=== PATIENT | female | born 1985 | race Caucasian/White ===

== ENCOUNTER 2023-11-07 11:01 | Observation (INO) | payer MEDICARE, MEDICAID, SELFPAY ==
[2023-11-07] VITALS (10 sets, daily range): BP systolic 132–172; BP diastolic 88–98; PULSE 77–115; RESP 16–20; TEMP 36.3–36.9; O2SAT 98–99; BMI 25.4; BMI 21.8
[2023-11-07] MEDS: 0.9 % SODIUM CHLORIDE 1,000 ML 999 ML IV (11:35)
[2023-11-07] MEDS: ONDANSETRON PF 4 MG/2 ML VIAL IV ×3 (11:35→18:44)
[2023-11-07] MEDS: PROMETHAZINE HCL 25 MG in 0.9 % SODIUM CHLORIDE 50 ML 204 MG IV (11:35)
[2023-11-07 11:39] LABS: Hematocrit 39.4 % (36.0-48.0); Hemoglobin 13.5 g/dL (12.0-16.0); Mean Corpuscular HGB Conc 34.3 g/dL (29.9-35.2); Mean Corpuscular Hemoglobin 31.3 pg (26.7-34.0); Mean Corpuscular Volume 91.4 fL (81.0-99.0); Mean Platelet Volume 9.2 fL (9.5-13.5); Platelet Count 466 10^3/uL (150-450); Red Blood Count 4.31 10^6/uL (4.20-5.40); Red Cell Distribution Width 12.2 % (11.0-15.0); White Blood Count 23.3 10^3/uL (4.0-11.0)
--- NOTE | 2023-11-07 11:46 | ED_ITS ---
HPI - General Adult General Chief complaint: Abdominal Pain Stated complaint: NAUSEA AND VOMITING Time Seen by Provider: 11/07/23 11:06 Source: patient Mode of arrival: walk-in Limitations: no limitations History of Present Illness HPI narrative: Nausea, vomiting and mid abdominal pain started yesterday. No relief taking reglan and phenergan at home - not sure who prescribed both of these for her, would not recommend taking both together. She told me that she was leaving town to go on vacation and we had to turn around and come back because of the vomiting and the pain. No urinary symptoms. No diarrhea. She told me that she saw blood in her emesis earlier but when she vomited shortly after arrival it was just gastric juices that came up in the basin - no blood. Related Data Home Medications ?Medication ?Instructions ?Recorded ?Confirmed clonidine HCl 0.1 mg tablet 0.1 mg PO BID 11/07/23 11/07/23 cyanocobalamin (vitamin B-12) 1,000 mcg PO DAILY 11/07/23 11/07/23 1,000 mcg tablet ergocalciferol (vitamin D2) 1,250 1,250 mcg PO .weekly 11/07/23 11/07/23 mcg (50,000 unit) capsule lisdexamfetamine 10 mg capsule 10 mg PO DAILY 11/07/23 11/07/23 promethazine 25 mg tablet 25 mg PO Q6H PRN vomiting 11/07/23 11/07/23 propranolol 40 mg tablet 40 mg PO Q12H 11/07/23 11/07/23 quetiapine 50 mg tablet 150 mg PO DAILY 11/07/23 11/07/23 tizanidine 6 mg capsule 6 mg PO Q12H PRN muscle spasticity 11/07/23 11/07/23 Allergies Allergy/AdvReac Type Severity Reaction Status Date / Time No Known Drug Allergies Allergy Verified 11/07/23 11:05 Exam Narrative Exam Narrative: Nurses notes and vital signs reviewed and patient is not hypoxic. afebrile General: Well-appearing and in no apparent distress. Skin: Warm, dry, no pallor noted. No rash. Head: Normocephalic, atraumatic. Neck: Supple, non-tender. Eye: Pupils are equal, round and EOMI. No scleral icterus. Ears, Nose, Mouth, and Throat: Oral mucosa is moist Cardiovascular: tachycardia. Respiratory: No accessory muscle use or respiratory distress. Lungs are clear to auscultation, no wheezing, rales or rhonchi Chest Wall: no tenderness Back: No CVA tenderness Musculoskeletal: normal ROM, no calf or popliteal tenderness, no lower extremity edema/swelling GI: Abdomen is soft, non-distended. Normal bowel sounds. No masses appreciated. midline tenderness to palpation. No rebound, guarding, or rigidity noted. Neurological: A&O x4. No cranial nerve dysfunction observed. No truncal ataxia. Moves all extremities. Sensation intact. Psychiatric: Cooperative and interactive. Normal mood and affect. Constitutional Vital Signs, click to edit/add: Last Vital Signs Temp 97.4 F L 11/07/23 11:09 Pulse 115 H 11/07/23 11:09 Resp 20 11/07/23 11:09 BP 158/98 H 11/07/23 11:09 Pulse Ox 98 11/07/23 11:09 O2 Del Method Room Air 11/07/23 11:09 Course Vital Signs Vital signs: Vital Signs Temperature 97.4 F L 11/07/23 11:09 Pulse Rate 115 H 11/07/23 11:09 Respiratory Rate 20 11/07/23 11:09 Blood Pressure 158/98 H 11/07/23 11:09 Pulse Oximetry 98 11/07/23 11:09 Oxygen Delivery Method Room Air 11/07/23 11:09 Temperature 97.4 F L 11/07/23 11:09 Pulse Rate 115 H 11/07/23 11:09 Respiratory Rate 20 11/07/23 11:09 Blood Pressure 158/98 H 11/07/23 11:09 Pulse Oximetry 98 11/07/23 11:09 Oxygen Delivery Method Room Air 11/07/23 11:09 Medical Decision Making MDM Narrative Medical decision making narrative: Peripheral IV established and blood drawn and sent for testing. The patient was ordered to receive normal saline IV fluid bolus, IV Zofran and IV Phenergan. Abdominal x-rays also ordered to be obtained. WBC 23k. CMP notable for decreased CO2 at 19, slightly elevated Cr 1.3, normal LFTs, total bilirubin and lipase. Procalcitonin negative but Lactate elevated at 4. Abd xrays normal - no ileus or obstruction Patient sent for CT scan abd and pelvis with IVC. She was given IV Cipro for sepsis coverage. Blood cultures pending and she could not give us a urine sample. CT = no acute abdominal or pelvic process, nothing to account for the patient's symptoms. Patient was still unable to give us a urine sample at the conclusion of the patient's workup. Despite getting multiple doses of anti-emetics and pain meds, she felt no better. She was agreeable to admission. Discussed admission and call placed to the sonography technician hospitalist. Dr Metcalf and I discussed the patient's case and she agreed to admit the patient for continued treatment - OVF, antiemetics, trending lactate, check urine once patient gives a sample. I do not have a source of the sepsis at this point - may be reactive from dehydration secondary to vomiting. Lab Data Lab results reviewed: Yes I reviewed the patient's lab results Labs: Lab Results 11/07/23 11/07/23 Range/Units 11:27 13:53 WBC 23.3 H (4.0-11.0) 10^3/uL RBC 4.31 (4.20-5.40) 10^6/uL Hgb 13.5 (12.0-16.0) g/dL Hct 39.4 (36.0-48.0) % MCV 91.4 (81.0-99.0) fL MCH 31.3 (26.7-34.0) pg MCHC 34.3 (29.9-35.2) g/dL RDW 12.2 (11.0-15.0) % Plt Count 466 H (150-450) 10^3/uL MPV 9.2 L (9.5-13.5) fL Seg Neuts % (Manual) 92.0 Lymphocytes % (Manual) 5.0 L (20.5-60.0) % Monocytes % (Manual) 3.0 (1.7-12.0) % Eosinophils % (Manual) 0.0 L (0.9-7.0) % Basophils % (Manual) 0.0 L (0.2-2.0) % Neutrophils # (Manual) 21.43 H (1.4-6.5) 10^3/uL Lymphocytes # (Manual) 1.16 L (1.20-3.80) 10^3/uL Monocytes # (Manual) 0.69 (0.30-0.80) 10^3/uL Eosinophils # (Manual) 0.00 (0.00-0.70) 10^3/uL Basophils # (Manual) 0.00 (0.00-0.10) 10^3/uL Sodium 138 (136-145) mmol/L Potassium 3.6 (3.5-5.1) mmol/L Chloride 99 (98-107) mmol/L Carbon Dioxide 19.1 L (21.0-32.0) mmol/L Anion Gap 23.5 BUN 16.0 (7.0-18.0) mg/dL Creatinine 1.31 H (0.55-1.02) mg/dL Est GFR ( Amer) 54 L (>=60) Est GFR (Non-Af Amer) 45 L (>=60) BUN/Creatinine Ratio 12.2 Glucose 112 H (74-106) mg/dL Lactate 4.0 H* (0.4-2.0) mmol/L Calcium 9.8 (8.5-10.1) mg/dL Total Bilirubin 0.9 (0.2-1.0) mg/dL AST 23 (15-37) U/L ALT 18 (14-59) U/L Alkaline Phosphatase 101 (46-116) U/L Total Protein 8.6 H (6.4-8.2) g/dL Albumin 4.8 (3.4-5.0) g/dL Globulin 3.8 g/dL Albumin/Globulin Ratio 1.3 Lipase 18.0 (16.0-77.0) U/L Procalcitonin <0.05 (0.00-0.50) ng/mL Urine Color Lt. yellow (YELLOW) Urine Clarity Clear (CLEAR) Urine pH 6.0 (5.0-9.0) Ur Specific [place] 1.010 (1.005-1.025) Urine Protein Negative (NEG/TRACE) mg/dL Urine Glucose (UA) Negative (NEGATIVE) mg/dL Urine Ketones 15 A (NEGATIVE) mg/dL Urine Occult Blood Trace-i (NEGATIVE) Urine Nitrite Negative (NEGATIVE) Urine Bilirubin Negative (NEGATIVE) Urine Urobilinogen 0.2 (0.2-1.0) EU/dL Ur Leukocyte Esterase Negative (NEGATIVE) Imaging Data CT scan - abdomen: Radiologist's impression: ITS Impressions Abdomen X-Ray 11/07/23 11:49 IMPRESSION: Negative gas pattern without evidence of ileus or obstruction. No free air. Electronically authenticated by: DELMY HERRERA Date: 11/07/2023 12:42 Abdomen/Pelvis CT 11/07/23 12:41 Impression: 1. No evidence of acute abdominal or pelvic process. 2. Mild diffuse fatty infiltration of the liver. Small hiatus hernia. Electronically authenticated by: NAYELI ISAAC Date: 11/07/2023 13:57 Discharge Plan Discharge Stand Alone Forms: Portal Instructions Chief Complaint: Abdominal Pain Clinical Impression: Intractable abdominal pain, Severe sepsis, Intractable nausea and vomiting Patient Disposition: Admitted as Observation Time of Disposition Decision: 14:24 Prescriptions / Home Meds: No Action clonidine HCl 0.1 mg tablet 0.1 mg PO BID cyanocobalamin (vitamin B-12) 1,000 mcg tablet 1,000 mcg PO DAILY ergocalciferol (vitamin D2) 1,250 mcg (50,000 unit) capsule 1,250 mcg PO .weekly lisdexamfetamine 10 mg capsule 10 mg PO DAILY promethazine 25 mg tablet 25 mg PO Q6H PRN (Reason: vomiting) propranolol 40 mg tablet 40 mg PO Q12H quetiapine 50 mg tablet 150 mg PO DAILY tizanidine 6 mg capsule 6 mg PO Q12H PRN (Reason: muscle spasticity) Print Language: Hungarian Referrals: Beck Christina MD [Primary Care Provider] - 1 week
--- NOTE | 2023-11-07 11:49 | XR_ITS ---
The [address] [address] Patient Name: MARCELINO XAVIER MRN: [id number] date: 1985 Sex: F Assigned Patient Location: ER Current Patient Location: ER Accession/Order Number: [id number] Exam Date: 11/07/2023 12:05 Report Date: 11/07/2023 12:42 At the request of: KENNETH DURAN Procedure: XR abdomen min 2V EXAM: XR abdomen min 2V HISTORY: abd pain, vomiting COMPARISON: None. TECHNIQUE: Supine and upright abdominal x-ray. FINDINGS: No bowel distention or free air seen. Small amounts of bowel gas centrally and in the pelvis. Soft tissues unremarkable except for vascular clips right upper quadrant and a few vascular calcifications. Lung bases clear. Mild scoliosis may be positional. No focal bone lesion or bony abnormality. XR/XR abdomen min 2V IMPRESSION: Negative gas pattern without evidence of ileus or obstruction. No free air. Electronically authenticated by: DELMY HERRERA Date: 11/07/2023 12:42
[2023-11-07] MEDS: KETOROLAC TROMETHAMINE 30 MG/ML VIAL IVP ×2 (11:54→18:44)
[2023-11-07 12:06] LABS: Lymphocytes Absolute Manual 1.16 10^3/uL (1.20-3.80); Monocytes Absolute Manual 0.69 10^3/uL (0.30-0.80); Segmented Neut Absolute Manual 21.43 10^3/uL (1.4-6.5)
[2023-11-07 12:13] LABS: Alanine Aminotransferase 18 U/L (14-59); Albumin Globulin Ratio 1.3; Albumin Level 4.8 g/dL (3.4-5.0); Anion Gap 23.5; Aspartate Amino Transferase 23 U/L (15-37); BUN Creatinine Ratio 12.2; Bilirubin Total 0.9 mg/dL (0.2-1.0); Calcium 9.8 mg/dL (8.5-10.1); Carbon Dioxide 19.1 mmol/L (21.0-32.0); Chloride 99 mmol/L (98-107); Estimated GFR (African America 54 (>=60); Estimated GFR (Non-African Ame 45 (>=60); Globulin 3.8 g/dL; Glucose 112 mg/dL (74-106); PROCALCITONIN <0.05 ng/mL (0.00-0.50); Potassium 3.6 mmol/L (3.5-5.1); Sodium 138 mmol/L (136-145); Total Protein 8.6 g/dL (6.4-8.2)
[2023-11-07 12:26] LABS: Alkaline Phosphatase 101 U/L (46-116)
[2023-11-07] MEDS: 0.9 % SODIUM CHLORIDE 1,000 ML 1000 ML IV (12:31)
--- NOTE | 2023-11-07 12:41 | CT_ITS ---
[address] [address] Patient Name: MARCELINO XAVIER MRN: [id number] date: 1985 Sex: F Assigned Patient Location: ER Current Patient Location: Accession/Order Number: [id number] Exam Date: 11/07/2023 13:15 Report Date: 11/07/2023 13:57 At the request of: KENNETH DURAN Procedure: CT abdomen pelvis w con Indication: Abdominal pain. Vomiting. Comparison: 12/08/2021 exam Procedure: Axial images were made from the diaphragms through the symphysis pubis. No oral contrast was given prior to scanning. 100 mL Omnipaque 300 Intravenous contrast was given. Dose reduction techniques were achieved by using automated exposure control and/or adjustment of mA and/or kV according to patient size and/or use of iterative reconstruction technique. Findings: Liver/Biliary System: No liver masses are seen. Mild diffuse fatty infiltration of the liver. No intra or extrahepatic biliary dilatation. Status postcholecystectomy. Pancreas/Spleen: No evidence of acute pancreatitis. Pancreatic duct is not dilated. No pancreatic lesions are seen. No splenomegaly or splenic lesions. Kidneys/Adrenals: Normal symmetrical nephrograms. No renal masses. No renal or ureteral stones are seen. No hydronephrosis or hydroureter bilaterally. No adrenal nodules. Aorta/Vessels: No evidence of aortic aneurysm. Patent IVC, renal veins, hepatic veins and portal venous system. Bowel/Fluid/Nodes: No bowel dilatation or bowel wall thickening. No evidence of bowel obstruction. Normal appendix. Small hiatus hernia. No ascites or fluid collections. No adenopathy. Lung bases: Clear. Other findings: No aggressive osseous lesions are seen. Pelvis: No pelvic masses or adenopathy. No free fluid seen in the pelvis. Bladder and adnexa are unremarkable. Status post hysterectomy. Other Findings: No aggressive osseous lesions are seen. CT/CT abdomen pelvis w con Impression: 1. No evidence of acute abdominal or pelvic process. 2. Mild diffuse fatty infiltration of the liver. Small hiatus hernia. Electronically authenticated by: NAYELI ISAAC Date: 11/07/2023 13:57
[2023-11-07] MEDS: HYDROMORPHONE HCL 1 MG/ML CARTRIDGE IVP ×2 (12:53→14:27)
[2023-11-07] MEDS: CIPROFLOXACIN IN 5 % DEXTROSE 400 MG/200 ML PIGGYBACK 200 MG IV (12:54)
[2023-11-07 14:18] LABS: Bilirubin Urine NEGATIVE (NEGATIVE); Blood Urine TRACE-I (NEGATIVE); Clarity Urine CLEAR (CLEAR); Color Urine LT. YELLOW (YELLOW); Glucose Urine UA NEGATIVE (NEGATIVE); Ketones Urine 15 mg/dL (NEGATIVE); Leukocyte Esterase Urine NEGATIVE (NEGATIVE); Nitrite Urine NEGATIVE (NEGATIVE); Protein Urine NEGATIVE (NEG/TRACE); Urobilinogen Urine 0.2 EU/dL (0.2-1.0)
[2023-11-07 14:19] LABS: Urine Microscopic Indicated YES
[2023-11-07 14:32] LABS: Bacteria Urine TRACE #/HPF (NONE SEEN); Cast Seen? NONE SEEN #/LPF (NONE SEEN); Crystals Seen? None Seen #/HPF (None Seen); Mucus Urine TRACE (NONE SEEN); RBC Urine 0-2 #/HPF (0-2); Squamous Epithelial Cell Urine MANY #/LPF (NONE/RARE); Urine Culture Indicated NO; WBC Urine NONE SEEN #/HPF (NONE SEEN)
[2023-11-07 15:20] LABS: Lactate/Lactic Acid 1.8 mmol/L (0.4-2.0)
[2023-11-07 15:44] LABS: Amphetamine Screen Urine NEGATIVE (NEGATIVE); Cannabinoid Screen Urine POSITIVE (NEGATIVE); Cocaine Screen Urine NEGATIVE (NEGATIVE); Methamphetamines Screen Urine NEGATIVE (NEGATIVE); Opiate Screen Urine POSITIVE (NEGATIVE); Phencyclidine Screen Urine NEGATIVE (NEGATIVE)
[2023-11-07 15:46] LABS: Barbiturates Screen Urine NEGATIVE (NEGATIVE); Benzodiazepines Screen Urine NEGATIVE (NEGATIVE); Buprenorphine Screen Urine NEGATIVE (NEGATIVE); Methadone Screen Urine NEGATIVE (NEGATIVE); Oxycodone Screen Urine NEGATIVE (NEGATIVE); Tricyclic Antidepressant Urine NEGATIVE (NEGATIVE)
[2023-11-07 16:02] LABS: Hemoglobin 11.8 g/dL (12.0-16.0); Mean Corpuscular HGB Conc 33.7 g/dL (29.9-35.2); Mean Corpuscular Hemoglobin 31.6 pg (26.7-34.0); Mean Corpuscular Volume 93.6 fL (81.0-99.0); Mean Platelet Volume 9.2 fL (9.5-13.5); Platelet Count 325 10^3/uL (150-450); Red Blood Count 3.74 10^6/uL (4.20-5.40); Red Cell Distribution Width 12.4 % (11.0-15.0); White Blood Count 18.4 10^3/uL (4.0-11.0)
[2023-11-07 16:27] LABS: Segmented Neut Absolute Manual 15.64 10^3/uL (1.4-6.5)
[2023-11-07 16:28] LABS: Band Neutrophils Absolute 0.4 10^3/uL (0.0-0.3); Lymphocytes Absolute Manual 0.73 10^3/uL (1.20-3.80); Monocytes Absolute Manual 1.65 10^3/uL (0.30-0.80)
--- NOTE | 2023-11-07 16:39 | P.HP_ITS ---
HPI H&P: HPI History of Present Illness Chief complaint: NAUSEA AND VOMITING severe sepsis intractable abdo Narrative: patient is a 38-year-old female with past medical history of POTS, depression, and anxiety who presents to the hospital today with a sore throat and some nausea and vomiting. She notes that she was group home to [place] and had to turn around because of car trouble but then developed some nausea and vomiting of which she could not stop. She has a history of cyclic vomiting but has been many months since hospitalization for this. Her urine drug screen was positive for THC. She has been taking amoxicillin for some presumed strep throat, but nothing that was ever cultured or diagnosed. 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 In the emergency department she was found to have a leukocytosis, tachycardia, elevated lactate and met sepsis criteria so was given IV fluid bolus/hydration. At the time of admission exam she states that her nausea and vomiting have improved, but still just feels achy, and still reports a sore throat. She has had a few bouts of diarrhea, but no fevers reported. She was admitted to the hospitalist service for further treatment. Opioid HPI Opioid Management Most Recent Opioid Data: Last Pain Assessment 11/07/23 17:03 Last MAR Pain Assessment 11/07/23 17:01 Last ORT Total Score 1 11/07/23 16:18 Last ORT Risk Category Low Risk 11/07/23 16:18 Ur Phencyclidine Scrn Negative (NEGATIVE) 11/07/23 13:53 Review of Systems ROS Narrative ROS: a complete review of systems were reviewed with patient and are positive as below or listed in History of Chief Complaint. General: no fever, chills, night sweats Head: no headache, trauma, visual changes Skin: no reported rashes, itching or sores Eyes: no blurriness of vision Ears: no reported hearing loss, vertigo, earache, or tinnitus Throat: sore throat, no hoarseness, swelling of neck, or tongue pain Heart: no chest pain Lungs: no shortness of breath or cough GI: diarrhea and vomiting/nausea Urinary: no urinary urgency, frequency or pain Neuro: no numbness or tingling HEM: no bleeding issues or bruising ENDO: no thyroid problems Psych: anxiety and depression [facility] Medical History (Updated 11/07/23 @ 17:39 by Aga Metcalf DO) 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, unspecified (ICD-10) Hypertension ?I10 - Essential (primary) hypertension (ICD-10) Cyclical vomiting ?R11.15 - Cyclical vomiting syndrome unrelated to migraine (ICD-10) POTS (postural orthostatic tachycardia syndrome) ?G90.A - Postural orthostatic tachycardia syndrome [POTS] (ICD-10) Surgical History History of removal of Port-a-Cath ?Z98.890 - Other specified postprocedural states (ICD-10) H/O LEEP ?Z98.890 - Other specified postprocedural states (ICD-10) H/O: hysterectomy ?Z90.710 - Acquired absence of both cervix and uterus (ICD-10) History of cholecystectomy ?Z90.49 - Acquired absence of other specified parts of digestive tract (ICD- 10) Family History Father Family history of diabetes mellitus Mother Family history of hypertension Family history of myocardial infarction Social History Within the past year, how often did you have a drink containing alcohol: never Within the past year, how many standard drinks containing alcohol did you have on a typical day: 1 or 2 Within the past year, how often did you have six or more drinks on one occasion: never Total score: 0 Score interpretation: A score less than 3 is consistent with normal alcohol consumption. Smoking status: Never smoker Second hand tobacco smoke exposure: No Non-prescribed substance use: denies use Known occupational exposures/hazards: No Highest level of school completed/degree received: some college, no degree Are you now , , , , never or living with a partner: In a typical week, how many times do you talk on the telephone with family, friends, or neighbors: 3 or more times per week How often do you get together with friends or relatives: 3 or more times per week How often do you attend pentecostal or alevism services: never Do you belong to any clubs or organizations such as pentecostal groups unions, fraternal or athletic groups, or school groups: no Total score: 2 Score interpretation: A score of greater than or equal to [address] [facility] [address] level of social isolation. Little interest or pleasure in doing things: not at all Feeling down, depressed, or hopeless: not at all Feel stressed/tense/nervous/anxious/difficulty sleeping: not at all Due to disability, difficulty making decisions: No Do you think of yourself as: straight/heterosexual Gender Identity: female Meds Home Medications and Allergies Home Medications ?Medication ?Instructions ?Recorded ?Confirmed ?Type amoxicillin 500 mg capsule 500 mg PO Q8H 11/07/23 11/07/23 History atomoxetine 80 mg capsule 80 mg PO .QD 11/07/23 11/07/23 History clonidine HCl 0.1 mg tablet 0.1 mg PO BID 11/07/23 11/07/23 History cyanocobalamin (vitamin B-12) 1,000 mcg PO DAILY 11/07/23 11/07/23 History 1,000 mcg tablet ergocalciferol (vitamin D2) 1,250 1,250 mcg PO .weekly 11/07/23 11/07/23 History mcg (50,000 unit) capsule lisdexamfetamine 10 mg capsule 10 mg PO DAILY 11/07/23 11/07/23 History propranolol 20 mg tablet 20 mg PO Q12H 11/07/23 11/07/23 History propranolol 40 mg tablet 40 mg PO Q12H 11/07/23 11/07/23 History quetiapine 50 mg tablet 150 mg PO DAILY 11/07/23 11/07/23 History tizanidine 6 mg capsule 6 mg PO Q12H PRN muscle spasticity 11/07/23 11/07/23 History Allergies Allergy/AdvReac Type Severity Reaction Status Date / Time No Known Drug Allergies Allergy Verified 11/07/23 11:05 Exam Narrative Exam Narrative: General: Patient is alert, and oriented to person, place and time with normal affect, proper hygiene Skin: no visible rashes, or ulcers Head: atraumatic, acephalic Eyes: PERRLA, no nystagmus present, conjunctiva clear, no scleral icterus Ears: normal gross auditory acuity Nose: symmetric, no discharge, no maxillary or frontal sinus tenderness Mouth/Throat: no erythema, exudate, or tonsillar enlargement, normal dentition Neck: no masses palpated, normal thyroid, no JVD or audible carotid bruits Heart: Normal rate and rhythm, no murmurs/rubs/gallops Lungs: no audible wheezes, crackles and normal breath sounds all lung [place] Abdomen: Normal audible bowel sounds, no distension, No palpable masses, no organomegaly, no rebound/guarding/ or rigidity Musculoskeletal: no swelling bilateral lower extremities Neuro: CN II-X grossly intact Constitutional Vital Signs, click to edit/add: Last Vital Signs Temp 98.2 F 11/07/23 16:23 Pulse 102 H 11/07/23 16:23 Resp 16 11/07/23 16:23 BP 132/88 11/07/23 16:23 Pulse Ox 98 11/07/23 16:23 O2 Del Method Room Air 11/07/23 16:23 Results Labs Labs: Short CBC 11/07/23 11/07/23 Range/Units 11:27 15:53 WBC 23.3 H 18.4 H (4.0-11.0) 10^3/uL Hgb 13.5 11.8 L (12.0-16.0) g/dL Hct 39.4 35.0 L (36.0-48.0) % Plt Count 466 H 325 (150-450) 10^3/uL BMP 11/07/23 11:27 Sodium 138 Potassium 3.6 Chloride 99 Carbon Dioxide 19.1 L BUN 16.0 Creatinine 1.31 H Glucose 112 H Calcium 9.8 Liver Function 11/07/23 Range/Units 11:27 Total Bilirubin 0.9 (0.2-1.0) mg/dL AST 23 (15-37) U/L ALT 18 (14-59) U/L Alkaline Phosphatase 101 (46-116) U/L Albumin 4.8 (3.4-5.0) g/dL Urine 11/07/23 Range/Units 13:53 Urine Color Lt. yellow (YELLOW) Urine Clarity Clear (CLEAR) Urine pH 6.0 (5.0-9.0) Ur Specific [place] 1.010 (1.005-1.025) Urine Protein Negative (NEG/TRACE) mg/dL Urine Glucose (UA) Negative (NEGATIVE) mg/dL Assessment and Plan Assessment and Plan (1) Sepsis: Assessment and Plan: daugherty cultures obtained, patient was given Cipro in the emergency department, IV fluid boluses were also initiated. I started lactated Ringer's at one 25 mL/h. Lactate was originally elevated and then came down to normal on recheck at 1.8. Patient also had leukocytosis of twenty-three which came down to eighteen with some IV fluids. Urinalysis was negative, blood cultures, respiratory panel and strep screen are all pending. I have not initiated any further antibiotics until results come back. Qualifiers: Sepsis type: sepsis due to unspecified organism Sepsis acute organ dysfunction status: without acute organ dysfunction Qualified Code(s): A41.9 - Sepsis, unspecified organism (2) Nausea and vomiting: Assessment and Plan: continue Zofran IV as needed, may also be due to THC use Qualifiers: Vomiting type: unspecified Qualified Code(s): R11.2 - Nausea with vomiting, unspecified (3) Hypertension: Assessment and Plan: continue home medications Qualifiers: Hypertension type: primary hypertension Qualified Code(s): I10 - Essential (primary) hypertension (4) POTS (postural orthostatic tachycardia syndrome): Assessment and Plan: monitor closely fluid hydration status, continue propranolol Plan patient is a full code Patient as an observation status and is expected to not cross two midnights Patient will be placed on Lovenox for deep vein thrombosis prophylaxis, advance diet to clear liquids
[2023-11-07] MEDS: ACETAMINOPHEN 325 MG TABLET 650 MG PO (17:01)
[2023-11-07] MEDS: LACTATED RINGER'S SOLUTION 1,000 ML 125 ML IV (17:16)
[2023-11-07] MEDS: PANTOPRAZOLE SODIUM 40 MG VIAL IV (17:16)
[2023-11-07 17:38] LABS: Adenovirus NOT DETECTED (NOT DETECTE); Bordetella parapertussis NOT DETECTED (NOT DETECTE); Coronavirus 229E NOT DETECTED (NOT DETECTE); Coronavirus HKU1 NOT DETECTED (NOT DETECTE); Coronavirus OC43 NOT DETECTED (NOT DETECTE); Human Metapneumovirus NOT DETECTED (NOT DETECTE); Human Rhinovirus/Enterovirus NOT DETECTED (NOT DETECTE); Influenza A NOT DETECTED (NOT DETECTE); Influenza B NOT DETECTED (NOT DETECTE); Mycoplasma pneumoniae NOT DETECTED (NOT DETECTE); Parainfluenza Virus 1 NOT DETECTED (NOT DETECTE); Parainfluenza Virus 2 NOT DETECTED (NOT DETECTE); Parainfluenza Virus 3 NOT DETECTED (NOT DETECTE); Parainfluenza Virus 4 NOT DETECTED (NOT DETECTE); Respiratory Syncytial Virus NOT DETECTED (NOT DETECTE); SARS-CoV-2 NOT DETECTED (NOT DETECTE)
[2023-11-07 17:50] LABS: Internal Control Within Normal Limits; Strep A Antigen Screen Negative
[2023-11-07 18:50] LABS: Coronavirus NL63 DETECTED (NOT DETECTE)
[2023-11-07] MEDS: CLONIDINE HCL 0.1 MG TABLET 0.100000000000000006 MG PO (20:22)
[2023-11-07] MEDS: PROPRANOLOL HCL 20 MG TABLET 40 MG PO (20:23)
[2023-11-07] MEDS: PROCHLORPERAZINE 10 MG/2 ML VIAL IV (22:00)
[2023-11-08] VITALS (12 sets, daily range): BP systolic 123–154; BP diastolic 76–105; PULSE 79–105; RESP 16–18; TEMP 36.7–36.9; O2SAT 95–97
[2023-11-08] MEDS: LACTATED RINGER'S SOLUTION 1,000 ML 125 ML IV ×2 (00:14→08:09)
[2023-11-08] MEDS: ONDANSETRON PF 4 MG/2 ML VIAL IV (01:14)
[2023-11-08] MEDS: KETOROLAC TROMETHAMINE 30 MG/ML VIAL IVP ×2 (01:14→09:24)
[2023-11-08 05:36] LABS: Alanine Aminotransferase 13 U/L (14-59); Albumin Globulin Ratio 1.1; Albumin Level 3.6 g/dL (3.4-5.0); Alkaline Phosphatase 76 U/L (46-116); Anion Gap 15.5; Aspartate Amino Transferase 24 U/L (15-37); BUN Creatinine Ratio 13.5; Carbon Dioxide 23.9 mmol/L (21.0-32.0); Chloride 102 mmol/L (98-107); Estimated GFR (African America >60 (>=60); Estimated GFR (Non-African Ame >60 (>=60); Globulin 3.2 g/dL; Glucose 96 mg/dL (74-106); Potassium 3.4 mmol/L (3.5-5.1); Sodium 138 mmol/L (136-145); Total Protein 6.8 g/dL (6.4-8.2)
[2023-11-08 05:54] LABS: Hematocrit 32.2 % (36.0-48.0); Hemoglobin 11.3 g/dL (12.0-16.0); Mean Corpuscular HGB Conc 35.1 g/dL (29.9-35.2); Mean Corpuscular Volume 91.2 fL (81.0-99.0); Mean Platelet Volume 9.8 fL (9.5-13.5); Platelet Count 322 10^3/uL (150-450); Red Blood Count 3.53 10^6/uL (4.20-5.40); Red Cell Distribution Width 12.6 % (11.0-15.0)
[2023-11-08 06:39] LABS: Atypical Lymphocytes Abs Man 0.45; Band Neutrophils Absolute 0.2 10^3/uL (0.0-0.3); Monocytes Absolute Manual 1.95 10^3/uL (0.30-0.80); Segmented Neut Absolute Manual 11.25 10^3/uL (1.4-6.5)
[2023-11-08] MEDS: CLONIDINE HCL 0.1 MG TABLET 0.100000000000000006 MG PO (08:09)
[2023-11-08] MEDS: PROPRANOLOL HCL 20 MG TABLET 40 MG PO (08:09)
--- NOTE | 2023-11-08 08:41 | PM.DS1 ---
DS: Providers Provider Date of admission: 11/07/23 14:41 Primary care physician: Beck Christina MD Admitting clinician: Aga Metcalf Attending physician on discharge: Aga Metcalf DS: Diagnosis Discharge Diagnosis (1) Sepsis: Qualifiers: Sepsis acute organ dysfunction status: without acute organ dysfunction Sepsis type: sepsis due to unspecified organism Qualified Code(s): A41.9 - Sepsis, unspecified organism (2) Nausea and vomiting: Qualifiers: Vomiting type: unspecified Qualified Code(s): R11.2 - Nausea with vomiting, unspecified (3) Hypertension: Qualifiers: Hypertension type: primary hypertension Qualified Code(s): I10 - Essential (primary) hypertension (4) POTS (postural orthostatic tachycardia syndrome): (5) Coronavirus infection: DS: Summary Hospital Course Hospital Course: patient is a 38-year-old female with past medical history of POTS, depression, and anxiety who presents to the hospital today with a sore throat and some nausea and vomiting. Admitted on 11/07/23 for viral URI, sepsis. Strep tests negative, UA negative, WBC's improving today. Symptoms of n/v/d have resolved. Patient has remained afebrile. She received IVF and antiemetics. Viral cultures positive for a coronvirus. Symptomatic treatment only. Not requiring oxygen. At the time of discharge she is almost feeling back to baseline. She wants to go home. She is to follow bland diet for a few days and advance as tolerated. She has Reglan and Phenergan at home if she needs. I placed her on Tessalon perles for cough. She is to return to ED with any worsening signs or symptoms. Follow up with pcp 5-[address] of Abd/pelvis showed no acute findings. Normal exam at the time of discharge. Status at Discharge Functional status at discharge: independent ambulation Overall status at discharge: patient is progressing back to baseline Time Spent with Patient Time attestation: Total time spent providing and/or coordinating discharge services: Time spent: less than 30 minutes Exam Narrative Exam Narrative: General: Patient is alert, and oriented to person, place and time with normal affect, proper hygiene Skin: no visible rashes, or ulcers Head: atraumatic, acephalic Neck: no masses palpated, normal thyroid, no JVD or audible carotid bruits Heart: Normal rate and rhythm, no murmurs/rubs/gallops Lungs: no audible wheezes, crackles and normal breath sounds all lung [place] Abdomen: Normal audible bowel sounds, no distension, No palpable masses, no organomegaly, no rebound/guarding/ or rigidity Musculoskeletal: no swelling bilateral lower extremities Neuro: CN II-X grossly intact Constitutional Vital Signs, click to edit/add: Last Vital Signs Temp 98.3 F 11/08/23 07:58 Pulse 105 H 11/08/23 08:00 Resp 16 11/08/23 07:58 BP 133/83 11/08/23 07:58 Pulse Ox 95 11/08/23 07:58 O2 Del Method Room Air 11/08/23 07:58 DS: Data Data Completed and Pending Labs on day of discharge: Labs from last 24 hours 11/08/23 11/07/23 11/07/23 05:06 17:32 17:31 WBC 15.0 H RBC 3.53 L Hgb 11.3 L Hct 32.2 L MCV 91.2 MCH 32.0 MCHC 35.1 RDW 12.6 Plt Count 322 MPV 9.8 Seg Neuts % (Manual) 75.0 Band Neutrophils % 1.0 Lymphocytes % (Manual) 8.0 L Atypical Lymphs % (Man) 3.0 Monocytes % (Manual) 13.0 H Eosinophils % (Manual) 0.0 L Basophils % (Manual) 0.0 L Neutrophils # (Manual) 11.25 H Band Neutrophils # 0.2 Lymphocytes # (Manual) 1.20 Abs Atypical Lymphs Man 0.45 Monocytes # (Manual) 1.95 H Eosinophils # (Manual) 0.00 Basophils # (Manual) 0.00 Sodium 138 Potassium 3.4 L Chloride 102 Carbon Dioxide 23.9 Anion Gap 15.5 BUN 10.0 Creatinine 0.74 Est GFR ( Amer) >60 Est GFR (Non-Af Amer) >60 BUN/Creatinine Ratio 13.5 Glucose 96 Lactate Calcium 8.0 L Total Bilirubin 1.0 AST 24 ALT 13 L Alkaline Phosphatase 76 Total Protein 6.8 Albumin 3.6 Globulin 3.2 Albumin/Globulin Ratio 1.1 Lipase Procalcitonin Urine Color Urine Clarity Urine pH Ur Specific [place] Urine Protein Urine Glucose (UA) Urine Ketones Urine Occult Blood Urine Nitrite Urine Bilirubin Urine Urobilinogen Ur Leukocyte Esterase Urine RBC Urine WBC Ur Squamous Epith Cells Urine Crystals Urine Bacteria Urine Casts Urine Mucus Ur Culture Indicated? Urine Opiates Screen Ur Buprenorphine Scrn Ur Oxycodone Screen Urine Methadone Screen Ur Barbiturates Screen U Tricyclic Antidepress Ur Phencyclidine Scrn Ur Amphetamines Screen U Methamphetamines Scrn U Benzodiazepines Scrn Urine Cocaine Screen U Cannabinoids Screen Adenovirus (PCR) Not detected C. pneumoniae DNA (PCR) Not detected Coronavirus Type OC43 Not detected Coronavirus Type HKU1 Not detected Coronavirus Type 229E Not detected Coronavirus Type NL63 Detected A Human Metapneumovir PCR Not detected M. pneumoniae (PCR) Not detected Parainfluenza PCR Not detected Parainfluenza 2 (PCR) Not detected Parainfluenza 3 (PCR) Not detected Parainfluenza 4 (PCR) Not detected RSV (RT-PCR) Not detected Entero/Rhino (PCR) Not detected SARS-CoV-2 (PCR) Not detected Streptococcus Screen Negative Bordetella pertussis (PCR) Not detected B parapertussis DNA PCR Not detected Influenza Type A (PCR) Not detected Influenza Type B (PCR) Not detected 11/07/23 11/07/23 11/07/23 15:53 14:58 13:53 WBC 18.4 H RBC 3.74 L Hgb 11.8 L Hct 35.0 L MCV 93.6 MCH 31.6 MCHC 33.7 RDW 12.4 Plt Count 325 MPV 9.2 L Seg Neuts % (Manual) 85.0 Band Neutrophils % 2.0 Lymphocytes % (Manual) 4.0 L Atypical Lymphs % (Man) Monocytes % (Manual) 9.0 Eosinophils % (Manual) 0.0 L Basophils % (Manual) 0.0 L Neutrophils # (Manual) 15.64 H Band Neutrophils # 0.4 H Lymphocytes # (Manual) 0.73 L Abs Atypical Lymphs Man Monocytes # (Manual) 1.65 H Eosinophils # (Manual) 0.00 Basophils # (Manual) 0.00 Sodium Potassium Chloride Carbon Dioxide Anion Gap BUN Creatinine Est GFR ( Amer) Est GFR (Non-Af Amer) BUN/Creatinine Ratio Glucose Lactate 1.8 Calcium Total Bilirubin AST ALT Alkaline Phosphatase Total Protein Albumin Globulin Albumin/Globulin Ratio Lipase Procalcitonin Urine Color Lt. yellow Urine Clarity Clear Urine pH 6.0 Ur Specific [place] 1.010 Urine Protein Negative Urine Glucose (UA) Negative Urine Ketones 15 A Urine Occult Blood Trace-i Urine Nitrite Negative Urine Bilirubin Negative Urine Urobilinogen 0.2 Ur Leukocyte Esterase Negative Urine RBC 0-2 Urine WBC None seen Ur Squamous Epith Cells Many A Urine Crystals None seen Urine Bacteria Trace A Urine Casts None seen Urine Mucus Trace A Ur Culture Indicated? No Urine Opiates Screen Positive A Ur Buprenorphine Scrn Negative Ur Oxycodone Screen Negative Urine Methadone Screen Negative Ur Barbiturates Screen Negative U Tricyclic Antidepress Negative Ur Phencyclidine Scrn Negative Ur Amphetamines Screen Negative U Methamphetamines Scrn Negative U Benzodiazepines Scrn Negative Urine Cocaine Screen Negative U Cannabinoids Screen Positive A Adenovirus (PCR) C. pneumoniae DNA (PCR) Coronavirus Type OC43 Coronavirus Type HKU1 Coronavirus Type 229E Coronavirus Type NL63 Human Metapneumovir PCR M. pneumoniae (PCR) Parainfluenza PCR Parainfluenza 2 (PCR) Parainfluenza 3 (PCR) Parainfluenza 4 (PCR) RSV (RT-PCR) Entero/Rhino (PCR) SARS-CoV-2 (PCR) Streptococcus Screen Bordetella pertussis (PCR) B parapertussis DNA PCR Influenza Type A (PCR) Influenza Type B (PCR) 11/07/23 11:27 WBC 23.3 H RBC 4.31 Hgb 13.5 Hct 39.4 MCV 91.4 MCH 31.3 MCHC 34.3 RDW 12.2 Plt Count 466 H MPV 9.2 L Seg Neuts % (Manual) 92.0 Band Neutrophils % Lymphocytes % (Manual) 5.0 L Atypical Lymphs % (Man) Monocytes % (Manual) 3.0 Eosinophils % (Manual) 0.0 L Basophils % (Manual) 0.0 L Neutrophils # (Manual) 21.43 H Band Neutrophils # Lymphocytes # (Manual) 1.16 L Abs Atypical Lymphs Man Monocytes # (Manual) 0.69 Eosinophils # (Manual) 0.00 Basophils # (Manual) 0.00 Sodium 138 Potassium 3.6 Chloride 99 Carbon Dioxide 19.1 L Anion Gap 23.5 BUN 16.0 Creatinine 1.31 H Est GFR ( Amer) 54 L Est GFR (Non-Af Amer) 45 L BUN/Creatinine Ratio 12.2 Glucose 112 H Lactate 4.0 H* Calcium 9.8 Total Bilirubin 0.9 AST 23 ALT 18 Alkaline Phosphatase 101 Total Protein 8.6 H Albumin 4.8 Globulin 3.8 Albumin/Globulin Ratio 1.3 Lipase 18.0 Procalcitonin <0.05 Urine Color Urine Clarity Urine pH Ur Specific [place] Urine Protein Urine Glucose (UA) Urine Ketones Urine Occult Blood Urine Nitrite Urine Bilirubin Urine Urobilinogen Ur Leukocyte Esterase Urine RBC Urine WBC Ur Squamous Epith Cells Urine Crystals Urine Bacteria Urine Casts Urine Mucus Ur Culture Indicated? Urine Opiates Screen Ur Buprenorphine Scrn Ur Oxycodone Screen Urine Methadone Screen Ur Barbiturates Screen U Tricyclic Antidepress Ur Phencyclidine Scrn Ur Amphetamines Screen U Methamphetamines Scrn U Benzodiazepines Scrn Urine Cocaine Screen U Cannabinoids Screen Adenovirus (PCR) C. pneumoniae DNA (PCR) Coronavirus Type OC43 Coronavirus Type HKU1 Coronavirus Type 229E Coronavirus Type NL63 Human Metapneumovir PCR M. pneumoniae (PCR) Parainfluenza PCR Parainfluenza 2 (PCR) Parainfluenza 3 (PCR) Parainfluenza 4 (PCR) RSV (RT-PCR) Entero/Rhino (PCR) SARS-CoV-2 (PCR) Streptococcus Screen Bordetella pertussis (PCR) B parapertussis DNA PCR Influenza Type A (PCR) Influenza Type B (PCR) Discharge Plan Discharge Disposition: Home, Self-Care Discharge Medications: New benzonatate 100 mg Capsule 200 mg PO Q8H 3 Days Qty: 18 0RF Continued clonidine HCl 0.1 mg tablet 0.1 mg PO BID cyanocobalamin (vitamin B-12) 1,000 mcg tablet 1,000 mcg PO DAILY ergocalciferol (vitamin D2) 1,250 mcg (50,000 unit) capsule 1,250 mcg PO .weekly lisdexamfetamine 10 mg capsule 10 mg PO DAILY propranolol 40 mg tablet 40 mg PO Q12H quetiapine 50 mg tablet 150 mg PO DAILY tizanidine 6 mg capsule 6 mg PO Q12H PRN (Reason: muscle spasticity) atomoxetine 80 mg capsule 80 mg PO .QD metoclopramide HCl 10 mg tablet 20 mg PO .amhs promethazine 25 mg tablet 25 mg PO Q6H PRN (Reason: nausea and vomiting) Discontinued amoxicillin 500 mg capsule 500 mg PO Q8H Rx Instructions: ORDERED FOR 10 DAYS - END DATE 11-11-23 propranolol 20 mg tablet 20 mg PO Q12H Activity: increase activity as tolerated Diet: advance to your usual diet Print Language: Filipino Patient Instructions: Acute Nausea and Vomiting (DC), Acute Abdominal Pain (DC) Forms: Portal Instructions Follow Up Appointments: please call on thursday and schedule a follow up appt with dr garcia for within 5-7 days [phone]
[2023-11-08] MEDS: BENZONATATE 100 MG CAPSULE 200 MG PO (09:21)
[2023-11-08] MEDS: METOCLOPRAMIDE HCL 10 MG TABLET 20 MG PO (09:21)
--- NOTE | 2023-11-12 16:19 | CM.DCFOLLOWU ---
1st attempt discharge follow up call made on 11/12/23, message said it is not a working number. Tried again and received same message No more attempts were made.
== END 2023-11-08 13:28 | disposition home or self-care (01) ==
LOC: ER 14:24 → MS 11-08 12:39
PROVIDERS: Admitting Provider Family Medicine; Emergency Provider Emergency Medicine; PCP Family Medicine; Visit Provider Family Medicine
DX: A41.9 Sepsis, unspecified organism (principal); R11.2 Nausea with vomiting, unspecified; I10 Essential (primary) hypertension; G90.A Postural orthostatic tachycardia syndrome [POTS]; B34.2 Coronavirus infection, unspecified; J06.9 Acute upper respiratory infection, unspecified; F12.90 Cannabis use, unspecified, uncomplicated; F32.A Depression, unspecified; F41.9 Anxiety disorder, unspecified; Z90.710 Acquired absence of both cervix and uterus; Z90.49 Acquired absence of other specified parts of digestive tract; Z98.890 Other specified postprocedural states; Z79.899 Other long term (current) drug therapy; Z20.822 Contact with and (suspected) exposure to COVID-19
CPT/HCPCS: 0202U; 36415; 74019; 74177; 80053; 80307; 81001; 83605; 83690; 84145; 85007; 85027; 87040; 87070; 87880; 94761; 96361; 96365; 96367; 96375; 96376; 99285; G0378; J1170; Q9967

== ENCOUNTER 2024-03-22 12:07 | Emergency (ER) | payer MEDICARE, SELFPAY ==
[2024-03-22 12:18] VITALS: BP 155/109; PULSE 97; TEMP 36.8; O2SAT 97; BMI 24.9
--- NOTE | 2024-03-22 13:26 | ED.GENADUL1 ---
HPI HPI - General Adult General Chief complaint: Extremity Problem, Nontraumatic Stated complaint: NECK PAIN Time Seen by Provider: 03/22/24 12:53 Mode of arrival: walk-in History of Present Illness HPI narrative: Patient presented emergency department for evaluation of left-sided neck pain. Patient states she woke a couple days ago, noted that she was having left-sided neck pain. States that the left-sided neck, radiates into the left shoulder, tenderness behind the left leg, down from the shoulder into the left elbow, down behind the arm. Patient states she is not having numbness, tingling, weakness. No difficulty using the arm. Has not dropped anything, has had no numbness, tingling, weakness anywhere. No other complaints at this time Related Data Home Medications ?Medication ?Instructions ?Recorded ?Confirmed atomoxetine 80 mg capsule 80 mg PO .QD 11/07/23 11/07/23 clonidine HCl 0.1 mg tablet 0.1 mg PO BID 11/07/23 11/07/23 cyanocobalamin (vitamin B-12) 1,000 mcg PO DAILY 11/07/23 11/07/23 1,000 mcg tablet ergocalciferol (vitamin D2) 1,250 1,250 mcg PO .weekly 11/07/23 11/07/23 mcg (50,000 unit) capsule lisdexamfetamine 10 mg capsule 10 mg PO DAILY 11/07/23 11/07/23 propranolol 40 mg tablet 40 mg PO Q12H 11/07/23 11/07/23 quetiapine 50 mg tablet 150 mg PO DAILY 11/07/23 11/07/23 tizanidine 6 mg capsule 6 mg PO Q12H PRN muscle spasticity 11/07/23 11/07/23 metoclopramide HCl 10 mg tablet 20 mg PO .amhs 11/08/23 11/08/23 promethazine 25 mg tablet 25 mg PO Q6H PRN nausea and 11/08/23 11/08/23 vomiting Previous Rx's ?Medication ?Instructions ?Recorded benzonatate 100 mg capsule 200 mg (2 x 100 mg) PO Q8H 3 days 11/08/23 #18 caps diazepam 2 mg tablet (Valium) 2 mg PO TID PRN muscle spasm #14 03/22/24 tabs naproxen 500 mg tablet 500 mg PO Q12H PRN pain #20 tabs 03/22/24 Allergies Allergy/AdvReac Type Severity Reaction Status Date / Time No Known Drug Allergies Allergy Verified 11/07/23 11:05 Opioid HPI Opioid Management Most Recent Opioid Data: Last Pain Scale 4 11/08/23 11:42 Last ORT Total Score 1 11/07/23 16:18 Last ORT Risk Category Low Risk 11/07/23 16:18 Ur Phencyclidine Scrn Negative (NEGATIVE) 11/07/23 13:53 Review of Systems ROS Narrative Negative unless otherwise stated in HPI PFSH PFSH Medical History (Updated 03/22/24 @ 13:49 by Umer Villalba MD) 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, unspecified (ICD-10) Hypertension ?I10 - Essential (primary) hypertension (ICD-10) Cyclical vomiting ?R11.15 - Cyclical vomiting syndrome unrelated to migraine (ICD-10) POTS (postural orthostatic tachycardia syndrome) ?G90.A - Postural orthostatic tachycardia syndrome [POTS] (ICD-10) Surgical History History of removal of Port-a-Cath ?Z98.890 - Other specified postprocedural states (ICD-10) H/O LEEP ?Z98.890 - Other specified postprocedural states (ICD-10) H/O: hysterectomy ?Z90.710 - Acquired absence of both cervix and uterus (ICD-10) History of cholecystectomy ?Z90.49 - Acquired absence of other specified parts of digestive tract (ICD-10) Family History Father Family history of diabetes mellitus Mother Family history of hypertension Family history of myocardial infarction Social History Within the past year, how often did you have a drink containing alcohol: never Within the past year, how many standard drinks containing alcohol did you have on a typical day: 1 or 2 Within the past year, how often did you have six or more drinks on one occasion: never Total score: 0 Score interpretation: A score less than 3 is consistent with normal alcohol consumption. Smoking status: Never smoker Second hand tobacco smoke exposure: No Non-prescribed substance use: denies use Known occupational exposures/hazards: No Highest level of school completed/degree received: some college, no degree Are you now , , , , never or living with a partner: In a typical week, how many times do you talk on the telephone with family, friends, or neighbors: 3 or more times per week How often do you get together with friends or relatives: 3 or more times per week How often do you attend hinduism or bahai services: never Do you belong to any clubs or organizations such as hinduism groups unions, [employer] or athletic groups, or school groups: no Total score: 2 Score interpretation: A score of greater than or equal to 2 indicates the lowest level of social isolation. Little interest or pleasure in doing things: not at all Feeling down, depressed, or hopeless: not at all Feel stressed/tense/nervous/anxious/difficulty sleeping: not at all Due to disability, difficulty making decisions: No Do you think of yourself as: straight/heterosexual Gender Identity: female Exam Narrative Exam Narrative: General: NAD, AAOx3, no distress HEENT: NCAT, hypertonicity and tissue texture abnormality to the left trapezius, no midline pain or tenderness, left-sided cervical radiculopathy noted Neck: Supple, no LAD, negative Kernig/Brudzinski, non meningeal, no bruit Neuro: Speech is clear and appropriate. Normal level of consciousness. Gait and coordination are normal. 5/5 strength in all extremities. Normal reflexes Constitutional Vital Signs, click to edit/add: Last Vital Signs Temp 98.2 F 03/22/24 12:18 Pulse 97 H 03/22/24 12:18 Resp 18 03/22/24 12:18 BP 155/109 H 03/22/24 12:18 Pulse Ox 97 03/22/24 12:18 O2 Del Method Room Air 03/22/24 12:18 Course Vital Signs Vital signs: Vital Signs Temperature 98.2 F 03/22/24 12:18 Pulse Rate 97 H 03/22/24 12:18 Respiratory Rate 18 03/22/24 12:18 Blood Pressure 155/109 H 03/22/24 12:18 Pulse Oximetry 97 03/22/24 12:18 Oxygen Delivery Method Room Air 03/22/24 12:18 Temperature 98.2 F 03/22/24 12:18 Pulse Rate 97 H 03/22/24 12:18 Respiratory Rate 18 03/22/24 12:18 Blood Pressure 155/109 H 03/22/24 12:18 Pulse Oximetry 97 03/22/24 12:18 Oxygen Delivery Method Room Air 03/22/24 12:18 Medical Decision Making [facility] Narrative Medical decision making narrative: [facility] Patient with history as above presented with Left-sided paraspinal neck pain, history obtained from patient Patient was nontoxic, stable. Ambulatory. Exam as above. Reviewed external records. Differential diagnosis considered. Overall presentation is consistent with cervical radiculopathy 1350 patient was reevaluated, states all symptoms have almost fully resolved, feels better, has increased mobility in neck, spasm has improved. Advanced guidance has been given. Vss, pex is benign at this time. Pt to fu with pcp 1-2 days for reeval, rter should sx worsen, persist or become worrysome in any way. All incidental laboratory studies, EKG, radiologic findings have been noted and discussed with patient. Patient was reevaluated with a benign exam at this time. Pt expressed understanding and agreement with plan of care at this time. Will fu as planned. Pt stable for discharge. Medical Records Medical records reviewed: Yes I reviewed the patient's medical records Discharge Plan Discharge Stand Alone Forms: Portal Instructions Chief Complaint: Extremity Problem, Nontraumatic Clinical Impression: Cervical radiculopathy Patient Disposition: Home, Self-Care Time of Disposition Decision: 13:49 Condition: Good Prescriptions / Home Meds: New naproxen 500 mg tablet 500 mg PO Q12H PRN (Reason: pain) Qty: 20 0RF diazepam [Valium] 2 mg tablet 2 mg PO TID PRN (Reason: muscle spasm) Qty: 14 0RF No Action clonidine HCl 0.1 mg tablet 0.1 mg PO BID cyanocobalamin (vitamin B-12) 1,000 mcg tablet 1,000 mcg PO DAILY ergocalciferol (vitamin D2) 1,250 mcg (50,000 unit) capsule 1,250 mcg PO .weekly lisdexamfetamine 10 mg capsule 10 mg PO DAILY propranolol 40 mg tablet 40 mg PO Q12H quetiapine 50 mg tablet 150 mg PO DAILY tizanidine 6 mg capsule 6 mg PO Q12H PRN (Reason: muscle spasticity) atomoxetine 80 mg capsule 80 mg PO .QD metoclopramide HCl 10 mg tablet 20 mg PO .amhs promethazine 25 mg tablet 25 mg PO Q6H PRN (Reason: nausea and vomiting) benzonatate 100 mg Capsule 200 mg PO Q8H 3 Days Qty: 18 0RF Print Language: Sierra Leonean Referrals: Beck Christina MD [Primary Care Provider] - 1 week
[2024-03-22] MEDS: KETOROLAC TROMETHAMINE 30 MG/ML VIAL 15 MG IM (13:27)
[2024-03-22] MEDS: DIAZEPAM 5 MG TABLET PO (13:27)
== END 2024-03-22 14:08 | disposition home or self-care (01) ==
PROVIDERS: Emergency Provider Emergency Medicine; PCP Family Medicine
DX: M54.12 Radiculopathy, cervical region (principal)
CPT/HCPCS: 96372; 99284; J1885

== ENCOUNTER 2024-03-23 16:39 | Emergency (ER) | payer MEDICARE, SELFPAY ==
[2024-03-23 16:43] VITALS: BP 160/107; PULSE 96; TEMP 36.9; O2SAT 98; BMI 25.4
--- OUTSIDE RECORDS SUMMARY | 2024-03-23 16:48 | XMS_ITS | CCD ---
Author Organization [facility] Care Team Providers Care Scraper Hand Name Role Phone DORITA ., DR HENDRIX Primary Care Unavailable HOY ., DR HENDRIX Attending Unavailable HOY ., DR HENDRIX Admitting Unavailable HOY ., DR HENDRIX Consulting Unavailable HOY ., DR HENDRIX Attending Unavailable HOY ., DR HENDRIX Admitting Unavailable HOY ., DR HENDRIX Primary Care Unavailable DEB ., DR LYLE Sosa Consulting Unavailable JULISSA, DR MONROE Palma Consulting Unavailable RENEE ., DR COOPER Consulting Unavailable SHAIKH Jennifer PHAM Consulting Unavailable MONROE MCKEON Consulting Unavailable HOY ., DR HENDRIX Primary Care Unavailable HOY ., DR HENDRIX Admitting Unavailable HOY ., DR HENDRIX Attending Unavailable HOY ., DR HENDRIX Consulting Unavailable ISIS, DR RACHEL Christianson Consulting Unavailable ALISSON THACKER Consulting Unavailable ARSALAN ., DINA Consulting Unavailable HOY ., DR HENDRIX Primary Care Unavailable HOY ., DR HENDRIX Admitting Unavailable HOY ., DR HENDRIX Attending Unavailable RASHAAD, DR BROOKLYNN Jernigan Consulting Unavailable HOY ., DR HENDRIX Consulting Unavailable BOYD ., DR LYLE Sosa Consulting Unavailable ARSALAN ., DINA Consulting Unavailable YASSINE FITZGERALD Consulting Unavailable HOY ., DR HENDRIX Primary Care Unavailable HOY ., DR HENDRIX Admitting Unavailable HOY ., DR HENDRIX Attending Unavailable HOY ., DR HENDRIX Consulting Unavailable RENEE ., DR COOPRE Consulting Unavailable DR BROOKLYNN NEIL Consulting Unavailable HOY ., DR HENDRIX Attending Unavailable HOY ., DR HENDRIX Admitting Unavailable HOY ., DR HENDRIX Primary Care Unavailable HOY ., DR HENDRIX Consulting Unavailable DEB ., DR LYLE Sosa Consulting Unavailable JOSE, DR DARREL Jernigan Consulting Unavailable MASSIEL HERNANDEZ Consulting Unavailable SISTER, CRISPIN Consulting Unavailable HOY ., DR HENDRIX Consulting Unavailable HOY ., DR HENDRIX Attending Unavailable HOY ., DR HENDRIX Admitting Unavailable HOY ., DR HENDRIX Primary Care Unavailable ZIEBER, DR DARREL Jernigan Consulting Unavailable PAY ., DR KENNEDY Consulting Unavailable VERO, SHAIKH Jennifer Consulting Unavailable RASHAAD, DR BROOKLYNN Jernigan Consulting Unavailable HOY ., DR HENDRIX Attending Unavailable HOY ., DR HENDRIX Admitting Unavailable HOY ., DR HENDRIX Primary Care Unavailable HOY ., DR HENDRIX Consulting Unavailable ZIEBER, DR DARREL Jernigan Consulting Unavailable KATKOÁLVAROADALBERTO Ester Attending Unavailable KATKO, ADALBERTO D Admitting Unavailable HOY ., DR HENDRIX Primary Care Unavailable ADALBERTO GARCIA Consulting Unavailable HOY ., DR HENDRIX Admitting Unavailable HOY ., DR HENDRIX Attending Unavailable HOY ., DR HENDRIX Primary Care Unavailable HOY ., DR HENDRIX Consulting Unavailable KARASIK ., DR DIAZ Attending Unavailabl e KARASIK ., DR DIAZ Admitting Unavailabl e HOY ., DR HENDRIX Primary Care Unavailable KARASIK ., DR DIAZ Consulting Unavailabl e HOY ., DR HENDRIX Consulting Unavailable HOY ., DR HENDRIX Attending Unavailable HOY ., DR HENDRIX Admdaisy Unavailable HOY ., DR HENDRIX Primary Care Unavailable ZIEBER, DR DARREL Jernigan Consulting Unavailable KEENAN ., MR CLAIRE Consulting Unavailable KEVIN MILNER Consulting Unavailable ARSALNA ., DINA Consulting Unavailable HOY ., DR HENDRIX Consulting Unavailable HOY ., DR HENDRIX Attending Unavailable HOY ., DR HENDRIX Admitting Unavailable HOY ., DR HENDRIX Primary Care Unavailable KALEE VELAZQUEZ Consulting Unavailable MONROE MCKEON Consulting Unavailable MD Simeon Kevin Primary Care Provider [phone] MD Robby Jackson Attending Provider MD Robby Jackson Attending Provider [phone] MARYBETH Hopkins Emergency Provider NARCISA Espionsa Primary Care Provider [phone] MARYBETH Hopkins Emergency Provider NARCISA Espinosa Primary Care Provider Warchol, CHARACTER ACTRESS-C Hui Attending Provider [phone] Luke Alvarez MD Primary Care Provider [phone] Warchol CHARACTER ACTRESS, Hui Unavailable Lori CHARACTER ACTRESS, Aga R Unavailable Warchol, CHARACTER ACTRESS-C Hui Primary Care Provider [phone] DO Massiel Peters Emergency Provider MD Huseyin Gill Admit Provider [phone] MD Huseyin Gill Attending Provider WARCHOL, HUI Attending Unavailable WARCHOL, HUI Attending Unavailable WARCHOL, HUI Attending Unavailable WARCHOL, HUI Attending Unavailable WARCHOL, HUI Attending Unavailable KellieMARYBETH edwardsothy Emergency Provider Warchol, CHARACTER ACTRESS-C Hui Attending Provider [phone] Warchol, CHARACTER ACTRESS-C Hui Referring Provider [phone] Kale Hopkins Attending Unavailable Warchol, Hui Primary Care Unavailable Kellie, Kale Admitting Unavailable Warchol, Hui Attending Unavailable Warchol, Hui Admitting Unavailable Warchol, Hui Primary Care Unavailable Warchol, Hui Primary Care Unavailable Warchol, Hui Attending Unavailable Warchol, Hui Admitting Unavailable ChristinaehrerÁlvaroRobby Admitting Unavailable Robby Jackson Attending Unavailable Simeon Kevin Primary Care Unavailable Warchol, Hui Attending Unavailable Warchol, Hui Referring Unavailable Warchol, Hui Admitting Unavailable Warchol, Hui Primary Care Unavailable Warchol, Hui Primary Care Unavailable Huseyin Gill Admitting Unavailable Huseyin Gill Attending Unavailable Warchol, Hui Attending Unavailable Warchol, Hui Referring Unavailable Warchol, Hui Admitting Unavailable Warchol, Hui Primary Care Unavailable Kellie, Kale Attending Unavailable Warchol, Hui Primary Care Unavailable Kellie, Kale Admitting Unavailable Allergies Allergy Classification Reported Allergen(s) Allergy Type Date of Onset Reaction(s) Facility Acetaminophen (1 source) Acetaminophen Drug Allergy 4 Unknown Reaction [facility] Opioid Agonists (2 sources) HYDROcodone Drug Allergy 4 Unknown Reaction [facility] (1 source) Acetaminophen / HYDROcodone Drug Allergy [facility] Repository (5 sources) Acetaminophen; Translations: [acetaminophen] Drug Allergy 4 Unknown Reaction [facility] (5 sources) HYDROcodone; Translations: [hydrocodone] Drug Allergy 4 Unknown Reaction [facility] (5 sources) Propoxyphene; Translations: [propoxyphene] Drug Allergy 4 Unknown Reaction [facility] Medications Current Medications Medication Drug Class(es) Dates Sig (Normalized) Sig (Original) atomoxetine 80 mg oral capsule (1 source) Norepinephrine Reuptake Inhibitor Start: 09-10-2023 End: 12-09-2023 take 1 capsule by mouth in the morning atomoxetine (Strattera) 80 MG capsule Indications: Attention deficit disorder (ADD) without hyperactivity Take 1 capsule (80 mg) by mouth in the morning. Swallow capsule whole; do not open. If opened accidentally, do not touch eyes; wash hands immediately (product is an eye irritant).. 90 capsule 0 09/10/2023 12/09/2023 Active cloNIDine hydrochloride 0.1 mg oral tablet (17 sources) Central alpha-2 Adrenergic Agonist Start: 01-28-2021 End: 12-27-2023 take 0.1 mg by mouth twice daily Clonidine Hcl Active 0.1 MG PO Twice daily January 28, 2021 12:00am Start: 06-05-2018 End: 12-04-2018 Clonidine Hcl Discontinued T ABLET June 05, 2018 12:00am December 04, 2018 6:09pm ergocalciferol 1.25 mg oral capsule (7 sources) Provitamin D2 Compound Start: 12-03-2023 take 1250 ug by mouth every week Ergocalciferol (Vitamin D2) Active 1250 MCG PO .weekly December 03, 2023 12:00am Start: 06-30-2023 End: 03-23-2024 take 1 capsule by mouth every week ergocalciferol (Vitamin D2) 1.25 MG (90834 UT) capsule Indications: Hypovitaminosis D Take 1 capsule (1.25 mg) by mouth 1 (one) time per week 12 capsule 1 09/25/2023 03/23/2024 Active hydrOXYzine pamoate 50 mg oral capsule (1 source) Antihistamine Start: 08-07-2023 hydrOXYzine pamoate (Vistaril) 50 MG capsule Indications: JIM (generalized anxiety disorder) (CMS/FORMERLY [facility]) May take 1-2 capsules as needed for anxiety. 30 capsule 0 08/07/2023 Active metoclopramide 10 mg oral tablet (20 sources) Dopamine-2 Receptor Antagonist Start: 08-07-2023 take 2 tablets by mouth in the morning metoclopramide (Reglan) 10 MG tablet Indications: Cyclic vomiting syndrome Take 2 tablets (20 mg) by mouth in the morning and 2 tablets (20 mg) before bedtime. 120 tablet 0 08/07/2023 Active Start: 04-01-2023 take 10 mg by mouth twice celia y Metoclopramide Hcl Active 10 MG PO Twice daily April 01, 2023 12:57pm Start: 05-23-2019 End: 04-01-2023 take 10 mg by mouth once before mealtime Metoclopramide Hcl Discontinued 10 MG PO 3x/Day before meals & bedtime 120 30 May 26, 2019 3:10pm April 01, 2023 12:57pm Start: 02-06-2019 End: 05-14-2019 take 1 tablet by mouth every six hours Metoclopramide Hcl (Reglan) 10 mg tablet Discontinued 10 MG PO Q6H February 06, 2019 12:00am May 14, 2019 10:25am pantoprazole 40 mg delayed release oral tablet (4 sources) Proton Pump Inhibitor Start: 12-22-2023 take 1 tablet by mouth once daily Pantoprazole (Protonix) 40 mg tablet,delayed release (DR/EC) Active 40 MG PO Daily December 22, 2023 12:00am Start: 04-24-2023 End: 10-21-2023 take 1 tablet by mouth before mealtime pantoprazole (ProtoNix) 40 MG EC tablet Indications: Cyclic vomiting syndrome Take 1 tablet (40 mg) by mouth in the morning. Take before meals. 90 tablet 1 04/24/2023 10/21/2023 Active prochlorperazine 10 mg oral tablet (3 sources) Phenothiazine Start: 12-22-2023 take 1 tablet by mouth every eight hours Prochlorperazine Maleate (Compazine) 10 mg tablet Active 10 MG PO Every 8 hours December 22, 2023 12:00am promethazine hydrochloride 25 mg oral tablet (20 sources) Phenothiazine Start: 12-22-2023 take 25 mg by mouth three times daily Promethazine Active 25 MG PO Three times daily December 22, 2023 12:00am Start: 10-19-2019 End: 04-01-2023 Promethazine Discontinued 25 MG TN Q6H October 19, 2019 1:00am April 01, 2023 12:55pm Start: 09-27-2019 End: 10-10-2023 take 25 mg by mouth every six hours Promethazine Active 25 MG PO Q6H October 22, 2019 1:00am Start: 05-14-2019 End: 05-23-2019 take 25 mg by mouth every six hours Promethazine Discontinued 25 MG PO Q6H May 14, 2019 12:00am May 23, 2019 3:40pm Start: 06-05-2018 End: 12-04-2018 take 25 mg by mouth every six hours Promethazine Discontinued 25 MG PO Q6H June 05, 2018 12:00am December 04, 2018 6:09pm propranolol hydrochloride 20 mg oral tablet (20 sources) beta-Adrenergic Tamera Start: 12-03-2023 take 40 mg by mouth twice daily Propranolol Active 40 MG PO Twice daily December 03, 2023 12:00am Start: 09-10-2023 End: 12-09-2023 take 1 tablet by mouth in the morning propranolol (Inderal) 20 MG tablet Indications: Tachycardia , POTS (postural orthostatic tachycardia syndrome) , Essential hypertension (CMS/HCC) Take 1 tablet (20 mg) by mouth in the morning and 1 tablet (20 mg) before bedtime. 180 tablet 0 09/10/2023 12/09/2023 Active Start: 01-25-2019 End: 01-28-2021 take 20 mg by mouth three times daily Propranolol Discontinued 20 MG PO Three times daily January 25, 2019 12:00am January 28, 2021 9:54pm Start: 06-05-2018 End: 12-05-2018 take 60 mg by mouth once daily Propranolol Discontinue d 60 MG PO Daily June 05, 2018 12:00am December 05, 2018 8:56am QUEtiapine 50 mg oral tablet (14 sources) Atypical Antipsychotic Start: 12-03-2023 take 150 mg by mouth at bedtime Quetiapine Active 150 MG PO .bedtime December 03, 2023 12:00am Start: 07-25-2023 End: 10-23-2023 take 1 tablet by mouth at bedtime QUEtiapine (SEROquel) 50 MG tablet Indications: Psychophysiological insomnia Take 1 tablet (50 mg) by mouth at bedtime 90 tablet 0 07/25/2023 10/23/2023 Active Start: 05-14-2019 End: 01-28-2021 take 1 tablet by mouth once daily at bedtime Quetiapine (Seroquel) 25 mg tablet Discontinued 1 TAB PO Daily at bedtime May 14, 2019 12:00am January 28, 2021 9:54pm tiZANidine 6 mg oral capsule (14 sources) Central alpha-2 Adrenergic Agonist Start: 12-03-2023 Tizanidine Active 6 MG PO .prn December 03, 2023 12:00am Start: 08-11-2023 End: 11-09-2023 take 1 capsule by mouth once daily as needed for muscle spasms tiZANidine (Zanaflex) 6 MG capsule Indications: Abdominal cramping Take 1 capsule (6 mg) by mouth Daily as needed for muscle spasms 90 capsule 0 08/11/2023 11/09/2023 Active Start: 01-28-2021 End: 04-01-2023 take 6 mg by mouth twice daily Tizanidine Discontinued 6 MG PO Twice daily January 28, 2021 12:00am April 01, 2023 12:55pm vitamin b12 1 mg oral tablet (6 sources) Vitamin B12 Start: 06-30-2023 End: 12-27-2023 take 1000 ug by mouth once daily Cyanocobalamin (Vitamin B-12) Active 1000 MCG PO Daily December 03, 2023 12:00am Completed/Discontinued Medications Medication Drug Class(es) Dates Sig (Normalized) Sig (Original) acetaminophen 300 mg / HYDROcodone bitartrate 5 mg oral tablet (16 sources) Opioid Agonist Start: 02-01-2021 End: 06-14-2021 take 1 tablet by mouth every six hours Hydrocodone-Acetami nophen Discontinued 1 TAB PO Q6H 12 3 February 01, 2021 June 14, 2021 11:35am Start: 02-01-2019 End: 05-14-2019 take 1 tablet by mouth every four to six hours Hydrocodone-Acetaminophen Discontinued 1 TAB PO EVERY 4-6 HOURS 20 4 February 01, 2019 May 14, 2019 10:25am ALPRAZolam 1 mg oral tablet (20 sources) Benzodiazepine Start: 06-05-2018 End: 04-01-2023 take 1 tablet by mouth four times daily Alprazolam (Xanax) 1 mg tablet Discontinued 1 MG PO Four times daily January 28, 2021 9:53pm April 01, 2023 12:55pm amitriptyline hydrochloride 25 mg oral tablet (16 sources) Tricyclic Antidepressant Start: 04-01-2023 End: 12-03-2023 take 25 mg by mouth once daily at bedtime Amitriptyline Discontinued 25 MG PO Daily at bedtime April 01, 2023 12:00am December 03, 2023 8:31am Start: 05-26-2019 End: 01-28-2021 take 100 mg by mouth once daily at bedtime Amitriptyline Discontinued 100 MG PO Daily at bedtime May 26, 2019 12:00am January 28, 2021 9:53pm brexpiprazole 0.5 mg oral tablet (8 sources) Atypical Antipsychotic Start: 06-05-2018 End: 12-04-2018 Brexpiprazole (Rexulti) 0.5 mg tablet Discontinued TABLET June 05, 2018 12:00am December 04, 2018 6:09pm cephalexin 500 mg oral capsule (12 sources) Cephalosporin Antibacterial Start: 12-05-2023 End: 12-22-2023 take 500 mg by mouth twice daily Cephalexin Discontinued 500 MG PO Twice daily 05 21December 05, 2023 12:00am December 22, 2023 10:03am Start: 05-01-2019 End: 05-19-2019 take 1 capsule by mouth three times daily Cephalexin (Keflex) 500 mg capsule Discontinued 500 MG PO Three times daily 15 06May 01, 2019 12:00am May 19, 2019 5:31pm dexamethasone 1 mg/ml / tobramycin 3 mg/ml ophthalmic suspension (8 sources) Aminoglycoside Antibacterial, Corticosteroid Start: 06-05-2018 End: 12-04-2018 Tobramycin-Dexamethasone Discontinued June 05, 2018 12:00am December 04, 2018 6:09pm diazePAM 2 mg oral tablet (16 sources) Benzodiazepine Start: 06-05-2018 End: 05-14-2019 take 2 mg by mouth once daily Diazepam Discontinued 2 MG PO Daily December 08, 2018 5:15pm May 14, 2019 10:25am dicyclomine hydrochloride 20 mg oral tablet (8 sources) Anticholinergic Start: 05-14-2019 End: 05-23-2019 take 20 mg by mouth twice daily Dicyclomine Discontinued 20 MG PO Twice daily May 14, 2019 3:07pm May 23, 2019 3:40pm doxepin hydrochloride 25 mg oral capsule (8 sources) Tricyclic Antidepressant Start: 04-01-2023 End: 12-03-2023 take 25 mg by mouth once daily at bedtime Doxepin Discontinued 25 MG PO Daily at bedtime April 01, 2023 12:00am December 03, 2023 8:31am 24 hr fluvoxaMINE maleate 150 mg extended release oral capsule (8 sources) Serotonin Reuptake Inhibitor Start: 06-05-2018 End: 04-01-2023 take 100 mg by mouth at bedtime Fluvoxamine Discontinued 100 MG PO Bedtime June 05, 2018 12:00am April 01, 2023 12:57pm hyoscyamine sulfate 0.125 mg oral tablet (8 sources) Start: 09-27-2019 End: 01-28-2021 take 1 tablet by mouth every six hours Hyoscyamine Sulfate Discontinued 1 TAB PO Q6H September 27, 2019 1:00am January 28, 2021 9:53pm lansoprazole 30 mg delayed release oral capsule (8 sources) Proton Pump Inhibitor Start: 01-25-2019 End: 05-14-2019 take 30 mg by mouth once daily in the morning Lansoprazole Discontinued 30 MG PO Every morning January 25, 2019 12:00am May 14, 2019 10:25am midodrine hydrochloride 5 mg oral tablet (16 sources) alpha-Adrenergic Agonist Start: 02-08-2021 End: 02-11-2021 take 5 mg by mouth three times daily Midodrine Discontinued 5 MG PO Three times daily February 08, 2021 12:00am February 11, 2021 1:44pm Start: 05-14-2019 End: 01-28-2021 take 1 tablet by mouth three times daily Midodrine Discontinued 1 TAB PO Three times daily May 14, 2019 12:00am January 28, 2021 9:53pm nitrofurantoin, macrocrystals 25 mg / nitrofurantoin, monohydrate 75 mg oral capsule (8 sources) Nitrofuran Antibacterial Start: 05-19-2019 End: 05-19-2019 take 1 capsule by mouth twice daily at mealtime Nitrofurantoin Monohyd/M-Cryst (Macrobid) 100 mg capsule Discontinued 100 MG PO Twice daily 10 May 19, 2019 12:00am May 19, 2019 5:32pm must administer with a meal/food omeprazole 20 mg delayed release oral capsule (16 sources) Proton Pump Inhibitor Start: 09-27-2019 End: 04-01-2023 take 40 mg by mouth once daily Omeprazole Discontinued 40 MG PO Daily September 27, 2019 8:39pm April 01, 2023 12:56pm Start: 05-23-2019 End: 09-27-2019 take 20 mg by mouth once daily Omeprazole Discontinued 20 MG PO Daily May 23, 2019 12:00am September 27, 2019 8:39pm ondansetron 8 mg disintegrating oral tablet (8 sources) Serotonin-3 Receptor Antagonist Start: 02-06-2019 End: 05-14-2019 take 8 mg by mouth every eight hours Ondansetron Discontinued 8 MG PO Q8H 10 February 06, 2019 12:00am May 14, 2019 10:25am 24 hr oxybutynin chloride 10 mg extended release oral tablet (8 sources) Cholinergic Muscarinic Antagonist Start: 05-24-2019 End: 01-28-2021 take 1 tablet by mouth at bedtime Oxybutynin Chloride Discontinued 1 TAB PO Bedtime May 24, 2019 12:00am January 28, 2021 9:54pm PARoxetine hydrochloride 20 mg oral tablet (16 sources) Serotonin Reuptake Inhibitor Start: 05-14-2019 End: 05-26-2019 take 1 tablet by mouth once daily at bedtime Paroxetine Hcl Discontinued 1 TAB PO Daily at bedtime May 14, 2019 12:00am May 26, 2019 3:11pm Start: 01-25-2019 End: 02-01-2019 take 10 mg by mouth once daily at bedtime Paroxetine Hcl Discontinued 10 MG PO Daily at bedtime January 25, 2019 12:00am February 01, 2019 1:16pm potassium chloride 20 meq extended release oral tablet (8 sources) Start: 05-19-2019 End: 05-19-2019 take 20 mEq by mouth once daily Potassium Chloride Discontinued 20 MEQ PO Daily May 19, 2019 12:00am May 19, 2019 5:32pm pyridostigmine bromide 60 mg oral tablet (8 sources) Start: 05-23-2019 End: 05-26-2019 take 30 mg by mouth twice daily Pyridostigmine [address] Discontinued 30 MG PO Twice daily May 23, 2019 12:00am May 26, 2019 3:11pm Sucralfate (8 sources) Aluminum Complex Start: 05-26-2019 End: 01-28-2021 take 1 g by mouth once before mealtime Sucralfate Discontinued 1 GM PO 3x/Day before meals & bedtime 1259May 25, 2019 11:00pm January 28, 2021 8:54pm Start: 05-26-2019 End: 01-28-2021 take 1 g by mouth once before mealtime Sucralfate Discontinued 1 GM PO 3x/Day before meals & bedtime 1259May 26, 2019 12:00am January 28, 2021 9:54pm SUMAtriptan 20 mg/actuat nasal spray (8 sources) Serotonin-1b and Serotonin-1d Receptor Agonist Start: 04-01-2023 End: 12-03-2023 Sumatriptan Discontinued 20 MG INTRANASAL As Directed April 01, 2023 12:00am December 03, 2023 8:31am trimethobenzamide hydrochloride 300 mg oral capsule (8 sources) Antiemetic Start: 02-01-2021 End: 07-30-2021 take 300 mg by mouth three times daily Trimethobenzamide Discontinued 300 MG PO Three times daily February 01, 2021 12:00am July 30, 2021 8:56am Problems Active Problems Problem Classification Problem Date Documented Da te Episodic/Chronic Abdominal pain (20 sources) Unspecified abdominal pain; Translations: [Lower abdominal pain, unspecified] Onset: 02-07-2022 Episodic Acquired foot deformities (1 source) Acquired left hallux valgus; Translations: [Hallux valgus (acquired), left foot] Onset: 02-27-2023 02-27-2023 Chronic Acute and unspecified renal failure (9 sources) Acute kidney failure, unspecified; Translations: [Injury of kidney] Onset: 05-12-2022 01-28-2021 Episodic Anxiety disorders (9 sources) Anxiety disorder, unspecified; Translations: [Anxiety] Onset: 04-25-2022 1 Chronic Biliary tract disease (8 sources) Biliary dyskinesia; Translations: [Other specified diseases of gallbladder] 01-29-2019 Episodic Cardiac dysrhythmias (20 sources) Other specified cardiac arrhythmias; Translations: [Supraventricular tachycardia] Onset: 11-25-2021 02-01-2021 Chronic Chronic obstructive pulmonary disease and bronchiectasis (7 sources) Bronchitis; Translations: [Bronchitis, not specified as acute or chronic] 05-15-2023 Episodic Diseases of white blood cells (9 sources) Elevated white blood cell count, unspecified; Translations: [Leukocytosis] Onset: 05-22-2022 01-28-2021 Chronic Esophageal disorders (1 source) Gastro-esophageal reflux disease without esophagitis; Translations: [GERD WITHOUT ESOPHAGITIS] Onset: 05-12-2022 Chronic Essential hypertension (1 source) Essential (primary) hypertension; Translations: [ESSENTIAL PRIMARY HYPERTENSION] Onset: 05-22-2022 Chronic Fluid and electrolyte disorders (20 sources) Dehydration; Translations: [Hypokalemia] Onset: 12-12-2021 01-28-2021 Episodic Headache; including migraine (1 source) Cyclical vomiting, in migraine, not intractable; Translations: [Cyclical vomiting, in migraine, not intractable] Onset: 03-04-2024 Chronic Headache; including migraine (1 source) Headache; including migraine; Translations: [HEADACHE UNSPECIFIED] Onset: 03-19-2022 Miscellaneous mental health disorders (1 source) Sleep disorder not due to a substance or known physiological condition, unspecified; Translations: [SLEEP D/O NOT SUBSTNC/PHYSIOLOG UNS] Onset: 03-18-2022 Chronic Mood disorders (1 source) Major depressive disorder, single episode, unspecified; Translations: [MUKESH DEPRESS D/O SINGLE EPIS UNS] Onset: 04-25-2022 Chronic Nutritional deficiencies (1 source) Vitamin D deficiency; Translations: [Vitamin D deficiency, unspecified] 09-25-2023 Chronic Other disorders of stomach and duodenum (8 sources) Gastroparesis syndrome; Translations: [Gastroparesis] 05-24-2019 Episodic Other disorders of stomach and duodenum (9 sources) Cyclical vomiting syndrome; Translations: [Cyclical vomiting syndrome unrelated to migraine] Onset: 02-27-2023 09-27-2021 Episodic Other disorders of stomach and duodenum (2 sources) Cyclical vomiting syndrome unrelated to migraine; Translations: [Persistent vomiting] 04-01-2023 Episodic Other ear and sense organ disorders (1 source) Otitis externa of right ear; Translations: [Unspecified otitis externa, right ear] Onset: 02-27-2023 02-27-2023 Chronic Other gastrointestinal disorders (1 source) Celiac disease; Translations: [CELIAC DISEASE] Onset: 04-25-2022 Chronic Other gastrointestinal disorders (8 sources) Diarrhea; Translations: [Diarrhea, unspecified] 05-14-2019 Episodic Other hereditary and degenerative nervous system conditions (1 source) Restless legs syndrome; Translations: [RESTLESS LEGS SYNDROME] Onset: 05-22-2022 Chronic Other nervous system disorders (1 source) Difficulty walking; Translations: [Difficulty in walking, not elsewhere classified] Onset: 02-27-2023 02-27-2023 Chronic Other upper respiratory infections (1 source) Acute upper respiratory infection, unspecified; Translations: [Acute upper respiratory infection, unspecified] Onset: 01-28-2024 Episodic Septicemia (except in labor) (8 sources) Sepsis; Translations: [Sepsis, unspecified organism] 12-03-2023 Episodic Substance-related disorders (9 sources) Cannabis abuse, uncomplicated; Translations: [Cannabis abuse] Onset: 05-22-2022 01-29-2019 Chronic Unclassified (1 source) CONTACT W/AND (SUSP) EXPOS COVID-19; Translations: [CONTACT W/AND (SUSP) EXPOS COVID-19] Onset: 05-22-2022 Unclassified (4 sources) Cyclical vomiting syndrome unrelated to migraine; Translations: [CYCLICL VOMTNG SYN UNRELTD MIGRAINE] Onset: 11-19-2021 Unclassified (1 source) PERSONAL HISTORY OF COVID-19; Translations: [PERSONAL HISTORY OF COVID-19] Onset: 03-19-2022 Unclassified (1 source) Encounter for adjustment and management of vascular access device; Translations: [Encounter for adjustment and management of vascular access device] Onset: 04-01-2023 Viral infection (1 source) COVID-19; Translations: [COVID-19] Onset: 03-18-2022 Past or Other Problems Problem Classification Problem Date Documented Da te Episodic/Chronic Abdominal hernia (1 source) Diaphragmatic hernia without obstruction or gangrene; Translations: [DIAPH HERNIA W/O OBST/GANGRENE] Onset: 05-12-2022 Episodic Acute bronchitis (4 sources) Acute bronchitis, unspecified; Translations: [ACUTE BRONCHITIS UNSPECIFIED] Onset: 04-28-2022 Episodic Cardiac dysrhythmias (1 source) Tachycardia, unspecified; Translations: [TACHYCARDIA UNSPECIFIED] Onset: 05-22-2022 Episodic Fever of unknown origin (2 sources) Fever, unspecified; Translations: [FEVER UNSPECIFIED] Onset: 03-19-2022 Episodic Immunizations and screening for infectious disease (1 source) Encounter for screening for human papillomavirus (HPV); Translations: [ENC SCREENING HUMAN PAPILLOMAVIRUS] Onset: 03-26-2022 Episodic Mood disorders (1 source) Mood disorders Onset: 05-28-2023 05-28-2023 Nausea and vomiting (20 sources) Nausea with vomiting, unspecified; Translations: [Vomiting, unspecified] Onset: 03-12-2022 Episodic Other aftercare (1 source) Other rn long term care (current) drug therapy; Translations: [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] Onset: 05-22-2022 Episodic Other disorders of stomach and duodenum (1 source) Gastroparesis; Translations: [GASTROPARESIS] Onset: 03-18-2022 Episodic Other ear and sense organ disorders (1 source) Otalgia, left ear; Translations: [Otalgia, unspecified] Onset: 02-27-2023 02-27-2023 Episodic Other gastrointestinal disorders (1 source) Diarrhea, unspecified; Translations: [DIARRHEA UNSPECIFIED] Onset: 03-18-2022 Episodic Other screening for suspected conditions (not mental disorders or infectious disease) (5 sources) Other specified abnormal findings of blood chemistry; Translations: [Encounter for screening for malignant neoplasm of cervix] Onset: 03-25-2022 Episodic Ovarian cyst (1 source) Unspecified ovarian cyst, left side; Translations: [UNSPECIFIED OVARIAN CYST LEFT SIDE] Onset: 02-11-2022 Episodic Phlebitis; thrombophlebitis and thromboembolism (1 source) Personal history of other venous thrombosis and embolism; Translations: [PERS HX OTH VENOUS THROMBOSIS AND EMBO] Onset: 05-22-2022 Episodic Residual codes; unclassified (1 source) Acquired absence of other specified parts of digestive tract; Translations: [ACQ ABSENCE OTH PART DIGESTV TRACT] Onset: 05-22-2022 Episodic Residual codes; unclassified (1 source) Acquired absence of both cervix and uterus; Translations: [ACQUIRED ABSENCE BOTH CERVIX AND UTERUS] Onset: 05-22-2022 Episodic Residual codes; unclassified (1 source) Acquired absence of other genital organ(s); Translations: [ACQUIRED ABSENCE OTH GENITAL ORGANS] Onset: 04-25-2022 Episodic Residual codes; unclassified (1 source) Acquired absence of ovaries, unilateral; Translations: [ACQUIRED ABSENCE OVARIES UNILATERAL] Onset: 04-25-2022 Episodic Spondylosis; intervertebral disc disorders; other back problems (1 source) Cervical radiculopathy; Translations: [Radiculopathy, cervical region] Onset: 02-27-2023 02-27-2023 Episodic Substance-related disorders (2 sources) Cannabis use, unspecified, uncomplicated; Translations: [CANNABIS USE UNS UNCOMPLICATED] Onset: 03-18-2022 Episodic Urinary tract infections (20 sources) Urinary tract infectious disease; Translations: [Urinary tract infection, site not specified] Onset: 12-03-2023 05-19-2019 Episodic Results Test Name Value Interpretation Reference Range Facility BioFire Not Detectedon 01-27 BioFire Not Detected Not detected Normal Not Detecte [facility] Comment on above: Result Comment: This is a duplicate RP2.1 COVID (PCR) result to be used for statistical tracking purpose only. PERFORMED BY: [place] [address] PATHOLOGIST HEARING HEALTH TECHNICIAN JUNI TSAI M.D. Performed By: #### C UBLD, LACTIC #### [address] COVID-19 Detected/Not Detect edOrdered By: Hui Espinosa on 01-28-2024 SARS-CoV-2 (COVID-19) RNA YULIANA+non-probe Ql (Nph) Not detected Not Detecte [facility] Comment on above: This is a duplicate RP2.1 COVID (PCR) result to be used for statistical tracking purpose only. Respiratory (Upper) Panel, P CRon 01-28-2024 Respiratory (Upper) Panel, PCR Adenovirus Not detected Bordetella parapertussis Not detected Chlamydia pneumoniae Not detected Coronavirus 229E Not detected Coronavirus HKU1 Not detected Coronavirus NL63 Not detected Coronavirus OC43 Not detected Influenza A Not detected Influenza B Not detected Human Metapneumovirus Not detected Mycoplasma pneumoniae Not detected Parainfluenza Virus 1 Not detected Parainfluenza Virus 2 Not detected Parainfluenza Virus 3 Not detected Parainfluenza Virus 4 Not detected Bordetella pertussis-ptxP Not detected Human Rhino/Enterovirus Not detected Resp. Syncytial Virus Not detected COVID-19 Detected/Not Detected Not detected Blank Space -- FLUA TEST INCLUDES Influenza A tests for the following clinically FLUA TEST INCLUDES significant subtypes: FLUA TEST INCLUDES - Influenza A FLUA TEST INCLUDES - Influenza A H1 FLUA TEST INCLUDES - Influenza A H1 2009 FLUA TEST INCLUDES - Influenza A H3 Blank Space -- PERFORMED BY: [place] [address] PATHOLOGIST HEARING HEALTH TECHNICIAN JUNI TSAI M.D. Normal [facility] Comment on above: Performed By: #### C UBLD, LACTIC #### [facility] [address] Respiratory pathogens DNA an d RNA panel - Nasopharynx by YULIANA with non-probe detectionOrdered By: Hui Espinosa on 01-28-2024 Respiratory pathogens DNA and RNA panel YULIANA+non-probe (Nph) [facility] Activated partial thrombopla stin time (aPTT) in platelet poor plasma by coagulation aOrdered By: Kale Hopkins on 12-22-2023 aPTT Coag (PPP) [Time] 31.4 s 25.1-36.5 [facility] Comment on above: A hematocrit value g reater than 55% may lead to inaccurate results in coagulation testing. Patients having hematocrit values >55% require a special collection tube for coagulation studies. Please contact the laboratory at [phone] for redraw instructions. Alanine aminotransferase [En zymatic activity/volume] in Serum or PlasmaOrdered By: Kale Hopkins on 12-22-2023 ALT [Catalytic activity/Vol] 11 U/L Normal 7-52 [facility] Comment on above: Performed By: #### C UBLD, LACTIC #### [facility] [address] [place] [address] [place] Albumin [Mass/volume] in Ser um or Plasma by Bromocresol green (BCG) dye binding methoOrdered By: Kale Hopkins on 12-22-2023 Albumin BCG dye [Mass/Vol] 4.5 g/dL 3.5-5.7 [facility] Alkaline phosphatase [Enzyma tic activity/volume] in Serum or PlasmaOrdered By: Kale Hopkins on 12-22-2023 ALP [Catalytic activity/Vol] 71 U/L Normal 34-104 [facility] Comment on above: Performed By: #### C UBLD, LACTIC #### [facility] [address] [place] [address] Aspartate aminotransferase [ Enzymatic activity/volume] in Serum or PlasmaOrdered By: Kale Hpokins on 12-22-2023 AST [Catalytic activity/Vol] 15 U/L Normal 13-39 [facility] Comment on above: Performed By: #### C UBLD, LACTIC #### [place] [address] [place] Automated basophil %Ordered By: Kale Hopkins on 12-22-2023 Basophils/100 WBC (Bld) 0.5 % Normal . [facility] Comment on above: Performed By: #### C UBLD, LACTIC #### [place] [address] [place] Automated basophil countOrde red By: Kale Hopkins on 12-22-2023 Basophils (Bld) [#/Vol] 0.0 10*3/uL Normal 0.0-0.2 [facility] Comment on above: Result Comment: PERF ORMED BY: [place] [address] PATHOLOGIST HEARING HEALTH TECHNICIAN JUNI TSAI M.D. Performed By: #### C UBLD, LACTIC #### [address] Automated blood monocyte cou ntOrdered By: Kale Hopkins on 12-22-2023 Monocytes (Bld) [#/Vol] 0.5 10*3/uL Normal 0.0-0.8 [facility] Comment on above: Performed By: #### C UBLD, LACTIC #### [address] Automated eosinophil %Ordere d By: Kale Hopkins on 12-22-2023 Eosinophils/100 WBC (Bld) 0.1 % Normal . [facility] Comment on above: Performed By: #### C UBLD, LACTIC #### [address] Automated eosinophil countOr dered By: Kale Hopkins on 12-22-2023 Eosinophils (Bld) [#/Vol] 0.0 10*3/uL Normal 0.0-0.45 [facility] Comment on above: Performed By: #### C UBLD, LACTIC #### [address] Automated erythrocytes count in urine sediment (number/area)Ordered By: Kale Hopkins on 12-22-2023 RBC Auto (Urine sed) [#/Area] 0-1 [HPF] 0-4 [facility] Automated leukocytes count i n urine sediment (number/area)Ordered By: Kale Hopkins on 12-22-2023 WBC Auto (Urine sed) [#/Area] 5-9 [HPF] High 0-4 [facility] Automated monocyte %Ordered By: Kale Hopkins on 12-22-2023 Monocytes/100 WBC (Bld) 6.9 % Normal . [facility] Comment on above: Performed By: #### C UBLD, LACTIC #### [address] Automated neutrophil %Ordere d By: Kale Hopkins on 12-22-2023 Neutrophils/100 WBC (Bld) 75.3 % Normal . [facility] Comment on above: Performed By: #### C UBLD, LACTIC #### [address] Automated urine color determ inationOrdered By: Kale Hopkins on 12-22-2023 Color (U) Yellow Normal Yellow [facility] Comment on above: Order Comment: Name Collection Type:: Clean-Voided Midstream Performed By: #### P T, LIPASE, CMP, CBC #### [facility] [address] [place] [address] Bilirubin Test strip Ql (U)O rdered By: Kale Hopkins on 12-22-2023 Bilirubin Ql (U) Negative Negative [facility] Bilirubin.direct [Mass/volum e] in Serum or PlasmaOrdered By: Kale Hopkins on 12-22-2023 Bilirubin.direct [Mass/Vol] 0.10 mg/dL 0.03-0.18 [facility] Bilirubin.total [Mass/volume ] in Serum or PlasmaOrdered By: Kale Hopkins on 12-22-2023 Bilirubin [Mass/Vol] 1.0 mg/dL Normal 0.3-1.0 [facility] Comment on above: Performed By: #### C UBLD, LACTIC #### [address] abdomen pelvis w conon CT abdomen pelvis w con [facility] [place] [address] CT Scan Report Signed Patient: Awilda Merritt MR#: [id number] 4 : 1985 Acct:[id number] Age/Sex: 38 / F ADM Date: 12/22/23 Loc: ER Room: Type: [facility] ER Attending Dr: Copies to: Kale Hopkins APRN Ordering Provider: Kale Hopkins APRN Date of Service: 12/22/23 CT/CT abdomen pelvis w con: GI bleed CT ABDOMEN AND PELVIS WITH CONTRAST COMPARISON: 12/03/2023 CLINICAL DATA: Nausea, vomiting, fever and bloody stool. Spiral images were obtained through the abdomen and pelvis following 90 mL Isovue-300. This CT exam was performed using one or more following dose reduction techniques: Automated exposure control, adjustment of the mA and/or kV according to patient size, or use of iterative reconstruction technique. Limited cuts through the lung bases show no contributory findings. There is suspected fatty infiltration of the liver. No intrahepatic masses are identified. The gallbladder is surgically absent. No common duct stones or biliary dilatation are noted. The spleen, pancreas and adrenal glands show no acute findings. There are symmetric renal nephrograms, without hydronephrosis. The abdominal aorta is normal caliber. There are small retroperitoneal lymph nodes. There is a tiny umbilical hernia containing fat. No ascites is seen. There is no dilated small bowel. There is air and stool at the ascending and transverse colon. The descending colon is poorly distended. Slight levoscoliotic curvature is present at the spine. Images through the pelvis show no appendiceal inflammation. There are normal caliber small bowel loops. The distal colon is decompressed. This limits evaluation. No diverticular disease is seen. The uterus is surgically absent. There is a collapsed urinary bladder with apparent wall thickening. There is no ascites. CT/CT abdomen pelvis w con IMPRESSION: FATTY LIVER. NO BOWEL OR URINARY TRACT OBSTRUCTION. POORLY DISTENDED LEFT COLON, LIMITING EVALUATION. NO ACUTE FINDINGS. Impression dictated by: Amber Vazquez M.D.12/22/2023 11:24 AM Dictation Location: [place] [address] Transcribed By: SUKHDEV 12/22/23 1124 Dictated By: Amber Vazquez MD 12/22/23 1119 Signed By: 12/22/23 1124 Normal [facility] Calcium [Mass/volume] in Ser um or PlasmaOrdered By: Kale Hopkins on 12-22-2023 Calcium [Mass/Vol] 9.3 mg/dL Normal 8.6-10.[address] [facility] Comment on above: Performed By: #### C UBLD, LACTIC #### [address] Carbon dioxide, total [Moles /volume] in Serum or PlasmaOrdered By: Kale Hopkins on 12-22-2023 CO2 [Moles/Vol] 26.4 mmol/L Normal 21.0-31.0 [facility] Comment on above: Performed By: #### C UBLD, LACTIC #### [address] Chloride [Moles/volume] in S yan or PlasmaOrdered By: Kale Hopkins on 12-22-2023 Chloride [Moles/Vol] 104 mmol/L Normal 98-107 [facility] Comment on above: Performed By: #### C UBLD, LACTIC #### [address] Complete Blood Count Auto Di ffon 12-22-2023 Mean Corpuscular HGB Conc 33.7 g/dL Normal 32.0-35.0 [facility] Comment on above: Performed By: #### C UBLD, LACTIC #### [address] Monocytes/100 WBC (Bld) 16.02 % Normal 0.00-20.00 [facility] Comment on above: Performed By: #### C UBLD, LACTIC #### [address] NRBC% 0.1 /100{WBC} Normal 0-0.5 [facility] Comment on above: Performed By: #### C UBLD, LACTIC #### [address] Comprehensive Metabolic Pane alvin 12-22-2023 Albumin [Mass/Vol] 4.5 g/dL Normal 3.5-5.7 [facility] Comment on above: Performed By: #### C UBLD, LACTIC #### [place] [address] [place] Creatinine Clr Calc Pharmacy 108.55 Normal [facility] Comment on above: Performed By: #### C UBLD, LACTIC #### [address] GFR/1.73 sq M.predicted MDRD (S/P/Bld) [Vol rate/Area] mL/min/{1.73_m2} Normal [facility] Comment on above: Performed By: #### C UBLD, LACTIC #### [address] Creatinine [Mass/volume] in Serum or PlasmaOrdered By: Kale Hopkins on 12-22-2023 Creatinine [Mass/Vol] 0.77 mg/dL Normal 0.60-1.20 [facility] Comment on above: Performed By: #### C UBLD, LACTIC #### [address] Dipstick and Microscopicon 0 12-22-2023 Appearance (U) Cloudy Critically abnormal Clear [facility] Comment on above: Order Comment: Name Collection Type:: Clean-Voided Midstream Performed By: #### P T, LIPASE, CMP, CBC #### [address] Bacteria,Urine None Seen Normal None Seen [facility] Comment on above: Order Comment: Name Collection Type:: Clean-Voided Midstream Performed By: #### P T, LIPASE, CMP, CBC #### [address] Bilirubin,Urine Negative Normal Negative [facility] Comment on above: Order Comment: Name Collection Type:: Clean-Voided Midstream Performed By: #### P T, LIPASE, CMP, CBC #### [address] Glucose Ql (U) Normal Normal Normal [facility] Comment on above: Order Comment: Name Collection Type:: Clean-Voided Midstream Performed By: #### P T, LIPASE, CMP, CBC #### [place] [address] [place] Hyaline Casts,Urine 9-19 High 0-8 [facility] Comment on above: Order Comment: Name Collection Type:: Clean-Voided Midstream Result Comment: PERF ORMED BY: [place] [address] PATHOLOGIST HEARING HEALTH TECHNICIAN JUNI TSAI M.D. Performed By: #### P T, LIPASE, CMP, CBC #### [address] Ketones Ql (U) Trace High Negative [facility] Comment on above: Order Comment: Name Collection Type:: Clean-Voided Midstream Performed By: #### P T, LIPASE, CMP, CBC #### [address] Leukocyte esterase Test strip Ql (U) 1+ High Negative [facility] Comment on above: Order Comment: Name Collection Type:: Clean-Voided Midstream Performed By: #### P T, LIPASE, CMP, CBC #### [place] [address] [place] Nitrite,Urine Negative Normal Negative [facility] Comment on above: Order Comment: Name Collection Type:: Clean-Voided Midstream Performed By: #### P T, LIPASE, CMP, CBC #### [address] Occult Blood,Urine Negative Normal Negative [facility] Comment on above: Order Comment: Name Collection Type:: Clean-Voided Midstream Result Comment: PERF ORMED BY: [place] [address] PATHOLOGIST HEARING HEALTH TECHNICIAN JUNI TSAI M.D. Performed By: #### P T, LIPASE, CMP, CBC #### [address] Protein,Urine Trace High Negative [facility] Comment on above: Order Comment: Name Collection Type:: Clean-Voided Midstream Performed By: #### P T, LIPASE, CMP, CBC #### [place] [address] [place] RBC LM.HPF (Urine sed) [#/Area] 0 /[HPF] Normal 0-4 [facility] Comment on above: Order Comment: Name Collection Type:: Clean-Voided Midstream Performed By: #### P T, LIPASE, CMP, CBC #### [address] Specificy [place],Urine 1.022 Normal 1.001-1.030 [facility] Comment on above: Order Comment: Name Collection Type:: Clean-Voided Midstream Performed By: #### P T, LIPASE, CMP, CBC #### [address] Squamous Epithelial Cell,Urine 3-4 High 0-2 [facility] Comment on above: Order Comment: Name Collection Type:: Clean-Voided Midstream Performed By: #### P T, LIPASE, CMP, CBC #### [address] Urobilinogen,Urine Normal Normal Normal [facility] Comment on above: Order Comment: Name Collection Type:: Clean-Voided Midstream Performed By: #### P T, LIPASE, CMP, CBC #### [address] WBC,Urine 5-9 High 0-4 [facility] Comment on above: Order Comment: Name Collection Type:: Clean-Voided Midstream Performed By: #### P T, LIPASE, CMP, CBC #### [address] Erythrocyte distribution wid th [Ratio] by Automated countOrdered By: Kale Hopkins on 12-22-2023 Erythrocyte distribution width (RBC) [Ratio] 13.9 % Normal 11.9-15.3 [facility] Comment on above: Performed By: #### C UBLD, LACTIC #### [address] Erythrocytes [#/volume] in B lood by Automated countOrdered By: Kale Hopkins on 12-22-2023 RBC (Bld) [#/Vol] 3.77 10*6/uL Normal 3.60-5.00 [facility] Comment on above: Performed By: #### C UBLD, LACTIC #### [address] Glucose [Mass/volume] in Ser um or PlasmaOrdered By: Kale Hopkins on 12-22-2023 Glucose [Mass/Vol] 97 mg/dL Normal 70-[address] [facility] Comment on above: ADA recommended refe rence rangeRandom Glucose Reference Range is dependent on time and content of last meal. Glucose of more than 200 mg/dL in a nonstressed, ambulatory subject supports the diagnosis of Diabetes Mellitus. Result Comment: [place] om Glucose Reference Range is dependent on time and content of last meal. Glucose of more than 200 mg/dL in a nonstressed, ambulatory subject supports the diagnosis of Diabetes Mellitus. ADA recommended reference range Performed By: #### C UBLD, LACTIC #### [address] Hematocrit [Volume Fraction] of Blood by Automated countOrdered By: Kale Hopkins on 12-22-2023 Hematocrit (Bld) [Volume fraction] 36.0 % Normal 34.0-46.4 [facility] Comment on above: Performed By: #### C UBLD, LACTIC #### [address] Hemoglobin [Mass/volume] in BloodOrdered By: Kale Hopkins on 12-22-2023 Hemoglobin (Bld) [Mass/Vol] 12.1 g/dL Normal 11.8-15.4 [facility] Comment on above: Performed By: #### C UBLD, LACTIC #### [address] Hepatic Panelon 12-22-2023 Bilirubin,Indirect 0.9 mg/dL Normal [facility] Comment on above: Performed By: #### C UBLD, LACTIC #### [address] Bilirubin.indirect [Mass/Vol] 0.10 mg/dL Normal 0.03-0.18 [facility] Comment on above: Performed By: #### C UBLD, LACTIC #### [address] INR in Platelet poor plasma by Coagulation assayOrdered By: Kale Hopkins on 12-22-2023 INR Coag (PPP) [Relative time] 1.0 {INR} Normal [facility] Comment on above: INR Therapeutic Rang e A) Pre- and Peroperative OAT started two weeks before surgery. NOT HIP SURGERY: 1.5 - 2.5 HIP SURGERY: 2 - 3B) Primary and secondary prevention of venous THROMBOSIS: 2 - 3C) Active venous thrombosis, pulmonary embolismand prevention of recurrent venous thrombosis: 2 - 3D) Prevention of arterial thromboembolismincluding patients with mechanical heart valves: 3 - 4.5 Result Comment: INR Therapeutic Range A) Pre- and Peroperative OAT started two weeks before surgery. NOT HIP SURGERY: 1.5 - 2.5 HIP SURGERY: 2 - 3 B) Primary and secondary prevention of venous THROMBOSIS: 2 - 3 C) Active venous thrombosis, pulmonary embolism and prevention of recurrent venous thrombosis: 2 - 3 D) Prevention of arterial thromboembolism including patients with mechanical heart valves: 3 - 4.5 Performed By: #### C UBLD, LACTIC #### [facility] [address] [place] [address] Ketones Auto test strip (U) [Mass/Vol]Ordered By: Kale Hopkins on 12-22-2023 Ketones (U) [Mass/Vol] Trace High Negative [facility] - UrinalysisOrder ed By: Kale Hopkins on 12-22-2023 Hyaline casts LM Ql (Urine sed) 9-19 [LPF] High 0-8 [facility] Leukocytes [#/volume] correc kenneth for nucleated erythrocytes in Blood by Automated counOrdered By: Kale Hopkins on 12-22-2023 WBC corrected for nucl RBC Auto (Bld) [#/Vol] 7.6 10*3/uL 3.8-11.6 [facility] Leukocytes [#/volume] in Blo od by Automated countOrdered By: Kale Hopkins on 12-22-2023 WBC (Bld) [#/Vol] 7.6 10*3/uL Normal 3.8-11.[address] [facility] Comment on above: Performed By: #### C UBLD, LACTIC #### [facility] [address] [place] [address] [place] Lipase [Enzymatic activity/v olume] in Serum or PlasmaOrdered By: Kale Hopkins on 12-22-2023 Lipase [Catalytic activity/Vol] 12.0 U/L Normal 11.0-82.0 [facility] Comment on above: Result Comment: PERF ORMED BY: [place] [address] PATHOLOGIST HEARING HEALTH TECHNICIAN JUNI TSAI M.D. Performed By: #### C UBLD, LACTIC #### [address] Lymphocytes [#/volume] in Bl ood by Automated countOrdered By: Kale Hopkins on 12-22-2023 Lymphocytes (Bld) [#/Vol] 1.3 10*3/uL Normal 1.00-4.8 [facility] Comment on above: Performed By: #### C UBLD, LACTIC #### [place] [address] [place] Lymphocytes/100 leukocytes i n Blood by Automated countOrdered By: Kale Hopkins on 12-22-2023 Lymphocytes/100 WBC (Bld) 17.2 % Normal . [facility] Comment on above: Performed By: #### C UBLD, LACTIC #### [address] MCH [Entitic mass] by Automa kenneth countOrdered By: Kale Hopkins on 12-22-2023 MCH (RBC) [Entitic mass] 32.2 pg Normal 24.7-34.3 [facility] Comment on above: Performed By: #### C UBLD, LACTIC #### [address] MCHC Auto (RBC) [Mass/Vol]Or dered By: Kale Hopkins on 12-22-2023 MCHC (RBC) [Mass/Vol] 33.7 g/dL 32.0-35.0 [facility] MCV [Entitic volume] by Auto mated countOrdered By: Kale Hopkins on 12-22-2023 MCV (RBC) [Entitic vol] 95.6 fL Normal 80-100 [facility] Comment on above: Performed By: #### C UBLD, LACTIC #### [place] [address] [place] Monocyte distribution width [Entitic volume] in Blood by AutomatedOrdered By: Kale Hopkins on 12-22-2023 Monocyte distribution width Auto (Bld) [Entitic vol] 16.02 % 0.00-20.00 [facility] Neutrophils [#/volume] in Bl ood by Automated countOrdered By: Kale Hopkins on 12-22-2023 Neutrophils (Bld) [#/Vol] 5.7 10*3/uL Normal 1.8-7.7 [facility] Comment on above: Performed By: #### C UBLD, LACTIC #### [facility] [address] [place] [address] Nitrite Test strip Ql (U)Ord ered By: Kale Hopkins on 12-22-2023 Nitrite Ql (U) Negative Negative [facility] No Panel InformationOrdered By: Kale Hopkins on 12-22-2023 Estimated GFR (CKD-EPI) > 60.0 mL/Min [facility] Creatinine Clearance (Chem 108.55 [facility] Nucleated erythrocytes [Pres ence] in Blood by Automated countOrdered By: Kale Hopkins on 12-22-2023 Nucleated RBC Auto Ql (Bld) 0.1 /100{WBC} 0-0.5 [facility] Partial Thromboplastin Timeo n 12-22-2023 aPTT Coag (Bld) [Time] 31.4 s Normal 25.1-36.5 [facility] Comment on above: Result Comment: A he matocrit value greater than 55% may lead to inaccurate results in coagulation testing. Patients having hematocrit values >55% require a special collection tube for coagulation studies. Please contact the laboratory at [phone] for redraw instructions. PERFORMED BY: [place] [address] PATHOLOGIST HEARING HEALTH TECHNICIAN JUNI TSAI M.D. Performed By: #### C UBLD, LACTIC #### [facility] [address] [place], [place] [id number] [facility] Platelet mean volume [Entiti c volume] in Blood by Automated countOrdered By: Kale Hopkins on 12-22-2023 Platelet mean volume (Bld) [Entitic vol] 7.5 fL Normal 6.3-10.7 [facility] Comment on above: Performed By: #### C UBLD, LACTIC #### [facility] [address] Platelets [#/volume] in Bloo d by Automated countOrdered By: Kale Hopkins on 12-22-2023 Platelets (Bld) [#/Vol] 382 10*3/uL Normal 150-450 [facility] Comment on above: Performed By: #### C UBLD, LACTIC #### [address] Potassium [Moles/volume] in Serum or PlasmaOrdered By: Kale Hopkins on 12-22-2023 Potassium [Moles/Vol] 3.8 mmol/L Normal 3.5-5.1 [facility] Comment on above: Performed By: #### C UBLD, LACTIC #### [address] Protein Auto test strip (U) [Mass/Vol]Ordered By: Kale Hopkins on 12-22-2023 Protein (U) [Mass/Vol] Trace mg/dL High Negative [facility] Protein [Mass/volume] in Ser um or PlasmaOrdered By: Kale Hopkins on 12-22-2023 Protein [Mass/Vol] 6.8 g/dL Normal 6.4-8.[address] [facility] Comment on above: Performed By: #### C UBLD, LACTIC #### [address] Prothrombin time (PT)Ordered By: Kale Hopkins on 12-22-2023 PT Coag (PPP) [Time] 11.2 s Normal 9.0-12.9 [facility] Comment on above: A hematocrit value g reater than 55% may lead to inaccurate results in coagulation testing. Patients having hematocrit values >55% require a special collection tube for coagulation studies. Please contact the laboratory at [phone] for redraw instructions. Result Comment: A he matocrit value greater than 55% may lead to inaccurate results in coagulation testing. Patients having hematocrit values >55% require a special collection tube for coagulation studies. Please contact the laboratory at [phone] for redraw instructions. Performed By: #### C UBLD, LACTIC #### [address] Serum globulin measurement b y calculation (mass/volume)Ordered By: Kale Hopkins on 12-22-2023 Globulin (S) [Mass/Vol] 2.3 g/dL [facility] Comment on above: Performed By: #### C UBLD, LACTIC #### [address] Serum or plasma albumin/glob ulin mass ratioOrdered By: Kale Hopkins on 12-22-2023 Albumin/Globulin [Mass ratio] 2.0 {ratio} [facility] Comment on above: Performed By: #### C UBLD, LACTIC #### [address] Serum or plasma anion gap de terminationOrdered By: Kale Hopkins on 12-22-2023 Anion gap [Moles/Vol] 11.4 mmol/L Normal 6.0-15.0 [facility] Comment on above: Performed By: #### C UBLD, LACTIC #### [address] Serum or plasma non-glucuron idated bilirubin measurement (mass/volume)Ordered By: Kale Hopkins on 12-22-2023 Bilirubin.indirect [Mass/Vol] 0.9 mg/dL [facility] Sodium [Moles/volume] in Ser um or PlasmaOrdered By: Kale Hopkins on 12-22-2023 Sodium [Moles/Vol] 138 mmol/L Normal 136-[address] [facility] Comment on above: Performed By: #### C UBLD, LACTIC #### [address] Specific gravity Auto test s trip (U) [Rel density]Ordered By: Kale Hopkins on 12-22-2023 Specific gravity (U) [Rel density] 1.022 1.001-1.030 [facility] Squamous epithelial cells de tection in urine sediment by light microscopyOrdered By: Kale Hopkins on 12-22-2023 Epithelial cells.squamous LM Ql (Urine sed) 3-4 [HPF] High 0-2 [facility] Urea nitrogen [Mass/volume] in Serum or PlasmaOrdered By: Kale Hopkins on 12-22-2023 Urea nitrogen [Mass/Vol] 10 mg/dL Normal 7-25 [facility] Comment on above: Performed By: #### C UBLD, LACTIC #### [facility] [address] [place] [address] Urine Cultureon 12-22-2023 Bacteria identified Cx Nom (U) 20,000 colonies/ml mixed bacterial skin contaminants 2 Days PERFORMED BY: [place] [address] PATHOLOGIST HEARING HEALTH TECHNICIAN JUNI TSAI M.D. Normal [facility] Comment on above: Performed By: #### P T, LIPASE, CMP, CBC #### [facility] [address] [place] [address] Urine bacteria detection by automated methodOrdered By: Kale Hopkins on 12-22-2023 Bacteria Auto Ql (U) None seen [HPF] None Seen [facility] Urine clarity by refractomet ry automatedOrdered By: Kale Hopkins on 12-22-2023 Clarity Refractometry automated (U) Cloudy Abnormal Clear [facility] Urine culture routineOrdered By: Kale Hopkins on 12-22-2023 Bacteria identified Cx Nom (U) 2 Days [facility] Urine glucose measurement by automated test strip (mass/volume)Ordered By: Kale Hopkins on 12-22-2023 Glucose Auto test strip (U) [Mass/Vol] Normal mg/dL Normal [facility] Urine hemoglobin detection b y automated test stripOrdered By: Kale Hopkins on 12-22-2023 Hemoglobin Auto test strip Ql (U) Negative Negative [facility] Urine leukocyte esterase det ection by automated test stripOrdered By: Kale Hopkins on 12-22-2023 Leukocyte esterase Auto test strip Ql (U) 1+ High Negative [facility] Urine pH measurement by auto mated test stripOrdered By: Kale Hopkins on 12-22-2023 pH (U) 5.5 [pH] Normal 5.0-9.0 [facility] Comment on above: Order Comment: Name Collection Type:: Clean-Voided Midstream Performed By: #### P T, LIPASE, CMP, CBC #### [address] Urobilinogen Auto test strip (U) [Mass/Vol]Ordered By: Kale Hopkins on 12-22-2023 Urobilinogen (U) [Mass/Vol] Normal mg/dL Normal [facility] Basic Metabolic Panelon 11-16 Creatinine Clr Calc Pharmacy 118.22 Normal [facility] Comment on above: Result Comment: PERF ORMED BY: [place] [address] PATHOLOGIST HEARING HEALTH TECHNICIAN JUNI TSAI M.D. Performed By: #### P T, LIPASE, CMP, CBC #### [address] GFR/1.73 sq M.predicted MDRD (S/P/Bld) [Vol rate/Area] mL/min/{1.73_m2} Normal [facility] Comment on above: Performed By: #### P T, LIPASE, CMP, CBC #### [address] Calcium [Mass/volume] in Ser um or PlasmaOrdered By: Huseyin Gill on 12-05-2023 Calcium [Mass/Vol] 8.0 mg/dL Low 8.6-10.[address] [facility] Comment on above: Performed By: #### P T, LIPASE, CMP, CBC #### [address] Carbon dioxide, total [Moles /volume] in Serum or PlasmaOrdered By: Huseyin Gill on 12-05-2023 CO2 [Moles/Vol] 28.4 mmol/L Normal 21.0-31.0 [facility] Comment on above: Performed By: #### P T, LIPASE, CMP, CBC #### [address] [place] [address] [place] Chloride [Moles/volume] in S yan or PlasmaOrdered By: Huseyin Gill on 12-05-2023 Chloride [Moles/Vol] 104 mmol/L Normal 98-107 [facility] Comment on above: Performed By: #### P T, LIPASE, CMP, CBC #### [facility] [address] [place] [address] Creatinine [Mass/volume] in Serum or PlasmaOrdered By: Huseyin Gill on 12-05-2023 Creatinine [Mass/Vol] 0.73 mg/dL Normal 0.60-1.20 [facility] Comment on above: Performed By: #### P T, LIPASE, CMP, CBC #### [address] Erythrocyte distribution wid th [Ratio] by Automated countOrdered By: Huseyin Gill on 12-05-2023 Erythrocyte distribution width (RBC) [Ratio] 13.6 % Normal 11.9-15.3 [facility] Comment on above: Performed By: #### P T, LIPASE, CMP, CBC #### [address] Erythrocytes [#/volume] in B lood by Automated countOrdered By: Huseyin Gill on 12-05-2023 RBC (Bld) [#/Vol] 3.08 10*6/uL Low 3.60-5.00 [facility] Comment on above: Performed By: #### P T, LIPASE, CMP, CBC #### [address] Glucose [Mass/volume] in Ser um or PlasmaOrdered By: Huseyin Gill on 12-05-2023 Glucose [Mass/Vol] 90 mg/dL Normal 70-[address] [facility] Comment on above: ADA recommended refe rence rangeRandom Glucose Reference Range is dependent on time and content of last meal. Glucose of more than 200 mg/dL in a nonstressed, ambulatory subject supports the diagnosis of Diabetes Mellitus. Result Comment: [place] om Glucose Reference Range is dependent on time and content of last meal. Glucose of more than 200 mg/dL in a nonstressed, ambulatory subject supports the diagnosis of Diabetes Mellitus. ADA recommended reference range Performed By: #### P T, LIPASE, CMP, CBC #### [address] Hematocrit [Volume Fraction] of Blood by Automated countOrdered By: Huseyin Gill on 12-05-2023 Hematocrit (Bld) [Volume fraction] 29.2 % Low 34.0-46.4 [facility] Comment on above: Performed By: #### P T, LIPASE, CMP, CBC #### [address] Hemoglobin [Mass/volume] in BloodOrdered By: Huseyin Gill on 12-05-2023 Hemoglobin (Bld) [Mass/Vol] 9.8 g/dL Low 11.8-15.4 [facility] Comment on above: Performed By: #### P T, LIPASE, CMP, CBC #### [address] Hemogram CBC Without Diffon 12-05-2023 Mean Corpuscular HGB Conc 33.5 g/dL Normal 32.0-35.0 [facility] Comment on above: Performed By: #### P T, LIPASE, CMP, CBC #### [address] WBC (Bld) [#/Vol] 8.7 10*3/uL Normal 3.8-11.6 [facility] Comment on above: Performed By: #### P T, LIPASE, CMP, CBC #### [address] Leukocytes [#/volume] correc kenneth for nucleated erythrocytes in Blood by Automated counOrdered By: Huseyin Gill on 12-05-2023 WBC corrected for nucl RBC Auto (Bld) [#/Vol] 8.7 10*3/uL 3.8-11.6 [facility] MCH [Entitic mass] by Automa kenneth countOrdered By: Huseyin Gill on 12-05-2023 MCH (RBC) [Entitic mass] 31.8 pg Normal 24.7-34.3 [facility] Comment on above: Performed By: #### P T, LIPASE, CMP, CBC #### [facility] [address] [place] [address] MCHC Auto (RBC) [Mass/Vol]Or dered By: Huseyin Gill on 12-05-2023 MCHC (RBC) [Mass/Vol] 33.5 g/dL 32.0-35.0 [facility] MCV [Entitic volume] by Auto mated countOrdered By: Huseyin Gill on 12-05-2023 MCV (RBC) [Entitic vol] 94.9 fL Normal 80-100 [facility] Comment on above: Performed By: #### P T, LIPASE, CMP, CBC #### [address] No Panel InformationOrdered By: Zaripennie Onelcynthia on 12-05-2023 Estimated GFR (CKD-EPI) > 60.0 mL/Min [facility] Creatinine Clearance (Chem 118.22 [facility] Platelet mean volume [Entiti c volume] in Blood by Automated countOrdered By: Huseyin Sykescynthia on 12-05-2023 Platelet mean volume (Bld) [Entitic vol] 6.9 fL Normal 6.3-10.7 [facility] Comment on above: Result Comment: PERF ORMED BY: [place] [address] PATHOLOGIST HEARING HEALTH TECHNICIAN JUNI TSAI M.D. Performed By: #### P T, LIPASE, CMP, CBC #### [address] Platelets [#/volume] in Bloo d by Automated countOrdered By: Zaripennie Onelcynthia on 12-05-2023 Platelets (Bld) [#/Vol] 348 10*3/uL Normal 150-450 [facility] Comment on above: Performed By: #### P T, LIPASE, CMP, CBC #### [address] [place] [address] [place] Potassium [Moles/volume] in Serum or PlasmaOrdered By: Fauzialindy Farzanavibha on 12-05-2023 Potassium [Moles/Vol] 2.9 mmol/L Off scale low 3.5-5.1 [facility] Comment on above: Critical valueresult calledat 0710 on 12/05/23--- 12/05/23 0710 ---K previously reported as: 2.9 *L mmol/L Result Comment: Crit ical value result called at 0710 on 12/05/23 --- 12/05/23 0710 --- K previously reported as: 2.9 *L mmol/L Performed By: #### P T, LIPASE, CMP, CBC #### [address] Serum or plasma anion gap de terminationOrdered By: Fauzialindy Onelcynthia on 12-05-2023 Anion gap [Moles/Vol] 8.5 mmol/L Normal 6.0-15.0 [facility] Comment on above: Performed By: #### P T, LIPASE, CMP, CBC #### [address] Sodium [Moles/volume] in Ser um or PlasmaOrdered By: Fauzialindy Onelcynthia on 12-05-2023 Sodium [Moles/Vol] 138 mmol/L Normal 136-[address] [facility] Comment on above: Performed By: #### P T, LIPASE, CMP, CBC #### [facility] [address] [place] [address] Urea nitrogen [Mass/volume] in Serum or PlasmaOrdered By: Fauzialindy Onelcynthia on 12-05-2023 Urea nitrogen [Mass/Vol] 6 mg/dL Low 7-25 [facility] Comment on above: Performed By: #### P T, LIPASE, CMP, CBC #### [address] Basic Metabolic Panelon 11-15 Anion gap [Moles/Vol] Not performed Normal 6.0-15.0 [facility] Comment on above: Performed By: #### P T, LIPASE, CMP, CBC #### [facility] [address] [place] [address] [place] Calcium [Mass/Vol] 7.7 mg/dL Significant change down 8.6-10.3 [facility] Comment on above: Performed By: #### P T, LIPASE, CMP, CBC #### [facility] [address] [place] [address] [place] Chloride [Moles/Vol] 103 mmol/L Normal 98-107 [facility] Comment on above: Performed By: #### P T, LIPASE, CMP, CBC #### [facility] [address] [place] [address] [place] CO2 [Moles/Vol] 23.0 mmol/L Normal 21.0-31.0 [facility] Comment on above: Performed By: #### P T, LIPASE, CMP, CBC #### [place] [address] [place] Creatinine [Mass/Vol] 0.65 mg/dL Normal 0.60-1.20 [facility] Comment on above: Performed By: #### P T, LIPASE, CMP, CBC #### [place] [address] [place] Creatinine Clr Calc Pharmacy 153.65 Normal [facility] Comment on above: Result Comment: PERF ORMED BY: [place] [address] PATHOLOGIST HEARING HEALTH TECHNICIAN JUNI TSAI M.D. Performed By: #### P T, LIPASE, CMP, CBC #### [place] [address] [place] GFR/1.73 sq M.predicted MDRD (S/P/Bld) [Vol rate/Area] mL/min/{1.73_m2} Normal [facility] Comment on above: Performed By: #### P T, LIPASE, CMP, CBC #### [address] Glucose [Mass/Vol] 128 mg/dL High 70-100 [facility] Comment on above: Result Comment: [facility] Glucose Reference Range is dependent on time and content of last meal. Glucose of more than 200 mg/dL in a nonstressed, ambulatory subject supports the diagnosis of Diabetes Mellitus. ADA recommended reference range Performed By: #### P T, LIPASE, CMP, CBC #### [facility] [address] Potassium Normal 3.5-5.1 [facility] Comment on above: Result Comment: Spec imen hemolyzed, redraw requested Performed By: #### P T, LIPASE, CMP, CBC #### [facility] [address] Sodium [Moles/Vol] 137 mmol/L Significant change down 136-145 [facility] Comment on above: Performed By: #### P T, LIPASE, CMP, CBC #### [facility] [address] Urea nitrogen [Mass/Vol] 14 mg/dL Normal 7-25 [facility] Comment on above: Performed By: #### P T, LIPASE, CMP, CBC #### [address] abdomen pelvis w conon CT abdomen pelvis w con [facility] [place] [address] [place] [address] CT Scan Report Signed Patient: Awilda Merritt MR#: [id number] 4 : 1985 Acct:[id number] Age/Sex: 38 / F ADM Date: 12/03/23 Loc: Room: [address] [place] [address] Type: ADM IN Attending Dr: Huseyin Gill MD Copies to: Huseyin Gill MD Ordering Provider: Huseyin Gill MD Date of Service: 12/03/23 CT/CT abdomen pelvis w con: RLQ pain CT ABDOMEN AND PELVIS WITH CONTRAST COMPARISON: 01/28/2021 CLINICAL DATA: Nausea, vomiting with flulike symptoms. Recent urinary tract infection. Spiral images were obtained through the abdomen and pelvis following 90 mL of Isovue-300. This CT exam was performed using one or more following dose reduction techniques: Automated exposure control, adjustment of the mA and/or kV according to patient size, or use of iterative reconstruction technique. Limited cuts through the lung bases show no contributory pulmonary findings. There is a tiny hiatal hernia. There may be slight fatty infiltration of the liver. The gallbladder surgically absent. No common duct stones are noted. The spleen, pancreas and adrenal glands show no acute findings. The right renal nephrogram is patchy. This may be pyelonephritis. There are no renal stones or hydronephrosis. No ureteral dilatation or calculi are noted. The abdominal aorta is normal caliber. Small lymph nodes are visualized. No ascites is seen. There is a tiny umbilical hernia containing fat. The small bowel loops are normal caliber. There is stool at the ascending and transverse colon. The descending colon is decompressed and there is apparent wall thickening. There is subtle levoscoliotic curvature. Images through the pelvis show normal caliber small bowel loops. No appendiceal inflammation is present. There is mild distal colonic stool. No diverticular disease is seen. The uterus is surgically absent. The bladder is not well-distended however no obvious CT abnormalities are identified. There is no free fluid. CT/CT abdomen pelvis w con IMPRESSION: PATCHY RIGHT RENAL NEPHROGRAM SUSPICIOUS FOR PYELONEPHRITIS. THERE IS NO EVIDENCE OF PERINEPHRIC ABSCESS OR OBSTRUCTION. NO ADDITIONAL ACUTE FINDINGS. Impression dictated by: Amber Vazquez M.D.12/04/2023 7:58 AM Dictation Location: [place] [address] Transcribed By: [facility] 12/04/23 0758 Dictated By: Amber Vazquez MD 12/04/23 0751 Signed By: 12/04/23 0758 Normal [facility] Hemogram CBC Without Diffon 12-04-2023 Erythrocyte distribution width (RBC) [Ratio] 13.5 % Normal 11.9-15.3 [facility] Comment on above: Performed By: #### P T, LIPASE, CMP, CBC #### [facility] [address] [place] [address] [facility] Hematocrit (Bld) [Volume fraction] 30.2 % Low 34.0-46.4 [facility] Comment on above: Performed By: #### P T, LIPASE, CMP, CBC #### [place] [address] Hemoglobin (Bld) [Mass/Vol] 10.1 g/dL Low 11.8-15.4 [facility] Comment on above: Performed By: #### P T, LIPASE, CMP, CBC #### [address] MCH (RBC) [Entitic mass] 31.6 pg Normal 24.7-34.3 [facility] Comment on above: Performed By: #### P T, LIPASE, CMP, CBC #### [address] MCV (RBC) [Entitic vol] 94.2 fL Normal 80-100 [facility] Comment on above: Performed By: #### P T, LIPASE, CMP, CBC #### [address] Mean Corpuscular HGB Conc 33.5 g/dL Normal 32.0-35.0 [facility] Comment on above: Performed By: #### P T, LIPASE, CMP, CBC #### [address] Platelet mean volume (Bld) [Entitic vol] 7.0 fL Normal 6.3-10.7 [facility] Comment on above: Result Comment: PERF ORMED BY: [place] [address] PATHOLOGIST HEARING HEALTH TECHNICIAN JUNI TSAI M.D. Performed By: #### P T, LIPASE, CMP, CBC #### [address] Platelets (Bld) [#/Vol] 336 10*3/uL Normal 150-450 [facility] Comment on above: Performed By: #### P T, LIPASE, CMP, CBC #### [address] RBC (Bld) [#/Vol] 3.21 10*6/uL Low 3.60-5.00 [facility] Comment on above: Performed By: #### P T, LIPASE, CMP, CBC #### [facility] [address] [place] [address] WBC (Bld) [#/Vol] 12.8 10*3/uL High 3.8-11.6 [facility] Comment on above: Performed By: #### P T, LIPASE, CMP, CBC #### [address] Redraw Potassiumon Potassium [Moles/Vol] 3.8 mmol/L Normal 3.5-5.1 [facility] Comment on above: Result Comment: PERF ORMED BY: [place] [address] PATHOLOGIST HEARING HEALTH TECHNICIAN JUNI TSAI M.D. Performed By: #### C UBLD, LACTIC #### [address] Alanine aminotransferase [En zymatic activity/volume] in Serum or PlasmaOrdered By: Massiel Peters on 12-03-2023 ALT [Catalytic activity/Vol] 11 U/L Normal 7-52 [facility] Comment on above: Performed By: #### P T, LIPASE, CMP, CBC #### [address] Albumin [Mass/volume] in Ser um or Plasma by Bromocresol green (BCG) dye binding methoOrdered By: Massiel Peters on 12-03-2023 Albumin BCG dye [Mass/Vol] 4.3 g/dL 3.5-5.7 [facility] Alkaline phosphatase [Enzyma tic activity/volume] in Serum or PlasmaOrdered By: Massiel Peters on 12-03-2023 ALP [Catalytic activity/Vol] 96 U/L Normal 34-104 [facility] Comment on above: Performed By: #### P T, LIPASE, CMP, CBC #### [address] Aspartate aminotransferase [ Enzymatic activity/volume] in Serum or PlasmaOrdered By: Massiel Peters on 12-03-2023 AST [Catalytic activity/Vol] 14 U/L Normal 13-39 [facility] Comment on above: Performed By: #### P T, LIPASE, CMP, CBC #### [address] Automated basophil %Ordered By: Massiel Peters on 12-03-2023 Basophils/100 WBC (Bld) 0.4 % Normal . [facility] Comment on above: Performed By: #### P T, LIPASE, CMP, CBC #### [address] Automated basophil countOrde red By: Massiel Peters on 12-03-2023 Basophils (Bld) [#/Vol] 0.1 10*3/uL Normal 0.0-0.2 [facility] Comment on above: Result Comment: PERF ORMED BY: [place] [address] PATHOLOGIST HEARING HEALTH TECHNICIAN JUNI TSAI M.D. Performed By: #### P T, LIPASE, CMP, CBC #### [address] Automated blood monocyte cou ntOrdered By: Massiel Peters on 12-03-2023 Monocytes (Bld) [#/Vol] 1.6 10*3/uL High 0.0-0.8 [facility] Comment on above: Performed By: #### P T, LIPASE, CMP, CBC #### [address] Automated eosinophil %Ordere d By: Massiel Peters on 12-03-2023 Eosinophils/100 WBC (Bld) 0.1 % Normal . [facility] [facility] Comment on above: Performed By: #### P T, LIPASE, CMP, CBC #### [address] Automated eosinophil countOr dered By: Massiel Peters on 12-03-2023 Eosinophils (Bld) [#/Vol] 0.0 10*3/uL Normal 0.0-0.45 [facility] Comment on above: Performed By: #### P T, LIPASE, CMP, CBC #### [address] Automated erythrocytes count in urine sediment (number/area)Ordered By: Massiel Peters on 12-03-2023 RBC Auto (Urine sed) [#/Area] 5-9 [HPF] High 0-4 [facility] Automated leukocytes count i n urine sediment (number/area)Ordered By: Massiel Peters on 12-03-2023 WBC Auto (Urine sed) [#/Area] 50-100 [HPF] High 0-4 [facility] Automated monocyte %Ordered By: Massiel Peters on 12-03-2023 Monocytes/100 WBC (Bld) 10.1 % Normal . [facility] Comment on above: Performed By: #### P T, LIPASE, CMP, CBC #### [facility] [address] Automated neutrophil %Ordere d By: Massiel Peters on 12-03-2023 Neutrophils/100 WBC (Bld) 79.9 % Normal . [facility] Comment on above: Performed By: #### P T, LIPASE, CMP, CBC #### [facility] [address] [place] [address] Automated urine color determ inationOrdered By: Massiel Peters on 12-03-2023 Color (U) Yellow Normal Yellow [facility] Comment on above: Order Comment: Name Collection Type:: Clean-Voided Midstream Performed By: #### C UBLD, LACTIC #### [facility] [address] [place] [address] Bacterial blood cultureOrder ed By: Massiel Peters on 12-03-2023 Bacteria identified Cx Nom (Bld) NO GROWTH 5 DAYS [facility] Bilirubin Test strip Ql (U)O rdered By: Massiel Peters on 12-03-2023 Bilirubin Ql (U) Negative Negative [facility] Bilirubin.total [Mass/volume ] in Serum or PlasmaOrdered By: Massiel Peters on 12-03-2023 Bilirubin [Mass/Vol] 0.8 mg/dL Normal 0.3-1.0 [facility] Comment on above: Performed By: #### P T, LIPASE, CMP, CBC #### [facility] [address] Blood Cultureon 12-03-2023 Bacteria identified Cx Nom (Bld) NO GROWTH 5 DAYS PERFORMED BY: [facility] [address] [place] [address] PATHOLOGIST HEARING HEALTH TECHNICIAN JUNI TSAI M.D. Normal [facility] Comment on above: Performed By: #### C UBLD, LACTIC #### [facility] [address] [place] [id number] [facility] Bacteria identified Cx Nom (Bld) [employer] BCID Panel results called at 0940 on 12/05/23 Gram Stain Gram Positive Cocci in Clusters ORGANISM: Staphylococcus sp coag neg (O:STACN) Aerobic CARLOS Charge (PCMIC38) SUSCEPTIBILITY ORGANISM: O:STACN ANTIBIOTIC INTERPRETATION CARLOS Azithromycin R >4 Ciprofloxacin S <1 Daptomycin S <0.5 Levofloxacin S <1 Linezolid S <1 Oxacillin S <0.25 Penicillin EDWARDO >2 Tetracycline R >8 Trimethoprim/Sulfamethoxaz ole R >2 Vancomycin S 0.5 [employer] BCID Panel results called at 0940 on 12/05/23 Staphylococcus aureus DNA [Presence] by YULIANA with non-probe detection in Positive blood culture Not detected Bacteroides fragilis DNA [Presence] by YULIANA with non-probe detection in Positive blood culture Not detected Fariha auris DNA [Presence] by YULIANA with non-probe detection in Positive blood culture Not detected Fariha albicans DNA [Presence] by YULIANA with non-probe detection in Positive blood culture Not detected Acinetobacter calcoaceticus-baumannii complex DNA [Presence] by YULIANA with non-probe detection in Positive blood culture Not detected Cryptococcus neoformans or gattii 9002 Not detected Cephalosporin resistance blaCTX-M gene [Presence] by Molecular method Not Applicable Escherichia coli Not detected Enterobacterales DNA [Presence] by YULIANA with non-probe detection in Positive blood culture Not detected Enterobacter cloacae complex DNA [Presence] by YULIANA with non-probe detection in Positive blood culture Not detected Staphylococcus epidermidis DNA [Presence] by YULIANA with non-probe detection in Positive blood culture Not detected Enterococcus faecalis DNA [Presence] by YULIANA with non-probe detection in Positive blood culture Not detected Enterococcus faecium DNA [Presence] by YULIANA with non-probe detection in Positive blood culture Not detected Fariha glabrata DNA [Presence] by YULIANA with non-probe detection in Positive blood culture Not detected Haemophilus influenzae (reported as H flu) Not detected Carbapenem resistance blaIMP gene [Presence] by Molecular method Not Applicable Klebsiella aerogenes DNA [Presence] by YULIANA with non-probe detection in Positive blood culture Not detected Klebsiella pneumoniae+Klebsiella variicola+Klebsiella quasipneumoniae DNA [Presence] by YULIANA with non-probe detection in Positive blood culture Not detected Klebsiella oxytoca DNA [Presence] by YULIANA with non-probe detection in Positive blood culture Not detected Carbapenem resistance blaKPC gene [Presence] by Molecular method Not Applicable Fariha krusei DNA [Presence] by YULIANA with non-probe detection in Positive blood culture Not detected Listeria monocytogenes (reported as listeriosis) Not detected Staphylococcus lugdunensis DNA [Presence] by YULIANA with non-probe detection in Positive blood culture Not detected Methicillin resistance mecA+mecC genes+SCCmec+OrfX junction [Presence] by Molecular method Not Applicable Carbapenem resistance blaNDM gene [Presence] by Molecular method Not Applicable Neisseria meningitidis - reported as meningococcal disease Not detected Carbapenem resistance franky OXA-48-like gene [Presence] by Molecular method Not Applicable Fariha parapsilosis DNA [Presence] by YULIANA with non-probe detection in Positive blood culture Not detected Streptococcus pneumoniae - reported at [facility] Not detected Proteus sp DNA [Presence] by YULIANA with non-probe detection in Positive blood culture Not detected Pseudomonas aeruginosa DNA [Presence] by YULIANA with non-probe detection in Positive blood culture Not detected Salmonella sp DNA [Presence] by YULIANA with non-probe detection in Positive blood culture Not detected Serratia marcescens DNA [Presence] by YULIANA with non-probe detection in Positive blood culture Not detected Staphylococcus sp DNA [Presence] by YULIANA with non-probe detection in Positive blood culture Detected Stenotrophomonas maltophilia DNA [Presence] by YULIANA with non-probe detection in Positive blood culture Not detected Group A (Streptococcus pyogenes) [id number] Not detected Group B Strep (Streptococcus agalactiae) Not detected Streptococcus sp DNA [Presence] by YULIANA with non-probe detection in Positive blood culture Not detected Fariha tropicalis DNA [Presence] by YULIANA with non-probe detection in Positive blood culture Not detected Vancomycin resistance Rachel + vanB genes [Presence] by Molecular method Not Applicable Carbapenem resistance blaVIM gene [Presence] by Molecular method Not Applicable Colistin resistance mcr-1 gene [Presence] by Molecular method Not Applicable Methicillin resistance mecA+mecC genes [Presence] in Isolate or Specimen by Molecular genetics method Not Applicable RESIS. GENE COMMENT 1 Antimicrobial resistance can occur via multiple RESIS. GENE COMMENT 2 mechanisms. A Not Detected result for antimicrobial RESIS. GENE COMMENT 3 resistance gene(s) does not indicat (more content not included)... Normal [facility] Comment on above: Performed By: #### C UBLD, LACTIC #### [facility] [address] COVID CepheidOrdered By: Denise Peters on 12-03-2023 SARS-CoV-2 (COVID-19) Ab IA Ql Negative Negative [facility] Comment on above: This is a duplicate [employer] Xpert Xpress CoV-2/Flu/RSV Plus RNA by RT-PCR result to be used for statistical tracking purpose only. SARS-CoV-2 (COVID-19) RNA YULIANA+probe Ql (Unsp spec) [facility] COVID-19 / Flu A/B / RSV PCR on 12-03-2023 SARS-CoV-2 (COVID-19) RNA YULIANA+probe Ql (Unsp spec) COVID-19 Cepheid Result Negative for SARS-CoV-2 RNA by RT-PCR Flu A Cepheid Result Negative for Flu A RNA by RT-PCR Flu B Cepheid Result Negative for Flu B RNA by RT-PCR RSV Cepheid Result Negative for RSV RNA by RT-PCR COVID19 Blank Space -- Reference: Negative COVID19 Blank Space -- Cepheid Disclaimer The Cepheid Xpert Xpress CoV-2/Flu/RSV Plus has Cepheid Disclaimer not been FDA cleared or approved; this test has Cepheid Disclaimer been authorized by FDA under an EUA for use by Cepheid Disclaimer authorized laboratories; this test has been Cepheid Disclaimer authorized only for the simultaneous qualitative Cepheid Disclaimer detection and differentiation of nucleic acids from Cepheid Disclaimer SARS-CoV-2, influenza A, influenza B, and Cepheid Disclaimer respiratory syncytial virus (RSV), and not for any Cepheid Disclaimer other viruses or pathogens; and this test is only Cepheid Disclaimer authorized for the duration of the declaration that Cepheid Disclaimer circumstances exist justifying the authorization of Cepheid Disclaimer emergency use of in vitro diagnostic tests for Cepheid Disclaimer detection and/or diagnosis of COVID-19 under Cepheid Disclaimer Section 564(b)(1) of the Act, 21 U.S.C. 360bbb- Cepheid Disclaimer 3(b)(1), unless the authorization is terminated or Cepheid Disclaimer revoked sooner. PERFORMED BY: [place] [address] PATHOLOGIST HEARING HEALTH TECHNICIAN JUNI TSAI M.D. Normal [facility] Comment on above: Performed By: #### C OVID19 FLU RSV, CEPHEID NEG #### [address] Calcium [Mass/volume] in Ser um or PlasmaOrdered By: Massiel Peters on 12-03-2023 Calcium [Mass/Vol] 9.6 mg/dL Normal 8.6-10.[address] [facility] Comment on above: Performed By: #### P T, LIPASE, CMP, CBC #### [address] Carbon dioxide, total [Moles /volume] in Serum or PlasmaOrdered By: Massiel Peters on 12-03-2023 CO2 [Moles/Vol] 26.6 mmol/L Normal 21.0-31.0 [facility] Comment on above: Performed By: #### P T, LIPASE, CMP, CBC #### [address] Cepheid COVID PCR Negativeon 12-03-2023 SARS-CoV-2 (COVID-19) RNA YULIANA+probe Ql (Unsp spec) Negative Normal Negative [facility] Comment on above: Result Comment: This is a duplicate [employer] Xpert Xpress CoV-2/Flu/RSV Plus RNA by RT-PCR result to be used for statistical tracking purpose only. PERFORMED BY: [place] [address] PATHOLOGIST HEARING HEALTH TECHNICIAN JUNI TSAI M.D. Performed By: #### C OVID19 FLU RSV, CEPHEID NEG #### [address] Chloride [Moles/volume] in S yan or PlasmaOrdered By: Massiel Peters on 12-03-2023 Chloride [Moles/Vol] 99 mmol/L Normal 98-107 [facility] Comment on above: Performed By: #### P T, LIPASE, CMP, CBC #### [address] Complete Blood Count Auto Di ffon 12-03-2023 Mean Corpuscular HGB Conc 33.5 g/dL Normal 32.0-35.0 [facility] Comment on above: Performed By: #### P T, LIPASE, CMP, CBC #### [address] Monocytes/100 WBC (Bld) 22.37 % High 0.00-20.00 [facility] Comment on above: Result Comment: For adults in ED, MDW > 20.0 may be associated with a higher risk of sepsis during the first 12 hrs of hospital admission Performed By: #### P T, LIPASE, CMP, CBC #### [address] NRBC% 0.0 /100{WBC} Normal 0-0.5 [facility] Comment on above: Performed By: #### P T, LIPASE, CMP, CBC #### [address] Comprehensive Metabolic Pane alvin 12-03-2023 Albumin [Mass/Vol] 4.3 g/dL Normal 3.5-5.7 [facility] Comment on above: Performed By: #### P T, LIPASE, CMP, CBC #### [facility] [address] Creatinine Clr Calc Pharmacy 75.70 Normal [facility] Comment on above: Performed By: #### P T, LIPASE, CMP, CBC #### [facility] [address] GFR/1.73 sq M.predicted MDRD (S/P/Bld) [Vol rate/Area] mL/min/{1.73_m2} Normal [facility] Comment on above: Performed By: #### P T, LIPASE, CMP, CBC #### [address] Creatinine [Mass/volume] in Serum or PlasmaOrdered By: Massiel Peters on 12-03-2023 Creatinine [Mass/Vol] 1.14 mg/dL Normal 0.60-1.20 [facility] Comment on above: Performed By: #### P T, LIPASE, CMP, CBC #### [place] [address] [place] Dipstick and Microscopicon 0 12-03-2023 Appearance (U) Cloudy Critically abnormal Clear [facility] Comment on above: Order Comment: Name Collection Type:: Clean-Voided Midstream Performed By: #### C UBLD, LACTIC #### [place] [address] [place] Bacteria,Urine 4+ High None Seen [facility] Comment on above: Order Comment: Name Collection Type:: Clean-Voided Midstream Performed By: #### C UBLD, LACTIC #### [place] [address] [place] Bilirubin,Urine Negative Normal Negative [facility] Comment on above: Order Comment: Name Collection Type:: Clean-Voided Midstream Performed By: #### C UBLD, LACTIC #### [place] [address] [place] Glucose Ql (U) Normal Normal Normal [facility] Comment on above: Order Comment: Name Collection Type:: Clean-Voided Midstream Performed By: #### C UBLD, LACTIC #### [place] [address] [place] Hyaline Casts,Urine 0-8 Normal 0-8 [facility] Comment on above: Order Comment: Name Collection Type:: Clean-Voided Midstream Result Comment: PERF ORMED BY: [place] [address] PATHOLOGIST HEARING HEALTH TECHNICIAN JUNI TSAI M.D. Performed By: #### C UBLD, LACTIC #### [address] Ketones Ql (U) Negative Normal Negative [facility] Comment on above: Order Comment: Name Collection Type:: Clean-Voided Midstream Performed By: #### C UBLD, LACTIC #### [place] [address] [place] Leukocyte esterase Test strip Ql (U) 3+ High Negative [facility] Comment on above: Order Comment: Name Collection Type:: Clean-Voided Midstream Performed By: #### C UBLD, LACTIC #### [place] [address] [place] Nitrite,Urine Positive High Negative [facility] Comment on above: Order Comment: Name Collection Type:: Clean-Voided Midstream Performed By: #### C UBLD, LACTIC #### [place] [address] [place] Occult Blood,Urine Trace High Negative [facility] Comment on above: Order Comment: Name Collection Type:: Clean-Voided Midstream Result Comment: PERF ORMED BY: [place] [address] PATHOLOGIST HEARING HEALTH TECHNICIAN JUNI TSAI M.D. Performed By: #### C UBLD, LACTIC #### [place] [address] [place] RBC,Urine 5-9 High 0-4 [facility] Comment on above: Order Comment: Name Collection Type:: Clean-Voided Midstream Performed By: #### C UBLD, LACTIC #### [address] Specificy [place],Urine 1.017 Normal 1.001-1.030 [facility] Comment on above: Order Comment: Name Collection Type:: Clean-Voided Midstream Performed By: #### C UBLD, LACTIC #### [address] Squamous Epithelial Cell,Urine 5-9 High 0-2 [facility] Comment on above: Order Comment: Name Collection Type:: Clean-Voided Midstream Performed By: #### C UBLD, LACTIC #### [address] Urobilinogen,Urine Normal Normal Normal [facility] Comment on above: Order Comment: Name Collection Type:: Clean-Voided Midstream Performed By: #### C UBLD, LACTIC #### [address] WBC,Urine 50-100 High 0-4 [facility] Comment on above: Order Comment: Name Collection Type:: Clean-Voided Midstream Performed By: #### C UBLD, LACTIC #### [address] Erythrocyte distribution wid th [Ratio] by Automated countOrdered By: Massiel Peters on 12-03-2023 Erythrocyte distribution width (RBC) [Ratio] 13.2 % Normal 11.9-15.3 [facility] Comment on above: Performed By: #### P T, LIPASE, CMP, CBC #### [address] Erythrocytes [#/volume] in B lood by Automated countOrdered By: Massiel Peters on 12-03-2023 RBC (Bld) [#/Vol] 3.48 10*6/uL Low 3.60-5.00 [facility] Comment on above: Performed By: #### P T, LIPASE, CMP, CBC #### [address] Glucose [Mass/volume] in Ser um or PlasmaOrdered By: Massiel Peters on 12-03-2023 Glucose [Mass/Vol] 96 mg/dL Normal 70-[address] [facility] Comment on above: ADA recommended refe rence rangeRandom Glucose Reference Range is dependent on time and content of last meal. Glucose of more than 200 mg/dL in a nonstressed, ambulatory subject supports the diagnosis of Diabetes Mellitus. Result Comment: [place] om Glucose Reference Range is dependent on time and content of last meal. Glucose of more than 200 mg/dL in a nonstressed, ambulatory subject supports the diagnosis of Diabetes Mellitus. ADA recommended reference range Performed By: #### P T, LIPASE, CMP, CBC #### [facility] [address] HCG ( test) IA.rapi d Ql (U)Ordered By: Huseyin Gill on 12-03-2023 HCG ( test) Ql (U) Negative [facility] HCG,Urineon 12-03-2023 Beta HCG ( test) Ql (U) Negative Normal [facility] Comment on above: Order Comment: Comme nt add on Result Comment: PERF ORMED BY: [place] [address] PATHOLOGIST HEARING HEALTH TECHNICIAN JUNI TSAI M.D. Performed By: #### C UBLD, LACTIC #### [address] Hematocrit [Volume Fraction] of Blood by Automated countOrdered By: Massiel Peters on 12-03-2023 Hematocrit (Bld) [Volume fraction] 32.9 % Low 34.0-46.4 [facility] Comment on above: Performed By: #### P T, LIPASE, CMP, CBC #### [place] [address] [place] Hemoglobin [Mass/volume] in BloodOrdered By: Massiel Peters on 12-03-2023 Hemoglobin (Bld) [Mass/Vol] 11.0 g/dL Low 11.8-15.4 [facility] Comment on above: Performed By: #### P T, LIPASE, CMP, CBC #### [place] [address] [place] INR in Platelet poor plasma by Coagulation assayOrdered By: Massiel Peters on 12-03-2023 INR Coag (PPP) [Relative time] 1.1 {INR} Normal [facility] Comment on above: INR Therapeutic Rang e A) Pre- and Peroperative OAT started two weeks before surgery. NOT HIP SURGERY: 1.5 - 2.5 HIP SURGERY: 2 - 3B) Primary and secondary prevention of venous THROMBOSIS: 2 - 3C) Active venous thrombosis, pulmonary embolismand prevention of recurrent venous thrombosis: 2 - 3D) Prevention of arterial thromboembolismincluding patients with mechanical heart valves: 3 - 4.5 Result Comment: INR Therapeutic Range A) Pre- and Peroperative OAT started two weeks before surgery. NOT HIP SURGERY: 1.5 - 2.5 HIP SURGERY: 2 - 3 B) Primary and secondary prevention of venous THROMBOSIS: 2 - 3 C) Active venous thrombosis, pulmonary embolism and prevention of recurrent venous thrombosis: 2 - 3 D) Prevention of arterial thromboembolism including patients with mechanical heart valves: 3 - 4.5 PERFORMED BY: [place] [address] PATHOLOGIST HEARING HEALTH TECHNICIAN JUNI TSAI M.D. Performed By: #### P T, LIPASE, CMP, CBC #### [place] [id number] [facility] Ketones Auto test strip (U) [Mass/Vol]Ordered By: Massiel Peters on 12-03-2023 Ketones (U) [Mass/Vol] Negative Negative [facility] - UrinalysisOrder ed By: Massiel Peters on 12-03-2023 Hyaline casts LM Ql (Urine sed) 0-8 [LPF] 0-8 [facility] Lactate [Moles/volume] in Se rum or PlasmaOrdered By: Massiel Peters on 12-03-2023 Lactate [Moles/Vol] 0.9 mmol/L Normal 0.5-2.2 [facility] Comment on above: Result Comment: PERF ORMED BY: [facility] [address] [place] [address] PATHOLOGIST HEARING HEALTH TECHNICIAN JUNI TSAI M.D. Performed By: #### C UBLD, LACTIC #### [facility] [address] Leukocytes [#/volume] correc kenneth for nucleated erythrocytes in Blood by Automated counOrdered By: Massiel Peters on 12-03-2023 WBC corrected for nucl RBC Auto (Bld) [#/Vol] 15.3 10*3/uL 3.8-11.6 [facility] Leukocytes [#/volume] in Blo od by Automated countOrdered By: Massiel Peters on 12-03-2023 WBC (Bld) [#/Vol] 15.3 10*3/uL High 3.8-11.6 [facility] Comment on above: Performed By: #### P T, LIPASE, CMP, CBC #### [address] Lipase [Enzymatic activity/v olume] in Serum or PlasmaOrdered By: Massiel Peters on 12-03-2023 Lipase [Catalytic activity/Vol] 14.0 U/L Normal 11.0-82.0 [facility] Comment on above: Result Comment: PERF ORMED BY: [place] [address] PATHOLOGIST HEARING HEALTH TECHNICIAN JUNI TSAI M.D. Performed By: #### P T, LIPASE, CMP, CBC #### [address] Lymphocytes [#/volume] in Bl ood by Automated countOrdered By: Massiel Peters on 12-03-2023 Lymphocytes (Bld) [#/Vol] 1.5 10*3/uL Normal 1.00-4.8 [facility] Comment on above: Performed By: #### P T, LIPASE, CMP, CBC #### [facility] [address] [place] [address] [place] Lymphocytes/100 leukocytes i n Blood by Automated countOrdered By: Massiel Peters on 12-03-2023 Lymphocytes/100 WBC (Bld) 9.5 % Normal . [facility] Comment on above: Performed By: #### P T, LIPASE, CMP, CBC #### [address] MCH [Entitic mass] by Automa kenneth countOrdered By: Massiel Peters on 12-03-2023 MCH (RBC) [Entitic mass] 31.6 pg Normal 24.7-34.3 [facility] Comment on above: Performed By: #### P T, LIPASE, CMP, CBC #### [facility] [address] [place] [address] MCHC Auto (RBC) [Mass/Vol]Or dered By: Massiel Peters on 12-03-2023 MCHC (RBC) [Mass/Vol] 33.5 g/dL 32.0-35.0 [facility] MCV [Entitic volume] by Auto mated countOrdered By: Massiel Peters on 12-03-2023 MCV (RBC) [Entitic vol] 94.4 fL Normal 80-100 [facility] Comment on above: Performed By: #### P T, LIPASE, CMP, CBC #### [facility] [address] [place] [address] Monocyte distribution width [Entitic volume] in Blood by AutomatedOrdered By: Massiel Peters on 12-03-2023 Monocyte distribution width Auto (Bld) [Entitic vol] 22.37 % High 0.00-20.00 [facility] Comment on above: For adults in ED, MD W > 20.0 may be associated with a higher risk of sepsis during the first 12 hrs of hospital admission Neutrophils [#/volume] in Bl ood by Automated countOrdered By: Massiel Peters on 12-03-2023 Neutrophils (Bld) [#/Vol] 12.2 10*3/uL High 1.8-7.7 [facility] Comment on above: Performed By: #### P T, LIPASE, CMP, CBC #### [facility] [address] [place] [address] Nitrite Test strip Ql (U)Ord ered By: Massiel Peters on 12-03-2023 Nitrite Ql (U) Positive High Negative [facility] No Panel InformationOrdered By: Massiel Peters on 12-03-2023 Bacterial ID (NA Multiplex Assay) Presumptive Coag Neg. Staph [facility] Bacterial ID (NA Multiplex Assay) Staphylococcus sp coag neg Abnormal [facility] Estimated GFR (CKD-EPI) > 60.0 mL/Min [facility] Creatinine Clearance (Chem 75.70 [facility] Nucleated erythrocytes [Pres ence] in Blood by Automated countOrdered By: Massiel Peters on 12-03-2023 Nucleated RBC Auto Ql (Bld) 0.0 /100{WBC} 0-0.5 [facility] Platelet mean volume [Entiti c volume] in Blood by Automated countOrdered By: Massiel Peters on 12-03-2023 Platelet mean volume (Bld) [Entitic vol] 7.3 fL Normal 6.3-10.7 [facility] Comment on above: Performed By: #### P T, LIPASE, CMP, CBC #### [facility] [address] [place] [address] Platelets [#/volume] in Bloo d by Automated countOrdered By: Massiel Peters on 12-03-2023 Platelets (Bld) [#/Vol] 381 10*3/uL Normal 150-450 [facility] Comment on above: Performed By: #### P T, LIPASE, CMP, CBC #### [facility] [address] [place] [address] Potassium [Moles/volume] in Serum or PlasmaOrdered By: Massiel Peters on 12-03-2023 Potassium [Moles/Vol] 3.9 mmol/L Normal 3.5-5.1 [facility] Comment on above: Performed By: #### P T, LIPASE, CMP, CBC #### [facility] [address] [place] [address] Protein [Mass/volume] in Ser um or PlasmaOrdered By: Massiel Peters on 12-03-2023 Protein [Mass/Vol] 7.9 g/dL Normal 6.4-8.[address] [facility] Comment on above: Performed By: #### P T, LIPASE, CMP, CBC #### [facility] [address] [place] [address] Prothrombin time (PT)Ordered By: Massiel Peters on 12-03-2023 PT Coag (PPP) [Time] 12.4 s Normal 9.0-12.9 [facility] Comment on above: A hematocrit value g reater than 55% may lead to inaccurate results in coagulation testing. Patients having hematocrit values >55% require a special collection tube for coagulation studies. Please contact the laboratory at [phone] for redraw instructions. Result Comment: A he matocrit value greater than 55% may lead to inaccurate results in coagulation testing. Patients having hematocrit values >55% require a special collection tube for coagulation studies. Please contact the laboratory at [phone] for redraw instructions. Performed By: #### P T, LIPASE, CMP, CBC #### [facility] [address] [place] [address] Serum globulin measurement b y calculation (mass/volume)Ordered By: Massiel Peters on 12-03-2023 Globulin (S) [Mass/Vol] 3.6 g/dL [facility] Comment on above: Performed By: #### P T, LIPASE, CMP, CBC #### [facility] [address] [place] [address] Serum or plasma albumin/glob ulin mass ratioOrdered By: Massiel Peters on 12-03-2023 Albumin/Globulin [Mass ratio] 1.2 {ratio} [facility] Comment on above: Performed By: #### P T, LIPASE, CMP, CBC #### [facility] [address] [place] [address] Serum or plasma anion gap de terminationOrdered By: Massiel Peters on 12-03-2023 Anion gap [Moles/Vol] 8.3 mmol/L Normal 6.0-15.0 [facility] Comment on above: Performed By: #### P T, LIPASE, CMP, CBC #### [facility] [address] [place] [address] Sodium [Moles/volume] in Ser um or PlasmaOrdered By: Massiel Peters on 12-03-2023 Sodium [Moles/Vol] 130 mmol/L Low 136-[address] [facility] Comment on above: Performed By: #### P T, LIPASE, CMP, CBC #### [facility] [address] [place] [address] Specific gravity Auto test s trip (U) [Rel density]Ordered By: Massiel Peters on 12-03-2023 Specific gravity (U) [Rel density] 1.017 1.001-1.030 [facility] Squamous epithelial cells de tection in urine sediment by light microscopyOrdered By: Massiel Peters on 12-03-2023 Epithelial cells.squamous LM Ql (Urine sed) 5-9 [HPF] High 0-2 [facility] Urea nitrogen [Mass/volume] in Serum or PlasmaOrdered By: Massiel Peters on 12-03-2023 Urea nitrogen [Mass/Vol] 21 mg/dL Normal 7-25 [facility] Comment on above: Performed By: #### P T, LIPASE, CMP, CBC #### [facility] [address] Urine Cultureon 12-03-2023 Bacteria identified Cx Nom (U) ORGANISM: Escherichia coli (O:ESCCOL) Rupert Count >100,000 Aerobic CARLOS Charge ([id number]) SUSCEPTIBILITY ORGANISM: O:ESCCOL ANTIBIOTIC INTERPRETATION CARLOS Amikacin S <16 Amoxacillin/K Clavulanate S <8 Ampicillin R >16 Ampicillin/Sulbactam S 88/4 Aztreonam S <4 Cefazolin S <2 Cefepime S <2 Ceftazidime S <1 Ceftazidime/Avibactam S <4 Ceftolozane/Tazobactam S <2 Ceftriaxone S <1 Cefuroxime S 8 Ciprofloxacin I 0.5 Ertapenem S <0.5 Gentamicin I 8 Levofloxacin S <0.5 Meropenem S <1 Meropenem/Vaborbactam S <2 Nitrofurantoin I 64 Piperacillin/Tazobactam S <8 Tetracycline I 8 Tigecycline S <2 Tobramycin S <2 Trimethoprim/Sulfamethoxaz ole R >2 S = SUSCEPTIBLE I = INTERMEDIATE R = RESISTANT BLANK = DATA NOT AVAILABLE, OR DRUG NOT ADVISABLE OR TESTED R* = RESISTANCE DUE TO EXTENDED SPECTRUM BETA-LACTAMASES ESBL = EXTENDED SPECTRUM BETA-LACTAMASE TFG = THYMIDINE-DEPENDENT STRAIN EDWARDO = BETA-LACTAMASE POSITIVE IB = INDUCIBLE BETA-LACTAMASE. APPEARS IN PLACE OF 'S' WITH SPECIES KNOWN TO POSSESS INDUCIBLE BETA-LACTAMASES. POTENTIALLY THEY MAY BECOME RESISTANT TO ALL B-LACTAM DRUGS. PERFORMED BY: [place] [address] PATHOLOGIST HEARING HEALTH TECHNICIAN JUNI TSAI M.D. Normal [facility] Comment on above: Performed By: #### C UBLD, LACTIC #### [facility] [address] [place] [address] Urine bacteria detection by automated methodOrdered By: Massiel Petesr on 12-03-2023 Bacteria Auto Ql (U) 4+ High None Seen [facility] Urine clarity by refractomet ry automatedOrdered By: Massiel Peters on 12-03-2023 Clarity Refractometry automated (U) Cloudy Abnormal Clear [facility] Urine culture routineOrdered By: Massiel Peters on 12-03-2023 Bacteria identified Cx Nom (U) Escherichia coli Abnormal [facility] Urine glucose measurement by automated test strip (mass/volume)Ordered By: Massiel Peters on 12-03-2023 Glucose Auto test strip (U) [Mass/Vol] Normal mg/dL Normal [facility] Urine hemoglobin detection b y automated test stripOrdered By: Massiel Peters on 12-03-2023 Hemoglobin Auto test strip Ql (U) Trace High Negative [facility] Urine leukocyte esterase det ection by automated test stripOrdered By: Massiel Peters on 12-03-2023 Leukocyte esterase Auto test strip Ql (U) 3+ High Negative [facility] Urine pH measurement by auto mated test stripOrdered By: Massiel Peters on 12-03-2023 pH (U) 5.5 [pH] Normal 5.0-9.0 [facility] Comment on above: Order Comment: Name Collection Type:: Clean-Voided Midstream Performed By: #### C UBLD, LACTIC #### [address] Urine protein measurement by automated test strip (mass/volume)Ordered By: Massiel Peters on 12-03-2023 Protein (U) [Mass/Vol] 30 mg/dL High Negative Fi [facility] Comment on above: Order Comment: Name Collection Type:: Clean-Voided Midstream Performed By: #### C UBLD, LACTIC #### [facility] [address] Urobilinogen Auto test strip (U) [Mass/Vol]Ordered By: Massiel Peters on 12-03-2023 Urobilinogen (U) [Mass/Vol] Normal mg/dL Normal [facility] BioFire Detectedon 3 BioFire Detected Detected Critically abnormal Not Detecte [facility] Comment on above: Result Comment: This is a duplicate RP2.1 COVID (PCR) result to be used for statistical tracking purpose only. PERFORMED BY: [facility] [address] [place] [address] PATHOLOGIST HEARING HEALTH TECHNICIAN JUNI TSAI M.D. Performed By: #### C UBLD, LACTIC #### [facility] [address] COVID-19 Detected/Not Detect edOrdered By: Hui Espinosa on 07-28-2023 SARS-CoV-2 (COVID-19) RNA YULIANA+non-probe Ql (Nph) Detected Not Detecte [facility] Comment on above: This is a duplicate RP2.1 COVID (PCR) result to be used for statistical tracking purpose only. Respiratory (Upper) Panel, P CRon 07-28-2023 Respiratory (Upper) Panel, PCR Adenovirus Not detected Bordetella parapertussis Not detected Chlamydia pneumoniae Not detected Coronavirus 229E Not detected Coronavirus HKU1 Not detected Coronavirus NL63 Not detected Coronavirus OC43 Not detected Influenza A Not detected Influenza B Not detected Human Metapneumovirus Not detected Mycoplasma pneumoniae Not detected Parainfluenza Virus 1 Not detected Parainfluenza Virus 2 Not detected Parainfluenza Virus 3 Not detected Parainfluenza Virus 4 Not detected Bordetella pertussis-ptxP Not detected Human Rhino/Enterovirus Not detected Resp. Syncytial Virus Not detected COVID19 Blank Space -- COVID19 Det Results Detected results will only be called to COVID19 Det Results Providers for the following groups of patients: COVID19 Det Results Pre-Surgical Testing, Emergency Room, and Inpatients. COVID19 Blank Space -- COVID-19 Detected/Not Detected Detected Blank Space -- FLUA TEST INCLUDES Influenza A tests for the following clinically FLUA TEST INCLUDES significant subtypes: FLUA TEST INCLUDES - Influenza A FLUA TEST INCLUDES - Influenza A H1 FLUA TEST INCLUDES - Influenza A H1 2009 FLUA TEST INCLUDES - Influenza A H3 Blank Space -- PERFORMED BY: [place] [address] PATHOLOGIST HEARING HEALTH TECHNICIAN JUNI TSAI M.D. Normal [facility] Comment on above: Performed By: #### C UBLD, LACTIC #### [facility] [address] Respiratory pathogens DNA an d RNA panel - Nasopharynx by YULIANA with non-probe detectionOrdered By: Hui Espinosa on 07-28-2023 Respiratory pathogens DNA and RNA panel YULIANA+non-probe (Nph) [facility] COVID CepheidOrdered By: Margarito Hopkins on 05-15-2023 SARS-CoV-2 (COVID-19) RNA YULIANA+probe Ql (Unsp spec) [facility] SARS-CoV-2 (COVID-19) Ab IA Ql Negative Negative [facility] Comment on above: This is a duplicate Cepheid Xpert Xpress CoV-2/Flu/RSV Plus RNA by RT-PCR result to be used for statistical tracking purpose only. SARS-CoV-2 (COVID-19) RNA YULIANA+probe Ql (Unsp spec) [facility] COVID-19 / Flu A/B / RSV PCR on 05-15-2023 SARS-CoV-2 (COVID-19) RNA YULIANA+probe Ql (Unsp spec) COVID-19 Cepheid Result Negative for SARS-CoV-2 RNA by RT-PCR Flu A Cepheid Result Negative for Flu A RNA by RT-PCR Flu B Cepheid Result Negative for Flu B RNA by RT-PCR RSV Cepheid Result Negative for RSV RNA by RT-PCR COVID19 Blank Space -- Reference: Negative COVID19 Blank Space -- Cepheid Disclaimer The Cepheid Xpert Xpress CoV-2/Flu/RSV Plus has Cepheid Disclaimer not been FDA cleared or approved; this test has Cepheid Disclaimer been authorized by FDA under an EUA for use by Cepheid Disclaimer authorized laboratories; this test has been Cepheid Disclaimer authorized only for the simultaneous qualitative Cepheid Disclaimer detection and differentiation of nucleic acids from Cepheid Disclaimer SARS-CoV-2, influenza A, influenza B, and Cepheid Disclaimer respiratory syncytial virus (RSV), and not for any Cepheid Disclaimer other viruses or pathogens; and this test is only Cepheid Disclaimer authorized for the duration of the declaration that Cepheid Disclaimer circumstances exist justifying the authorization of Cepheid Disclaimer emergency use of in vitro diagnostic tests for Cepheid Disclaimer detection and/or diagnosis of COVID-19 under Cepheid Disclaimer Section 564(b)(1) of the Act, 21 U.S.C. 360bbb- Cepheid Disclaimer 3(b)(1), unless the authorization is terminated or Cepheid Disclaimer revoked sooner. PERFORMED BY: [place] [address] PATHOLOGIST HEARING HEALTH TECHNICIAN JUNI TSAI M.D. Normal [facility] Comment on above: Performed By: #### C EPHEID NEG, COVID19 FLU RSV #### [address] Cepheid COVID PCR Negativeon 05-15-2023 SARS-CoV-2 (COVID-19) RNA YULIANA+probe Ql (Unsp spec) Negative Normal Negative [facility] Comment on above: Result Comment: This is a duplicate Cepheid Xpert Xpress CoV-2/Flu/RSV Plus RNA by RT-PCR result to be used for statistical tracking purpose only. PERFORMED BY: [place] [address] PATHOLOGIST HEARING HEALTH TECHNICIAN JUNI TSAI M.D. Performed By: #### C UBLD, LACTIC #### [address] ECG 12 lead ECGon 05-15-2023 ECG 12 lead ECG [facility] [place] [address] [place] [address] Electrocardiograph Report Signed Patient: Awilda Merritt MR#: [id number] 4 : 1985 Acct:[id number] Age/Sex: 37 / F ADM Date: 05/15/23 Loc: ER Room: Type: [facility] ER Attending Dr: Ordering Provider: Kale Hopkins APRN Date of Service: 05/15/23 ECG/ECG 12 lead ECG: Upper Respiratory Infection Copies to: Test Reason : Blood Pressure : 141/090 mmHG Vent. Rate : 098 BPM Atrial Rate : 098 BPM P-R Int : 140 ms QRS Dur : 080 ms QT Int : 350 ms P-R-T Axes : 076 090 074 degrees QTc Int : 446 ms Normal sinus rhythm Rightward axis Confirmed by Daren HERNANDEZ DO ([id number]) on 05/15/2023 2:58:54 PM Referred By: Electronically Signed By:Daren HERNANDEZ DO Transcribed By: MUS Signed By Daren Hernandez DO 0 05/15/23 1458 Normal [facility] XR chest 2V*on 05-15-2023 XR chest 2V* [facility] [place] [address] [place] [address] XRay Report Signed Patient: Awilda Merritt MR#: [id number] 4 : 1985 Acct:[id number] Age/Sex: 37 / F ADM Date: 05/15/23 Loc: ER Room: Type: [facility] ER Attending Dr: Copies to: Kale Hopkins APRN Ordering Provider: Kale Hopkins APRN Date of Service: 05/15/23 XR/XR chest 2V*: Upper Respiratory Infection XR chest 2V* 05/15/2023 8:58 AM SIGNS AND SYMPTOMS: Productive cough, shortness breath, fever PROTOCOL: Frontal and lateral radiograph of the chest COMPARISON: 02/07/2021 FINDINGS: The trachea is midline. The heart and mediastinal structures are within normal limits. The lung parenchyma is clear. The bony thorax is intact. XR/XR chest 2V* IMPRESSION: No acute cardiopulmonary pathology. Impression dictated by: Brooklynn Moore M.D.05/15/2023 9:08 AM Dictation Location: [place] [address] Transcribed By: [facility] 05/15/23 09 Dictated By: Brooklynn Moore II, MD 05/15/23 09 Signed By: 05/15/23 09 Normal [facility] Alanine aminotransferase [En zymatic activity/volume] in Serum or PlasmaOrdered By: Hui Espinosa on 04-01-2023 ALT [Catalytic activity/Vol] 11 U/L Normal 7 [facility] Comment on above: Performed By: #### C UBLD, LACTIC #### [place] [id number] [facility] Albumin [Mass/volume] in Ser um or Plasma by Bromocresol green (BCG) dye binding methoOrdered By: Hui Espinosa on 04-01-2023 Albumin BCG dye [Mass/Vol] 4.5 g/dL 3.5-5.7 [facility] Alkaline phosphatase [Enzyma tic activity/volume] in Serum or PlasmaOrdered By: Hui Espinosa on 04-01-2023 ALP [Catalytic activity/Vol] 81 U/L Normal 34-104 [facility] Comment on above: Performed By: #### C UBLD, LACTIC #### [address] Amphetamine Screen Ql (U)Ord ered By: Kevin Lewis on 04-01-2023 Amphetamines Ql (U) Negative Negative [facility] Aspartate aminotransferase [ Enzymatic activity/volume] in Serum or PlasmaOrdered By: Hui Jonessandhya on 04-01-2023 AST [Catalytic activity/Vol] 17 U/L Normal 13-39 [facility] Comment on above: Performed By: #### C UBLD, LACTIC #### [address] Automated basophil %Ordered By: Hui Espinosa on 04-01-2023 Basophils/100 WBC (Bld) 0.4 % Normal . [facility] Comment on above: Performed By: #### C UBLD, LACTIC #### [address] Automated basophil countOrde red By: Hui Francisca on 04-01-2023 Basophils (Bld) [#/Vol] 0.0 10*3/uL Normal 0.0-0.2 [facility] Comment on above: Result Comment: PERF ORMED BY: [place] [address] PATHOLOGIST HEARING HEALTH TECHNICIAN JUNI TSAI M.D. Performed By: #### C UBLD, LACTIC #### [address] Automated blood monocyte cou ntOrdered By: Hui Francisca on 04-01-2023 Monocytes (Bld) [#/Vol] 0.6 10*3/uL Normal 0.0-0.8 [facility] Comment on above: Performed By: #### C UBLD, LACTIC #### [facility] [address] Automated eosinophil %Ordere d By: Hui Jonessandhya on 04-01-2023 Eosinophils/100 WBC (Bld) 1.7 % Normal . [facility] Comment on above: Performed By: #### C UBLD, LACTIC #### [facility] [address] Automated eosinophil countOr dered By: Hui Francisca on 04-01-2023 Eosinophils (Bld) [#/Vol] 0.1 10*3/uL Normal 0.0-0.45 [facility] Comment on above: Performed By: #### C UBLD, LACTIC #### [address] Automated monocyte %Ordered By: Hui Francisca on 04-01-2023 Monocytes/100 WBC (Bld) 7.1 % Normal . [facility] Comment on above: Performed By: #### C UBLD, LACTIC #### [address] Automated neutrophil %Ordere d By: Hui Espinosa on 04-01-2023 Neutrophils/100 WBC (Bld) 71.3 % Normal . [facility] Comment on above: Performed By: #### C UBLD, LACTIC #### [address] Barbiturates [Presence] in U rine by Screen methodOrdered By: Kevin Lewis on 04-01-2023 Barbiturates Screen Ql (U) Negative Negative [facility] Benzodiazepines Screen Ql (U )Ordered By: Kevin Lewis on 04-01-2023 Benzodiazepines Ql (U) Negative Negative [facility] Benzoylecgonine [Presence] i n Urine by Screen methodOrdered By: Kevin Lewis on 04-01-2023 Benzoylecgonine Screen Ql (U) Negative Negative [facility] Bilirubin.total [Mass/volume ] in Serum or PlasmaOrdered By: Hui Espinosa on 04-01-2023 Bilirubin [Mass/Vol] 1.2 mg/dL High 0.3-1.0 [facility] Comment on above: Performed By: #### C UBLD, LACTIC #### [facility] [address] [place] [address] [place] Calcium [Mass/volume] in Ser um or PlasmaOrdered By: Hui Espinosa on 04-01-2023 Calcium [Mass/Vol] 9.0 mg/dL Normal 8.6-10.[address] [facility] Comment on above: Performed By: #### C UBLD, LACTIC #### [facility] [address] [place] [id number] [place] Cannabinoids [Presence] in U rine by Screen methodOrdered By: Kevin Lewis on 04-01-2023 Cannabinoids Screen Ql (U) Positive Negative [facility] Comment on above: These are unconfirme d results and should not be used for legal purposes. Drug Cut-Off Concentration: AMPH 1000 ng/mL ALESSANDRA 200 ng/mL DIAZ 200 ng/mL COCM 300 ng/mL OP 300 ng/mL PCP 25 ng/mL THC 20 ng/mL Carbon dioxide, total [Moles /volume] in Serum or PlasmaOrdered By: Hiu Joneschol on 04-01-2023 CO2 [Moles/Vol] 25.3 mmol/L Normal 21.0-31.0 [facility] Comment on above: Performed By: #### C UBLD, LACTIC #### [facility] [address] [place] [id number] [place] Chloride [Moles/volume] in S yan or PlasmaOrdered By: Hui Joneschol on 04-01-2023 Chloride [Moles/Vol] 104 mmol/L Normal 98-107 [facility] Comment on above: Performed By: #### C UBLD, LACTIC #### [facility] [address] [place] [id number] [place] Cholesterol [Mass/volume] in Serum or PlasmaOrdered By: Hui Warchol on 04-01-2023 Cholesterol [Mass/Vol] 253 mg/dL High 140-200 [facility] Comment on above: Chol less than 200 m g/dl low riskChol 201-239 mg/dl borderline riskChol 240 mg/dl and greater high risk Result Comment: Chol less than 200 mg/dl low risk Chol 201-239 mg/dl borderline risk Chol 240 mg/dl and greater high risk Performed By: #### C UBLD, LACTIC #### [address] Cholesterol in LDL Calc [Mas s/Vol]Ordered By: Hui Espinosa on 04-01-2023 Cholesterol in LDL [Mass/Vol] 177 mg/dL 0-100 [facility] Comment on above: LDL ATP III CLASSIFI CATIONLDL less than 100 mg/dL OptimalLDL 100-129 mg/dL Near or above optimalLDL 130-159 mg/dL Borderline highLDL 160-189 mg/dL HighLDL greater than 189 mg/dL Very high Cholesterol in VLDL Calc [Ma ss/Vol]Ordered By: Hui Espinosa on 04-01-2023 Cholesterol in VLDL [Mass/Vol] 35 mg/dL [facility] Complete Blood Count Auto Di ffon 04-01-2023 Mean Corpuscular HGB Conc 33.6 g/dL Normal 32.0-35.0 [facility] Comment on above: Performed By: #### C UBLD, LACTIC #### [address] NRBC% 0.0 /100{WBC} Normal 0-0.5 [facility] Comment on above: Performed By: #### C UBLD, LACTIC #### [address] Comprehensive Metabolic Pane alvin 04-01-2023 Albumin [Mass/Vol] 4.5 g/dL Normal 3.5-5.7 [facility] Comment on above: Performed By: #### C UBLD, LACTIC #### [place] [address] [place] Creatinine Clr Calc Pharmacy 125.46 Normal [facility] Comment on above: Performed By: #### C UBLD, LACTIC #### [place] [address] [place] GFR/1.73 sq M.predicted MDRD (S/P/Bld) [Vol rate/Area] mL/min/{1.73_m2} Normal [facility] Comment on above: Performed By: #### C UBLD, LACTIC #### [address] Creatinine [Mass/volume] in Serum or PlasmaOrdered By: Hui Robertsandhya on 04-01-2023 Creatinine [Mass/Vol] 0.76 mg/dL Normal 0.60-1.20 [facility] Comment on above: Performed By: #### C UBLD, LACTIC #### [address] Drug Screen,Urineon 04-01-20 23 Amphetamine Screen,Urine Negative Normal Negative [facility] Comment on above: Performed By: #### P T, LIPASE, CMP, CBC #### [address] Barbiturate Screen,Urine Negative Normal Negative [facility] Comment on above: Performed By: #### P T, LIPASE, CMP, CBC #### [address] Benzodiazepines Screen,Urine Negative Normal Negative [facility] Comment on above: Performed By: #### P T, LIPASE, CMP, CBC #### [address] Cannabinoid Screen,Urine Positive High Negative [facility] Comment on above: Result Comment: Thes e are unconfirmed results and should not be used for legal purposes. Drug Cut-Off Concentration: AMPH 1000 ng/mL ALESSANDRA 200 ng/mL DIAZ 200 ng/mL COCM 300 ng/mL OP 300 ng/mL PCP 25 ng/mL THC 20 ng/mL PERFORMED BY: [place] [address] PATHOLOGIST HEARING HEALTH TECHNICIAN JUNI TSAI M.D. Performed By: #### P T, LIPASE, CMP, CBC #### [address] Cocaine Screen,Urine Negative Normal Negative [facility] Comment on above: Performed By: #### P T, LIPASE, CMP, CBC #### [address] Opiate Screen,Urine Negative Normal Negative [facility] Comment on above: Performed By: #### P T, LIPASE, CMP, CBC #### [address] Phencyclidine Screen,Urine Negative Normal Negative [facility] Comment on above: Performed By: #### P T, LIPASE, CMP, CBC #### [address] Erythrocyte distribution wid th [Ratio] by Automated countOrdered By: Hui Espinosa on 04-01-2023 Erythrocyte distribution width (RBC) [Ratio] 14.1 % Normal 11.9-15.3 [facility] Comment on above: Performed By: #### C UBLD, LACTIC #### [address] Erythrocytes [#/volume] in B lood by Automated countOrdered By: Hui Espinosa on 04-01-2023 RBC (Bld) [#/Vol] 4.02 10*6/uL Normal 3.60-5.00 [facility] Comment on above: Performed By: #### C UBLD, LACTIC #### [address] Folateon 04-01-2023 Folate 16.7 ng/mL Normal >5.9 [facility] Comment on above: Result Comment: Giana te reference range: >5.9 ng/ml The WHO technical consultation on folate and vitamin b12 deficiencies has determined that folate concentrations less than 4 ng/ml are considered deficient. Performed By: #### P T, LIPASE, CMP, CBC #### [address] Folate [Mass/volume] in Seru m or PlasmaOrdered By: Hui Espinosa on 04-01-2023 Folate [Mass/Vol] 16.7 ng/mL >5.9 [facility] Comment on above: Folate reference ran ge: >5.9 ng/mlThe WHO technical consultation on folate and vitamin [id number] has determined that folate concentrations lessthan 4 ng/ml are considered deficient. Glucose [Mass/volume] in Ser um or PlasmaOrdered By: Hui Espinosa on 04-01-2023 Glucose [Mass/Vol] 85 mg/dL Normal 70-[address] [facility] Comment on above: ADA recommended refe rence rangeRandom Glucose Reference Range is dependent on time and content of last meal. Glucose of more than 200 mg/dL in a nonstressed, ambulatory subject supports the diagnosis of Diabetes Mellitus. Result Comment: [place] om Glucose Reference Range is dependent on time and content of last meal. Glucose of more than 200 mg/dL in a nonstressed, ambulatory subject supports the diagnosis of Diabetes Mellitus. ADA recommended reference range Performed By: #### C UBLD, LACTIC #### [address] Hematocrit [Volume Fraction] of Blood by Automated countOrdered By: Hui Espinosa on 04-01-2023 Hematocrit (Bld) [Volume fraction] 36.6 % Normal 34.0-46.4 [facility] Comment on above: Performed By: #### C UBLD, LACTIC #### [address] Hemoglobin [Mass/volume] in BloodOrdered By: Hui Espinosa on 04-01-2023 Hemoglobin (Bld) [Mass/Vol] 12.3 g/dL Normal 11.8-15.4 [facility] Comment on above: Performed By: #### C UBLD, LACTIC #### [address] Leukocytes [#/volume] correc kenneth for nucleated erythrocytes in Blood by Automated counOrdered By: Hui Espinosa on 04-01-2023 WBC corrected for nucl RBC Auto (Bld) [#/Vol] 8.2 10*3/uL 3.8-11.6 [facility] Leukocytes [#/volume] in Blo od by Automated countOrdered By: Hui Espinosa on 04-01-2023 WBC (Bld) [#/Vol] 8.2 10*3/uL Normal 3.8-11.[address] [facility] Comment on above: Performed By: #### C UBLD, LACTIC #### [address] Lipid Panelon 04-01-2023 LDL Cholesterol,Calculated 177 mg/dL High 0-100 [facility] Comment on above: Result Comment: LDL ATP III CLASSIFICATION LDL less than 100 mg/dL Optimal LDL 100-129 mg/dL Near or above optimal LDL 130-159 mg/dL Borderline high LDL 160-189 mg/dL High LDL greater than 189 mg/dL Very high Performed By: #### C UBLD, LACTIC #### [address] Triglyceride w/Reflex 175 mg/dL High 0-149 [facility] Comment on above: Result Comment: TRIG ATP III CLASSIFICATION TRIG less than 150 mg/dL Normal TRIG 150-199 mg/dL Borderline high TRIG 200-500 mg/dL High TRIG greater than 500 mg/dL Very high Standard traceable to the Center for Disease Conrtrol and Prevention (CDC) test method. Performed By: #### C UBLD, LACTIC #### [address] VLDL CHOLESTEROL 35 mg/dL Normal [facility] Comment on above: Performed By: #### C UBLD, LACTIC #### [place] [address] [place] Lymphocytes [#/volume] in Bl ood by Automated countOrdered By: Hui Espinosa on 04-01-2023 Lymphocytes (Bld) [#/Vol] 1.6 10*3/uL Normal 1.00-4.8 [facility] Comment on above: Performed By: #### C UBLD, LACTIC #### [place] [address] [place] Lymphocytes/100 leukocytes i n Blood by Automated countOrdered By: Hui Espinosa on 04-01-2023 Lymphocytes/100 WBC (Bld) 19.5 % Normal . [facility] Comment on above: Performed By: #### C UBLD, LACTIC #### [place] [address] [place] MCH [Entitic mass] by Automa kenneth countOrdered By: Hui Espinosa on 04-01-2023 MCH (RBC) [Entitic mass] 30.6 pg Normal 24.7-34.3 [facility] Comment on above: Performed By: #### C UBLD, LACTIC #### [facility] [address] [place] [address] MCHC Auto (RBC) [Mass/Vol]Or dered By: Hui Espinosa on 04-01-2023 MCHC (RBC) [Mass/Vol] 33.6 g/dL 32.0-35.0 [facility] MCV [Entitic volume] by Auto mated countOrdered By: Hui Espinosa on 04-01-2023 MCV (RBC) [Entitic vol] 91.1 fL Normal 80-100 [facility] Comment on above: Performed By: #### C UBLD, LACTIC #### [facility] [address] [place] [address] Neutrophils [#/volume] in Bl ood by Automated countOrdered By: Hui Espinosa on 04-01-2023 Neutrophils (Bld) [#/Vol] 5.9 10*3/uL Normal 1.8-7.7 [facility] Comment on above: Performed By: #### C UBLD, LACTIC #### [facility] [address] [place] [address] No Panel InformationOrdered By: Hui Espinosa on 04-01-2023 Estimated GFR (CKD-EPI) > 60.0 mL/Min [facility] Creatinine Clearance (Chem 125.46 [facility] Nucleated erythrocytes [Pres ence] in Blood by Automated countOrdered By: Hui Espinosa on 04-01-2023 Nucleated RBC Auto Ql (Bld) 0.0 /100{WBC} 0-0.5 [facility] Opiates [Presence] in Urine by Screen methodOrdered By: Kevin Lewis on 04-01-2023 Opiates Screen Ql (U) Negative Negative [facility] Phencyclidine Screen Ql (U)O rdered By: Kevin Lewis on 04-01-2023 Phencyclidine Ql (U) Negative Negative [facility] Platelet mean volume [Entiti c volume] in Blood by Automated countOrdered By: Hui Espinosa on 04-01-2023 Platelet mean volume (Bld) [Entitic vol] 7.4 fL Normal 6.3-10.7 [facility] Comment on above: Performed By: #### C UBLD, LACTIC #### [place] [address] [place] Platelets [#/volume] in Bloo d by Automated countOrdered By: Hui Espinosa on 04-01-2023 Platelets (Bld) [#/Vol] 318 10*3/uL Normal 150-450 [facility] Comment on above: Performed By: #### C UBLD, LACTIC #### [address] Potassium [Moles/volume] in Serum or PlasmaOrdered By: Hui Espinosa on 04-01-2023 Potassium [Moles/Vol] 3.7 mmol/L Normal 3.5-5.1 [facility] Comment on above: Performed By: #### C UBLD, LACTIC #### [address] Protein [Mass/volume] in Ser um or PlasmaOrdered By: Hui Espinosa on 04-01-2023 Protein [Mass/Vol] 7.4 g/dL Normal 6.4-8.[address] [facility] Comment on above: Performed By: #### C UBLD, LACTIC #### [address] Serum globulin measurement b y calculation (mass/volume)Ordered By: Hui Espinosa on 04-01-2023 Globulin (S) [Mass/Vol] 2.9 g/dL [facility] Comment on above: Performed By: #### C UBLD, LACTIC #### [address] Serum or plasma albumin/glob ulin mass ratioOrdered By: Hui Espinosa on 04-01-2023 Albumin/Globulin [Mass ratio] 1.6 {ratio} [facility] Comment on above: Performed By: #### C UBLD, LACTIC #### [address] Serum or plasma anion gap de terminationOrdered By: Hui Espinosa on 04-01-2023 Anion gap [Moles/Vol] 11.4 mmol/L Normal 6.0-15.0 [facility] Comment on above: Performed By: #### C UBLD, LACTIC #### [address] Serum or plasma high density lipoprotein (HDL) cholesterol measurementOrdered By: Hui Espinosa on 04-01-2023 Cholesterol in HDL [Mass/Vol] 41 mg/dL Normal 23-92 [facility] Comment on above: HDL CHOL ATP-III CLA SSIFICATION Cardiovascular RiskHDL > or equal to 60 mg/dL LOWHDL < 40 mg/dL HIGH Result Comment: HDL CHOL ATP-III CLASSIFICATION Cardiovascular Risk HDL > or equal to 60 mg/dL LOW HDL < 40 mg/dL HIGH Performed By: #### C UBLD, LACTIC #### [address] Serum or plasma total choles terol/high density lipoprotein (HDL) cholesterol mass ratOrdered By: Hui Espinosa on 04-01-2023 Cholesterol.total/Chol esterol in HDL [Mass ratio] 6.2 {ratio} Normal <5.0 [facility] Comment on above: Performed By: #### C UBLD, LACTIC #### [address] Sodium [Moles/volume] in Ser um or PlasmaOrdered By: Hui Espinosa on 04-01-2023 Sodium [Moles/Vol] 137 mmol/L Normal 136-[address] [facility] Comment on above: Performed By: #### C UBLD, LACTIC #### [address] Thyroid Stim Hormone w/Rflxo n 04-01-2023 Thyroid Stim Hormone w/Rflx 1.22 u[iU]/mL Normal 0.45-5.33 [facility] Comment on above: Performed By: #### P T, LIPASE, CMP, CBC #### [address] Thyrotropin [Units/volume] i n Serum or PlasmaOrdered By: Hui Espinosa on 04-01-2023 TSH Qn 1.22 m[IU]/L 0.45-5.33 [facility] Triglyceride [Mass/volume] i n Serum or PlasmaOrdered By: Hui Espinosa on 04-01-2023 Triglyceride [Mass/Vol] 175 mg/dL 0-149 [facility] Comment on above: TRIG ATP III CLASSIF ICATIONTRIG less than 150 mg/dL NormalTRIG 150-199 mg/dL Borderline highTRIG 200-500 mg/dL High TRIG greater than 500 mg/dL Very highStandard traceable to the Center for Disease Conrtrol and Prevention (CDC) test method. Urea nitrogen [Mass/volume] in Serum or PlasmaOrdered By: Hui Espinosa on 04-01-2023 Urea nitrogen [Mass/Vol] 12 mg/dL Normal 7-25 [facility] Comment on above: Performed By: #### C UBLD, LACTIC #### [facility] [address] Vitamin B12 ser/plasOrdered By: Hui Espinosa on 04-01-2023 Cobalamin (Vitamin B12) [Mass/Vol] 134 pg/mL Low 180-914 [facility] Comment on above: Performed By: #### C UBLD, LACTIC #### [facility] [address] [place] [id number] [facility] Vitamin D 25 Hydroxy Totalon 04-01-2023 Vitamin D 25 Hydroxy Total 18.2 ng/mL Low 30-100 [facility] Comment on above: Result Comment: CARLYLE MIN D STATUS 25(OH)VITAMIN D RANGE (ng/mL) Deficient <20 Insufficient 20 to <30 Sufficient 30 to 100 Reference: Sachin MF,Sriram NC, Angelo HOOPER, et al. Evaluation,treatment, and prevention of vitamin D deficiency; an Endocrine Society clinical practice guideline. JCEM. 2010; 96(7):1911-30. PERFORMED BY: [place] [address] PATHOLOGIST [employer] TECHNICIAN JUNI TSAI M.D. Performed By: #### P T, LIPASE, CMP, CBC #### [facility] [address] Vitamin D+Metabolites [Mass/ volume] in Serum or PlasmaOrdered By: Hui Espinosa on 04-01-2023 Vitamin D+Metabolites [Mass/Vol] 18.2 ng/mL 30-100 [facility] Comment on above: VITAMIN D STATUS 25( [place])VITAMIN D RANGE (ng/mL) Deficient <20 Insufficient 20 to <30Sufficient 30 to 100Reference: Sachin MF,Sriram DAMIAN, Angelo HOOPER, et al. Evaluation,treatment, and prevention of vitamin D deficiency; an Endocrine Society clinical practice guideline. JCEM. 2010; 96(7):1911-30. CBC AUTO DIFFon 05-20-2022 BASO # 0.0 103/ul Normal 0.0-0.1 [facility] Comment on above: Performed By: #### C BC ####[facility] [address] [place] [address]Dr. Sasha Montero Basophils/100 WBC (Bld) 0.2 % Normal 0.2-2.0 [facility] Comment on above: Performed By: #### C BC ####[facility] E[address]ps[address] [place], [place] [address]Dr. Sasha Montero EO # 0.0 103/ul Normal 0.0-0.[address] [facility] Comment on above: Performed By: #### C BC ####[facility] [address] [place], [place] [address]Dr. Sasha Montero Eosinophils/100 WBC (Bld) 0.2 % Critically low 0.9-7.[address] [facility] Comment on above: Performed By: #### C BC ####[facility] [address] [place] [address]Dr. Sasha Montero Erythrocyte distribution width (RBC) [Ratio] 13.8 % Normal 11.0-15.[address] [facility] Comment on above: Performed By: #### C BC ####[facility] [address] [place], [place] [address]Dr. Sasha Montero Hematocrit (Bld) [Volume fraction] 32.1 % Critically low 36.0-48.0 [facility] Comment on above: Performed By: #### C BC ####[facility] [address] [place] [address]Dr. Sasha Montero Hemoglobin (Bld) [Mass/Vol] 10.6 g/dL Critically low 12.0-16.[address] [facility] Comment on above: Performed By: #### C BC ####[facility] [address] [place] [address]Dr. Sasha Montero IG # 0.02 10e3/ul Normal 0.00-0.[address] [facility] Comment on above: Performed By: #### C BC ####[facility] [address] [place] [address]Dr. Sasha Winston IG % 0.2 % Normal 0.0-0.[address] [facility] Comment on above: Performed By: #### C BC ####[facility] [address] [place], [place] [address]Dr. Sasha Winston LYMPH # 2.7 103/ul Normal 1.2-3.[address] [facility] Comment on above: Performed By: #### C BC ####[facility] C[address] [place], [place] [address]Dr. Sasha Winston Lymphocytes/100 WBC (Bld) 29.3 % Normal 20.5-60.[address] [facility] Comment on above: Performed By: #### C BC ####[facility] [address] [place], [place] [address]Dr. Sasha Winston MANUAL DIFF REQ NO Normal [facility] Comment on above: Performed By: #### C BC ####[facility] [address] [place], [place] [address]Dr. Sasha Winston MCH (RBC) [Entitic mass] 29.7 pg Normal 26.7-34.[address] [facility] Comment on above: Performed By: #### C BC ####[facility] Av[address]isorn[address] [place], [place] [address]DrSvetlana Sasha Winston MCHC (RBC) [Mass/Vol] 33.0 g/dL Normal 29.9-35.[address] [facility] Comment on above: Performed By: #### C BC ####[facility] [address]sp[address] [place], [place] [address]Dr. Sasha Montero MCV (RBC) [Entitic vol] 89.9 fL Normal 81.0-99.[address] [facility] Comment on above: Performed By: #### C BC ####[facility] [address] [place] [address]Dr. Sasha Montero MONO # 0.8 103/ul Normal 0.3-0.[address] [facility] Comment on above: Performed By: #### C BC ####[facility] F[address] [place], [place] [address]Dr. Sasha Winston Monocytes/100 WBC (Bld) 8.9 % Normal 1.7-12.[address] [facility] Comment on above: Performed By: #### C BC ####[facility] U[address]nquew[address] [place], [place] [address]Dr. Sasha Montero NEUT # 5.7 103/ul Normal 1.4-6.[address] [facility] Comment on above: Performed By: #### C BC ####[facility] Fsciltbtwk[address] [place], [place] [address]Dr. Sasha Winston Neutrophils/100 WBC (Bld) 61.2 % Normal 43.0-75.[address] [facility] Comment on above: Performed By: #### C BC ####[facility] [address]jcdckmn[address] [place], [place] [address]Dr. Sasha Winston Platelet mean volume (Bld) [Entitic vol] 8.9 fL Critically low 9.5-13.[address] [facility] Comment on above: Performed By: #### C BC ####[facility] [address] [place], [place] [address]Dr. Sasha Winston PLT 323 103/ul Normal 150-[address] [facility] Comment on above: Performed By: #### C BC ####[facility] W[address]xtxbfmhs[address] [place], [place] [address]Dr. Albinalaura Winston RBC 3.57 106/ul Critically low 4.20-5.[address] [facility] Comment on above: Performed By: #### C BC ####[facility] [address]fcdye[address] [place], [place] [address]DrSvetlana Montero WBC 9.3 103/ul Normal 4.0-11.[address] [facility] Comment on above: Performed By: #### C BC ####[facility] M[address]ugqiezd[address] [place], [place] [address]Dr. Sasha Montero PROF 14(COMP METB)on 022 Albumin [Mass/Vol] 3.6 g/dL Normal 3.4-5.[address] [facility] Comment on above: Performed By: #### C MP ####[facility] Y[address]felvhi[address] [place], [place] [address]Dr. Sasha Montero Albumin/Globulin [Mass ratio] 1.2 {ratio} Normal [facility] Comment on above: Performed By: #### C MP ####[facility] [address]uf[address]wtr[address] [place], [place] [address]Dr. Sasha Montero ALP [Catalytic activity/Vol] 70 U/L Normal 46-[address] [facility] Comment on above: Performed By: #### C MP ####[facility] Pewvlomzid[address] [place], [place] [address]Dr. Sasha Montero ALT [Catalytic activity/Vol] 21 U/L Normal 14-[address] [facility] Comment on above: Performed By: #### C MP ####[facility] [address]ymzhzj[address] [place], [place] [address]Dr. Ssaha Montero Anion gap [Moles/Vol] 12.9 mmol/L Normal [facility] Comment on above: Performed By: #### C MP ####[facility] S[address]dvigke[address] [place], [place] [address]Dr. Sasha Montero AST [Catalytic activity/Vol] 24 U/L Normal 15-[address] [facility] Comment on above: Performed By: #### C MP ####[facility] [address]ojpzw[address] [place], [place] [address]Dr. Sasha Montero Bilirubin [Mass/Vol] 0.7 mg/dL Normal 0.2-1.[address] [facility] Comment on above: Performed By: #### C MP ####[facility] Inqpg[address]oxeg[address] [place], [place] [address]Dr. Sasha Montero Calcium [Mass/Vol] 8.5 mg/dL Normal 8.5-10.[address] [facility] Comment on above: Performed By: #### C MP ####[facility] [address] [place] [address]Dr. Sasha Montero Chloride [Moles/Vol] 101 mmol/L Normal 98-[address] [facility] Comment on above: Performed By: #### C MP ####[facility] [address] [place] [address]Dr. Sasha Montero CO2 [Moles/Vol] 29.6 mmol/L Normal 21.0-32.[address] [facility] Comment on above: Performed By: #### C MP ####[facility] C[address]vfayyzv[address] [place], [place] [address]Dr. Sasha Montero Creatinine [Mass/Vol] 0.62 mg/dL Normal 0.55-1.[address] [facility] Comment on above: Performed By: #### C MP ####[facility] V[address]uxgsvhs[address] [place], [place] [address]Dr. Sasha Montero EGFR-AF BRUNEIAN >60 Normal >=[address] [facility] Comment on above: Performed By: #### C MP ####[facility] [address]qorbfy[address] [place], [place] [address]Dr. Sasha Montero EGFR-NON AF BRUNEIAN >60 Normal >=[address] [facility] Comment on above: Performed By: #### C MP ####[facility] Odzlzauvcg[address] [place], [place] [address]Dr. Sasha Montero Globulin (S) [Mass/Vol] 3.0 g/dL Normal [facility] Comment on above: Performed By: #### C MP ####[facility] [address] [place] [address]Dr. Sasha Montero Glucose [Mass/Vol] 98 mg/dL Normal 74-[address] [facility] Comment on above: Performed By: #### C MP ####[facility] Chlhmopxtp[address] [place], [place] [address]Dr. Sasha Montero Potassium [Moles/Vol] 3.5 mmol/L Normal 3.5-5.[address] [facility] Comment on above: Performed By: #### C MP ####[facility] [address] [place] [address]Dr. Sasha Montero Protein [Mass/Vol] 6.6 g/dL Normal 6.4-8.[address] [facility] Comment on above: Performed By: #### C MP ####[facility] [address] [place] [address]Dr. Sasha Winston Sodium [Moles/Vol] 140 mmol/L Normal 136-[address] [facility] Comment on above: Performed By: #### C MP ####[facility] Mqwgfbtvtd[address] [place], [place] [address]Dr. Sasha Winston Urea nitrogen [Mass/Vol] 6.0 mg/dL Critically low 7.0-18.[address] [facility] Comment on above: Performed By: #### C MP ####[facility] [address]xjcezo[address] [place], [place] [address]Dr. Albinalaura Montero Urea nitrogen/Creatinine [Mass ratio] 9.7 mg/mg Normal [facility] Comment on above: Performed By: #### C MP ####[facility] Orepjvsnrw[address] [place], [place] [address]Dr. Sasha Winston AMYLASEon 05-19-2022 Amylase [Catalytic activity/Vol] 51 U/L Normal 25-[address] [facility] Comment on above: Performed By: #### C MP, LIPA, HUI ####[facility] [address]mtebroj[address] [place], [place] [address]Dr. Sasha Winston CBC AUTO DIFFon 05-19-2022 BASO # 0.0 103/ul Normal 0.0-0.[address] [facility] Comment on above: Performed By: #### C BC ####[facility] R[address]fxewgjo[address] [place], [place] [address]Dr. Sasha Winston Basophils/100 WBC (Bld) 0.3 % Normal 0.2-2.[address] [facility] Comment on above: Performed By: #### C BC ####[facility] Hmsqocxiga[address] [place], [place] [address]Dr. Sasha Montero EO # 0.0 103/ul Normal 0.0-0.[address] [facility] Comment on above: Performed By: #### C BC ####[facility] [address]jlvsjpv[address] [place], [place] [address]Dr. Sasha Winston Eosinophils/100 WBC (Bld) 0.0 % Critically low 0.9-7.[address] [facility] Comment on above: Performed By: #### C BC ####[facility] Ohthylemby[address] [place], [place] [address]Dr. Sasha Winston Erythrocyte distribution width (RBC) [Ratio] 14.4 % Normal 11.0-15.[address] [facility] Comment on above: Performed By: #### C BC ####[facility] B[address]hdvhan[address] [place], [place] [address]Dr. Sasha Montero Hematocrit (Bld) [Volume fraction] 36.1 % Normal 36.0-48.[address] [facility] Comment on above: Performed By: #### C BC ####[facility] Ksy[address]uezfu[address] [place], [place] [address]Dr. Sasha Winston Hemoglobin (Bld) [Mass/Vol] 11.9 g/dL Critically low 12.0-16.[address] [facility] Comment on above: Performed By: #### C BC ####[facility] U[address]ujrwa[address] [place], [place] [address]Dr. Albinalaura Winston IG # 0.06 10e3/ul Critically high 0.00-0.[address] [facility] Comment on above: Performed By: #### C BC ####[facility] L[address]qiordlg[address] [place], [place] [address]Dr. Sasha Montero IG % 0.4 % Normal 0.0-0.[address] [facility] Comment on above: Performed By: #### C BC ####[facility] Bnfawrvggn[address] [place], [place] [address]Dr. Sasha Montero LYMPH # 3.8 103/ul Normal 1.2-3.[address] [facility] Comment on above: Performed By: #### C BC ####[facility] F[address]hnxwzpd[address] [place], [place] [address]Dr. Sasha Montero Lymphocytes/100 WBC (Bld) 24.0 % Normal 20.5-60.[address] [facility] Comment on above: Performed By: #### C BC ####[facility] [address] [place] [address]DrSvetlana Montero MANUAL DIFF REQ NO Normal [facility] Comment on above: Performed By: #### C BC ####[facility] [address] [place] [address]DrSvetlana Montero MCH (RBC) [Entitic mass] 29.3 pg Normal 26.7-34.[address] [facility] Comment on above: Performed By: #### C BC ####[facility] [address]ub[address] [place], [place] [address]DrSvetlana Montero MCHC (RBC) [Mass/Vol] 33.0 g/dL Normal 29.9-35.[address] [facility] Comment on above: Performed By: #### C BC ####[facility] [address]cp[address] [place], [place] [address]DrSvetlana Montero MCV (RBC) [Entitic vol] 88.9 fL Normal 81.0-99.[address] [facility] Comment on above: Performed By: #### C BC ####[facility] [address] [place], [place] [address]DrSvetlana Montero MONO # 1.4 103/ul Critically high 0.3-0.[address] [facility] Comment on above: Performed By: #### C BC ####[facility] [address]qcs[address] [place], [place] [address]DrSvetlana Montero Monocytes/100 WBC (Bld) 8.8 % Normal 1.7-12.[address] [facility] Comment on above: Performed By: #### C BC ####[facility] [address] [place], [place] [address]DrSvetlana Montero NEUT # 10.6 103/ul Critically high 1.4-6.[address] [facility] Comment on above: Performed By: #### C BC ####[facility] [address]ix[address] [place], [place] [address]DrSvetlana Montero Neutrophils/100 WBC (Bld) 66.5 % Normal 43.0-75.[address] [facility] Comment on above: Performed By: #### C BC ####[facility] [address] [place] [address]Dr. Sasha Montero Platelet mean volume (Bld) [Entitic vol] 9.1 fL Critically low 9.5-13.[address] [facility] Comment on above: Performed By: #### C BC ####[facility] [address] [place] [address]Dr. Sasha Montero PLT 439 103/ul Normal 150-[address] [facility] Comment on above: Performed By: #### C BC ####[facility] Sysrsckisi[address] [place], [place] [address]Dr. Sasha Montero RBC 4.06 106/ul Critically low 4.20-5.[address] [facility] Comment on above: Performed By: #### C BC ####[facility] Dzptofsgll[address] [place], [place] [address]Dr. Sasha Montero WBC 15.9 103/ul Critically high 4.0-11.[address] [facility] Comment on above: Performed By: #### C BC ####[facility] Gxvkuteusu342[address] [place], [place] [address]Dr. Sasha Montero LIPASEon 05-19-2022 Lipase [Catalytic activity/Vol] 70.0 U/L Critically low 73.0-393.[address] [facility] Comment on above: Performed By: #### C [place] AMY ####[facility] Nkeqaybmed340[address] [place], [place] [address]Dr. Albinalaura Montero PROF 14(COMP METB)on 022 Albumin [Mass/Vol] 4.2 g/dL Normal 3.4-5.[address] [facility] Comment on above: Performed By: #### C [place] AMY ####[facility] Rryjmvqbmu[address] [place] [address]Dr. Sasha Winston Albumin/Globulin [Mass ratio] 1.3 {ratio} Normal [facility] Comment on above: Performed By: #### C [place] AMY ####[facility] Slltajadfu[address] [place] [address]Dr. Sasha Montero ALP [Catalytic activity/Vol] 87 U/L Normal 46-116 [facility] Comment on above: Performed By: #### C MP, LIPA, HUI ####[facility] Eksyvlkbrv99[address] [place] [address]Dr. Sasha Montero ALT [Catalytic activity/Vol] 21 U/L Normal 14-59 [facility] Comment on above: Performed By: #### C MP, LIPA, HUI ####[facility] Krcnqvicdk7[address] [place] [address]Dr. Sasha Montero Anion gap [Moles/Vol] 13.4 mmol/L Normal Th e [facility] Comment on above: Performed By: #### C MP, LIPA, HUI ####[facility] Zhkimghbup196[address] [place], [place] [address]Dr. Sasha Montero AST [Catalytic activity/Vol] 23 U/L Normal 15-37 [facility] Comment on above: Performed By: #### C MP, LIPA, HUI ####[facility] Zmsklxblav7340[address] [place], [place] [address]Dr. Sasha Montero Bilirubin [Mass/Vol] 0.8 mg/dL Normal 0.2-1.0 [facility] Comment on above: Performed By: #### C MP, LIPA, HUI ####[facility] Invnjldhbw12[address] [place], [place] [address]Dr. Sasha Montero Calcium [Mass/Vol] 8.8 mg/dL Normal 8.5-10.1 [facility] Comment on above: Performed By: #### C MP, LIPA, HUI ####[facility] Gxzalgogxr812[address] [place], [place] [address]Dr. Sasha Montero Chloride [Moles/Vol] 103 mmol/L Normal 98-[address] [facility] Comment on above: Performed By: #### C MP, LIPA, HUI ####[facility] Ipvmddnmmr9925 [place] [address]Dr. Sasha Montero CO2 [Moles/Vol] 28.0 mmol/L Normal 21.0-32.0 [facility] Comment on above: Performed By: #### C [place], HUI ####[facility] Qeurludmnl7833 [place] [address]Dr. Sasha Montero Creatinine [Mass/Vol] 0.74 mg/dL Normal 0.55-1.02 [facility] Comment on above: Performed By: #### C [place], HUI ####[facility] Jbldqhyuaz6[address] [place] [address]Dr. Sasha Montero EGFR-AF BRUNEIAN >60 Normal >=60 [facility] Comment on above: Performed By: #### C [place], HUI ####[facility] Xhoiqasxly19[address] [place], [place] [address]Dr. Sasha Montero EGFR-NON AF BRUNEIAN >60 Normal >=60 [facility] Comment on above: Performed By: #### C [place], HUI ####[facility] Ilkicwlzmy669182 [address] [place], [place] [address]Dr. Sasha Montero Globulin (S) [Mass/Vol] 3.3 g/dL Normal [facility] Comment on above: Performed By: #### C [place] UHI ####[facility] Cdvjkjjoyc4518[address] [place], [place] [address]Dr. Sasha Montero Glucose [Mass/Vol] 122 mg/dL Critically high 74-106 [facility] Comment on above: Performed By: #### C [place], HUI ####[facility] Ypbjvveimk6446 [place] [address]Dr. Sasha Montero Potassium [Moles/Vol] 3.4 mmol/L Critically low 3.5-5.1 [facility] Comment on above: Performed By: #### C [place], HUI ####[facility] Otfevmfqoj762882 [address] [place], [place] [address]Dr. Sasha Montero Protein [Mass/Vol] 7.5 g/dL Normal 6.4-8.2 [facility] Comment on above: Performed By: #### C ANNABELLA LIPA, HUI ####[facility] Vvsbipjmqu1935 [place] [address]Dr. Sasha Montero Sodium [Moles/Vol] 141 mmol/L Normal 136-[address] [facility] Comment on above: Performed By: #### C [place] AMY ####[facility] Lszelybxtp4047 [place] [address]Dr. Sasha Montero Urea nitrogen [Mass/Vol] 4.0 mg/dL Critically low 7.0-18.[address] [facility] Comment on above: Performed By: #### C [place] AMY ####[facility] Zsawsxxwlk2875[address] [place], [place] [address]Dr. Albinalaura Montero Urea nitrogen/Creatinine [Mass ratio] 5.4 mg/mg Normal [facility] Comment on above: Performed By: #### C [place] AMY ####[facility] Zhjjvwkemi6820[address] [place], [place] [address]Dr. Sasha Winston AMYLASEon 05-18-2022 Amylase [Catalytic activity/Vol] 113 U/L Normal 25-[address] [facility] Comment on above: Performed By: #### A MY ####[facility] Miwfqgeony628582 [address] [place], [place] [address]Dr. Sasha Winston CBC AUTO DIFFon 05-18-2022 BASO # 0.0 103/ul Normal 0.0-0.[address] [facility] Comment on above: Performed By: #### C BC ####[facility] Pqsoscvukh008[address] [place], [place] [address]Dr. Sasha Montero Basophils/100 WBC (Bld) 0.2 % Normal 0.2-2.[address] [facility] Comment on above: Performed By: #### C BC ####[facility] Jlexjphgak5032[address] [place], [place] [address]Dr. Sasha Montero EO # 0.0 103/ul Normal 0.0-0.[address] [facility] Comment on above: Performed By: #### C BC ####[facility] Dixtrdhwur777[address] [place], [place] [address]Dr. Sasha Montero Eosinophils/100 WBC (Bld) 0.0 % Critically low 0.9-7.[address] [facility] Comment on above: Performed By: #### C BC ####[facility] Jhzotrjvnr7399 [place] [address]Dr. Sasha Montero Erythrocyte distribution width (RBC) [Ratio] 13.8 % Normal 11.0-15.0 [facility] Comment on above: Performed By: #### C BC ####[facility] Eyrjllosmf6712[address] [place], [place] [address]DrSvetlana Sasha Montero Hematocrit (Bld) [Volume fraction] 34.1 % Critically low 36.0-48.0 [facility] Comment on above: Performed By: #### C BC ####[facility] Rofnlwsomh8533[address] [place], [place] [address]DrSvetlana Sasha Montero Hemoglobin (Bld) [Mass/Vol] 11.5 g/dL Critically low 12.0-16.0 [facility] Comment on above: Performed By: #### C BC ####[facility] Aywboyfpar764182 [address] [place], [place] [address]DrSvetlana Sasha Montero IG # 0.09 10e3/ul Critically high 0.00-0.03 [facility] Comment on above: Performed By: #### C BC ####[facility] Baeagfdqzb7332[address] [place], [place] [address]DrSvetlana Sasha Montero IG % 0.4 % Normal 0.0-0.5 [facility] Comment on above: Performed By: #### C BC ####[facility] Koccaythzv607[address] [place], [place] [address]DrSvetlana Sasha Winston LYMPH # 0.8 103/ul Critically low 1.2-3.[address] [facility] Comment on above: Performed By: #### C BC ####[facility] Foikbdvsvw342182 [address] [place], [place] [address]DrSvetlana Sasha Winston Lymphocytes/100 WBC (Bld) 3.6 % Critically low 20.5-60.0 [facility] Comment on above: Performed By: #### C BC ####[facility] Cxembredxr9410[address] [place], [place] [address]DrSvetlana Albinalaura Montero MANUAL DIFF REQ NO Normal [facility] Comment on above: Performed By: #### C BC ####[facility] Ajjjspeyqd69[address] [place] [id number]. Sasha Winston MCH (RBC) [Entitic mass] 29.7 pg Normal 26.7-34.0 [facility] Comment on above: Performed By: #### C BC ####[facility] Ysyxgrchdv3566 [place] [address]Dr. Sasha Winston MCHC (RBC) [Mass/Vol] 33.7 g/dL Normal 29.9-35.[address] [facility] Comment on above: Performed By: #### C BC ####[facility] Qlznwsugkh4475 [place] [address]Dr. Sasha Montero MCV (RBC) [Entitic vol] 88.1 fL Normal 81.0-99.0 [facility] Comment on above: Performed By: #### C BC ####[facility] Dulrxqczmx2828[address] [place], [place] [address]Dr. Sasha Montero MONO # 0.8 103/ul Normal 0.3-0.[address] [facility] Comment on above: Performed By: #### C BC ####[facility] Whaqnegcpn507782 [address] [place], [place] [address]Dr. Sasha Montero Monocytes/100 WBC (Bld) 3.6 % Normal 1.7-12.[address] [facility] Comment on above: Performed By: #### C BC ####[facility] Lsuycnvvfw04[address] [place], [place] [address]DrSvetlana Montero NEUT # 21.4 103/ul Critically high 1.4-6.[address] [facility] Comment on above: Performed By: #### C BC ####[facility] Nahyyywbnd4785[address] [place], [place] [address]DrSvetlana Montero Neutrophils/100 WBC (Bld) 92.2 % Critically high 43.0-75.[address] [facility] Comment on above: Performed By: #### C BC ####[facility] Saqoeqwkow[address] [place], [place] [address]DrSvetlana Montero Platelet mean volume (Bld) [Entitic vol] 9.1 fL Critically low 9.5-13.[address] [facility] Comment on above: Performed By: #### C BC ####[facility] Edtktljlbz5324 [place] [address]Dr. Albinalaura Winston PLT 365 103/ul Normal 150-[address] [facility] Comment on above: Performed By: #### C BC ####[facility] Inumhdaykh9841 [place] [address]Dr. Sasha Montero RBC 3.87 106/ul Critically low 4.20-5.[address] [facility] Comment on above: Performed By: #### C BC ####[facility] Ynmvajwzxa2994 [place] [address]Dr. Sasha Montero WBC 23.2 103/ul Critically high 4.0-11.[address] [facility] Comment on above: Performed By: #### C BC ####[facility] Rbsvooecpa0159[address] [place], [place] [address]DrSvetlana Montero LIPASEon 05-18-2022 Lipase [Catalytic activity/Vol] 53.0 U/L Critically low 73.0-393.0 [facility] Comment on above: Performed By: #### L IPA ####[facility] Erhtfihqip057[address] [place], [place] [address]DrSvetlana Montero PROF 14(COMP METB)on 022 Albumin [Mass/Vol] 4.4 g/dL Normal 3.4-5.[address] [facility] Comment on above: Performed By: #### C MP ####[facility] Astrgcekgi5036[address] [place], [place] [address]DrSvetlana Montero Albumin/Globulin [Mass ratio] 1.3 {ratio} Normal [facility] Comment on above: Performed By: #### C MP ####[facility] Mvhngqjoau216[address] [place], [place] [address]DrSvetlana Montero ALP [Catalytic activity/Vol] 85 U/L Normal 46-[address] [facility] Comment on above: Performed By: #### C MP ####[facility] Uvmwhwrpyo1716[address] [place], [place] [address]DrSvetlana Montero ALT [Catalytic activity/Vol] 22 U/L Normal 14-[address] [facility] Comment on above: Performed By: #### C MP ####[facility] Vepvnxynyk9617 [place] [address]Dr. Sasha Montero Anion gap [Moles/Vol] 13.6 mmol/L Normal Th [facility] Comment on above: Performed By: #### C MP ####[facility] Ervdpvdgoi738[address] [place], [place] [address]Dr. Sasha Montero AST [Catalytic activity/Vol] 22 U/L Normal 15-37 [facility] Comment on above: Performed By: #### C MP ####[facility] Sasorwnspf217[address] [place], [place] [address]Dr. Albinalaura Winston Bilirubin [Mass/Vol] 0.4 mg/dL Normal 0.2-1.[address] [facility] Comment on above: Performed By: #### C MP ####[facility] Pnlmlbrjwy150[address] [place], [place] [address]Dr. Sasha Winston Calcium [Mass/Vol] 8.7 mg/dL Normal 8.5-10.[address] [facility] Comment on above: Performed By: #### C MP ####[facility] Dkdobiiqiw810[address] [place], [place] [address]Dr. Sasha Winston Chloride [Moles/Vol] 100 mmol/L Normal 98-[address] [facility] Comment on above: Performed By: #### C MP ####[facility] Mcgzjmpcxs7413[address] [place], [place] [address]Dr. Sasha Winston CO2 [Moles/Vol] 26.1 mmol/L Normal 21.0-32.[address] [facility] Comment on above: Performed By: #### C MP ####[facility] Uyorgwzujd59[address] [place], [place] [address]Dr. Albinalaura Winston Creatinine [Mass/Vol] 0.92 mg/dL Normal 0.55-1.[address] [facility] Comment on above: Performed By: #### C MP ####[facility] Mujosjlmcp632[address] [place], [place] [address]Dr. Sasha Montero EGFR-AF BRUNEIAN >60 Normal >=60 [facility] Comment on above: Performed By: #### C MP ####[facility] Ikcolubxov13[address] [place] [id number]. Sasha Montero EGFR-NON AF BRUNEIAN >60 Normal >=60 [facility] Comment on above: Performed By: #### C MP ####[facility] Uvvybxyflj8686 [place] [phone]. Sasha Winston Globulin (S) [Mass/Vol] 3.4 g/dL Normal [facility] Comment on above: Performed By: #### C MP ####[facility] Btlkvbineg9841 [place] [phone]. Sasha Montero Glucose [Mass/Vol] 143 mg/dL Critically high 74-106 [facility] Comment on above: Performed By: #### C MP ####[facility] Pwuyhnzwer0025 [place] [address]Dr. Sasha Winston Potassium [Moles/Vol] 3.7 mmol/L Normal 3.5-5.1 [facility] Comment on above: Performed By: #### C MP ####[facility] Zemwvtgddf1624[address] [place], [place] [address]Dr. Sasha Winston Protein [Mass/Vol] 7.8 g/dL Normal 6.4-8.[address] [facility] Comment on above: Performed By: #### C MP ####[facility] Ehyrkieetx968782 [address] [place], [place] [address]Dr. Sasha Winston Sodium [Moles/Vol] 136 mmol/L Normal 136-[address] [facility] Comment on above: Performed By: #### C MP ####[facility] Ardujbesfb3342 [place] [address]Dr. Sasha Winston Urea nitrogen [Mass/Vol] 10.0 mg/dL Normal 7.0-18.0 [facility] Comment on above: Performed By: #### C MP ####[facility] Kucgxopqld0477 [place] [address]Dr. Sasha Montero Urea nitrogen/Creatinine [Mass ratio] 10.9 mg/mg Normal [facility] Comment on above: Performed By: #### C MP ####[facility] Vvxnvtjodl8431 [place] [address]Dr. Sasha Montero AMYLASEon 05-17-2022 Amylase [Catalytic activity/Vol] 196 U/L Critically high 25-[address] [facility] Comment on above: Performed By: #### C MP, HUI, LIPA ####[facility] Npljtjdlql825[address] [place], [place] [address]Dr. Sasha Montero CBC AUTO DIFFon 05-17-2022 BASO # 0.1 103/ul Normal 0.0-0.1 [facility] Comment on above: Performed By: #### C BC ####[facility] Tqlkmbwfsu0555[address] [place], [place] [address]Dr. Sasha Montero Basophils/100 WBC (Bld) 0.3 % Normal 0.2-2.0 [facility] Comment on above: Performed By: #### C BC ####[facility] Gqzytyrxvy4005[address] [place], [place] [address]Dr. Sasha Montero EO # 0.0 103/ul Normal 0.0-0.7 [facility] Comment on above: Performed By: #### C BC ####[facility] Brscqsxzfp427[address] [place], [place] [address]Dr. Sasha Montero Eosinophils/100 WBC (Bld) 0.3 % Critically low 0.9-7.0 [facility] Comment on above: Performed By: #### C BC ####[facility] Hvmxxyzvlv4445[address] [place], [place] [address]Dr. Sasha Montero Erythrocyte distribution width (RBC) [Ratio] 13.3 % Normal 11.0-15.[address] [facility] Comment on above: Performed By: #### C BC ####[facility] Ffctriltit448[address] [place], [place] [address]Dr. Sasha Montero Hematocrit (Bld) [Volume fraction] 35.9 % Critically low 36.0-48.[address] [facility] Comment on above: Performed By: #### C BC ####[facility] Wiqnzjwagy8514[address] [place], [place] [address]Dr. Sasha Montero Hemoglobin (Bld) [Mass/Vol] 11.9 g/dL Critically low 12.0-16.0 [facility] Comment on above: Performed By: #### C BC ####[facility] Fbsxheutam0988 [place] [address]Dr. Sasha Montero IG # 0.04 10e3/ul Critically high 0.00-0.03 [facility] Comment on above: Performed By: #### C BC ####[facility] Crqjzykjks8510 [place] [address]Dr. Sasha Montero IG % 0.3 % Normal 0.0-0.5 [facility] Comment on above: Performed By: #### C BC ####[facility] Fyllffrudf723[address] [place], [place] [address]DrSvetlana Montero LYMPH # 2.7 103/ul Normal 1.2-3.[address] [facility] Comment on above: Performed By: #### C BC ####[facility] Lkakjcmsta2295[address] [place], [place] [address]Dr. Sasha Montero Lymphocytes/100 WBC (Bld) 18.1 % Critically low 20.5-60.0 [facility] Comment on above: Performed By: #### C BC ####[facility] Jscinxybrk0028[address] [place], [place] [address]DrSvetlana Montero MANUAL DIFF REQ NO Normal [facility] Comment on above: Performed By: #### C BC ####[facility] Wzequspord9529[address] [place], [place] [address]Dr. Sasha Montero MCH (RBC) [Entitic mass] 29.5 pg Normal 26.7-34.[address] [facility] Comment on above: Performed By: #### C BC ####[facility] Cyzcxssurp260[address] [place], [place] [address]Dr. Sasha Montero MCHC (RBC) [Mass/Vol] 33.1 g/dL Normal 29.9-35.[address] [facility] Comment on above: Performed By: #### C BC ####[facility] Rwrjqvxrax2626[address] [place], [place] [address]Dr. Sasha Montero MCV (RBC) [Entitic vol] 88.9 fL Normal 81.0-99.[address] [facility] Comment on above: Performed By: #### C BC ####[facility] Qfxtuilkxt0631 [place] [address]DrSvetlana Sasha Montero MONO # 1.1 103/ul Critically high 0.3-0.8 [facility] Comment on above: Performed By: #### C BC ####[facility] Ethkpekqow4935 [place] [address]DrSvetlana Montero Monocytes/100 WBC (Bld) 7.7 % Normal 1.7-12.[address] [facility] Comment on above: Performed By: #### C BC ####[facility] Cvnfhixumg36[address] [place], [place] [address]Dr. Sasha Montero NEUT # 10.8 103/ul Critically high 1.4-6.[address] [facility] Comment on above: Performed By: #### C BC ####[facility] Zoleyumimo374[address] [place], [place] [address]Dr. Sasha Montero Neutrophils/100 WBC (Bld) 73.3 % Normal 43.0-75.[address] [facility] Comment on above: Performed By: #### C BC ####[facility] Lrfpqfdmqr32[address] [place], [place] [address]DrSvetlana Montero Platelet mean volume (Bld) [Entitic vol] 9.2 fL Critically low 9.5-13.[address] [facility] Comment on above: Performed By: #### C BC ####[facility] Ykylduvpkf708[address] [place], [place] [address]Dr. Sasha Montero PLT 396 103/ul Normal 150-[address] [facility] Comment on above: Performed By: #### C BC ####[facility] Plqzggwbiz465[address] [place], [place] [address]DrSvetlana Montero RBC 4.04 106/ul Critically low 4.20-5.[address] [facility] Comment on above: Performed By: #### C BC ####[facility] Ilurcyefse[address] [place], [place] [address]DrSvetlana Montero WBC 14.7 103/ul Critically high 4.0-11.[address] [facility] Comment on above: Performed By: #### C BC ####[facility] Zvfthsczsj9785 [place] [id number]. Sasha Montero Covid-19 PCR ([facility])on SARS-CoV-2 (COVID-19) RNA YULIANA+probe Ql (Unsp spec) Not detected Normal NOT DETECTED [facility] Comment on above: Result Comment: When diagnostic testing is negative, the possibility of a false negative should be considered inthe context of a patient's recent exposures and the presence of clinical signs and symptomsconsistent with SARS-CoV-2.This test is not yet approved or cleared by the [place] FDA. When there are no FDA-approved or cleared tests available, and other criteria are met, FDA can make tests available under an emergency access mechanism called an Emergency Use Authorization (EUA). The EUA for this test is supported by the [place] of Health and Human Service's declaration that circumstances exist to justify the emergency use of in vitro diagnostics for the detection and/or diagnosis of the virus that causes COVID-19. This EUA will remain in effect for the duration of the COVID-19 declaration justifying emergency of IVDs, unless it is terminated or revoked by the FDA (after which the test may no longer be used). Performed By: #### C VDTBH ####[facility] Ucmouhxsto4397 [place] [id number]. Sasha Montero DRUG SCREEN RAPID (URINE)on 05-17-2022 AMP Negative Normal NEGATIVE [facility] Comment on above: Performed By: #### D RUGRPD ####[facility] Hfhzkotaae5828 [place], [place] [address]Xw. Sasha Montero BAR Negative Normal NEGATIVE [facility] Comment on above: Performed By: #### D RUGRPD ####[facility] Oawavijwnp4148 [place] [phone]. Sasha Montero BUP Negative Normal NEGATIVE [facility] Comment on above: Performed By: #### D RUGRPD ####[facility] Mfldpqroqk6101 [place] [phone]. Sasha Montero BZO Positive Abnormal NEGATIVE [facility] Comment on above: Performed By: #### D RUGRPD ####[facility] Habuffqshy25[address] [place] [address]Dr. Sasha Montero JAMESON Negative Normal NEGATIVE [facility] Comment on above: Performed By: #### D RUGRPD ####[facility] Ryiilitgnz1393 [place] [phone]. Sasha Montero CUT-OFFS SEE BELOW Normal [facility] Comment on above: Result Comment: AMP (Amphetamine): 500ng/mL, BAR (Barbituates): 200 ng/mL, BZO (Benzodiazepines): 150 ng/mL, BUP (Buprenorphine): 10 ng/mL, JAMESON (Cocaine): 150 ng/mL, mAMP (Methamphetamine): 500 ng/mL, MTD (Methadone): 200 ng/mL, OPI (Opiates): 100 ng/mL, OXY (Oxycodone): 100 ng/mL, PCP (Phencyclidine): 25 ng/mL, PPX (Propoxyphene): 300 ng/mL, THC (Cannabinoids): 50 ng/mL, TCA (Trycyclic Antidepressants): 300 ng/mL Performed By: #### D RUGRPD ####[facility] Ffpbgsxegy[address] [place], [place] [address]Dr. Sasha Montero DRUG CUT HEADER DRUG CLASS TEST SYST EM CUT-OFF CONCENTRATIONS ARE FOLLOWS: Normal [facility] Comment on above: Performed By: #### D RUGRPD ####[facility] Djnzoipzgu[address] [place], [place] [address]Dr. Sasha Montero mAMP Negative Normal NEGATIVE [facility] Comment on above: Performed By: #### D RUGRPD ####[facility] Dvthoatrct7961 [place] [id number]. Sasha Montero MTD Negative Normal NEGATIVE [facility] Comment on above: Performed By: #### D RUGRPD ####[facility] Enxtufjwfd2434 [place] [id number]. Sasha Montero OPI Negative Normal NEGATIVE [facility] Comment on above: Performed By: #### D RUGRPD ####[facility] Yiwlsigrfs5451 [place] [address]Dr. Sasha Montero OXY Negative Normal NEGATIVE [facility] Comment on above: Performed By: #### D RUGRPD ####[facility] Eqdqudvevw5040 [place] [address]Dr. Sasha Montero PCP Negative Normal NEGATIVE [facility] Comment on above: Performed By: #### D RUGRPD ####[facility] Vrpijedthd406[address] [place], [place] [address]Dr. Sasha Montero PPX Positive Abnormal NEGATIVE [facility] Comment on above: Performed By: #### D RUGRPD ####[facility] Ypildandck[address] [place], [place] [address]Dr. Sasha Montero TCA Negative Normal NEGATIVE [facility] Comment on above: Performed By: #### D RUGRPD ####[facility] Hpnyqxtvdk925[address] [place], [place] [address]Dr. Sasha Montero THC Positive Abnormal NEGATIVE [facility] Comment on above: Performed By: #### D RUGRPD ####[facility] Nqdrhttogy0724[address] [place], [place] [address]Dr. Sasha Montero ER URINE PROFILEon 2 Bilirubin Ql (U) Negative Normal NEGATIVE [facility] Comment on above: Performed By: #### E RUR ####[facility] Fxluiubelx290[address] [place], [place] [address]Dr. Sasha Montero Clarity (U) SL CLOUDY Abnormal CLEAR [facility] Comment on above: Performed By: #### E RUR ####[facility] Otxiyozqnk819[address] [place], [place] [address]Dr. Sasha Montero Color (U) YELLOW Normal YELLOW [facility] Comment on above: Performed By: #### E RUR ####[facility] Vczjgbqwxw887[address] [place], [place] [address]Dr. Sasha Montero ERUAHD A micrscopic examina tion will be performed if indicated. Normal [facility] Comment on above: Performed By: #### E RUR ####[facility] Tzgixztvfa4947[address] [place], [place] [address]Dr. Sasha Montero Glucose Ql (U) Negative Normal NEGATIVE [facility] Comment on above: Performed By: #### E RUR ####[facility] Iejunjqagq7512[address] [place], [place] [address]Dr. Sasha Montero Hemoglobin Ql (U) Negative Normal NEGATIVE [facility] Comment on above: Performed By: #### E RUR ####[facility] Pprixwampk4847[address] [place], [place] [address]Dr. Sasha Montero Ketones Ql (U) Negative Normal NEGATIVE [facility] Comment on above: Performed By: #### E RUR ####[facility] Rybhskqedo2940[address] [place], [place] [address]Dr. Sasha Montero LEUKOCYTES Negative Normal NEGATIVE [facility] Comment on above: Performed By: #### E RUR ####[facility] Oraklrmehi6680[address] [place], [place] [address]Dr. Sasha Montero Nitrite Ql (U) Negative Normal NEGATIVE [facility] Comment on above: Performed By: #### E RUR ####[facility] Qheyjhkggp139082 [address] [place], [place] [address]Dr. Sasha Montero pH (U) 5.5 [pH] Normal 5-[address] [facility] Comment on above: Performed By: #### E RUR ####[facility] Kplimexehc5936[address] [place], [place] [address]Dr. Sasha Montero SPEC GRAVITY >=1.030 Abnormal 1.005-<=1.[address] [facility] Comment on above: Performed By: #### E RUR ####[facility] Gqqrfpcqcn4423[address] [place], [place] [address]Dr. Sasha Winston UA PROTEIN TRACE Normal NEGATIVE/ TRACE [facility] Comment on above: Performed By: #### E RUR ####[facility] Nooauciatm2534[address] [place], [place] [address]Dr. Sasha Montero UR MICRO IND NOT INDICATED Normal [facility] Comment on above: Performed By: #### E RUR ####[facility] Dnhdkvfiyx0049[address] [place], [place] [address]Dr. Sasha Montero Urobilinogen Qn (U) 0.2 {Josie'U}/dL Normal 0.2 - 1. [address] [facility] Comment on above: Performed By: #### E RUR ####[facility] [address]kswl[address] [place] [address]Dr. Sasha Montero LIPASEon 05-17-2022 Lipase [Catalytic activity/Vol] 87.0 U/L Normal 73.0-393.0 [facility] Comment on above: Performed By: #### C MP, HUI, LIPA ####[facility] Pyiwfkudkc[address] [place] [address]Dr. Sasha Montero PROF 14(COMP METB)on 022 Albumin [Mass/Vol] 4.6 g/dL Normal 3.4-5.0 [facility] Comment on above: Performed By: #### C MP, HUI, LIPA ####[facility] Vwufyimjvs5586 [place] [address]Dr. Sasha Montero Albumin/Globulin [Mass ratio] 1.4 {ratio} Normal [facility] Comment on above: Performed By: #### C MP, HUI, LIPA ####[facility] Txiimvxdml5254 [place] [address]Dr. Sasha Montero ALP [Catalytic activity/Vol] 92 U/L Normal 46-116 [facility] Comment on above: Performed By: #### C MP, HUI, LIPA ####[facility] Uapalcnuzf4453 [place] [address]Dr. Sasha Montero ALT [Catalytic activity/Vol] 21 U/L Normal 14-59 [facility] Comment on above: Performed By: #### C MP, HUI, LIPA ####[facility] Ftixeyukbj2994 [place] [address]Dr. Sasha Montero Anion gap [Moles/Vol] 17.3 mmol/L Normal [facility] Comment on above: Performed By: #### C MP, HUI, LIPA ####[facility] Vfzifthfmc6009 [place] [address]Dr. Sasha Montero AST [Catalytic activity/Vol] 15 U/L Normal 15-37 [facility] Comment on above: Performed By: #### C MP, HUI, LIPA ####[facility] Kegcjpegzg[address] [place] [address]Dr. Sasha Montero Bilirubin [Mass/Vol] 0.3 mg/dL Normal 0.2-1.[address] [facility] Comment on above: Performed By: #### C MP, HUI, LIPA ####[facility] Gkqutnrjdd7959 [place] [address]Dr. Sasha Montero Calcium [Mass/Vol] 9.1 mg/dL Normal 8.5-10.[address] [facility] Comment on above: Performed By: #### C MP, HUI, LIPA ####[facility] Ayscucyuxk415[address] [place], [place] [address]Dr. Sasha Montero Chloride [Moles/Vol] 100 mmol/L Normal 98-[address] [facility] Comment on above: Performed By: #### C MP, HUI, LIPA ####[facility] Wuxhqpwzfn716[address] [place], [place] [address]Dr. Sasha Montero CO2 [Moles/Vol] 25.0 mmol/L Normal 21.0-32.[address] [facility] Comment on above: Performed By: #### C MP, HUI, LIPA ####[facility] Kxcmtfgnam538[address] [place], [place] [address]Dr. Sasha Montero Creatinine [Mass/Vol] 1.04 mg/dL Critically high 0.55-1.[address] [facility] Comment on above: Performed By: #### C MP, HUI, LIPA ####[facility] Ctdxphzuba9[address] [place], [place] [address]Dr. Sasha Montero EGFR-AF BRUNEIAN >60 Normal >=[address] [facility] Comment on above: Performed By: #### C MP, HUI, LIPA ####[facility] Bxkapescrd986[address] [place], [place] [address]Dr. Sasha Montero EGFR-NON AF BRUNEIAN 59 mL/min/1.73m2 Critically low >=[address] [facility] Comment on above: Performed By: #### C MP, HUI, LIPA ####[facility] Zosnduvsja[address] [place], [place] [address]Dr. Sasha Montero Globulin (S) [Mass/Vol] 3.2 g/dL Normal [facility] Comment on above: Performed By: #### C HUI [place], LIPA ####[facility] Ntabbdkmil7336 [place] [address]Dr. Sasha Montero Glucose [Mass/Vol] 116 mg/dL Critically high 74-106 [facility] Comment on above: Performed By: #### C ANNABELLA HUI, LIPA ####[facility] Gyenqmpjwa7127 [place] [address]Dr. Sasha Montero Potassium [Moles/Vol] 3.3 mmol/L Critically low 3.5-5.1 [facility] Comment on above: Performed By: #### C ANNABELLA HUI, LIPA ####[facility] Cvesvpjoda6204 [place] [address]Dr. Sasha Montero Protein [Mass/Vol] 7.8 g/dL Normal 6.4-8.[address] [facility] Comment on above: Performed By: #### C ANNABELLA HUI, LIPA ####[facility] Onydnwhsfe7431 [place] [address]Dr. Sasha Montero Sodium [Moles/Vol] 139 mmol/L Normal 136-145 [facility] Comment on above: Performed By: #### C ANNABELLA, HUI, LIPA ####[facility] Uerdftmaej7941 [place] [address]Dr. Sasha Montero Urea nitrogen [Mass/Vol] 12.0 mg/dL Normal 7.0-18.[address] [facility] Comment on above: Performed By: #### C ANNABELLA HUI, LIPA ####[facility] Qqkanqlfjn0577 [place] [address]Dr. Sasha Montero Urea nitrogen/Creatinine [Mass ratio] 11.5 mg/mg Normal [facility] Comment on above: Performed By: #### C MP, HUI, LIPA ####[facility] Bqsxjxpkzk6622 [place] [address]Dr. Sasha Montero XR ABD FLAT UP_PA Anjel 05-17 XR ABD FLAT UP_PA CH Normal [facility] CBC AUTO DIFFon 05-07-2022 BASO # 0.0 103/ul Normal 0.0-0.[address] [facility] Comment on above: Performed By: #### C BC ####[facility] Xvltglzusq5952 [place] [address]Dr. Sasha Winston Basophils/100 WBC (Bld) 0.4 % Normal 0.2-2.[address] [facility] Comment on above: Performed By: #### C BC ####[facility] Nolpwrlttk3611 [place] [address]Dr. Sasha Winston EO # 0.1 103/ul Normal 0.0-0.[address] [facility] Comment on above: Performed By: #### C BC ####[facility] Jzcduedvwe42[address] [place], [place] [address]Dr. Albinalaura Montero Eosinophils/100 WBC (Bld) 1.0 % Normal 0.9-7.[address] [facility] Comment on above: Performed By: #### C BC ####[facility] Rdueolhpjc13[address] [place], [place] [address]Dr. Albinalaura Montero Erythrocyte distribution width (RBC) [Ratio] 14.0 % Normal 11.0-15.[address] [facility] Comment on above: Performed By: #### C BC ####[facility] Mikzxbznls7318 [place] [address]Dr. Sasha Montero Hematocrit (Bld) [Volume fraction] 32.3 % Critically low 36.0-48.[address] [facility] Comment on above: Performed By: #### C BC ####[facility] Dvicszvhvf688[address] [place], [place] [address]Dr. Sasha Montero Hemoglobin (Bld) [Mass/Vol] 10.5 g/dL Critically low 12.0-16.[address] [facility] Comment on above: Performed By: #### C BC ####[facility] Fkttiieaeu979[address] [place], [place] [address]Dr. Sasha Montero IG # 0.03 10e3/ul Normal 0.00-0.[address] [facility] Comment on above: Performed By: #### C BC ####[facility] Jumjrmpbvd8302 [place] [id number]. Sasha Montero IG % 0.4 % Normal 0.0-0.[address] [facility] Comment on above: Performed By: #### C BC ####[facility] Sshnpaeycc5043 [place] [phone]. Sasha Montero LYMPH # 2.4 103/ul Normal 1.2-3.[address] [facility] Comment on above: Performed By: #### C BC ####[facility] Hmkfpjogiw9104 [place] [id number]. Sasha Winston Lymphocytes/100 WBC (Bld) 35.1 % Normal 20.5-60.[address] [facility] Comment on above: Performed By: #### C BC ####[facility] Dqjlkhvkbm24[address] [place], [place] [address]Dr. Sasha Winston MANUAL DIFF REQ NO Normal [facility] Comment on above: Performed By: #### C BC ####[facility] Zxzmrdxdyx0123 [place] [address]Dr. Sasha Montero MCH (RBC) [Entitic mass] 29.1 pg Normal 26.7-34.[address] [facility] Comment on above: Performed By: #### C BC ####[facility] Lczaxtjcye6866 [place] [address]Dr. Sasha Montero MCHC (RBC) [Mass/Vol] 32.5 g/dL Normal 29.9-35.[address] [facility] Comment on above: Performed By: #### C BC ####[facility] Ptzlatwiit[address] [place], [place] [address]Dr. Sasha Montero MCV (RBC) [Entitic vol] 89.5 fL Normal 81.0-99.[address] [facility] Comment on above: Performed By: #### C BC ####[facility] Eaqywnxkrk318[address] [place], [place] [address]Dr. Sasha Winston MONO # 0.8 103/ul Normal 0.3-0.[address] [facility] Comment on above: Performed By: #### C BC ####[facility] Mhioerhajs8212 [place] [id number]. Sasha Montero Monocytes/100 WBC (Bld) 11.4 % Normal 1.7-12.[address] [facility] Comment on above: Performed By: #### C BC ####[facility] Pvtfvmqruu1215 [place] [phone]. Sasha Montero NEUT # 3.6 103/ul Normal 1.4-6.[address] [facility] Comment on above: Performed By: #### C BC ####[facility] Exxkprtbcq1003 [place] [address]Dr. Sasha Montero Neutrophils/100 WBC (Bld) 51.7 % Normal 43.0-75.[address] [facility] Comment on above: Performed By: #### C BC ####[facility] Fbsowcbrrw2543 [place] [address]Dr. Sasha Montero Platelet mean volume (Bld) [Entitic vol] 8.9 fL Critically low 9.5-13.[address] [facility] Comment on above: Performed By: #### C BC ####[facility] Gqkdbbfzqr0853 [place] [address]Dr. aSsha Montero PLT 366 103/ul Normal 150-[address] [facility] Comment on above: Performed By: #### C BC ####[facility] Wbovdfbesx4061 [place] [address]Dr. Sasha Montero RBC 3.61 106/ul Critically low 4.20-5.[address] [facility] Comment on above: Performed By: #### C BC ####[facility] Kcudgcnkgc3814 [place] [address]Dr. Sasha Montero WBC 6.9 103/ul Normal 4.0-11.[address] [facility] Comment on above: Performed By: #### C BC ####[facility] Fgzleckjba2794 [place] [address]Dr. Sasha Winston PROF 14(COMP METB)on 022 Albumin [Mass/Vol] 3.7 g/dL Normal 3.4-5.[address] [facility] Comment on above: Performed By: #### C MP ####[facility] Egolnvbvzp0467 [place] [address]Dr. Sasha Winston Albumin/Globulin [Mass ratio] 1.3 {ratio} Normal [facility] Comment on above: Performed By: #### C MP ####[facility] Wkepomhjjo9268 [place] [address]Dr. Sasha Winston ALP [Catalytic activity/Vol] 80 U/L Normal 46-[address] [facility] Comment on above: Performed By: #### C MP ####[facility] Jwefohwjpc15[address] [place], [place] [address]Dr. Sasha Winston ALT [Catalytic activity/Vol] 20 U/L Normal 14-59 [facility] Comment on above: Performed By: #### C MP ####[facility] Mttalxxazn834[address] [place], [place] [address]Dr. Sasha Montero Anion gap [Moles/Vol] 11.1 mmol/L Normal [facility] Comment on above: Performed By: #### C MP ####[facility] Bqkslxlzid2960[address] [place], [place] [address]Dr. Sasha Winston AST [Catalytic activity/Vol] 20 U/L Normal 15-37 [facility] Comment on above: Performed By: #### C MP ####[facility] Igxalsegzh513[address] [place], [place] [address]Dr. Sasha Montero Bilirubin [Mass/Vol] 0.4 mg/dL Normal 0.2-1.[address] [facility] Comment on above: Performed By: #### C MP ####[facility] Htbdxsoyqc798[address] [place], [place] [address]Dr. Sasha Montero Calcium [Mass/Vol] 8.8 mg/dL Normal 8.5-10.[address] [facility] Comment on above: Performed By: #### C MP ####[facility] Pojzuptqpw898[address] [place], [place] [address]Dr. Sasha Montero Chloride [Moles/Vol] 105 mmol/L Normal 98-[address] [facility] Comment on above: Performed By: #### C MP ####[facility] Czbcbksyfv929[address] [place], [place] [address]Dr. Sasha Montero CO2 [Moles/Vol] 28.0 mmol/L Normal 21.0-32.[address] [facility] Comment on above: Performed By: #### C MP ####[facility] Zjxavwkgqg6019 [place] [address]Dr. Sasha Winston Creatinine [Mass/Vol] 0.66 mg/dL Normal 0.55-1.[address] [facility] Comment on above: Performed By: #### C MP ####[facility] Btuojccvxn1363 [place] [address]Dr. Sasha Winston EGFR-AF BRUNEIAN >60 Normal >=[address] [facility] Comment on above: Performed By: #### C MP ####[facility] Vjiihzjwyo87[address] [place], [place] [address]Dr. Sasha Montero EGFR-NON AF BRUNEIAN >60 Normal >=[address] [facility] Comment on above: Performed By: #### C MP ####[facility] Dqjuovwgia415[address] [place], [place] [address]Dr. Albinalaura Montero Globulin (S) [Mass/Vol] 2.9 g/dL Normal [facility] Comment on above: Performed By: #### C MP ####[facility] Hfekkwdsxp926[address] [place], [place] [address]Dr. Sasha Montero Glucose [Mass/Vol] 100 mg/dL Normal 74-[address] [facility] Comment on above: Performed By: #### C MP ####[facility] Wntklsryaf026[address] [place], [place] [address]Dr. Sasha Montero Potassium [Moles/Vol] 3.1 mmol/L Critically low 3.5-5.[address] [facility] Comment on above: Performed By: #### C MP ####[facility] Rdvlglxxxc047[address] [place], [place] [address]Dr. Sasha Montero Protein [Mass/Vol] 6.6 g/dL Normal 6.4-8.[address] [facility] Comment on above: Performed By: #### C MP ####[facility] Dgtahjjlup274582 [address] [place], [place] [address]Dr. Sasha Montero Sodium [Moles/Vol] 141 mmol/L Normal 136-[address] [facility] Comment on above: Performed By: #### C MP ####[facility] Tilkhjrjiq9633[address] [place], [place] [address]Dr. Sasha Montero Urea nitrogen [Mass/Vol] 2.0 mg/dL Critically low 7.0-18.0 [facility] Comment on above: Performed By: #### C MP ####[facility] Ykkknpbbrf4064[address] [place], [place] [address]Dr. Sasha Montero Urea nitrogen/Creatinine [Mass ratio] 3.0 mg/mg Normal [facility] Comment on above: Performed By: #### C MP ####[facility] Ighhkfxlwt0685[address] [place], [place] [address]Dr. Sasha Monetro CBC AUTO DIFFon 05-06-2022 BASO # 0.0 103/ul Normal 0.0-0.1 [facility] Comment on above: Performed By: #### C BC ####[facility] Xvqdmwuono155[address] [place], [place] [address]Dr. Sasha Montero Basophils/100 WBC (Bld) 0.6 % Normal 0.2-2.[address] [facility] Comment on above: Performed By: #### C BC ####[facility] Fsasuyivaq21[address] [place], [place] [address]Dr. Sasha Montero EO # 0.0 103/ul Normal 0.0-0.7 [facility] Comment on above: Performed By: #### C BC ####[facility] Ryqihmsrdo6269[address] [place], [place] [address]Dr. Sasha Montero Eosinophils/100 WBC (Bld) 0.6 % Critically low 0.9-7.[address] [facility] Comment on above: Performed By: #### C BC ####[facility] Hwxoiagnfz8026[address] [place], [place] [address]Dr. Sasha Montero Erythrocyte distribution width (RBC) [Ratio] 14.3 % Normal 11.0-15.[address] [facility] Comment on above: Performed By: #### C BC ####[facility] Wplrrlnzhn630[address] [place], [place] [address]Dr. Sasha Montero Hematocrit (Bld) [Volume fraction] 31.4 % Critically low 36.0-48.0 [facility] Comment on above: Performed By: #### C BC ####[facility] Jwnkczpwsf4852 [place] [address]DrSvetlana Sasha Montero Hemoglobin (Bld) [Mass/Vol] 10.2 g/dL Critically low 12.0-16.0 [facility] Comment on above: Performed By: #### C BC ####[facility] Psguhniyci055[address] [place], [place] [address]DrSvetlana Montero IG # 0.03 10e3/ul Normal 0.00-0.03 [facility] Comment on above: Performed By: #### C BC ####[facility] Hqniuyjuap059[address] [place], [place] [address]DrSvetlana Montero IG % 0.4 % Normal 0.0-0.5 [facility] Comment on above: Performed By: #### C BC ####[facility] Xwcyvhxvxj154[address] [place], [place] [address]DrSvetlana Montero LYMPH # 2.8 103/ul Normal 1.2-3.8 [facility] Comment on above: Performed By: #### C BC ####[facility] Hwnmkmteei5409[address] [place], [place] [address]DrSvetlana Montero Lymphocytes/100 WBC (Bld) 39.5 % Normal 20.5-60.0 [facility] Comment on above: Performed By: #### C BC ####[facility] Awsmmeardo813[address] [place], [place] [address]DrSvetlana Montero MANUAL DIFF REQ NO Normal [facility] Comment on above: Performed By: #### C BC ####[facility] Odevcafjty1950[address] [place], [place] [address]DrSvetlana Montero MCH (RBC) [Entitic mass] 29.5 pg Normal 26.7-34.[address] [facility] Comment on above: Performed By: #### C BC ####[facility] Doehrlkejx2617[address] [place], [place] [address]DrSvetlana Montero MCHC (RBC) [Mass/Vol] 32.5 g/dL Normal 29.9-35.[address] [facility] Comment on above: Performed By: #### C BC ####[facility] Acfkjjkman2802 [place] [address]DrSvetlana Montero MCV (RBC) [Entitic vol] 90.8 fL Normal 81.0-99.[address] [facility] Comment on above: Performed By: #### C BC ####[facility] Nckvyyrlrd7470[address] [place], [place] [address]DrSvetlana Montero MONO # 0.7 103/ul Normal 0.3-0.[address] [facility] Comment on above: Performed By: #### C BC ####[facility] Qhoksqmprk9450[address] [place], [place] [address]DrSvetlana Montero Monocytes/100 WBC (Bld) 10.0 % Normal 1.7-12.[address] [facility] Comment on above: Performed By: #### C BC ####[facility] Kmtynawmdt279[address] [place], [place] [address]DrSvetlana Montero NEUT # 3.5 103/ul Normal 1.4-6.[address] [facility] Comment on above: Performed By: #### C BC ####[facility] Wvqadvvecm2818[address] [place], [place] [address]DrSvetlana Montero Neutrophils/100 WBC (Bld) 48.9 % Normal 43.0-75.[address] [facility] Comment on above: Performed By: #### C BC ####[facility] Vrvknqebyd0070[address] [place], [place] [address]DrSvetlana Montero Platelet mean volume (Bld) [Entitic vol] 9.0 fL Critically low 9.5-13.[address] [facility] Comment on above: Performed By: #### C BC ####[facility] Uihapivori745[address] [place], [place] [address]DrSvetlana Montero PLT 337 103/ul Normal 150-[address] [facility] Comment on above: Performed By: #### C BC ####[facility] Jwmmkbaass3814[address] [place], [place] [address]DrSvetlana Montero RBC 3.46 106/ul Critically low 4.20-5.40 [facility] Comment on above: Performed By: #### C BC ####[facility] Utbymlsajp596[address] [place], [place] [address]Dr. Sasha Montero WBC 7.1 103/ul Normal 4.0-11.0 [facility] Comment on above: Performed By: #### C BC ####[facility] Juxblgyyou1488[address] [place], [place] [address]DrSvetlana Montero PROF 14(COMP METB)on 022 Albumin [Mass/Vol] 3.3 g/dL Critically low 3.4-5.[address] [facility] Comment on above: Performed By: #### C MP ####[facility] Zycpmwgeju460[address] [place], [place] [address]Dr. Sasha Montero Albumin/Globulin [Mass ratio] 1.2 {ratio} Normal [facility] Comment on above: Performed By: #### C MP ####[facility] Bmxoxudmtn1205[address] [place], [place] [address]Dr. Sasha Montero ALP [Catalytic activity/Vol] 74 U/L Normal 46-[address] [facility] Comment on above: Performed By: #### C MP ####[facility] Qwqqkvbbde260[address] [place], [place] [address]Dr. Sasha Montero ALT [Catalytic activity/Vol] 17 U/L Normal 14-[address] [facility] Comment on above: Performed By: #### C MP ####[facility] Nnkxgfxhht838[address] [place], [place] [address]Dr. Sasha Montero Anion gap [Moles/Vol] 9.0 mmol/L Normal [facility] Comment on above: Performed By: #### C MP ####[facility] Oyanrvxuuy700[address] [place], [place] [address]Dr. Sasha Montero AST [Catalytic activity/Vol] 16 U/L Normal 15-[address] [facility] Comment on above: Performed By: #### C MP ####[facility] Tklqqktfkm37[address] [place], [place] [address]Dr. Sasha Montero Bilirubin [Mass/Vol] 0.4 mg/dL Normal 0.2-1.0 [facility] Comment on above: Performed By: #### C MP ####[facility] Gbtifvzhbr76[address] [place], [place] [address]Dr. Sasha Montero Calcium [Mass/Vol] 8.2 mg/dL Critically low 8.5-10.[address] [facility] Comment on above: Performed By: #### C MP ####[facility] Ldxomvcamw789[address] [place], [place] [address]Dr. Sasha Montero Chloride [Moles/Vol] 109 mmol/L Critically high 98-107 [facility] Comment on above: Performed By: #### C MP ####[facility] Wlyaocgjkd637[address] [place], [place] [address]Dr. Sasha Montero CO2 [Moles/Vol] 28.2 mmol/L Normal 21.0-32.0 [facility] Comment on above: Performed By: #### C MP ####[facility] Vemvclkvnv3034[address] [place], [place] [address]Dr. Sasha Montero Creatinine [Mass/Vol] 0.64 mg/dL Normal 0.55-1.02 [facility] Comment on above: Performed By: #### C MP ####[facility] Iycyadoiyn[address] [place], [place] [address]Dr. Sasha Montero EGFR-AF BRUNEIAN >60 Normal >=[address] [facility] Comment on above: Performed By: #### C MP ####[facility] Iewnsypvbv049[address] [place], [place] [address]Dr. Sasha Winston EGFR-NON AF BRUNEIAN >60 Normal >=[address] [facility] Comment on above: Performed By: #### C MP ####[facility] Qiqrohxhca76[address] [place], [place] [address]Dr. Sasha Winston Globulin (S) [Mass/Vol] 2.7 g/dL Normal [facility] Comment on above: Performed By: #### C MP ####[facility] Mhqqkfheon3[address] [place], [place] [address]Dr. Sasha Montero Glucose [Mass/Vol] 93 mg/dL Normal 74-[address] [facility] Comment on above: Performed By: #### C MP ####[facility] Tayvvqhxfl9[address] [place] [id number]. Sasha Winston Potassium [Moles/Vol] 3.2 mmol/L Critically low 3.5-5.1 [facility] Comment on above: Performed By: #### C MP ####[facility] Gvblqiakrf2672 [place] [id number]. Sasha Winston Protein [Mass/Vol] 6.0 g/dL Critically low 6.4-8.2 [facility] Comment on above: Performed By: #### C MP ####[facility] Pcoaxuglyo0984 [place] [id number]. Albinalaura Montero Sodium [Moles/Vol] 143 mmol/L Normal 136-145 [facility] Comment on above: Performed By: #### C MP ####[facility] Pvhflghjrv616[address] [place], [place] [address]Dr. Albinalaura Montero Urea nitrogen [Mass/Vol] 2.0 mg/dL Critically low 7.0-18.0 [facility] Comment on above: Performed By: #### C MP ####[facility] Whvooooxin1759[address] [place], [place] [address]Dr. Sasha Winston Urea nitrogen/Creatinine [Mass ratio] 3.1 mg/mg Normal [facility] Comment on above: Performed By: #### C MP ####[facility] Lwkievfrhc9506 [place] [id number]. Sasha Winston CBC AUTO DIFFon 05-05-2022 BASO # 0.0 103/ul Normal 0.0-0.1 [facility] Comment on above: Performed By: #### C BC ####[facility] Uaobegcdco8687 [place] [id number]. Sasha Montero Basophils/100 WBC (Bld) 0.1 % Critically low 0.2-2.0 [facility] Comment on above: Performed By: #### C BC ####[facility] Abhaiafpce5553 [place] [id number]. Sasha Montero EO # 0.0 103/ul Normal 0.0-0.[address] [facility] Comment on above: Performed By: #### C BC ####[facility] Eunfhjudin4259 [place] [address]Dr. Sasha Winston Eosinophils/100 WBC (Bld) 0.0 % Critically low 0.9-7.0 [facility] Comment on above: Performed By: #### C BC ####[facility] Txlfrkyael170[address] [place], [place] [address]Dr. Sasha Montero Erythrocyte distribution width (RBC) [Ratio] 13.8 % Normal 11.0-15.0 [facility] Comment on above: Performed By: #### C BC ####[facility] Jfwkewinzg071182 [address] [place], [place] [address]Dr. Sasha Montero Hematocrit (Bld) [Volume fraction] 35.6 % Critically low 36.0-48.0 [facility] Comment on above: Performed By: #### C BC ####[facility] Pdxbdnpomu744[address] [place], [place] [address]Dr. Sasha Montero Hemoglobin (Bld) [Mass/Vol] 11.8 g/dL Critically low 12.0-16.0 [facility] Comment on above: Performed By: #### C BC ####[facility] Vbeiswznem065[address] [place], [place] [address]DrSvetlana Montero IG # 0.06 10e3/ul Critically high 0.00-0.03 [facility] Comment on above: Performed By: #### C BC ####[facility] Dhjonrzrhr426082 [address] [place], [place] [address]Dr. Sasha Montero IG % 0.4 % Normal 0.0-0.[address] [facility] Comment on above: Performed By: #### C BC ####[facility] Sfunvghiev6688[address] [place], [place] [address]DrSvetlana Montero LYMPH # 1.1 103/ul Critically low 1.2-3.[address] [facility] Comment on above: Performed By: #### C BC ####[facility] Ibzionzied545[address] [place], [place] [address]Dr. Sasha Montero Lymphocytes/100 WBC (Bld) 8.1 % Critically low 20.5-60.0 [facility] Comment on above: Performed By: #### C BC ####[facility] Utiaitqkgr9623 [place] [address]DrSvetlana Montero MANUAL DIFF REQ NO Normal [facility] Comment on above: Performed By: #### C BC ####[facility] Xanwalqjvu0604 [place] [address]Dr. Sasha Montero MCH (RBC) [Entitic mass] 29.4 pg Normal 26.7-34.0 [facility] Comment on above: Performed By: #### C BC ####[facility] Xragmvhjnh5914[address] [place], [place] [address]DrSvetlana Montero MCHC (RBC) [Mass/Vol] 33.1 g/dL Normal 29.9-35.[address] [facility] Comment on above: Performed By: #### C BC ####[facility] Blzunvymin060[address] [place], [place] [address]DrSvetlana Montero MCV (RBC) [Entitic vol] 88.6 fL Normal 81.0-99.[address] [facility] Comment on above: Performed By: #### C BC ####[facility] Iyhafbdqmo6065[address] [place], [place] [address]DrSvetlana Montero MONO # 0.5 103/ul Normal 0.3-0.8 [facility] Comment on above: Performed By: #### C BC ####[facility] Bismzcccck0079[address] [place], [place] [address]DrSvetlana Montero Monocytes/100 WBC (Bld) 3.3 % Normal 1.7-12.[address] [facility] Comment on above: Performed By: #### C BC ####[facility] Kbjmmbcgvu3915[address] [place], [place] [address]DrSvetlana Montero NEUT # 12.4 103/ul Critically high 1.4-6.[address] [facility] Comment on above: Performed By: #### C BC ####[facility] Xqxbtqdwnk894382 [address] [place], [place] [address]DrSvetlana Montero Neutrophils/100 WBC (Bld) 88.1 % Critically high 43.0-75.[address] [facility] Comment on above: Performed By: #### C BC ####[facility] Gekdowaabh9150 [place] [address]DrSvetlana Montero Platelet mean volume (Bld) [Entitic vol] 9.1 fL Critically low 9.5-13.5 [facility] Comment on above: Performed By: #### C BC ####[facility] Nwhusjqroo004[address] [place], [place] [address]DrSvetlana Montero PLT 413 103/ul Normal 150-[address] [facility] Comment on above: Performed By: #### C BC ####[facility] Qvwcqynccg008582 [address] [place], [place] [address]DrSvetlana Montero RBC 4.02 106/ul Critically low 4.20-5.[address] [facility] Comment on above: Performed By: #### C BC ####[facility] Rhakfmdwxp027[address] [place], [place] [address]DrSvetlana Montero WBC 14.1 103/ul Critically high 4.0-11.[address] [facility] Comment on above: Performed By: #### C BC ####[facility] Hvtaowvxqi957682 [address] [place], [place] [address]Dr. Sasha Montero CULTURE URINEon 05-05-2022 CULTURE URINE Culture Observations : NO GROWTH. Normal [facility] Comment on above: Performed By: #### U RCX ####[facility] Agyzjjahcr797082 [address] [place], [place] [address]Dr. Sasha Montero PROF 14(COMP METB)on 022 Albumin [Mass/Vol] 4.3 g/dL Normal 3.4-5.[address] [facility] Comment on above: Performed By: #### C MP ####[facility] Gftncoyivs1687[address] [place], [place] [address]DrSvetlana Montero Albumin/Globulin [Mass ratio] 1.2 {ratio} Normal [facility] Comment on above: Performed By: #### C MP ####[facility] Kkglywkxmo732[address] [place], [place] [address]DrSvetlana Montero ALP [Catalytic activity/Vol] 94 U/L Normal 46-[address] [facility] Comment on above: Performed By: #### C MP ####[facility] Korqsaarag6635 [place] [address]Dr. Sasha Montero ALT [Catalytic activity/Vol] 17 U/L Normal 14-59 [facility] Comment on above: Performed By: #### C MP ####[facility] Jtmtyqllfc4024 [place] [address]Dr. Sasha Montero Anion gap [Moles/Vol] 13.9 mmol/L Normal Th e [facility] Comment on above: Performed By: #### C MP ####[facility] Xzvioitphv6834[address] [place], [place] [address]Dr. Sasha Montero AST [Catalytic activity/Vol] 18 U/L Normal 15-37 [facility] Comment on above: Performed By: #### C MP ####[facility] Ilnlwbycuh589[address] [place], [place] [address]Dr. Sasha Montero Bilirubin [Mass/Vol] 0.3 mg/dL Normal 0.2-1.0 [facility] Comment on above: Performed By: #### C MP ####[facility] Egvqcjkemh733[address] [place], [place] [address]Dr. Sasha Montero Calcium [Mass/Vol] 9.1 mg/dL Normal 8.5-10.1 [facility] Comment on above: Performed By: #### C MP ####[facility] Wnizqjlajz1149[address] [place], [place] [address]Dr. Sasha Montero Chloride [Moles/Vol] 100 mmol/L Normal 98-[address] [facility] Comment on above: Performed By: #### C MP ####[facility] Kietkntqdb0400[address] [place], [place] [address]Dr. Sasha Montero CO2 [Moles/Vol] 26.5 mmol/L Normal 21.0-32.[address] [facility] Comment on above: Performed By: #### C MP ####[facility] Gfkcxxonth872682 [address] [place], [place] [address]Dr. Sasha Winston Creatinine [Mass/Vol] 0.65 mg/dL Normal 0.55-1.02 [facility] Comment on above: Performed By: #### C MP ####[facility] Xeqyxhwpcc0368 [place] [address]Dr. Sasha Montero EGFR-AF BRUNEIAN >60 Normal >=60 [facility] Comment on above: Performed By: #### C MP ####[facility] Zzagehdkkt5101 [place] [id number]. Sasha Montero EGFR-NON AF BRUNEIAN >60 Normal >=60 [facility] Comment on above: Performed By: #### C MP ####[facility] Xssbifhdbv8332 [place] [address]Dr. Sasha Montero Globulin (S) [Mass/Vol] 3.6 g/dL Normal [facility] Comment on above: Performed By: #### C MP ####[facility] Bkmpzuirvl7035[address] [place], [place] [address]Dr. Sasha Montero Glucose [Mass/Vol] 138 mg/dL Critically high 74-106 [facility] Comment on above: Performed By: #### C MP ####[facility] Njymrcqnkb4344 [place] [address]Dr. Sasha Montero Potassium [Moles/Vol] 3.4 mmol/L Critically low 3.5-5.1 [facility] Comment on above: Performed By: #### C MP ####[facility] Olkkucnwag1794 [place] [address]Dr. Sasha Montero Protein [Mass/Vol] 7.9 g/dL Normal 6.4-8.[address] [facility] Comment on above: Performed By: #### C MP ####[facility] Thvluqjmmh1112 [place] [address]Dr. Sasha Montero Sodium [Moles/Vol] 137 mmol/L Normal 136-145 [facility] Comment on above: Performed By: #### C MP ####[facility] Seauqxzofs4980 [place] [address]Dr. Sasha Montero Urea nitrogen [Mass/Vol] 4.0 mg/dL Critically low 7.0-18.0 [facility] Comment on above: Performed By: #### C MP ####[facility] Uztqwrjatp669[address] [place], [place] [address]Dr. Sasha Montero Urea nitrogen/Creatinine [Mass ratio] 6.2 mg/mg Normal [facility] Comment on above: Performed By: #### C MP ####[facility] Jezizpdtxr727[address] [place], [place] [address]Dr. Sasha Montero UA (CLEAN/CATCH) STACK ATTENDANT/MICRO I F IND.on 05-05-2022 Bilirubin Ql (U) Negative Normal NEGATIVE [facility] Comment on above: Performed By: #### U ACSIND ####[facility] Tcxsbxacnf717[address] [place], [place] [address]Dr. Sasha Montero Clarity (U) CLEAR Normal CLEAR [facility] Comment on above: Performed By: #### U ACSIND ####[facility] Wymujrvxqv5775[address] [place], [place] [address]Dr. Sasha Montero Color (U) LT. YELLOW Normal YELLOW [facility] Comment on above: Performed By: #### U ACSIND ####[facility] Gpoohhpaxp3335[address] [place], [place] [address]Dr. Sasha Montero Glucose Ql (U) Negative Normal NEGATIVE [facility] Comment on above: Performed By: #### U ACSIND ####[facility] Zijibajizd701182 [address] [place], [place] [address]Dr. Sasha Montero Hemoglobin Ql (U) Negative Normal NEGATIVE [facility] Comment on above: Performed By: #### U ACSIND ####[facility] Xsapnqyafi137[address] [place], [place] [address]Dr. Sasha Montero Ketones Ql (U) Negative Normal NEGATIVE [facility] Comment on above: Performed By: #### U ACSIND ####[facility] Ibukjsveva300382 [address] [place], [place] [address]Dr. Sasha Montero LEUKOCYTES Negative Normal NEGATIVE [facility] Comment on above: Performed By: #### U ACSIND ####[facility] Sguftuyypz931582 [address] [place], [place] [address]Dr. Sasha Montero Nitrite Ql (U) Negative Normal NEGATIVE [facility] Comment on above: Performed By: #### U ACSIND ####[facility] Qkpfsghpno5261 [place] [address]Dr. Sasha Montero pH (U) 6.5 [pH] Normal 5-[address] [facility] Comment on above: Performed By: #### U ACSIND ####[facility] Sxonngkogk5215 [place] [address]Dr. Sasha Montero SPEC GRAVITY 1.005 Normal 1.005-<=1.0 25 [facility] Comment on above: Performed By: #### U ACSIND ####[facility] Gcmpqmcauk4511 [place] [address]Dr. Sasha Montero UA PROTEIN Negative Normal NEGATIVE/ TRACE [facility] Comment on above: Performed By: #### U ACSIND ####[facility] Gciwdrchen017[address] [place], [place] [address]Dr. Sasha Montero UR MICRO IND NOT INDICATED Normal [facility] Comment on above: Performed By: #### U ACSIND ####[facility] Ohanaktjyb7645[address] [place], [place] [address]Dr. Albinalaura Montero Urobilinogen Qn (U) 0.2 {Josie'U}/dL Normal 0.2 - 1. [address] [facility] Comment on above: Performed By: #### U ACSIND ####[facility] Spwajgmpxq712[address] [place], [place] [address]Dr. Sasha Winston CBC AUTO DIFFon 05-04-2022 BASO # 0.1 103/ul Normal 0.0-0.[address] [facility] Comment on above: Performed By: #### C BC ####[facility] Gvdzeshiea475[address] [place], [place] [address]Dr. Albinalaura Montero Basophils/100 WBC (Bld) 0.5 % Normal 0.2-2.[address] [facility] Comment on above: Performed By: #### C BC ####[facility] Whbhpkfnqn943482 [address] [place], [place] [address]Dr. Sasha Montero EO # 0.0 103/ul Normal 0.0-0.[address] [facility] Comment on above: Performed By: #### C BC ####[facility] Xhvzhmrorh6055 [place] [id number]. Sasha Montero Eosinophils/100 WBC (Bld) 0.2 % Critically low 0.9-7.[address] [facility] Comment on above: Performed By: #### C BC ####[facility] Qsddtzkmqx3845 [place] [address]Dr. Sasha Montero Erythrocyte distribution width (RBC) [Ratio] 13.8 % Normal 11.0-15.[address] [facility] Comment on above: Performed By: #### C BC ####[facility] Huonroevpj727[address] [place], [place] [address]Dr. Sasha Montero Hematocrit (Bld) [Volume fraction] 38.1 % Normal 36.0-48.[address] [facility] Comment on above: Performed By: #### C BC ####[facility] Vdxwxfmdom8301[address] [place], [place] [address]Dr. Sasha Montero Hemoglobin (Bld) [Mass/Vol] 12.6 g/dL Normal 12.0-16.[address] [facility] Comment on above: Performed By: #### C BC ####[facility] Npsqivxcje824[address] [place], [place] [address]Dr. Sasha Montero IG # 0.04 10e3/ul Critically high 0.00-0.03 [facility] Comment on above: Performed By: #### C BC ####[facility] Cwvcivubao8260[address] [place], [place] [address]Dr. Sasha Montero IG % 0.3 % Normal 0.0-0.[address] [facility] Comment on above: Performed By: #### C BC ####[facility] Tvwvfyejbr465[address] [place], [place] [address]Dr. Sasha Montero LYMPH # 3.3 103/ul Normal 1.2-3.[address] [facility] Comment on above: Performed By: #### C BC ####[facility] Rzgdgajhle4424[address] [place], [place] [address]Dr. Sasha Montero Lymphocytes/100 WBC (Bld) 25.4 % Normal 20.5-60.[address] [facility] Comment on above: Performed By: #### C BC ####[facility] Domgfahhxm9387 [place] [address]Dr. Sasha Montero MANUAL DIFF REQ NO Normal [facility] Comment on above: Performed By: #### C BC ####[facility] Dzbccaflks7503 [place] [address]Dr. Sasha Montero MCH (RBC) [Entitic mass] 29.4 pg Normal 26.7-34.[address] [facility] Comment on above: Performed By: #### C BC ####[facility] Flbbhvlekd099[address] [place], [place] [address]Dr. Sasha Montero MCHC (RBC) [Mass/Vol] 33.1 g/dL Normal 29.9-35.[address] [facility] Comment on above: Performed By: #### C BC ####[facility] Zzpvlaggio0964[address] [place], [place] [address]Dr. Sasha Montero MCV (RBC) [Entitic vol] 89.0 fL Normal 81.0-99.0 [facility] Comment on above: Performed By: #### C BC ####[facility] Whmftkitvr1090[address] [place], [place] [address]Dr. Sasha Montero MONO # 1.2 103/ul Critically high 0.3-0.8 [facility] Comment on above: Performed By: #### C BC ####[facility] Gbmrkodrki6970[address] [place], [place] [address]Dr. Sasha Winston Monocytes/100 WBC (Bld) 9.5 % Normal 1.7-12.[address] [facility] Comment on above: Performed By: #### C BC ####[facility] Hklanqyczp7364[address] [place], [place] [address]Dr. Sasha Montero NEUT # 8.3 103/ul Critically high 1.4-6.[address] [facility] Comment on above: Performed By: #### C BC ####[facility] Qswiiagayf0335[address] [place], [place] [address]Dr. Sasha Montero Neutrophils/100 WBC (Bld) 64.1 % Normal 43.0-75.[address] [facility] Comment on above: Performed By: #### C BC ####[facility] Jdjsjqrlsy6108 [place], [place] [address]Df. Sasha Montero Platelet mean volume (Bld) [Entitic vol] 8.8 fL Critically low 9.5-13.5 [facility] Comment on above: Performed By: #### C BC ####[facility] Fxjctbqwcg9172 [place], [place] [address]Jk. Sasha Montero PLT 502 103/ul Critically high 150-[address] [facility] Comment on above: Performed By: #### C BC ####[facility] Mqhwsnhtzz0013 [place], [place] [address]Vh. Sasha Montero RBC 4.28 106/ul Normal 4.20-5.[address] [facility] Comment on above: Performed By: #### C BC ####[facility] Krvifnhvno8022 [place], [place] [address]Tt. Sasha Montero WBC 12.9 103/ul Critically high 4.0-11.[address] [facility] Comment on above: Performed By: #### C BC ####[facility] Edgchhceob1972 [place], [place] [address]Yo. Sasha Montero Cov[facility]19 PCR ([facility]on 04-17 SARS-CoV-2 (COVID-19) RNA YULIANA+probe Ql (Unsp spec) Not detected Normal NOT DETECTED [facility] Comment on above: Result Comment: When diagnostic testing is negative, the possibility of a false negative should be considered inthe context of a patient's recent exposures and the presence of clinical signs and symptomsconsistent with SARS-CoV-2.This test is not yet approved or cleared by the [place] FDA. When there are no FDA-approved or cleared tests available, and other criteria are met, FDA can make tests available under an emergency access mechanism called an Emergency Use Authorization (EUA). The EUA for this test is supported by the [employer] of Health and Human Service's declaration that circumstances exist to justify the emergency use of in vitro diagnostics for the detection and/or diagnosis of the virus that causes COVID-19. This EUA will remain in effect for the duration of the COVID-19 declaration justifying emergency of IVDs, unless it is terminated or revoked by the FDA (after which the test may no longer be used). Performed By: #### [facility] ####[facility] Qjawbqcfuj2947 [place] [address]Dr. Sasha Montero PROF 14(COMP METB)on 022 Albumin [Mass/Vol] 4.5 g/dL Normal 3.4-5.0 [facility] Comment on above: Performed By: #### C MP ####[facility] Tkqlzatlne4[address] [place], [place] [address]Dr. Sasha Montero Albumin/Globulin [Mass ratio] 1.2 {ratio} Normal [facility] Comment on above: Performed By: #### C MP ####[facility] Fuagccbwsa974[address] [place], [place] [address]Dr. Sasha Montero ALP [Catalytic activity/Vol] 104 U/L Normal 46-[address] [facility] Comment on above: Performed By: #### C MP ####[facility] Eliprftmcu[address] [place], [place] [address]Dr. Sasha Montero ALT [Catalytic activity/Vol] 20 U/L Normal 14-[address] [facility] Comment on above: Performed By: #### C MP ####[facility] Burmlaiisj0325[address] [place], [place] [address]Dr. Sasha Montero Anion gap [Moles/Vol] 18.4 mmol/L Normal [facility] Comment on above: Performed By: #### C MP ####[facility] Pdiyrbjzic5329[address] [place], [place] [address]Dr. Sasha Montero AST [Catalytic activity/Vol] 19 U/L Normal 15-[address] [facility] Comment on above: Performed By: #### C MP ####[facility] Awbnmgucnm415582 [address] [place], [place] [address]Dr. Sasha Montero Bilirubin [Mass/Vol] 0.5 mg/dL Normal 0.2-1.[address] [facility] Comment on above: Performed By: #### C MP ####[facility] Aylwrxedkl2935[address] [place], [place] [address]Dr. Sasha Montero Calcium [Mass/Vol] 9.6 mg/dL Normal 8.5-10.1 [facility] Comment on above: Performed By: #### C MP ####[facility] Plzxydnsoh6409 [place] [address]Dr. Sasha Montero Chloride [Moles/Vol] 99 mmol/L Normal 98-107 [facility] Comment on above: Performed By: #### C MP ####[facility] Kulbningto4044 [place] [address]Dr. Sasha Montero CO2 [Moles/Vol] 23.6 mmol/L Normal 21.0-32.0 [facility] Comment on above: Performed By: #### C MP ####[facility] Rirpwenegv67[address] [place], [place] [address]Dr. Sasha Montero Creatinine [Mass/Vol] 1.41 mg/dL Critically high 0.55-1.02 [facility] Comment on above: Performed By: #### C MP ####[facility] Zttphjdibb159[address] [place], [place] [address]Dr. Sasha Montero EGFR-AF BRUNEIAN 51 mL/min/1.73m2 Critically low >=60 [facility] Comment on above: Performed By: #### C MP ####[facility] Mshvpbldrr2364[address] [place], [place] [address]Dr. Sasha Montero EGFR-NON AF BRUNEIAN 42 mL/min/1.73m2 Critically low >=60 [facility] Comment on above: Performed By: #### C MP ####[facility] Vjzcwzuckf144[address] [place], [place] [address]Dr. Sasha Montero Globulin (S) [Mass/Vol] 3.9 g/dL Normal [facility] Comment on above: Performed By: #### C MP ####[facility] Pvmxebqiqt1264[address] [place], [place] [address]Dr. Sasha Montero Glucose [Mass/Vol] 108 mg/dL Critically high 74-106 [facility] Comment on above: Performed By: #### C MP ####[facility] Vrlidrdnac8314[address] [place], [place] [address]Dr. Sasha Montero Potassium [Moles/Vol] 3.0 mmol/L Critically low 3.5-5.1 [facility] Comment on above: Performed By: #### C MP ####[facility] Uohdwziude8343 [place] [address]Dr. Sasha Montero Protein [Mass/Vol] 8.4 g/dL Critically high 6.4-8.2 [facility] Comment on above: Performed By: #### C MP ####[facility] Dmjfptsomj0399 [place] [address]Dr. Sasha Montero Sodium [Moles/Vol] 138 mmol/L Normal 136-145 [facility] Comment on above: Performed By: #### C MP ####[facility] Brcnicyvro99[address] [place] [address]Dr. Sasha Montero Urea nitrogen [Mass/Vol] 7.0 mg/dL Normal 7.0-18.0 [facility] Comment on above: Performed By: #### C MP ####[facility] Rfdqdffqrm7571 [place] [address]Dr. Sasha Montero Urea nitrogen/Creatinine [Mass ratio] 5.0 mg/mg Normal [facility] Comment on above: Performed By: #### C MP ####[facility] Txhgxdsuje[address] [place], [place] [address]Dr. Sasha Montero [facility]on 04-17 SARS-CoV-2 (COVID-19) RNA YULIANA+probe Ql (Unsp spec) Not detected Normal NOT DETECTED [facility] Comment on above: Result Comment: When diagnostic testing is negative, the possibility of a false negative should be considered inthe context of a patient's recent exposures and the presence of clinical signs and symptomsconsistent with SARS-CoV-2.This test is not yet approved or cleared by the [place] FDA. When there are no FDA-approved or cleared tests available, and other criteria are met, FDA can make tests available under an emergency access mechanism called an Emergency Use Authorization (EUA). The EUA for this test is supported by the [place] of Health and Human Service's declaration that circumstances exist to justify the emergency use of in vitro diagnostics for the detection and/or diagnosis of the virus that causes COVID-19. This EUA will remain in effect for the duration of the COVID-19 declaration justifying emergency of IVDs, unless it is terminated or revoked by the FDA (after which the test may no longer be used). Performed By: #### C VDTBH ####[facility] Ylfbrimchx3466 [place] [address]Dr. Albinalaura Montero AMYLASEon 04-19-2022 Amylase [Catalytic activity/Vol] 48 U/L Normal 25-[address] [facility] Comment on above: Performed By: #### C MP, HUI, LIPA ####[facility] Qoqzzhussj[address] [place], [place] [address]Dr. Sasha Montero CBC AUTO DIFFon 04-19-2022 BASO # 0.0 103/ul Normal 0.0-0.1 [facility] Comment on above: Performed By: #### C BC ####[facility] Peobvfmazr33[address] [place], [place] [address]Dr. Sasha Montero Basophils/100 WBC (Bld) 0.3 % Normal 0.2-2.0 [facility] Comment on above: Performed By: #### C BC ####[facility] Dahxmhlvmi088[address] [place], [place] [address]Dr. Sasha Montero EO # 0.1 103/ul Normal 0.0-0.7 [facility] Comment on above: Performed By: #### C BC ####[facility] Xithbennhv9475[address] [place], [place] [address]Dr. Sasha Montero Eosinophils/100 WBC (Bld) 1.1 % Normal 0.9-7.[address] [facility] Comment on above: Performed By: #### C BC ####[facility] Carqthdnyi11[address] [place], [place] [address]Dr. Sasha Montero Erythrocyte distribution width (RBC) [Ratio] 13.6 % Normal 11.0-15.0 [facility] Comment on above: Performed By: #### C BC ####[facility] Xsoficqxhw[address] [place], [place] [address]Dr. Sasha Montero Hematocrit (Bld) [Volume fraction] 30.3 % Critically low 36.0-48.0 [facility] Comment on above: Performed By: #### C BC ####[facility] Biwlgmivpp2642 [place] [address]Dr. Sasha Montero Hemoglobin (Bld) [Mass/Vol] 9.9 g/dL Critically low 12.0-16.0 [facility] Comment on above: Performed By: #### C BC ####[facility] Nyjbzbmhoz337[address] [place], [place] [address]Dr. Sasha Montero IG # 0.03 10e3/ul Normal 0.00-0.03 [facility] Comment on above: Performed By: #### C BC ####[facility] Uznfixcqbq0218[address] [place], [place] [address]Dr. Sasha Montero IG % 0.4 % Normal 0.0-0.5 [facility] Comment on above: Performed By: #### C BC ####[facility] Mbsrsdgtcl9418[address] [place], [place] [address]DrSvetlana Montero LYMPH # 2.2 103/ul Normal 1.2-3.8 [facility] Comment on above: Performed By: #### C BC ####[facility] Xoihykopry195[address] [place], [place] [address]DrSvetlana Montero Lymphocytes/100 WBC (Bld) 27.2 % Normal 20.5-60.0 [facility] Comment on above: Performed By: #### C BC ####[facility] Axvotexraj8844[address] [place], [place] [address]Dr. Sasha Montero MANUAL DIFF REQ NO Normal [facility] Comment on above: Performed By: #### C BC ####[facility] Mehgqluaqr2278 [place] [address]DrSvetlana Montero MCH (RBC) [Entitic mass] 29.6 pg Normal 26.7-34.[address] [facility] Comment on above: Performed By: #### C BC ####[facility] Lvzqakbixl89[address] [place], [place] [address]Dr. Sasha Montero MCHC (RBC) [Mass/Vol] 32.7 g/dL Normal 29.9-35.2 [facility] Comment on above: Performed By: #### C BC ####[facility] Nnnqhelrbw6816 [place] [id number]. Sasha Montero MCV (RBC) [Entitic vol] 90.4 fL Normal 81.0-99.[address] [facility] Comment on above: Performed By: #### C BC ####[facility] Fflawtmejr9341 [place] [id number]. Sasha Montero MONO # 0.8 103/ul Normal 0.3-0.8 [facility] Comment on above: Performed By: #### C BC ####[facility] Hbulzrmhst0794 [place] [address]Dr. Sasha Winston Monocytes/100 WBC (Bld) 9.5 % Normal 1.7-12.[address] [facility] Comment on above: Performed By: #### C BC ####[facility] Iffjtergpx9[address] [place], [place] [address]Dr. Sasha Montero NEUT # 4.9 103/ul Normal 1.4-6.[address] [facility] Comment on above: Performed By: #### C BC ####[facility] Jobabnzafa[address] [place], [place] [address]Dr. Sasha Winston Neutrophils/100 WBC (Bld) 61.5 % Normal 43.0-75.[address] [facility] Comment on above: Performed By: #### C BC ####[facility] Iaaqtgquxy645[address] [place], [place] [address]Dr. Sasha Wisnton Platelet mean volume (Bld) [Entitic vol] 9.2 fL Critically low 9.5-13.[address] [facility] Comment on above: Performed By: #### C BC ####[facility] Giwiodvoil[address] [place], [place] [address]Dr. Sasha Winston PLT 232 103/ul Normal 150-[address] [facility] Comment on above: Performed By: #### C BC ####[facility] Hblhhgfsya1335 [place] [phone]. Sasha Winston RBC 3.35 106/ul Critically low 4.20-5.[address] [facility] Comment on above: Performed By: #### C BC ####[facility] Qqsdmmpveh2335 [place] [address]Dr. Sasha Montero WBC 7.9 103/ul Normal 4.0-11.0 [facility] Comment on above: Performed By: #### C BC ####[facility] Jkaobwamqg6102 [place] [address]Dr. Sasha Montero LIPASEon 04-19-2022 Lipase [Catalytic activity/Vol] 85.0 U/L Normal 73.0-393.0 [facility] Comment on above: Performed By: #### C MP, HUI, LIPA ####[facility] Gccfmepqia2814 [place] [address]Dr. Sasha Montero PROF 14(COMP METB)on 022 Albumin [Mass/Vol] 3.3 g/dL Critically low 3.4-5.0 [facility] Comment on above: Performed By: #### C MP, HUI, LIPA ####[facility] Mymedfvlzm5980 [place] [address]Dr. Sasha Montero Albumin/Globulin [Mass ratio] 1.2 {ratio} Normal [facility] Comment on above: Performed By: #### C MP, HUI, LIPA ####[facility] Slpowyobog0142 [place] [address]Dr. Sasha Montero ALP [Catalytic activity/Vol] 69 U/L Normal 46-116 [facility] Comment on above: Performed By: #### C MP, HUI, LIPA ####[facility] Svofhicvou0323 [place] [address]Dr. Sasha Montero ALT [Catalytic activity/Vol] 20 U/L Normal 14-59 [facility] Comment on above: Performed By: #### C MP, HUI, LIPA ####[facility] Rwcpdcfwkm0448 [place] [address]Dr. Sasha Montero Anion gap [Moles/Vol] 11.2 mmol/L Normal [facility] Comment on above: Performed By: #### C MP, HUI, LIPA ####[facility] Bcdjfmuoml8441 [place] [address]Dr. Sasha Montero AST [Catalytic activity/Vol] 18 U/L Normal 15-[address] [facility] Comment on above: Performed By: #### C MP, HUI, LIPA ####[facility] Hgyeohadjk2281 [place] [address]Dr. Sasha Montero Bilirubin [Mass/Vol] 0.2 mg/dL Normal 0.2-1.[address] [facility] Comment on above: Performed By: #### C MP, HUI, LIPA ####[facility] Cyhqpztuwu6886 [place] [address]Dr. Sasha Montero Calcium [Mass/Vol] 8.5 mg/dL Normal 8.5-10.[address] [facility] Comment on above: Performed By: #### C MP, HUI, LIPA ####[facility] Qahjyyeodw3[address] [place], [place] [address]Dr. Sasha Montero Chloride [Moles/Vol] 105 mmol/L Normal 98-[address] [facility] Comment on above: Performed By: #### C MP, HUI, LIPA ####[facility] Cjnmvhlrcc5527 [place] [address]Dr. Sasha Montero CO2 [Moles/Vol] 29.9 mmol/L Normal 21.0-32.[address] [facility] Comment on above: Performed By: #### C MP, HUI, LIPA ####[facility] Fflvtgrawx3213 [place] [address]Dr. Sasha Montero Creatinine [Mass/Vol] 0.75 mg/dL Normal 0.55-1.[address] [facility] Comment on above: Performed By: #### C MP, HUI, LIPA ####[facility] Mtjxgufgni9793 [place] [address]Dr. Sasha Montero EGFR-AF BRUNEIAN >60 Normal >=[address] [facility] Comment on above: Performed By: #### C MP, HUI, LIPA ####[facility] Sruruirben0118 [place] [address]Dr. Sasha Montero EGFR-NON AF BRUNEIAN >60 Normal >=[address] [facility] Comment on above: Performed By: #### C MP, HUI, LIPA ####[facility] Apjlnekfov7090 [place] [address]Dr. Sasha Montero Globulin (S) [Mass/Vol] 2.7 g/dL Normal [facility] Comment on above: Performed By: #### C MP, HUI, LIPA ####[facility] Xeftbodmfk1346 [place] [address]Dr. Sasha Montero Glucose [Mass/Vol] 97 mg/dL Normal 74-106 [facility] Comment on above: Performed By: #### C MP, UHI, LIPA ####[facility] Svybxuieox3106 [place] [address]Dr. Sasha Montero Potassium [Moles/Vol] 4.1 mmol/L Normal 3.5-5.1 [facility] Comment on above: Performed By: #### C MP, HUI, LIPA ####[facility] Krtazvwshy525[address] [place], [place] [address]Dr. Albinalan Montero Protein [Mass/Vol] 6.0 g/dL Critically low 6.4-8.2 [facility] Comment on above: Performed By: #### C MP, HUI, LIPA ####[facility] Fstxpryfea17[address] [place], [place] [address]Dr. Sasha Montero Sodium [Moles/Vol] 142 mmol/L Normal 136-[address] [facility] Comment on above: Performed By: #### C MP, HUI, LIPA ####[facility] Wxwfryoflq1370 [place] [address]Dr. Albinalan Montero Urea nitrogen [Mass/Vol] 9.0 mg/dL Normal 7.0-18.[address] [facility] Comment on above: Performed By: #### C MP, HUI, LIPA ####[facility] Gkxkgadbtg4104 [place] [address]Dr. Sasha Montero Urea nitrogen/Creatinine [Mass ratio] 12.0 mg/mg Normal [facility] Comment on above: Performed By: #### C MP, HUI, LIPA ####[facility] Nqqslsqfqp70[address] [place], [place] [address]Dr. Sasha Montero AMYLASEon 04-18-2022 Amylase [Catalytic activity/Vol] 59 U/L Normal 25-[address] [facility] Comment on above: Performed By: #### L IPA, CMP, HUI ####[facility] Temmykenbn418[address] [place], [place] [address]Dr. Sasha Montero CBC AUTO DIFFon 04-18-2022 BASO # 0.0 103/ul Normal 0.0-0.[address] [facility] Comment on above: Performed By: #### C BC ####[facility] Hamfgrmuhd422[address] [place], [place] [address]Dr. Albinalaura Montero Basophils/100 WBC (Bld) 0.4 % Normal 0.2-2.[address] [facility] Comment on above: Performed By: #### C BC ####[facility] Czlthoyjkr14[address] [place], [place] [address]Dr. Sasha Montero EO # 0.0 103/ul Normal 0.0-0.[address] [facility] Comment on above: Performed By: #### C BC ####[facility] Iebxyfcwqe29[address] [place], [place] [address]Dr. Albinalaura Montero Eosinophils/100 WBC (Bld) 0.4 % Critically low 0.9-7.[address] [facility] Comment on above: Performed By: #### C BC ####[facility] Epaxtzzily214[address] [place], [place] [address]Dr. Sasha Montero Erythrocyte distribution width (RBC) [Ratio] 13.3 % Normal 11.0-15.[address] [facility] Comment on above: Performed By: #### C BC ####[facility] Fbwlonhdqc177[address] [place], [place] [address]Dr. Sasha Montero Hematocrit (Bld) [Volume fraction] 32.7 % Critically low 36.0-48.[address] [facility] Comment on above: Performed By: #### C BC ####[facility] Vvvymlxvfg154[address] [place], [place] [address]Dr. Sasha Montero Hemoglobin (Bld) [Mass/Vol] 10.6 g/dL Critically low 12.0-16.[address] [facility] Comment on above: Performed By: #### C BC ####[facility] Avykqmweit3627 [place] [address]Dr. Albinalaura Winston IG # 0.04 10e3/ul Critically high 0.00-0.03 [facility] Comment on above: Performed By: #### C BC ####[facility] Siqvrwrklp0170 [place] [address]Dr. Sasha Montero IG % 0.4 % Normal 0.0-0.5 [facility] Comment on above: Performed By: #### C BC ####[facility] Dpfrckryce8027 [place] [address]Dr. Sasha Montero LYMPH # 3.1 103/ul Normal 1.2-3.[address] [facility] Comment on above: Performed By: #### C BC ####[facility] Aaeyohgard4554 [place] [address]DrSvetlana Montero Lymphocytes/100 WBC (Bld) 28.3 % Normal 20.5-60.0 [facility] Comment on above: Performed By: #### C BC ####[facility] Sweaecnlyf7129 [place] [address]DrSvetlana Montero MANUAL DIFF REQ NO Normal [facility] Comment on above: Performed By: #### C BC ####[facility] Zevkkeplta2892 [place] [address]Dr. Sasha Montero MCH (RBC) [Entitic mass] 29.3 pg Normal 26.7-34.0 [facility] Comment on above: Performed By: #### C BC ####[facility] Ymgwidccai[address] [place], [place] [address]Dr. Albinalaura Montero MCHC (RBC) [Mass/Vol] 32.4 g/dL Normal 29.9-35.[address] [facility] Comment on above: Performed By: #### C BC ####[facility] Jwyujumjrx2208 [place] [address]Dr. Sasha Montero MCV (RBC) [Entitic vol] 90.3 fL Normal 81.0-99.0 [facility] Comment on above: Performed By: #### C BC ####[facility] Scetgihbhd8455 [place] [phone]. Sasha Montero MONO # 1.0 103/ul Critically high 0.3-0.[address] [facility] Comment on above: Performed By: #### C BC ####[facility] Atsnpwsqki9993 [place] [phone]. Sasha Montero Monocytes/100 WBC (Bld) 9.2 % Normal 1.7-12.[address] [facility] Comment on above: Performed By: #### C BC ####[facility] Cnamqvgnog6523 [place] [id number]. Sasha Montero NEUT # 6.6 103/ul Critically high 1.4-6.[address] [facility] Comment on above: Performed By: #### C BC ####[facility] Zsmulitvll3010 [place] [address]Dr. Sasha Montero Neutrophils/100 WBC (Bld) 61.3 % Normal 43.0-75.[address] [facility] Comment on above: Performed By: #### C BC ####[facility] Gzdkihjpfy6617 [place] [address]Dr. Sasha Montero Platelet mean volume (Bld) [Entitic vol] 9.4 fL Critically low 9.5-13.[address] [facility] Comment on above: Performed By: #### C BC ####[facility] Tespolshup0760 [place] [address]Dr. Sasha Montero PLT 289 103/ul Normal 150-[address] [facility] Comment on above: Performed By: #### C BC ####[facility] Boyjkrepbh[address] [place], [place] [address]Dr. Sasha Montero RBC 3.62 106/ul Critically low 4.20-5.[address] [facility] Comment on above: Performed By: #### C BC ####[facility] Xnbwrmliaw4929 [place] [phone]. Sasha Montero WBC 10.8 103/ul Normal 4.0-11.[address] [facility] Comment on above: Performed By: #### C BC ####[facility] Hmikebkjqj0730 [place] [address]Dr. Sasha Montero DRUG SCREEN RAPID (URINE)on 04-18-2022 AMP Negative Normal NEGATIVE [facility] Comment on above: Performed By: #### D SAMI, ERUR ####[facility] Dqlcqovpkt8852 [place] [address]Dr. Sasha Montero BAR Negative Normal NEGATIVE [facility] Comment on above: Performed By: #### D SAMI, ERUR ####[facility] Ctlvxkczle0603 [place] [address]Dr. Sasha Montero BUP Negative Normal NEGATIVE [facility] Comment on above: Performed By: #### D SAMI, ERUR ####[facility] Guiypbskyk8125 [place] [address]Dr. Sasha Montero BZO Positive Abnormal NEGATIVE [facility] Comment on above: Performed By: #### Ester GALLARDO, ERUR ####[facility] Xshxczvdtv1122 [place] [address]Dr. Sasha Montero JAMESON Negative Normal NEGATIVE [facility] Comment on above: Performed By: #### Ester GALLARDO, ERUR ####[facility] Rhqizyvako2807 [place] [address]Dr. Sasha Montero CUT-OFFS SEE BELOW Normal [facility] Comment on above: Result Comment: AMP (Amphetamine): 500ng/mL, BAR (Barbituates): 200 ng/mL, BZO (Benzodiazepines): 150 ng/mL, BUP (Buprenorphine): 10 ng/mL, JAMESON (Cocaine): 150 ng/mL, mAMP (Methamphetamine): 500 ng/mL, MTD (Methadone): 200 ng/mL, OPI (Opiates): 100 ng/mL, OXY (Oxycodone): 100 ng/mL, PCP (Phencyclidine): 25 ng/mL, PPX (Propoxyphene): 300 ng/mL, THC (Cannabinoids): 50 ng/mL, TCA (Trycyclic Antidepressants): 300 ng/mL Performed By: #### D SAMI, ERUR ####[facility] Vulvcsraqn9214 [place] [id number]. Sasha Montero DRUG CUT HEADER DRUG CLASS TEST SYST EM CUT-OFF CONCENTRATIONS ARE FOLLOWS: Normal [facility] Comment on above: Performed By: #### D SAMI, ERUR ####[facility] Gkqcbcwtzg3128 [place] [phone]. Sasha Montero mAMP Negative Normal NEGATIVE [facility] Comment on above: Performed By: #### D SAMI, ERUR ####[facility] Gyodxzzqkv2411 [place] [phone]. Sasha Mnotero MTD Negative Normal NEGATIVE [facility] Comment on above: Performed By: #### D SAMI, ERUR ####[facility] Trsjmijdrl9720 [place] [address]Dr. Sasha Montero OPI Negative Normal NEGATIVE [facility] Comment on above: Performed By: #### Ester GALLARDO, ERUR ####[facility] Tkztlmjxva2904 [place] [address]Dr. Sasha Montero OXY Negative Normal NEGATIVE [facility] Comment on above: Performed By: #### Ester GALLARDO, ERUR ####[facility] Univkxejqz7289 [place] [address]Dr. Sasha Montero PCP Negative Normal NEGATIVE [facility] Comment on above: Performed By: #### Ester GALLARDO, ERUR ####[facility] Rzocialrhn3001 [place] [phone]. Sasha Montero PPX Negative Normal NEGATIVE [facility] Comment on above: Performed By: #### Ester GALLARDO, ERUR ####[facility] Odsgaeyndk1845 [place] [phone]. Sasha Montero TCA Negative Normal NEGATIVE [facility] Comment on above: Performed By: #### Ester GALLARDO, ERUR ####[facility] Eirpmzgoww7624 [place] [address]Dr. Sasha Montero THC Positive Abnormal NEGATIVE [facility] Comment on above: Performed By: #### Ester GALLARDO, ERUR ####[facility] Ijshamcchd2469 [place] [address]Dr. Sasha Montero ER URINE PROFILEon 2 Bilirubin Ql (U) Negative Normal NEGATIVE [facility] Comment on above: Performed By: #### Ester GALLARDO, ERUR ####[facility] Upmqrvrsda49[address] [place], [place] [address]Dr. Sasha Montero Clarity (U) CLEAR Normal CLEAR [facility] Comment on above: Performed By: #### Ester GALLARDO, ERUR ####[facility] Slzfqodtaj950[address] [place], [place] [address]Dr. Sasha Montero Color (U) LT. YELLOW Normal YELLOW [facility] Comment on above: Performed By: #### Ester GALLARDO, ERUR ####[facility] Jvdyxlswdq578[address] [place], [place] [address]Dr. Sasha CRANED A micrscopic examina tion will be performed if indicated. Normal [facility] Comment on above: Performed By: #### Ester GALLARDO, ERUR ####[facility] Aedsvtihde7105[address] [place], [place] [address]Dr. Albinalaura Winston Glucose Ql (U) Negative Normal NEGATIVE [facility] Comment on above: Performed By: #### Ester GALLARDO, ERUR ####[facility] Lobzzcwqfk65[address] [place], [place] [address]Dr. Sasha Winston Hemoglobin Ql (U) Negative Normal NEGATIVE [facility] Comment on above: Performed By: #### Ester GALLARDO, ERUR ####[facility] Kmncpzwtdg0739[address] [place], [place] [address]Dr. Sasha Montero Ketones Ql (U) Negative Normal NEGATIVE [facility] Comment on above: Performed By: #### Ester GALLARDO, ERUR ####[facility] Lsgfybaibb529[address] [place], [place] [address]Dr. Sasha Montero LEUKOCYTES Negative Normal NEGATIVE [facility] Comment on above: Performed By: #### Ester GALLARDO, ERUR ####[facility] Eeucfvskyv949[address] [place], [place] [address]Dr. Sasha Montero Nitrite Ql (U) Negative Normal NEGATIVE [facility] Comment on above: Performed By: #### Ester GALLARDO, ERUR ####[facility] Vyggkpwkbn4915 [place] [address]Dr. Sasha Montero pH (U) 7.0 [pH] Normal 5-9 [facility] Comment on above: Performed By: #### D SAMI, ERUR ####[facility] Deyyjidkwl8750 [place] [address]Dr. Sasha Montero SPEC GRAVITY 1.010 Normal 1.005-<=1.0 25 [facility] Comment on above: Performed By: #### D SAMI, ERUR ####[facility] Uepjegakla8680 [place] [address]Dr. Sasha Montero UA PROTEIN Negative Normal NEGATIVE/ TRACE [facility] Comment on above: Performed By: #### D SAMI, ERUR ####[facility] Ckcwrterge6615 [place] [address]Dr. Sasha Montero UR MICRO IND NOT INDICATED Normal [facility] Comment on above: Performed By: #### D SAMI, ERUR ####[facility] Kxlzzczjmk6891 [place] [address]Dr. Sasha Montero Urobilinogen Qn (U) 0.2 {Josie'U}/dL Normal 0.2 - 1. 0 [facility] Comment on above: Performed By: #### D SAMI, ERUR ####[facility] Qyfiilkfnf9103 [place] [address]Dr. Sasha Montero H PYLORI ANTIBODY IGGon H. PYLORI IGG ABS 0.23 Index Value Normal 0.00-0.79 [facility] Comment on above: Result Comment: Nega tive <0.80 Equivocal 0.80 - 0.89 Positive >0.89 Performed By: #### H PYLLC ####[facility] Rloktyxwfw145[address] [place], [place] [address]Dr. Sasha Montero LIPASEon 04-18-2022 Lipase [Catalytic activity/Vol] 58.0 U/L Critically low 73.0-393.0 [facility] Comment on above: Performed By: #### L IPA, CMP, HUI ####[facility] Dttasqvonv6271 [place] [address]Dr. Sasha Montero PROF 14(COMP METB)on 022 Albumin [Mass/Vol] 3.6 g/dL Normal 3.4-5.0 [facility] Comment on above: Performed By: #### L IPA, CMP, HUI ####[facility] Rtkkmabvdn5066 [place] [address]Dr. Sasha Montero Albumin/Globulin [Mass ratio] 1.2 {ratio} Normal [facility] Comment on above: Performed By: #### L IPA, CMP, HUI ####[facility] Vyxsxitand6385 [place] [address]Dr. Sasha Montero ALP [Catalytic activity/Vol] 75 U/L Normal 46-116 [facility] Comment on above: Performed By: #### L IPA, CMP, HUI ####[facility] Evemjqyvnc6247 [place] [address]Dr. Sasha Montero ALT [Catalytic activity/Vol] 17 U/L Normal 14-59 [facility] Comment on above: Performed By: #### L IPA, CMP, HUI ####[facility] Uhiqcgrwsh640[address] [place], [place] [address]Dr. Sasha Montero Anion gap [Moles/Vol] 12.1 mmol/L Normal [facility] Comment on above: Performed By: #### L IPA, CMP, HUI ####[facility] Glspridjew0110 [place] [address]Dr. Sasha Montero AST [Catalytic activity/Vol] 20 U/L Normal 15-37 [facility] Comment on above: Performed By: #### L IPA, CMP, HUI ####[facility] Mkxwbphrwj[address] [place], [place] [address]Dr. Sasha Montero Bilirubin [Mass/Vol] 0.6 mg/dL Normal 0.2-1.0 [facility] Comment on above: Performed By: #### L IPA, CMP, HUI ####[facility] Prhzldlxvb[address] [place], [place] [address]Dr. Sasha Montero Calcium [Mass/Vol] 8.9 mg/dL Normal 8.5-10.[address] [facility] Comment on above: Performed By: #### L IPA CMP, HUI ####[facility] [address]sequqxdp[address] [place] [address]Dr. Sasha Montero Chloride [Moles/Vol] 104 mmol/L Normal 98-[address] [facility] Comment on above: Performed By: #### L IPA CMP, HUI ####[facility] Amfbmftgen677[address] [place], [place] [address]Dr. Sasha Montero CO2 [Moles/Vol] 29.3 mmol/L Normal 21.0-32.[address] [facility] Comment on above: Performed By: #### L IPA CMP, HUI ####[facility] Kiaydqvnqp3457[address] [place], [place] [address]Dr. Sasha Montero Creatinine [Mass/Vol] 0.83 mg/dL Normal 0.55-1.[address] [facility] Comment on above: Performed By: #### L IPA CMP, HUI ####[facility] Xabuqfcglk379[address] [place], [place] [address]Dr. Sasha Montero EGFR-AF BRUNEIAN >60 Normal >=[address] [facility] Comment on above: Performed By: #### L IPA CMP, HUI ####[facility] Hnelaxjpki979[address] [place], [place] [address]Dr. Sasha Montero EGFR-NON AF BRUNEIAN >60 Normal >=[address] [facility] Comment on above: Performed By: #### L IPA CMP, HUI ####[facility] Buvhzhaobg384[address] [place], [place] [address]Dr. Sasha Montero Globulin (S) [Mass/Vol] 3.0 g/dL Normal [facility] Comment on above: Performed By: #### L IPA CMP, HUI ####[facility] Arcizqkbqa800[address] [place], [place] [address]Dr. Sasha Montero Glucose [Mass/Vol] 96 mg/dL Normal 74-[address] [facility] Comment on above: Performed By: #### L IPA CMP, HUI ####[facility] Gjmhoyhexm89[address] [place], [place] [address]Dr. Sasha Montero Potassium [Moles/Vol] 3.4 mmol/L Critically low 3.5-5.[address] [facility] Comment on above: Performed By: #### L IPA CMP, HUI ####[facility] Facsijqmku7[address] [place] [address]Dr. Sasha Montero Protein [Mass/Vol] 6.6 g/dL Normal 6.4-8.[address] [facility] Comment on above: Performed By: #### L IPA CMP, HUI ####[facility] Inxnqtpkma8[address] [place], [place] [address]Dr. Sasha Montero Sodium [Moles/Vol] 142 mmol/L Normal 136-[address] [facility] Comment on above: Performed By: #### L IPA CMP, HUI ####[facility] Mwivwspoba009182 [address] [place], [place] [address]Dr. Albinalaura Winston Urea nitrogen [Mass/Vol] 10.0 mg/dL Normal 7.0-18.[address] [facility] Comment on above: Performed By: #### L IPA CMP, HUI ####[facility] Prizrfojle277[address] [place], [place] [address]Dr. Albinalaura Winston Urea nitrogen/Creatinine [Mass ratio] 12.0 mg/mg Normal [facility] Comment on above: Performed By: #### L IPA CMP, HUI ####[facility] Jogmwxxzky2575[address] [place], [place] [address]Dr. Sasha Winston AMYLASEon 04-17-2022 Amylase [Catalytic activity/Vol] 210 U/L Critically high 25-[address] [facility] Comment on above: Performed By: #### A MY, LIPA, CMP ####[facility] Qrfbwnaqtd1739[address] [place], [place] [address]Dr. Sasha Winston CBC AUTO DIFFon 04-17-2022 BASO # 0.0 103/ul Normal 0.0-0.[address] [facility] Comment on above: Performed By: #### C BC ####[facility] Hzbsmygusk735[address] [place], [place] [address]Dr. Albinalaura Montero Basophils/100 WBC (Bld) 0.2 % Normal 0.2-2.0 [facility] Comment on above: Performed By: #### C BC ####[facility] Jtpvgmuouo67[address] [place] [address]Dr. Sasha Montero EO # 0.0 103/ul Normal 0.0-0.[address] [facility] Comment on above: Performed By: #### C BC ####[facility] Bcgrztanws8034 [place] [address]Dr. Albinalaura Montero Eosinophils/100 WBC (Bld) 0.0 % Critically low 0.9-7.0 [facility] Comment on above: Performed By: #### C BC ####[facility] Epcazpejlr37[address] [place], [place] [address]Dr. Albinalaura Montero Erythrocyte distribution width (RBC) [Ratio] 13.2 % Normal 11.0-15.0 [facility] Comment on above: Performed By: #### C BC ####[facility] Yyifxossur5300[address] [place], [place] [address]DrSvetlana Albinalaura Montero Hematocrit (Bld) [Volume fraction] 36.8 % Normal 36.0-48.0 [facility] Comment on above: Performed By: #### C BC ####[facility] Rnatlmcfsk655[address] [place], [place] [address]Dr. Sasha Montero Hemoglobin (Bld) [Mass/Vol] 12.4 g/dL Normal 12.0-16.0 [facility] Comment on above: Performed By: #### C BC ####[facility] Embeeojqea780[address] [place], [place] [address]Dr. Albinalaura Montero IG # 0.14 10e3/ul Critically high 0.00-0.[address] [facility] Comment on above: Performed By: #### C BC ####[facility] Hwtxewwpef090[address] [place], [place] [address]DrSvetlana Montero IG % 0.6 % Critically high 0.0-0.[address] [facility] Comment on above: Performed By: #### C BC ####[facility] Hapbvgjezn117[address] [place], [place] [address]DrSvetlana Montero LYMPH # 1.0 103/ul Critically low 1.2-3.8 [facility] Comment on above: Performed By: #### C BC ####[facility] Sdgkofrzmh10[address] [place] [address]Dr. Sasha Montero Lymphocytes/100 WBC (Bld) 4.5 % Critically low 20.5-60.0 [facility] Comment on above: Performed By: #### C BC ####[facility] Nqsulcrxwp5871 [place] [address]DrSvetlana Montero MANUAL DIFF REQ NO Normal [facility] Comment on above: Performed By: #### C BC ####[facility] Czljjcwsdm4996 [place] [id number]. Sasha Montero MCH (RBC) [Entitic mass] 29.8 pg Normal 26.7-34.0 [facility] Comment on above: Performed By: #### C BC ####[facility] Brcvhpcrya564[address] [place], [place] [address]Dr. Sasha Montero MCHC (RBC) [Mass/Vol] 33.7 g/dL Normal 29.9-35.2 [facility] Comment on above: Performed By: #### C BC ####[facility] Gjaytyeylo[address] [place], [place] [address]DrSvetlana Montero MCV (RBC) [Entitic vol] 88.5 fL Normal 81.0-99.0 [facility] Comment on above: Performed By: #### C BC ####[facility] Psselyffvd[address] [place], [place] [address]Dr. Sasha Montero MONO # 1.1 103/ul Critically high 0.3-0.8 [facility] Comment on above: Performed By: #### C BC ####[facility] Cmdqzkidhj940[address] [place], [place] [address]DrSvetlana Montero Monocytes/100 WBC (Bld) 4.9 % Normal 1.7-12.0 [facility] Comment on above: Performed By: #### C BC ####[facility] Ncgmvajdiz172[address] [place], [place] [address]DrSvetlana Montero NEUT # 19.8 103/ul Critically high 1.4-6.5 [facility] Comment on above: Performed By: #### C BC ####[facility] K[address]qypaotx9[address] [place] [id number]. Sasha Montero Neutrophils/100 WBC (Bld) 89.8 % Critically high 43.0-75.0 [facility] Comment on above: Performed By: #### C BC ####[facility] Rpxotvbwvp7743 [place] [id number]. Sasha Montero Platelet mean volume (Bld) [Entitic vol] 9.0 fL Critically low 9.5-13.5 [facility] Comment on above: Performed By: #### C BC ####[facility] Aipjxhdkha[address] [place] [address]Dr. Sasha Montero PLT 331 103/ul Normal 150-[address] [facility] Comment on above: Performed By: #### C BC ####[facility] Aimqbrziic8904 [place] [id number]. Sasha Montero RBC 4.16 106/ul Critically low 4.20-5.40 [facility] Comment on above: Performed By: #### C BC ####[facility] Tdphbzcdey5122 [place] [phone]. Sasha Montero WBC 22.0 103/ul Critically high 4.0-11.0 [facility] Comment on above: Performed By: #### C BC ####[facility] Vlkxiimwvo2464 [place] [phone]. Sasha Montero [facility]on SARS-CoV-2 (COVID-19) RNA YULIANA+probe Ql (Unsp spec) Not detected Normal NOT DETECTED [facility] Comment on above: Result Comment: When diagnostic testing is negative, the possibility of a false negative should be considered inthe context of a patient's recent exposures and the presence of clinical signs and symptomsconsistent with SARS-CoV-2.This test is not yet approved or cleared by the [place] FDA. When there are no FDA-approved or cleared tests available, and other criteria are met, FDA can make tests available under an emergency access mechanism called an Emergency Use Authorization (EUA). The EUA for this test is supported by the [place] of Health and Human Service's declaration that circumstances exist to justify the emergency use of in vitro diagnostics for the detection and/or diagnosis of the virus that causes COVID-19. This EUA will remain in effect for the duration of the COVID-19 declaration justifying emergency of IVDs, unless it is terminated or revoked by the FDA (after which the test may no longer be used). Performed By: #### C VDTBH ####[facility] Hqwwiuzcud[address] [place], [place] [address]Dr. Sasha Montero LACTATE/LACTIC ACIDon 2021 Lactate [Moles/Vol] 3.2 mmol/L Critically high 0.4-1.9 [facility] Comment on above: Performed By: #### L ACT ####[facility] Lerwozxhek1114[address] [place], [place] [address]Dr. Sasha Montero LIPASEon 04-17-2022 Lipase [Catalytic activity/Vol] 40.0 U/L Critically low 73.0-393.[address] [facility] Comment on above: Performed By: #### A ANURAG LIPSammy, CMP ####[facility] Dgnouincxf547182 [address] [place], [place] [address]Dr. Sasha Montero PROF 14(COMP METB)on 022 Albumin [Mass/Vol] 4.6 g/dL Normal 3.4-5.0 [facility] Comment on above: Performed By: #### A ANURAG LIPA, CMP ####[facility] Vgxgyxhwch022[address] [place], [place] [address]Dr. Sasha Montero Albumin/Globulin [Mass ratio] 1.2 {ratio} Normal [facility] Comment on above: Performed By: #### A ANURAG LIPA, CMP ####[facility] Smfgvxuuzn6[address] [place], [place] [address]Dr. Sasha Montero ALP [Catalytic activity/Vol] 97 U/L Normal 46-[address] [facility] Comment on above: Performed By: #### A ANURAG LIPA, CMP ####[facility] Pmazbbqirr77[address] [place], [place] [address]Dr. Sasha Montero ALT [Catalytic activity/Vol] 18 U/L Normal 14-[address] [facility] Comment on above: Performed By: #### A LOU[place] OSBORN, CMP ####[facility] Ldyvyyhosk54[address] [place] [address]Dr. Sasha Montero Anion gap [Moles/Vol] 18.5 mmol/L Normal Th e [facility] Comment on above: Performed By: #### A ANURAG LIPA, CMP ####[facility] Vcuooudcdp6340 [place] [address]Dr. Sasha Montero AST [Catalytic activity/Vol] 18 U/L Normal 15-37 [facility] Comment on above: Performed By: #### A L[place] OSBORN, CMP ####[facility] Brxhshgvzq4923[address] [place], [place] [address]Dr. Sasha Montero Bilirubin [Mass/Vol] 0.3 mg/dL Normal 0.2-1.[address] [facility] Comment on above: Performed By: #### A ANURAG LIPA, CMP ####[facility] Zvjzlghljl36[address] [place], [place] [address]Dr. Sasha Montero Calcium [Mass/Vol] 9.4 mg/dL Normal 8.5-10.[address] [facility] Comment on above: Performed By: #### A [place] OS[place]ORN, CMP ####[facility] Sygmgozhay34[address] [place], [place] [address]Dr. Sasha Montero Chloride [Moles/Vol] 100 mmol/L Normal 98-[address] [facility] Comment on above: Performed By: #### A ANURAG LIPA, CMP ####[facility] Udzlrztpps706[address] [place], [place] [address]Dr. Sasha Montero CO2 [Moles/Vol] 25.0 mmol/L Normal 21.0-32.[address] [facility] Comment on above: Performed By: #### A ANURAG LIPA, CMP ####[facility] Erhcgubevh0155[address] [place], [place] [address]Dr. Sasha Montero Creatinine [Mass/Vol] 1.06 mg/dL Critically high 0.55-1.02 [facility] Comment on above: Performed By: #### A MY LIPA, CMP ####[facility] Pnblslripy[address] [place] [address]Dr. Sasha Winston EGFR-AF BRUNEIAN >60 Normal >=60 [facility] Comment on above: Performed By: #### A MY, LIPA, CMP ####[facility] Buotnsvtxh1536 [place] [address]Dr. Sasha Montero EGFR-NON AF BRUNEIAN 58 mL/min/1.73m2 Critically low >=60 [facility] Comment on above: Performed By: #### A MY LIPA, CMP ####[facility] Aebwcpnrnd[address] [place], [place] [address]Dr. Sasha Montero Globulin (S) [Mass/Vol] 3.7 g/dL Normal [facility] Comment on above: Performed By: #### A MY LIPA, CMP ####[facility] Zhxtrjpizg925[address] [place], [place] [address]Dr. Sasha Montero Glucose [Mass/Vol] 174 mg/dL Critically high 74-106 [facility] Comment on above: Performed By: #### A ANURAG LIPA, CMP ####[facility] Xqajefaigr[address] [place], [place] [address]Dr. Sasha Montero Potassium [Moles/Vol] 3.5 mmol/L Normal 3.5-5.1 [facility] Comment on above: Performed By: #### A MY LIPA, CMP ####[facility] Qirtbfvjai701[address] [place], [place] [address]Dr. Sasha Montero Protein [Mass/Vol] 8.3 g/dL Critically high 6.4-8.2 [facility] Comment on above: Performed By: #### A MY LIPA, CMP ####[facility] Keayphwdtn88[address] [place], [place] [address]Dr. Sasha Montero Sodium [Moles/Vol] 140 mmol/L Normal 136-145 [facility] Comment on above: Performed By: #### A MY, LIPA, CMP ####[facility] Vbzxhpakyj636[address] [place], [place] [address]Dr. Sasha Montero Urea nitrogen [Mass/Vol] 12.0 mg/dL Normal 7.0-18.0 [facility] Comment on above: Performed By: #### A L[place] OSBORN, CMP ####[facility] Nxqkfmvcgd[address] [place] [id number]. Sasha Montero Urea nitrogen/Creatinine [Mass ratio] 11.3 mg/mg Normal [facility] Comment on above: Performed By: #### A [place] OS[place]ORN, CMP ####[facility] Xssqguxvxv9706 [place] [address]Dr. Sasha Montero PAP ACOG PANEL 2: 30 to 65on 03-31-2022 HPV Aptima Negative Normal Negative [facility] Comment on above: Result Comment: This nucleic acid amplification test detects fourteen high-riskHPV types (16,18,31,33,35,39,45,51,52,56,58,59,66,68) withoutdifferentiation.Performed at: =G Performed By: #### 4 [id number] ####[facility] Ysioassycm47[address] [place], [place] [address]Dr. Sasha Montero Methodology: Comment Normal [facility] Comment on above: Result Comment: This liquid based ThinPrep(R) pap test was screened with theuse of an image guided system.Performed at: WB Performed By: #### 4 [id number] ####[facility] Uvvcuggymt663[address] [place], [place] [address]Dr. Sasha Montero Note: Comment Normal [facility] Comment on above: Result Comment: The Pap smear is a screening test designed to aid in the detection ofpremalignant and malignant conditions of the uterine cervix. It is not adiagnostic procedure and should not be used as the sole means of detectingcervical cancer. Both false-positive and false-negative reports do occur. .Performed at: WB Performed By: #### 4 [id number] ####[facility] Siwcpaqcwl4384 [place] [id number]. Sasha Montero . . Normal [facility] Comment on above: Result Comment: Perf ormed at: WB Performed By: #### 4 [id number] ####[facility] Cpsxeojbwl6862 [place] [address]DrSvetlana Sasha Winston Age Gdln ACOG Testing 30-65 Normal [facility] Comment on above: Performed By: #### 4 [id number] ####[facility] Dupsjaprah3200 [place] [address]DrSvetlana Montero DIAGNOSIS: Comment Normal [facility] Comment on above: Result Comment: NEGA TIVE FOR INTRAEPITHELIAL LESION OR MALIGNANCY.Performed at: WB Performed By: #### 4 [id number] ####[facility] Jodzpipmyp[address] [place], [place] [address]DrSvetlana Montero Performed by: Comment Normal [facility] Comment on above: Result Comment: Clementina Johnson, Driver/Guide (ASCP)Performed at: WB Performed By: #### 4 [id number] ####[facility] Xpnfpissiq3047[address] [place], [place] [address]DrSvetlana Montero Specimen adequacy: Comment Normal [facility] Comment on above: Result Comment: Sati sfactory for evaluation. No endocervical component is identified.Performed at: WB Performed By: #### 4 [id number] ####[facility] Akdyqaggsl186[address] [place], [place] [address]Dr. Sasha Montero BNPon 03-15-2022 Natriuretic peptide B (Bld) [Mass/Vol] 117.0 pg/mL Normal <=450.0 [facility] Comment on above: Performed By: #### H STROPN, BNP, CMP ####[facility] Xogbtooynx379[address] [place], [place] [address]DrSvetlana Montero CBC AUTO DIFFon 03-15-2022 BASO # 0.0 103/ul Normal 0.0-0.[address] [facility] Comment on above: Performed By: #### C BC ####[facility] Zuzdcgsynf33[address] [place], [place] [address]DrSvetlana Montero Basophils/100 WBC (Bld) 0.4 % Normal 0.2-2.0 [facility] Comment on above: Performed By: #### C BC ####[facility] Kqlyjjscdf065[address] [place], [place] [address]DrSvetlana Montero EO # 0.1 103/ul Normal 0.0-0.[address] [facility] Comment on above: Performed By: #### C BC ####[facility] Glgvvjnhfj1944 [place] [address]Dr. Sasha Montero Eosinophils/100 WBC (Bld) 1.7 % Normal 0.9-7.[address] [facility] Comment on above: Performed By: #### C BC ####[facility] Gysfyxoull4210[address] [place], [place] [address]Dr. Sasha Montero Erythrocyte distribution width (RBC) [Ratio] 13.2 % Normal 11.0-15.[address] [facility] Comment on above: Performed By: #### C BC ####[facility] Iqchnwoxdj2579[address] [place], [place] [address]Dr. Sasha Montero Hematocrit (Bld) [Volume fraction] 33.9 % Critically low 36.0-48.[address] [facility] Comment on above: Performed By: #### C BC ####[facility] Epiodibtyq738[address] [place], [place] [address]Dr. Sasha Montero Hemoglobin (Bld) [Mass/Vol] 11.1 g/dL Critically low 12.0-16.[address] [facility] Comment on above: Performed By: #### C BC ####[facility] Vjpdddcqww201[address] [place], [place] [address]Dr. Sasha Montero IG # 0.04 10e3/ul Critically high 0.00-0.[address] [facility] Comment on above: Performed By: #### C BC ####[facility] Dyhbmlahoi5[address] [place], [place] [address]Dr. Sasha Montero IG % 0.5 % Normal 0.0-0.[address] [facility] Comment on above: Performed By: #### C BC ####[facility] Tkvbhyloqf5020[address] [place], [place] [address]Dr. Sasha Montero LYMPH # 2.6 103/ul Normal 1.2-3.[address] [facility] Comment on above: Performed By: #### C BC ####[facility] Bkpksmlgyp5179[address] [place], [place] [address]Dr. Sasha Montero Lymphocytes/100 WBC (Bld) 31.6 % Normal 20.5-60.[address] [facility] Comment on above: Performed By: #### C BC ####[facility] Rnmbecdcbb0769 [place] [address]Dr. Sasha Montero MANUAL DIFF REQ NO Normal [facility] Comment on above: Performed By: #### C BC ####[facility] Qafjgmzpht6986 [place] [address]Dr. Sasha Montero MCH (RBC) [Entitic mass] 29.9 pg Normal 26.7-34.[address] [facility] Comment on above: Performed By: #### C BC ####[facility] Bahulrdjal290[address] [place], [place] [address]Dr. Sasha Montero MCHC (RBC) [Mass/Vol] 32.7 g/dL Normal 29.9-35.[address] [facility] Comment on above: Performed By: #### C BC ####[facility] Iaknswizac436[address] [place], [place] [address]Dr. Sasha Montero MCV (RBC) [Entitic vol] 91.4 fL Normal 81.0-99.[address] [facility] Comment on above: Performed By: #### C BC ####[facility] Frzupnyaqs750[address] [place], [place] [address]Dr. Sasha Montero MONO # 0.8 103/ul Normal 0.3-0.[address] [facility] Comment on above: Performed By: #### C BC ####[facility] Wrszafkzit3447[address] [place], [place] [address]Dr. Sasha Montero Monocytes/100 WBC (Bld) 9.3 % Normal 1.7-12.[address] [facility] Comment on above: Performed By: #### C BC ####[facility] Soczovtesx59468[address] [place], [place] [address]DrSvetlana Montero NEUT # 4.6 103/ul Normal 1.4-6.[address] [facility] Comment on above: Performed By: #### C BC ####[facility] Amqrqmmjki478[address] [place], [place] [address]Dr. Sasha Montero Neutrophils/100 WBC (Bld) 56.5 % Normal 43.0-75.[address] [facility] Comment on above: Performed By: #### C BC ####[facility] Fjdintfmvn4165 [place] [address]Dr. Albinalaura Winston Platelet mean volume (Bld) [Entitic vol] 8.7 fL Critically low 9.5-13.[address] [facility] Comment on above: Performed By: #### C BC ####[facility] Ccaxarbxsc5955 [place] [address]Dr. Sasha Montero PLT 297 103/ul Normal 150-[address] [facility] Comment on above: Performed By: #### C BC ####[facility] Ztjshosgtl1979[address] [place], [place] [address]Dr. Sasha Montero RBC 3.71 106/ul Critically low 4.20-5.[address] [facility] Comment on above: Performed By: #### C BC ####[facility] Nebxwwziof957[address] [place], [place] [address]Dr. Sasha Montero WBC 8.1 103/ul Normal 4.0-11.[address] [facility] Comment on above: Performed By: #### C BC ####[facility] Paodmuihxj833[address] [place], [place] [address]DrSvetlana Montero PROF 14(COMP METB)on 022 Albumin [Mass/Vol] 4.0 g/dL Normal 3.4-5.[address] [facility] Comment on above: Performed By: #### H STROPN, BNP, CMP ####[facility] Gpxiwmmlpm0147 [place] [address]Dr. Sasha Montero Albumin/Globulin [Mass ratio] 1.3 {ratio} Normal [facility] Comment on above: Performed By: #### H STROPN, BNP, CMP ####[facility] Kkkdsydrhp8391 [place] [address]Dr. Sasha Montero ALP [Catalytic activity/Vol] 65 U/L Normal 46-[address] [facility] Comment on above: Performed By: #### H STROPN, BNP, CMP ####[facility] Xcirlqtdtr3562 [place] [address]Dr. Sasha Montero ALT [Catalytic activity/Vol] 18 U/L Normal 14-[address] [facility] Comment on above: Performed By: #### H STROPN, BNP, CMP ####[facility] Ulwudfgpuh11[address] [place] [address]Dr. Sasha Montero Anion gap [Moles/Vol] 13.2 mmol/L Normal Th e [facility] Comment on above: Performed By: #### H STROPN, BNP, CMP ####[facility] Ofnrfpltml4448 [place] [address]Dr. Sasha Montero AST [Catalytic activity/Vol] 16 U/L Normal 15-37 [facility] Comment on above: Performed By: #### H STROPN, BNP, CMP ####[facility] Otsvcndbvw6465 [place] [address]Dr. Sasha Montero Bilirubin [Mass/Vol] 0.4 mg/dL Normal 0.2-1.[address] [facility] Comment on above: Performed By: #### H STROPN, BNP, CMP ####[facility] Yxkpdcxxsc4824 [place] [address]Dr. Sasha Montero Calcium [Mass/Vol] 8.9 mg/dL Normal 8.5-10.1 [facility] Comment on above: Performed By: #### H STROPN, BNP, CMP ####[facility] Itpnpmvcmj75[address] [place] [address]Dr. Sasha Montero Chloride [Moles/Vol] 107 mmol/L Normal 98-[address] [facility] Comment on above: Performed By: #### H STROPN, BNP, CMP ####[facility] [address] [place] [address]Dr. Sasha Montero CO2 [Moles/Vol] 25.5 mmol/L Normal 21.0-32.[address] [facility] Comment on above: Performed By: #### H STROPN, BNP, CMP ####[facility] Olxvkqfdmn[address] [place] [address]Dr. Sasha Montero Creatinine [Mass/Vol] 0.72 mg/dL Normal 0.55-1.02 [facility] Comment on above: Performed By: #### H STROPN, BNP, CMP ####[facility] Gofwedwqig[address] [place] [address]Dr. Sasha Montero EGFR-AF BRUNEIAN >60 Normal >=[address] [facility] Comment on above: Performed By: #### H STROPN, BNP, CMP ####[facility] Vphrcfpxuc[address] [place] [address]Dr. Sasha Montero EGFR-NON AF BRUNEIAN >60 Normal >=[address] [facility] Comment on above: Performed By: #### H STROPN, BNP, CMP ####[facility] Jehxmsuewy[address] [place] [address]Dr. Albinalaura Montero Globulin (S) [Mass/Vol] 3.0 g/dL Normal [facility] Comment on above: Performed By: #### H STROPN, BNP, CMP ####[facility] Digoailddd[address] [place], [place] [address]Dr. Sasha Montero Glucose [Mass/Vol] 103 mg/dL Normal 74-[address] [facility] Comment on above: Performed By: #### H STROPN, BNP, CMP ####[facility] Vanefnfcyo[address] [place], [place] [address]Dr. Sasha Montero Potassium [Moles/Vol] 3.7 mmol/L Normal 3.5-5.[address] [facility] Comment on above: Performed By: #### H STROPN, BNP, CMP ####[facility] Hrmpenmesq[address] [place], [place] [address]Dr. Sasha Montero Protein [Mass/Vol] 7.0 g/dL Normal 6.4-8.[address] [facility] Comment on above: Performed By: #### H STROPN, BNP, CMP ####[facility] Iwqbbtwcaz[address] [place], [place] [address]Dr. Sasha Montero Sodium [Moles/Vol] 142 mmol/L Normal 136-[address] [facility] Comment on above: Performed By: #### H STROPN, BNP, CMP ####[facility] Bawgyoieqh[address] [place], [place] [address]Dr. Sasha Montero Urea nitrogen [Mass/Vol] 5.0 mg/dL Critically low 7.0-18.[address] [facility] Comment on above: Performed By: #### H STROPN, BNP, CMP ####[facility] Opcnyjgmwl[address] [place] [address]Dr. Sasha Montero Urea nitrogen/Creatinine [Mass ratio] 6.9 mg/mg Normal [facility] Comment on above: Performed By: #### H STROPN, BNP, CMP ####[facility] Wfielatxad[address] [place] [address]Dr. Sasha Montero TROPONIN, HIGH SENSITIVITYon 03-15-2022 HSTROP 5.2 pg/mL Normal 4.0-51.[address] [facility] Comment on above: Result Comment: CUT- OFF POINTS HAVE BEEN ESTABLISHED BASED ON THE FOURTH UNIVERSAL DEFINITIONS OF MYOCARDIALINFARCTION. THE UPPER REFERENCE LIMIT (URL) OF TROPONIN, DEFINED THE 99TH PERCENTILE OFcTnI DISTRIBUTION IN A REFERENCE POPULATION, HAS BEEN CONFIRMED THE DECISION THRESHOLDFOR ND DIAGNOSIS. Performed By: #### H STROPN, BNP, CMP ####[facility] Craefrtyim[address] [place] [address]Dr. Sasha Montero BNPon 03-14-2022 Natriuretic peptide B (Bld) [Mass/Vol] 196.0 pg/mL Normal <=450.[address] [facility] Comment on above: Performed By: #### B CHARACTER ACTRESS ####[facility] Brgbusudlf97[address] [place], [place] [address]Dr. Sasha Montero Performed By: #### C MP, BNP, HSTROPN ####[facility] Mxczftqvkr[address] [place] [address] Mon[address]o CT HEAD WO CONon 03-14-2022 CT HEAD WO CON Normal [facility] PROF 14(COMP METB)on 022 Albumin [Mass/Vol] 3.8 g/dL Normal 3.4-5.[address] [facility] Comment on above: Performed By: #### C MP, BNP, HSTROPN ####[facility] Wgxgabcvfy[address] [place], [place] [address]Dr. Sasha Montero Albumin/Globulin [Mass ratio] 1.3 {ratio} Normal [facility] Comment on above: Performed By: #### C MP, BNP, HSTROPN ####[facility] Mjtffdyshw[address] [place] [address]Dr. Sasha Montero ALP [Catalytic activity/Vol] 67 U/L Normal 46-116 [facility] Comment on above: Performed By: #### C MP, BNP, HSTROPN ####[facility] Wbmlsmajxc33[address] [place] [address]Dr. Sasha Montero ALT [Catalytic activity/Vol] 17 U/L Normal 14-[address] [facility] Comment on above: Performed By: #### C MP, BNP, HSTROPN ####[facility] Lptsxefomp96[address] [place], [place] [address]Dr. Sasha Montero Anion gap [Moles/Vol] 12.8 mmol/L Normal [facility] Comment on above: Performed By: #### C MP, BNP, HSTROPN ####[facility] Aykbxhrhvr756[address] [place], [place] [address]Dr. Sasha Montero AST [Catalytic activity/Vol] 16 U/L Normal 15-37 [facility] Comment on above: Performed By: #### C MP, BNP, HSTROPN ####[facility] Yedrnumzau201[address] [place], [place] [address]Dr. Sasha Montero Bilirubin [Mass/Vol] 0.6 mg/dL Normal 0.2-1.[address] [facility] Comment on above: Performed By: #### C MP, BNP, HSTROPN ####[facility] Ukppczhsgl[address] [place], [place] [address]Dr. Sasha Montero Calcium [Mass/Vol] 8.7 mg/dL Normal 8.5-10.[address] [facility] Comment on above: Performed By: #### C MP, BNP, HSTROPN ####[facility] Xpilxnueyq4[address] [place] [address]Dr. Sasha Montero Chloride [Moles/Vol] 105 mmol/L Normal 98-[address] [facility] Comment on above: Performed By: #### C MP, BNP, HSTROPN ####[facility] Rkyeetbyka[address] [place] [address]Dr. Sasha Montero CO2 [Moles/Vol] 26.8 mmol/L Normal 21.0-32.[address] [facility] Comment on above: Performed By: #### C MP, BNP, HSTROPN ####[facility] Certolggss[address] [place] [address]Dr. Sasha Montero Creatinine [Mass/Vol] 0.87 mg/dL Normal 0.55-1.[address] [facility] Comment on above: Performed By: #### C MP, BNP, HSTROPN ####[facility] Pnneoulwlr65[address] [place], [place] [address]Dr. Sasha Winston EGFR-AF BRUNEIAN >60 Normal >=[address] [facility] Comment on above: Performed By: #### C MP, BNP, HSTROPN ####[facility] Jyifptnzii9613[address] [place], [place] [address]Dr. Sasha Winston EGFR-NON AF BRUNEIAN >60 Normal >=[address] [facility] Comment on above: Performed By: #### C MP, BNP, HSTROPN ####[facility] Ucutrawfnh58[address] [place], [place] [address]Dr. Sasha Winston Globulin (S) [Mass/Vol] 3.0 g/dL Normal [facility] Comment on above: Performed By: #### C MP, BNP, HSTROPN ####[facility] Hmyqaunwql452[address] [place], [place] [address]Dr. Sasha Winston Glucose [Mass/Vol] 90 mg/dL Normal 74-[address] [facility] Comment on above: Performed By: #### C MP, BNP, HSTROPN ####[facility] Dvzkaljtxo[address] [place], [place] [address]Dr. Sasha Montero Potassium [Moles/Vol] 3.6 mmol/L Normal 3.5-5.[address] [facility] Comment on above: Performed By: #### C MP, BNP, HSTROPN ####[facility] Ubdneazkin[address] [place], [place] [address]Dr. Sasha Montero Protein [Mass/Vol] 6.8 g/dL Normal 6.4-8.[address] [facility] Comment on above: Performed By: #### C MP, BNP, HSTROPN ####[facility] Hynkhtqcre[address] [place] [address]Dr. Sasha Montero Sodium [Moles/Vol] 141 mmol/L Normal 136-[address] [facility] Comment on above: Performed By: #### C MP, BNP, HSTROPN ####[facility] Uomegirhmd911[address] [place], [place] [address]Dr. Sasha Montero Urea nitrogen [Mass/Vol] 12.0 mg/dL Normal 7.0-18.[address] [facility] Comment on above: Performed By: #### C MP, BNP, HSTROPN ####[facility] Cgowqehvgb726[address] [place], [place] [address]Dr. Sasha Montero Urea nitrogen/Creatinine [Mass ratio] 13.8 mg/mg Normal [facility] Comment on above: Performed By: #### C MP, BNP, HSTROPN ####[facility] Fcrkpcuode280[address] [place], [place] [address]Dr. Sasha Montero TROPONIN, HIGH SENSITIVITYon 03-14-2022 HSTROP 4.7 pg/mL Normal 4.0-51.[address] [facility] Comment on above: Result Comment: CUT- OFF POINTS HAVE BEEN ESTABLISHED BASED ON THE FOURTH UNIVERSAL DEFINITIONS OF MYOCARDIALINFARCTION. THE UPPER REFERENCE LIMIT (URL) OF TROPONIN, DEFINED THE 99TH PERCENTILE OFcTnI DISTRIBUTION IN A REFERENCE POPULATION, HAS BEEN CONFIRMED THE DECISION THRESHOLDFOR ND DIAGNOSIS. Performed By: #### C MP, BNP, HSTROPN ####[facility] Lwgrdgmdsv[address] [place], [place] [address]Dr. Sasha Winston BNPon 03-13-2022 Natriuretic peptide B (Bld) [Mass/Vol] 347.0 pg/mL Normal <=450.[address] [facility] Comment on above: Performed By: #### B CHARACTER ACTRESS, HSTROPN ####[facility] Rwmbeplndo99[address] [place], [place] [address]Dr. Sasha Montero CBC AUTO DIFFon 03-13-2022 BASO # 0.0 103/ul Normal 0.0-0.[address] [facility] Comment on above: Performed By: #### C BC ####[facility] Fosllalhxt[address] [place] [address]Dr. Sasha Montero Basophils/100 WBC (Bld) 0.4 % Normal 0.2-2.[address] [facility] Comment on above: Performed By: #### C BC ####[facility] Qlkjkwujel4[address] [place], [place] [address]Dr. Sasha Montero EO # 0.1 103/ul Normal 0.0-0.[address] [facility] Comment on above: Performed By: #### C BC ####[facility] Iigzzrclgv025[address] [place], [place] [address]Dr. Albinalaura Winston Eosinophils/100 WBC (Bld) 0.7 % Critically low 0.9-7.[address] [facility] Comment on above: Performed By: #### C BC ####[facility] Tryvojccnu5530[address] [place], [place] [address]Dr. Sasha Montero Erythrocyte distribution width (RBC) [Ratio] 13.2 % Normal 11.0-15.[address] [facility] Comment on above: Performed By: #### C BC ####[facility] Fnhvsdgrlx4628[address] [place], [place] [address]Dr. Sasha Montero Hematocrit (Bld) [Volume fraction] 33.6 % Critically low 36.0-48.[address] [facility] Comment on above: Performed By: #### C BC ####[facility] Gycgispyyd[address] [place], [place] [address]Dr. Albinalaura Montero Hemoglobin (Bld) [Mass/Vol] 11.1 g/dL Critically low 12.0-16.[address] [facility] Comment on above: Performed By: #### C BC ####[facility] M[address]bmvlvv[address] [place] [address]Dr. Sasha Montero IG # 0.04 10e3/ul Critically high 0.00-0.[address] [facility] Comment on above: Performed By: #### C BC ####[facility] Br[address]cwuzz[address] [place] [id number]. Sasha Winston IG % 0.5 % Normal 0.0-0.[address] [facility] Comment on above: Performed By: #### C BC ####[facility] Papdkpgdnp57[address] [place] [address]Dr. Sasha Winston LYMPH # 3.5 103/ul Normal 1.2-3.[address] [facility] Comment on above: Performed By: #### C BC ####[facility] Pydovzmxmv67[address] [place], [place] [address]Dr. Sasha Winston Lymphocytes/100 WBC (Bld) 42.9 % Normal 20.5-60.[address] [facility] Comment on above: Performed By: #### C BC ####[facility] Oblidgpfel[address] [place] [address]Dr. Albinalaura Montero MANUAL DIFF REQ NO Normal [facility] Comment on above: Performed By: #### C BC ####[facility] Gvbvyoocye3[address] [place] [address]Dr. Sasha Winston MCH (RBC) [Entitic mass] 30.4 pg Normal 26.7-34.[address] [facility] Comment on above: Performed By: #### C BC ####[facility] Qlynqacjgr310[address] [place], [place] [address]Dr. Sasha Winston MCHC (RBC) [Mass/Vol] 33.0 g/dL Normal 29.9-35.[address] [facility] Comment on above: Performed By: #### C BC ####[facility] Eqbehebwit145[address] [place], [place] [address]Dr. Sasha Winston MCV (RBC) [Entitic vol] 92.1 fL Normal 81.0-99.[address] [facility] Comment on above: Performed By: #### C BC ####[facility] Gcubdyxfht88[address] [place], [place] [address]Dr. Sasha Montero MONO # 0.7 103/ul Normal 0.3-0.[address] [facility] Comment on above: Performed By: #### C BC ####[facility] Ztpltuqtjr[address] [place] [address]Dr. Sasha Montero Monocytes/100 WBC (Bld) 8.4 % Normal 1.7-12.[address] [facility] Comment on above: Performed By: #### C BC ####[facility] Ywkhlbjgts[address] [place] [address]Dr. Sasha Montero NEUT # 3.8 103/ul Normal 1.4-6.[address] [facility] Comment on above: Performed By: #### C BC ####[facility] Pnxzedgqtu6447 [place] [address]Dr. Sasha Montero Neutrophils/100 WBC (Bld) 47.1 % Normal 43.0-75.[address] [facility] Comment on above: Performed By: #### C BC ####[facility] Gxwiyqsjfy2923 [place] [address]Dr. Sasha Montero Platelet mean volume (Bld) [Entitic vol] 9.0 fL Critically low 9.5-13.[address] [facility] Comment on above: Performed By: #### C BC ####[facility] Ojhnrddxwh[address] [place], [place] [address]Dr. Sasha Montero PLT 298 103/ul Normal 150-[address] [facility] Comment on above: Performed By: #### C BC ####[facility] Ccthrronlp8912[address] [place], [place] [address]Dr. Sasha Montero RBC 3.65 106/ul Critically low 4.20-5.[address] [facility] Comment on above: Performed By: #### C BC ####[facility] Kzsgafyosc386[address] [place], [place] [address]Dr. Sasha Montero WBC 8.1 103/ul Normal 4.0-11.[address] [facility] Comment on above: Performed By: #### C BC ####[facility] Ivkazaoudb17[address] [place], [place] [address]Dr. Sasha Winston PROF 14(COMP METB)on 022 Albumin [Mass/Vol] 3.6 g/dL Normal 3.4-5.[address] [facility] Comment on above: Performed By: #### C MP ####[facility] Kifxbtkbtf08[address] [place] [address]Dr. Sasha Winston Albumin/Globulin [Mass ratio] 1.3 {ratio} Normal [facility] Comment on above: Performed By: #### C MP ####[facility] Ozyxuzzzlh69[address] [place], [place] [address]Dr. Sasha Montero ALP [Catalytic activity/Vol] 64 U/L Normal 46-[address] [facility] Comment on above: Performed By: #### C MP ####[facility] Kythojyfqr9[address] [place], [place] [address]Dr. Sasha Montero ALT [Catalytic activity/Vol] 16 U/L Normal 14-[address] [facility] Comment on above: Performed By: #### C MP ####[facility] Yjknzvufnm[address] [place], [place] [address]Dr. Sasha Montero Anion gap [Moles/Vol] 13.8 mmol/L Normal [facility] Comment on above: Performed By: #### C MP ####[facility] Plbcqgwwbf[address] [place], [place] [address]Dr. Sasha Montero AST [Catalytic activity/Vol] 15 U/L Normal 15-[address] [facility] Comment on above: Performed By: #### C MP ####[facility] Fbunuqtdhc40[address] [place], [place] [address]Dr. Sasha Montero Bilirubin [Mass/Vol] 0.5 mg/dL Normal 0.2-1.[address] [facility] Comment on above: Performed By: #### C MP ####[facility] Vbkuqwjfvg[address] [place], [place] [address]Dr. Sasha Montero Calcium [Mass/Vol] 8.7 mg/dL Normal 8.5-10.[address] [facility] Comment on above: Performed By: #### C MP ####[facility] Itblfgywbu219[address] [place], [place] [address]Dr. Sasha Montero Chloride [Moles/Vol] 104 mmol/L Normal 98-[address] [facility] Comment on above: Performed By: #### C MP ####[facility] Tiokphtmqc[address] [place], [place] [address]Dr. Sasha Montero CO2 [Moles/Vol] 26.9 mmol/L Normal 21.0-32.[address] [facility] Comment on above: Performed By: #### C MP ####[facility] Pwiafscsnv[address] [place] [id number]. Sasha Montero Creatinine [Mass/Vol] 0.68 mg/dL Normal 0.55-1.[address] [facility] Comment on above: Performed By: #### C MP ####[facility] Iakjlyllws13[address] [place] [id number]. Sasha Montero EGFR-AF BRUNEIAN >60 Normal >=[address] [facility] Comment on above: Performed By: #### C MP ####[facility] Yestpfgpav[address] [place] [address]Dr. Sasha Montero EGFR-NON AF BRUNEIAN >60 Normal >=[address] [facility] Comment on above: Performed By: #### C MP ####[facility] Mugywdmege69[address] [place] [address]Dr. Sasha Winston Globulin (S) [Mass/Vol] 2.8 g/dL Normal [facility] Comment on above: Performed By: #### C MP ####[facility] Mfcgcnptfv88[address] [place] [address]Dr. Sasha Winston Glucose [Mass/Vol] 90 mg/dL Normal 74-[address] [facility] Comment on above: Performed By: #### C MP ####[facility] Huuacuygfs[address] [place] [address]Dr. Sasha Winston Potassium [Moles/Vol] 3.7 mmol/L Normal 3.5-5.[address] [facility] Comment on above: Performed By: #### C MP ####[facility] Ybpxpysuhq2321 [place] [id number]. Sasha Winston Protein [Mass/Vol] 6.4 g/dL Normal 6.4-8.[address] [facility] Comment on above: Performed By: #### C MP ####[facility] Cumhnlzkci4[address] [place] [phone]. Sasha Winston Sodium [Moles/Vol] 141 mmol/L Normal 136-[address] [facility] Comment on above: Performed By: #### C MP ####[facility] Ykovbcdjue4[address] [place] [address]Dr. Sasha Montero Urea nitrogen [Mass/Vol] 8.0 mg/dL Normal 7.0-18.[address] [facility] Comment on above: Performed By: #### C MP ####[facility] Pejzefquqs1254 [place] [address]Dr. Sasha Montero Urea nitrogen/Creatinine [Mass ratio] 11.8 mg/mg Normal [facility] Comment on above: Performed By: #### C MP ####[facility] Ylrogaivys[address] [place] [address]Dr. Sasha Winston TROPONIN, HIGH SENSITIVITYon 03-13-2022 HSTROP 4.0 pg/mL Normal 4.0-51.[address] [facility] Comment on above: Result Comment: CUT- OFF POINTS HAVE BEEN ESTABLISHED BASED ON THE FOURTH UNIVERSAL DEFINITIONS OF MYOCARDIALINFARCTION. THE UPPER REFERENCE LIMIT (URL) OF TROPONIN, DEFINED THE 99TH PERCENTILE OFcTnI DISTRIBUTION IN A REFERENCE POPULATION, HAS BEEN CONFIRMED THE DECISION THRESHOLDFOR ND DIAGNOSIS. Performed By: #### B CHARACTER ACTRESS, HSTROPN ####[facility] Pfulgpitqo48[address] [place], [place] [address]Dr. Sasha Montero XR ABD FLAT UP_PA Anjel 03-13 XR ABD FLAT UP_PA CH Normal [facility] BNPon 03-12-2022 Natriuretic peptide B (Bld) [Mass/Vol] 1185.0 pg/mL Critically high <=450.[address] [facility] Comment on above: Performed By: #### B CHARACTER ACTRESS ####[facility] Tqtjxgfqoq7232 [place] [address]Dr. Sasha Montero CBC AUTO DIFFon 03-12-2022 BASO # 0.0 103/ul Normal 0.0-0.[address] [facility] Comment on above: Performed By: #### C BC ####[facility] Afqmrfqnmc98[address] [place] [address]Dr. Sasha Montero Basophils/100 WBC (Bld) 0.2 % Normal 0.2-2.0 [facility] Comment on above: Performed By: #### C BC ####[facility] Klimoillne[address] [place] [address]Dr. aSsha Montero EO # 0.0 103/ul Normal 0.0-0.[address] [facility] Comment on above: Performed By: #### C BC ####[facility] Ttufgltklc0667 [place] [address]Dr. Albinalaura Montero Eosinophils/100 WBC (Bld) 0.0 % Critically low 0.9-7.0 [facility] Comment on above: Performed By: #### C BC ####[facility] Zaixixlwhw28[address] [place], [place] [address]Dr. Albinalaura Montero Erythrocyte distribution width (RBC) [Ratio] 13.1 % Normal 11.0-15.0 [facility] Comment on above: Performed By: #### C BC ####[facility] Bvukelmnmw956[address] [place], [place] [address]DrSvetlana Albinalaura Montero Hematocrit (Bld) [Volume fraction] 35.9 % Critically low 36.0-48.0 [facility] Comment on above: Performed By: #### C BC ####[facility] Reqzdjjmue8099[address] [place], [place] [address]Dr. Sasha Winston Hemoglobin (Bld) [Mass/Vol] 12.0 g/dL Normal 12.0-16.0 [facility] Comment on above: Performed By: #### C BC ####[facility] Ibcepeiafh7022[address] [place], [place] [address]Dr. Albinalaura Montero IG # 0.12 10e3/ul Critically high 0.00-0.[address] [facility] Comment on above: Performed By: #### C BC ####[facility] Dvdbnsaelr5[address] [place], [place] [address]DrSvetlana Montero IG % 0.7 % Critically high 0.0-0.[address] [facility] Comment on above: Performed By: #### C BC ####[facility] Drkzzfrlpb9[address] [place], [place] [address]DrSvetlana Montero LYMPH # 2.1 103/ul Normal 1.2-3.8 [facility] Comment on above: Performed By: #### C BC ####[facility] Xntjfzbril0168 [place] [address]Dr. Sasha Montero Lymphocytes/100 WBC (Bld) 11.8 % Critically low 20.5-60.0 [facility] Comment on above: Performed By: #### C BC ####[facility] Orumfpwbpl7325 [place] [address]Dr. Sasha Montero MANUAL DIFF REQ NO Normal [facility] Comment on above: Performed By: #### C BC ####[facility] Kiauwhxsgx9024 [place] [address]Dr. Sasha Montero MCH (RBC) [Entitic mass] 30.2 pg Normal 26.7-34.0 [facility] Comment on above: Performed By: #### C BC ####[facility] Ldzuczgukk300[address] [place], [place] [address]Dr. Sasha Montero MCHC (RBC) [Mass/Vol] 33.4 g/dL Normal 29.9-35.2 [facility] Comment on above: Performed By: #### C BC ####[facility] Ofvrazztmk1932[address] [place], [place] [address]Dr. Sasha Montero MCV (RBC) [Entitic vol] 90.2 fL Normal 81.0-99.0 [facility] Comment on above: Performed By: #### C BC ####[facility] Znmorqwlgh[address] [place], [place] [address]Dr. Sasha Montero MONO # 1.0 103/ul Critically high 0.3-0.[address] [facility] Comment on above: Performed By: #### C BC ####[facility] Rbtfhmurhh49[address] [place], [place] [address]DrSvetlana Montero Monocytes/100 WBC (Bld) 5.5 % Normal 1.7-12.[address] [facility] Comment on above: Performed By: #### C BC ####[facility] Qwfvknovri18[address] [place], [place] [address]DrSvetlana Montero NEUT # 14.3 103/ul Critically high 1.4-6.5 [facility] Comment on above: Performed By: #### C BC ####[facility] Mmyhattpmm0522 [place] [address]DrSvetlana Montero Neutrophils/100 WBC (Bld) 81.8 % Critically high 43.0-75.0 [facility] Comment on above: Performed By: #### C BC ####[facility] Rpzatvmyyv8945 [place] [id number] Montero Platelet mean volume (Bld) [Entitic vol] 9.1 fL Critically low 9.5-13.5 [facility] Comment on above: Performed By: #### C BC ####[facility] Klnkyxbtht4631 [place] [address]DrSvetlana Montero PLT 351 103/ul Normal 150-450 [facility] Comment on above: Performed By: #### C BC ####[facility] Psepfcjvoq3272 [place] [address]DrSvetlana Montero RBC 3.98 106/ul Critically low 4.20-5.[address] [facility] Comment on above: Performed By: #### C BC ####[facility] Albynmlbmg[address] [place], [place] [address]DrSvetlana Montero WBC 17.5 103/ul Critically high 4.0-11.[address] [facility] Comment on above: Performed By: #### C BC ####[facility] Fsevwtrvwt[address] [place], [place] [id number] Montero CULTURE URINEon 03-12-2022 CULTURE URINE Culture Observations : LIGHT GROWTH OF MIXED GENITAL AUDRA. NO POTENTIAL PATHOGENS SEEN. Normal [facility] Comment on above: Performed By: #### U RCX ####[facility] Juzkomsvcx[address] [place], [place] [address]DrSvetlana Montero PROF 14(COMP METB)on 022 Albumin [Mass/Vol] 4.2 g/dL Normal 3.4-5.[address] [facility] Comment on above: Performed By: #### C MP ####[facility] Ekmfwjbrfv[address] [place], [place] [id number] Baez Winston Albumin/Globulin [Mass ratio] 1.3 {ratio} Normal [facility] Comment on above: Performed By: #### C MP ####[facility] Tplasaqzbi6[address] [place] [address]Dr. Sasha Winstno ALP [Catalytic activity/Vol] 70 U/L Normal 46-116 [facility] Comment on above: Performed By: #### C MP ####[facility] Bxxhuakbsu[address] [place] [address]Dr. Sasha Winston ALT [Catalytic activity/Vol] 16 U/L Normal 14-59 [facility] Comment on above: Performed By: #### C MP ####[facility] Kmfmslewrs17[address] [place], [place] [address]Dr. Albinalaura Winston Anion gap [Moles/Vol] 16.3 mmol/L Normal [facility] Comment on above: Performed By: #### C MP ####[facility] Dunupoixts8[address] [place], [place] [address]Dr. Sasha Winston AST [Catalytic activity/Vol] 15 U/L Normal 15-37 [facility] Comment on above: Performed By: #### C MP ####[facility] Nfywlekjtv9300[address] [place], [place] [address]Dr. Albinalaura Winston Bilirubin [Mass/Vol] 0.3 mg/dL Normal 0.2-1.0 [facility] Comment on above: Performed By: #### C MP ####[facility] Mjamthqido309182 [address] [place], [place] [address]Dr. Sasha Montero Calcium [Mass/Vol] 8.7 mg/dL Normal 8.5-10.[address] [facility] Comment on above: Performed By: #### C MP ####[facility] Iltyqavghj664[address] [place], [place] [address]Dr. Sasha Montero Chloride [Moles/Vol] 101 mmol/L Normal 98-[address] [facility] Comment on above: Performed By: #### C MP ####[facility] Ckkdbufcfx5929[address] [place], [place] [address]Dr. Sasha Montero CO2 [Moles/Vol] 25.5 mmol/L Normal 21.0-32.[address] [facility] Comment on above: Performed By: #### C MP ####[facility] Zyvmiqpcmf27[address] [place] [address]Dr. Sasha Montero Creatinine [Mass/Vol] 0.70 mg/dL Normal 0.55-1.[address] [facility] Comment on above: Performed By: #### C MP ####[facility] Uokeppemmg6662 [place] [address]Dr. Sasha Montero EGFR-AF BRUNEIAN >60 Normal >=[address] [facility] Comment on above: Performed By: #### C MP ####[facility] Ggwindsrir329[address] [place], [place] [address]Dr. Sasha Winston EGFR-NON AF BRUNEIAN >60 Normal >=[address] [facility] Comment on above: Performed By: #### C MP ####[facility] Vvyrlddqga853982 [address] [place], [place] [address]Dr. Sasha Winston Globulin (S) [Mass/Vol] 3.2 g/dL Normal [facility] Comment on above: Performed By: #### C MP ####[facility] Pltjdaxyko977582 [address] [place], [place] [address]Dr. Sasha Montero Glucose [Mass/Vol] 99 mg/dL Normal 74-[address] [facility] Comment on above: Performed By: #### C MP ####[facility] Gjfzokodgs359182 [address] [place], [place] [address]Dr. Sasha Montero Potassium [Moles/Vol] 3.8 mmol/L Normal 3.5-5.[address] [facility] Comment on above: Performed By: #### C MP ####[facility] Ogcvobbkdd679482 [address] [place], [place] [address]Dr. Sasha Winston Protein [Mass/Vol] 7.4 g/dL Normal 6.4-8.[address] [facility] Comment on above: Performed By: #### C MP ####[facility] Uuinoksnwn11[address] [place], [place] [address]Dr. Albinalaura Montero Sodium [Moles/Vol] 139 mmol/L Normal 136-[address] [facility] Comment on above: Performed By: #### C MP ####[facility] Bkyjkiudpp20[address] [place] [address]Dr. Sasha Montero Urea nitrogen [Mass/Vol] 8.0 mg/dL Normal 7.0-18.[address] [facility] Comment on above: Performed By: #### C MP ####[facility] Dxdozthzbt3289 [place] [address]Dr. Sasha Montero Urea nitrogen/Creatinine [Mass ratio] 11.4 mg/mg Normal [facility] Comment on above: Performed By: #### C MP ####[facility] Ewkmlmqdpb301182 [address] [place], [place] [address]Dr. Sasha Montero UA RANDOM W/MICROSCOPICon BACTERIA NONE SEEN Normal NONE SEEN [facility] Comment on above: Performed By: #### U AMIC ####[facility] Kbykywzqqn36[address] [place], [place] [address]Dr. Sasha Montero Bilirubin Ql (U) Negative Normal NEGATIVE [facility] Comment on above: Performed By: #### U AMIC ####[facility] Rgxxdtefsl028[address] [place], [place] [address]Dr. Sasha Montero CAST NONE SEEN Normal NONE SEEN [facility] Comment on above: Performed By: #### U AMIC ####[facility] Aythlncgif481382 [address] [place], [place] [address]Dr. Sasha Montero Clarity (U) CLEAR Normal CLEAR [facility] Comment on above: Performed By: #### U AMIC ####[facility] Bwoepvrekj723382 [address] [place], [place] [address]Dr. Sasha Montero Color (U) LT. YELLOW Normal YELLOW [facility] Comment on above: Performed By: #### U AMIC ####[facility] Kbjhoapokg272482 [address] [place], [place] [address]Dr. aSsha Montero Crystals LM Nom (Urine sed) NONE SEEN Normal NONE SEEN [facility] Comment on above: Performed By: #### U AMIC ####[facility] Cdmxeyfged127[address] [place], [place] [address]Dr. Sasha Montero Epithelial cells LM Ql (Urine sed) FEW Abnormal NONE SEEN /RARE [facility] Comment on above: Performed By: #### U AMIC ####[facility] Vjnuucmzhv40[address] [place] [address]Dr. Sasha Montero Glucose Ql (U) Negative Normal NEGATIVE [facility] Comment on above: Performed By: #### U AMIC ####[facility] Cugktffhab1446 [place] [address]Dr. Yilaura Montero Hemoglobin Ql (U) Negative Normal NEGATIVE [facility] Comment on above: Performed By: #### U AMIC ####[facility] Vljafcxsps5670 [place] [address]Dr. Sasha Montero Ketones Ql (U) Negative Normal NEGATIVE [facility] Comment on above: Performed By: #### U AMIC ####[facility] Hhwereehbk859[address] [place], [place] [address]Dr. Sasha Montero LEUKOCYTES Negative Normal NEGATIVE [facility] Comment on above: Performed By: #### U AMIC ####[facility] Cprjaawrdp710[address] [place], [place] [address]Dr. Yilan Montero MUCOUS MODERATE Abnormal NONE SEEN [facility] Comment on above: Performed By: #### U AMIC ####[facility] Mdfdjkfuin2037[address] [place], [place] [address]Dr. Sasha Montero Nitrite Ql (U) Negative Normal NEGATIVE [facility] Comment on above: Performed By: #### U AMIC ####[facility] Ucthrywyva3907[address] [place], [place] [address]Dr. Sasha Montero pH (U) 7.5 [pH] Normal 5-[address] [facility] Comment on above: Performed By: #### U AMIC ####[facility] Eqitnmwdjt7731 [place] [address]Dr. Sasha Montero RBC NONE SEEN Abnormal 0-[address] [facility] Comment on above: Performed By: #### U AMIC ####[facility] Jkpuwbcjzw3689 [place] [address]Dr. Sasha Montero SPEC GRAVITY 1.010 Normal 1.005-<=1.[address] [facility] Comment on above: Performed By: #### U AMIC ####[facility] Wvrtjxmack3182 [place] [phone]. Sasha Winston UA PROTEIN Negative Normal NEGATIVE/ TRACE [facility] Comment on above: Performed By: #### U AMIC ####[facility] Lsficnemre8838 [place] [phone]. Sasha Montero Urobilinogen Qn (U) 0.2 {Josie'U}/dL Normal 0.2 - 1. [address] [facility] Comment on above: Performed By: #### U AMIC ####[facility] Xtoessxyeb2998 [place] [address]Dr. Albinalaura Montero WBC NONE SEEN Normal NONE SEEN [facility] Comment on above: Performed By: #### U AMIC ####[facility] Bmeunonmau35[address] [place] [address]Dr. Albinalaura Montero CBC W MANUAL DIFFon 03-11-20 22 ATYPICAL LYMPH # Normal [facility] Comment on above: Performed By: #### C BCMAN ####[facility] Gorktsqnje9[address] [place] [address]Dr. Sasha Winston ATYPICAL LYMPH % Normal [facility] Comment on above: Performed By: #### C BCMAN ####[facility] Ypnvofjyjt1033 [place] [address]Dr. Sasha Montero BAND # Normal 0.0-0.[address] [facility] Comment on above: Performed By: #### C BCMAN ####[facility] Dezotgehva4138 [place] [address]Dr. Albinalaura Montero BAND % Normal 0-[address] [facility] Comment on above: Performed By: #### C BCMAN ####[facility] Gnippdcufo2618 [place] [address]Dr. Sasha Montero BASOM # 0.00 103/ul Normal 0.00-0.[address] [facility] Comment on above: Performed By: #### C BCMAN ####[facility] Igquvgwgyn0497 [place] [address]Dr. Sasha Montero BASOM % 0.0 % Critically low 0.2-2.[address] [facility] Comment on above: Performed By: #### C BCJOSAFAT ####[facility] Ibbpiucpdy9188 [place] [address]Dr. Sasha Montero BLAST # Normal [facility] Comment on above: Performed By: #### C BCJOSAFAT ####[facility] Dufkeqedwu83[address] [place] [address]Dr. Sasha Montero BLAST % Normal [facility] Comment on above: Performed By: #### C BCJOSAFAT ####[facility] Jybttxwptp839[address] [place], [place] [address]Dr. Sasha Montero CORRECTED WBC Normal 4.0-11.[address] [facility] Comment on above: Performed By: #### C CARYL ####[facility] Ultxhyvcfj015[address] [place], [place] [address]Dr. Sasha Montero EOS # 0.00 103/ul Normal 0.00-0.70 [facility] Comment on above: Performed By: #### C CARYL ####[facility] Wjnbtccypn294[address] [place], [place] [address]Dr. Sasha Montero EOS% 0.0 % Critically low 0.9-7.0 [facility] Comment on above: Performed By: #### C CARYL ####[facility] Byhdcwpusa[address] [place], [place] [address]Dr. Sasha Montero HCT 38.1 % Normal 36.0-48.0 [facility] Comment on above: Performed By: #### C CARYL ####[facility] Zyfxrguxth223882 [address] [place], [place] [address]Dr. Sasha Montero HGB 12.5 g/dl Normal 12.0-16.[address] [facility] Comment on above: Performed By: #### C CARYL ####[facility] Zhdbyalkmx765[address] [place], [place] [address]Dr. Sasha Montero LYMPHM # 5.95 103/ul Critically high 1.20-3.[address] [facility] Comment on above: Performed By: #### C CARYL ####[facility] Majdspuvwr7089[address] [place], [place] [address]Dr. Sasha Montero LYMPHM% 25.0 % Normal 20.5-60.[address] [facility] Comment on above: Performed By: #### C CARYL ####[facility] Jcgmqstuwp8605 [place] [address]Dr. Sasha Montero MCH 30.1 pg Normal 26.7-34.[address] [facility] Comment on above: Performed By: #### C CARYL ####[facility] Lnssqysqqx8844 [place] [phone]. Sasha Montero MCHC 32.8 g/dl Normal 29.9-35.[address] [facility] Comment on above: Performed By: #### C CARYL ####[facility] Cqnxkfmowq6437 [place] [address]Dr. Sasha Montero MCV 91.8 fL Normal 81.0-99.[address] [facility] Comment on above: Performed By: #### C CARYL ####[facility] Ebxzjsjxxr57[address] [place], [place] [address]Dr. Sasha Montero METAMYELOCYTE # Normal [facility] Comment on above: Performed By: #### C CARYL ####[facility] Gpiduurcsr3695[address] [place], [place] [address]Dr. Sasha Montero METAMYELOCYTE % Normal [facility] Comment on above: Performed By: #### C CARYL ####[facility] Zivyqgxliw484[address] [place], [place] [address]Dr. Sasha Montero MONOM# 1.67 103/ul Critically high 0.30-0.[address] [facility] Comment on above: Performed By: #### C CARYL ####[facility] Dxxewxnabk1015[address] [place], [place] [address]Dr. Sasha Montero MONOM% 7.0 % Normal 1.7-12.[address] [facility] Comment on above: Performed By: #### C CARYL ####[facility] Tshzmlwevc4875 [place] [address]Dr. Sasha Montero MPV 9.0 fL Critically low 9.5-13.[address] [facility] Comment on above: Performed By: #### C CARYL ####[facility] Gugbeqlinj8937 [place], [place] [address]Fb. Sasha Montero MYELOCYTE # Normal [facility] Comment on above: Performed By: #### C CARYL ####[facility] Jkhzbgocww9975 [place] [phone]. Sasha Montero MYELOCYTE % Normal [facility] Comment on above: Performed By: #### C CARYL ####[facility] Amceuzohnp5510 [place] [phone]. Sasha Montero NRBC Normal [facility] Comment on above: Performed By: #### C CARYL ####[facility] Lhyfvzygfa3825 [place] [phone]. Sasha Montero PLT 468 103/ul Critically high 150-450 [facility] Comment on above: Performed By: #### C CARYL ####[facility] Pbkobxmubm3253 [place] [phone]. Sasha Montero RBC 4.15 106/ul Critically low 4.20-5.40 [facility] Comment on above: Performed By: #### C CARYL ####[facility] Qaexblyqbl4136 [place] [phone]. Sasha Montero RDW 13.2 % Normal 11.0-15.0 [facility] Comment on above: Performed By: #### C CARYL ####[facility] Zkhlzmsuzi2760 [place] [phone]. Sasha Montero SEG # 16.18 103/ul Critically high 1.40-6.[address] [facility] Comment on above: Performed By: #### C CARYL ####[facility] Rewogyitqi6631 [place] [phone]. Sasha Montero SEG % 68.0 % Normal 43.0-75.[address] [facility] Comment on above: Performed By: #### C CARYL ####[facility] Zzhtxkbhze2794 [place] [phone]. Sasha Montero WBC 23.8 103/ul Critically high 4.0-11.[address] [facility] Comment on above: Performed By: #### C CARYL ####[facility] Ehvtpirfac1078 [place] [address]Dr. Sasha Montero PROF 14(COMP METB)on 022 Albumin [Mass/Vol] 4.7 g/dL Normal 3.4-5.0 [facility] Comment on above: Performed By: #### C MP ####[facility] Ftzpnietcr4037 [place] [address]Dr. Sasha Montero Albumin/Globulin [Mass ratio] 1.4 {ratio} Normal [facility] Comment on above: Performed By: #### C MP ####[facility] Orvmwexbda898[address] [place], [place] [address]Dr. Sasha Montero ALP [Catalytic activity/Vol] 85 U/L Normal 46-116 [facility] Comment on above: Performed By: #### C MP ####[facility] Ybgxohlowj573682 [address] [place], [place] [address]Dr. Sasha Montero ALT [Catalytic activity/Vol] 16 U/L Normal 14-[address] [facility] Comment on above: Performed By: #### C MP ####[facility] Ssvczxcfkl353282 [address] [place], [place] [address]Dr. Sasha Montero Anion gap [Moles/Vol] 18.9 mmol/L Normal [facility] Comment on above: Performed By: #### C MP ####[facility] Ufwukklsts9627[address] [place], [place] [address]Dr. Sasha Montero AST [Catalytic activity/Vol] 11 U/L Critically low 15-[address] [facility] Comment on above: Performed By: #### C MP ####[facility] Acvjnnyewe696[address] [place], [place] [address]Dr. Sasha Montero Bilirubin [Mass/Vol] 0.3 mg/dL Normal 0.2-1.[address] [facility] Comment on above: Performed By: #### C MP ####[facility] Tkjwakjgmj9718[address] [place], [place] [address]Dr. Sasha Montero Calcium [Mass/Vol] 9.1 mg/dL Normal 8.5-10.1 [facility] Comment on above: Performed By: #### C MP ####[facility] Pvkqzkbkmi9360 [place] [phone]. Sasha Montero Chloride [Moles/Vol] 101 mmol/L Normal 98-[address] [facility] Comment on above: Performed By: #### C MP ####[facility] Yptqhtzptz4603 [place] [address]Dr. Sasha Montero CO2 [Moles/Vol] 23.3 mmol/L Normal 21.0-32.0 [facility] Comment on above: Performed By: #### C MP ####[facility] Mknfnjivdx8117 [place] [address]Dr. Sasha Montero Creatinine [Mass/Vol] 1.27 mg/dL Critically high 0.55-1.02 [facility] Comment on above: Performed By: #### C MP ####[facility] Uxsrmscwoe3837[address] [place], [place] [address]Dr. Sasha Montero EGFR-AF BRUNEIAN 57 mL/min/1.73m2 Critically low >=60 [facility] Comment on above: Performed By: #### C MP ####[facility] Bgcznnzudj6926[address] [place], [place] [address]Dr. Sasha Montero EGFR-NON AF BRUNEIAN 47 mL/min/1.73m2 Critically low >=[address] [facility] Comment on above: Performed By: #### C MP ####[facility] Pkkudjbgdl4695 [place] [address]Dr. Sasha Montero Globulin (S) [Mass/Vol] 3.3 g/dL Normal [facility] Comment on above: Performed By: #### C MP ####[facility] Etvedmqnxp612582 [address] [place], [place] [address]Dr. Sasha Montero Glucose [Mass/Vol] 138 mg/dL Critically high 74-106 [facility] Comment on above: Performed By: #### C MP ####[facility] Iheciszgqn8634[address] [place], [place] [address]Dr. Sasha Montero Potassium [Moles/Vol] 3.2 mmol/L Critically low 3.5-5.[address] [facility] Comment on above: Performed By: #### C MP ####[facility] Ksinnogkcb1118 [place] [phone]. Sasha Montero Protein [Mass/Vol] 8.0 g/dL Normal 6.4-8.[address] [facility] Comment on above: Performed By: #### C MP ####[facility] Olozuwpnob7236 [place] [phone]. Sasha Montero Sodium [Moles/Vol] 140 mmol/L Normal 136-[address] [facility] Comment on above: Performed By: #### C MP ####[facility] Pyjyzkzmvj8789 [place] [phone]. Sasha Montero Urea nitrogen [Mass/Vol] 11.0 mg/dL Normal 7.0-18.[address] [facility] Comment on above: Performed By: #### C MP ####[facility] Lyikcnuslw3844 [place] [address]Dr. Sasha Montero Urea nitrogen/Creatinine [Mass ratio] 8.7 mg/mg Normal [facility] Comment on above: Performed By: #### C MP ####[facility] Afqbgenzmg10[address] [place], [place] [address]Dr. Sasha Montero CBC AUTO DIFFon 03-09-2022 BASO # 0.0 103/ul Normal 0.0-0.[address] [facility] Comment on above: Performed By: #### C BC ####[facility] Iqycjdpcsx8846 [place] [address]Dr. Sasha Montero Basophils/100 WBC (Bld) 0.2 % Normal 0.2-2.[address] [facility] Comment on above: Performed By: #### C BC ####[facility] Aqzaqpapoc2810 [place] [phone]. Sasha Montero EO # 0.0 103/ul Normal 0.0-0.[address] [facility] Comment on above: Performed By: #### C BC ####[facility] Uejhlvqhpe6[address] [place], [place] [address]Dr. Sasha Montero Eosinophils/100 WBC (Bld) 0.0 % Critically low 0.9-7.[address] [facility] Comment on above: Performed By: #### C BC ####[facility] Xkedwkdimf8261 [place] [address]Dr. Sasha Montero Erythrocyte distribution width (RBC) [Ratio] 13.6 % Normal 11.0-15.0 [facility] Comment on above: Performed By: #### C BC ####[facility] Nniieshjox4575[address] [place], [place] [address]Dr. Sasha Montero Hematocrit (Bld) [Volume fraction] 29.9 % Critically low 36.0-48.0 [facility] Comment on above: Performed By: #### C BC ####[facility] Trjyxfcmha701[address] [place], [place] [address]Dr. Sasha Montero Hemoglobin (Bld) [Mass/Vol] 9.8 g/dL Critically low 12.0-16.0 [facility] Comment on above: Performed By: #### C BC ####[facility] Lekrjtkmmx780[address] [place], [place] [address]Dr. Sasha Montero IG # 0.08 10e3/ul Critically high 0.00-0.03 [facility] Comment on above: Performed By: #### C BC ####[facility] Jicyixhtal133082 [address] [place], [place] [address]Dr. Sasha Montero IG % 0.5 % Normal 0.0-0.5 [facility] Comment on above: Performed By: #### C BC ####[facility] Hkvoczcurp1977[address] [place], [place] [address]Dr. Sasha Montero LYMPH # 1.2 103/ul Normal 1.2-3.[address] [facility] Comment on above: Performed By: #### C BC ####[facility] Xrevrgcnwl289[address] [place], [place] [address]Dr. Sasha Montero Lymphocytes/100 WBC (Bld) 7.3 % Critically low 20.5-60.[address] [facility] Comment on above: Performed By: #### C BC ####[facility] Obakgtgwwf6669[address] [place], [place] [address]Dr. Sasha Montero MANUAL DIFF REQ NO Normal [facility] Comment on above: Performed By: #### C BC ####[facility] Bocsgvltbe4796 [place] [phone]. Sasha Montero MCH (RBC) [Entitic mass] 29.9 pg Normal 26.7-34.[address] [facility] Comment on above: Performed By: #### C BC ####[facility] Bbshqdwdxk2681 [place] [address]Dr. Sasha Montero MCHC (RBC) [Mass/Vol] 32.8 g/dL Normal 29.9-35.[address] [facility] Comment on above: Performed By: #### C BC ####[facility] Wcudomjvvu7917 [place] [address]Dr. Sasha Winston MCV (RBC) [Entitic vol] 91.2 fL Normal 81.0-99.[address] [facility] Comment on above: Performed By: #### C BC ####[facility] Iyqmwkvwhm[address] [place], [place] [address]Dr. Sasha Montero MONO # 0.9 103/ul Critically high 0.3-0.[address] [facility] Comment on above: Performed By: #### C BC ####[facility] Qwxkvljyio152182 [address] [place], [place] [address]Dr. Albinalaura Montero Monocytes/100 WBC (Bld) 5.4 % Normal 1.7-12.[address] [facility] Comment on above: Performed By: #### C BC ####[facility] Yvhozilfwd814[address] [place], [place] [address]Dr. Albinalaura Montero NEUT # 14.3 103/ul Critically high 1.4-6.[address] [facility] Comment on above: Performed By: #### C BC ####[facility] Mjogsdavtj880[address] [place], [place] [address]Dr. Sasha Montero Neutrophils/100 WBC (Bld) 86.6 % Critically high 43.0-75.[address] [facility] Comment on above: Performed By: #### C BC ####[facility] Ruumbtthpj6905[address] [place], [place] [address]Dr. Sasha Montero Platelet mean volume (Bld) [Entitic vol] 9.6 fL Normal 9.5-13.[address] [facility] Comment on above: Performed By: #### C BC ####[facility] Osrprvfywy2528 [place] [address]Dr. Sasha Montero PLT 281 103/ul Normal 150-450 [facility] Comment on above: Performed By: #### C BC ####[facility] Hvjdyndbor1599 [place] [phone]. Sasha Montero RBC 3.28 106/ul Critically low 4.20-5.40 [facility] Comment on above: Performed By: #### C BC ####[facility] Aexthrvezg4206 [place] [phone]. Sasha Montero WBC 16.5 103/ul Critically high 4.0-11.0 [facility] Comment on above: Performed By: #### C BC ####[facility] Oaehploswo8834 [place] [address]Dr. Sasha Montero PROF 14(COMP METB)on 022 Albumin [Mass/Vol] 3.3 g/dL Critically low 3.4-5.0 [facility] Comment on above: Performed By: #### C MP ####[facility] Jflvsxwowj026[address] [place], [place] [address]Dr. Sasha Montero Albumin/Globulin [Mass ratio] 1.2 {ratio} Normal [facility] Comment on above: Performed By: #### C MP ####[facility] Hrobldzize2152 [place] [address]Dr. Sasha Montero ALP [Catalytic activity/Vol] 58 U/L Normal 46-[address] [facility] Comment on above: Performed By: #### C MP ####[facility] Tnioinczuh2899 [place] [address]Dr. Sasha Montero ALT [Catalytic activity/Vol] 16 U/L Normal 14-59 [facility] Comment on above: Performed By: #### C MP ####[facility] Bbsungwwog6577 [place] [address]Dr. Sasha Montero Anion gap [Moles/Vol] 9.2 mmol/L Normal [facility] Comment on above: Performed By: #### C MP ####[facility] Zfnrgfpowz1029 [place] [phone]. Sasha Monteor AST [Catalytic activity/Vol] 18 U/L Normal 15-[address] [facility] Comment on above: Performed By: #### C MP ####[facility] Eevswjqvpd3116 [place] [phone]. Sasha Montero Bilirubin [Mass/Vol] 0.5 mg/dL Normal 0.2-1.[address] [facility] Comment on above: Performed By: #### C MP ####[facility] Qspphxllgz4881 [place] [id number]. Sasha Montero Calcium [Mass/Vol] 8.5 mg/dL Normal 8.5-10.[address] [facility] Comment on above: Performed By: #### C MP ####[facility] Bvzqyeqovq8[address] [place], [place] [address]Dr. Sasha Montero Chloride [Moles/Vol] 106 mmol/L Normal 98-[address] [facility] Comment on above: Performed By: #### C MP ####[facility] Malgvmsckq6206 [place] [id number]. Sasha Montero CO2 [Moles/Vol] 27.8 mmol/L Normal 21.0-32.0 [facility] Comment on above: Performed By: #### C MP ####[facility] Kvwiicfqrf75[address] [place], [place] [address]Dr. Sasha Montero Creatinine [Mass/Vol] 0.73 mg/dL Normal 0.55-1.[address] [facility] Comment on above: Performed By: #### C MP ####[facility] Shpvkksidr4633 [place] [id number]. Sasha Montero EGFR-AF BRUNEIAN >60 Normal >=[address] [facility] Comment on above: Performed By: #### C MP ####[facility] Psqzrmkdha8595 [place] [id number]. Sasha Montero EGFR-NON AF BRUNEIAN >60 Normal >=[address] [facility] Comment on above: Performed By: #### C MP ####[facility] Mhcepkgjzr5268 [place] [address]Dr. Sasha Montero Globulin (S) [Mass/Vol] 2.8 g/dL Normal [facility] Comment on above: Performed By: #### C MP ####[facility] Htmojslnjy5[address] [place], [place] [address]Dr. Sasha Montero Glucose [Mass/Vol] 106 mg/dL Normal 74-[address] [facility] Comment on above: Performed By: #### C MP ####[facility] Zkoduzhexl095[address] [place], [place] [address]Dr. Sasha Montero Potassium [Moles/Vol] 4.0 mmol/L Normal 3.5-5.1 [facility] Comment on above: Performed By: #### C MP ####[facility] Zwanjpxock75[address] [place], [place] [address]Dr. Sasha Montero Protein [Mass/Vol] 6.1 g/dL Critically low 6.4-8.2 [facility] Comment on above: Performed By: #### C MP ####[facility] Axajcmgfqk388[address] [place], [place] [address]Dr. Sasha Montero Sodium [Moles/Vol] 139 mmol/L Normal 136-145 [facility] Comment on above: Performed By: #### C MP ####[facility] Srvwwnpkql799[address] [place], [place] [address]Dr. Sasha Montero Urea nitrogen [Mass/Vol] 11.0 mg/dL Normal 7.0-18.0 [facility] Comment on above: Performed By: #### C MP ####[facility] Lgrqxpincs434[address] [place], [place] [address]Dr. Sasha Montero Urea nitrogen/Creatinine [Mass ratio] 15.1 mg/mg Normal [facility] Comment on above: Performed By: #### C MP ####[facility] Qrgnsjnuxv395382 [address] [place], [place] [address]Dr. Sasha Montero CBC W MANUAL DIFFon 03-08-20 22 ATYPICAL LYMPH # Normal [facility] Comment on above: Performed By: #### C BCMAN ####[facility] Bwhwmrwtjq76[address] [place], [place] [address]Dr. Yilan Montero ATYPICAL LYMPH % Normal [facility] Comment on above: Performed By: #### C BCMAN ####[facility] Lswfbgnnxi6063 [place] [address]Dr. Sasha Montero BAND # 0.2 103/ul Normal 0.0-0.[address] [facility] Comment on above: Performed By: #### C BCMAN ####[facility] Fcrmncqfhj5971 [place] [address]Dr. Yilan Montero BAND % 1 % Normal 0-[address] [facility] Comment on above: Performed By: #### C BCMAN ####[facility] Payilwpkmm2880[address] [place], [place] [address]Dr. Sasha Montero BASOM # 0.00 103/ul Normal 0.00-0.[address] [facility] Comment on above: Performed By: #### C BCJOSAFAT ####[facility] Jmrgbtdfne469[address] [place], [place] [address]Dr. Sasha Montero BASOM % 0.0 % Critically low 0.2-2.[address] [facility] Comment on above: Performed By: #### C BCJOSAFAT ####[facility] Naviycfrhj377[address] [place], [place] [address]Dr. Sasha Montero BLAST # Normal [facility] Comment on above: Performed By: #### C BCJOSAFAT ####[facility] Dmayuutqhg2795 [place] [address]Dr. Sasha Montero BLAST % Normal [facility] Comment on above: Performed By: #### C BCJOSAFAT ####[facility] Xuupxzverl7004 [place] [address]Dr. Sasha Montero CORRECTED WBC Normal 4.0-11.[address] [facility] Comment on above: Performed By: #### C BCMAN ####[facility] Mazasggcmb640[address] [place], [place] [address]Dr. Sasha Montero EOS # 0.00 103/ul Normal 0.00-0.[address] [facility] Comment on above: Performed By: #### C BCJOSAFAT ####[facility] Cwkpqogbax7949[address] [place], [place] [address]Dr. Yilan Montero EOS% 0.0 % Critically low 0.9-7.0 [facility] Comment on above: Performed By: #### C CARYL ####[facility] Phndzregyz3897 [place] [phone]. Sasha Montero HCT 35.0 % Critically low 36.0-48.0 [facility] Comment on above: Performed By: #### C CARYL ####[facility] Adtxpfezts9652 [place] [phone]. Sasha Montero HGB 12.2 g/dl Normal 12.0-16.0 [facility] Comment on above: Performed By: #### C CARYL ####[facility] Gxsvgkeohe653[address] [place], [place] [address]DrSvetlana Montero LYMPHM # 2.19 103/ul Normal 1.20-3.80 [facility] Comment on above: Performed By: #### Donnie HUTSON ####[facility] Ppycjjvmcx[address] [place], [place] [address]Dr. Sasha Montero LYMPHM% 9.0 % Critically low 20.5-60.0 [facility] Comment on above: Performed By: #### Donnie HUTSON ####[facility] Stxmeqbjbo28[address] [place], [place] [address]Dr. Sasha Montero MCH 30.7 pg Normal 26.7-34.0 [facility] Comment on above: Performed By: #### Donnie HUTSON ####[facility] Odhvdnjxfm[address] [place], [place] [address]Dr. Sasha Montero MCHC 34.9 g/dl Normal 29.9-35.[address] [facility] Comment on above: Performed By: #### C CARYL ####[facility] Evrwwcfwcq5724 [place] [phone]. Sasha Montero MCV 87.9 fL Normal 81.0-99.0 [facility] Comment on above: Performed By: #### C CARYL ####[facility] Dxtgzdnvfg7118 [place] [phone]. Sasha Montero METAMYELOCYTE # Normal [facility] Comment on above: Performed By: #### C CARYL ####[facility] Tiykkstecc5517 [place] [phone]. Sasha Montero METAMYELOCYTE % Normal [facility] Comment on above: Performed By: #### C CARYL ####[facility] Qvnzvpeojp1635 [place] [phone]. Sasha Montero MONOM# 0.00 103/ul Critically low 0.30-0.80 [facility] Comment on above: Performed By: #### C CARYL ####[facility] Dunbcvysgj6349 [place] [phone]. Sasha Montero MONOM% 0.0 % Critically low 1.7-12.0 [facility] Comment on above: Performed By: #### C CARYL ####[facility] Shjwvwwsjb1154 [place] [address]Dr. Sasha Montero MPV 8.8 fL Critically low 9.5-13.5 [facility] Comment on above: Performed By: #### C CARYL ####[facility] Kxviuxvumf[address] [place], [place] [address]Dr. Sasha Montero MYELOCYTE # Normal [facility] Comment on above: Performed By: #### C CARYL ####[facility] Jvtuvsluif4573 [place] [address]Dr. Sasha Montero MYELOCYTE % Normal [facility] Comment on above: Performed By: #### Donnie HUTSON ####[facility] Xcafqldict7093 [place] [address]Dr. Sahsa Monteor NRBC Normal [facility] Comment on above: Performed By: #### Donnie HUTSON ####[facility] Wzovzjavsy5391 [place] [phone]. Sasha Montero PLT 371 103/ul Normal 150-[address] [facility] Comment on above: Performed By: #### C CARYL ####[facility] Cjuvpgremm8443 [place] [phone]. Sasha Montero RBC 3.98 106/ul Critically low 4.20-5.40 [facility] Comment on above: Performed By: #### C CARYL ####[facility] Vgbgyxklvb4515 [place] [phone]. Sasha Montero RDW 13.0 % Normal 11.0-15.[address] [facility] Comment on above: Performed By: #### C CARYL ####[facility] Vpeownylbm7553 [place], [place] [address]Cn. Sasha Montero SEG # 21.87 103/ul Critically high 1.40-6.[address] [facility] Comment on above: Performed By: #### C CARYL ####[facility] Nubdrhfphu6486 [place] [phone]. Sasha Montero SEG % 90.0 % Critically high 43.0-75.[address] [facility] Comment on above: Performed By: #### C CARYL ####[facility] Hpvpxvjauc8325 [place] [phone]. Sasha Winston WBC 24.3 103/ul Critically high 4.0-11.[address] [facility] Comment on above: Performed By: #### C CARYL ####[facility] Mthvwtofoz5453 [place] [phone]. Sasha Montero CRPon 03-08-2022 CRP 0.9 mg/dL Normal <=1.0 [facility] Comment on above: Performed By: #### C RP, CMP, LIPA ####[facility] Hxcnbdbfjd5508 [place] [phone]. Sasha Montero LIPASEon 03-08-2022 Lipase [Catalytic activity/Vol] 42.0 U/L Critically low 73.0-393.[address] [facility] Comment on above: Performed By: #### C RP, CMP, LIPA ####[facility] Kgwjvqjhqb5428 [place] [phone]. Sasha Montero PROF 14(COMP METB)on 022 Albumin [Mass/Vol] 4.0 g/dL Normal 3.4-5.0 [facility] Comment on above: Performed By: #### C RP, CMP, LIPA ####[facility] Kalyzvxfsj7278 [place] [address]Dr. Sasha Montero Albumin/Globulin [Mass ratio] 1.2 {ratio} Normal [facility] Comment on above: Performed By: #### C RP, CMP, LIPA ####[facility] Zsyqldavbl7172 [place] [address]Dr. Sasha Montero ALP [Catalytic activity/Vol] 83 U/L Normal 46-116 [facility] Comment on above: Performed By: #### C RP, CMP, LIPA ####[facility] Cdxgnrflwo3012 [place] [address]Dr. Sasha Montero ALT [Catalytic activity/Vol] 21 U/L Normal 14-[address] [facility] Comment on above: Performed By: #### C RP, CMP, LIPA ####[facility] Gllzgrlpjl3320 [place] [address]Dr. Sasha Montero Anion gap [Moles/Vol] 13.2 mmol/L Normal [facility] Comment on above: Performed By: #### C RP, CMP, LIPA ####[facility] Yyjfckkvdh[address] [place], [place] [address]Dr. Sasha Montero AST [Catalytic activity/Vol] 27 U/L Normal 15-37 [facility] Comment on above: Performed By: #### C RP, CMP, LIPA ####[facility] Mpodgwgwyh6266 [place] [address]Dr. Sasha Montero Bilirubin [Mass/Vol] 0.6 mg/dL Normal 0.2-1.0 [facility] Comment on above: Performed By: #### C RP, CMP, LIPA ####[facility] Doobkjkbli8444 [place] [address]Dr. Sasha Montero Calcium [Mass/Vol] 8.7 mg/dL Normal 8.5-10.[address] [facility] Comment on above: Performed By: #### C RP, CMP, LIPA ####[facility] Uzaavilvdd4772 [place] [address]Dr. Sasha Montero Chloride [Moles/Vol] 100 mmol/L Normal 98-[address] [facility] Comment on above: Performed By: #### C RP, CMP, LIPA ####[facility] Mydtqjanss3533 [place] [phone]. Sasha Montero CO2 [Moles/Vol] 27.2 mmol/L Normal 21.0-32.[address] [facility] Comment on above: Performed By: #### C RP, CMP, LIPA ####[facility] Tqsnikcqpp5102 [place] [address]Dr. Sasha Montero Creatinine [Mass/Vol] 0.73 mg/dL Normal 0.55-1.02 [facility] Comment on above: Performed By: #### C RP, CMP, LIPA ####[facility] Murkztpfqg9197 [place] [address]Dr. Sasha Montero EGFR-AF BRUNEIAN >60 Normal >=60 [facility] Comment on above: Performed By: #### C RP, CMP, LIPA ####[facility] Fdtogewhac9830 [place] [address]Dr. Sasha Montero EGFR-NON AF BRUNEIAN >60 Normal >=[address] [facility] Comment on above: Performed By: #### C RP, CMP, LIPA ####[facility] Rgiyewleek0358 [place] [address]Dr. Sasha Montero Globulin (S) [Mass/Vol] 3.4 g/dL Normal [facility] Comment on above: Performed By: #### C RP, CMP, LIPA ####[facility] Itzfqkjflb1199 [place] [address]Dr. Sasha Montero Glucose [Mass/Vol] 142 mg/dL Critically high 74-106 [facility] Comment on above: Performed By: #### C RP, CMP, LIPA ####[facility] Mpasareriv7057 [place] [address]Dr. Sasha Montero Potassium [Moles/Vol] 3.4 mmol/L Critically low 3.5-5.[address] [facility] Comment on above: Performed By: #### C RP, CMP, LIPA ####[facility] Gctggtybxs4897 [place] [address]Dr. Sasha Montero Protein [Mass/Vol] 7.4 g/dL Normal 6.4-8.[address] [facility] Comment on above: Performed By: #### C RP, CMP, LIPA ####[facility] Liywtseubn2737 [place] [address]Dr. Sasha Montero Sodium [Moles/Vol] 137 mmol/L Normal 136-[address] [facility] Comment on above: Performed By: #### C RP, CMP, LIPA ####[facility] Lqqxzovkfd4833 [place] [address]Dr. Sasha Montero Urea nitrogen [Mass/Vol] 5.0 mg/dL Critically low 7.0-18.[address] [facility] Comment on above: Performed By: #### C RP, CMP, LIPA ####[facility] Czpucmylzv1279 [place] [address]Dr. Sasha Montero Urea nitrogen/Creatinine [Mass ratio] 6.8 mg/mg Normal [facility] Comment on above: Performed By: #### C RP, CMP, LIPA ####[facility] Zxxbqgjvtt2565 [place] [address]Dr. Sasha Montero CARDIAC BROOKLYNN ADMITon 03-07- 022 CK [Catalytic activity/Vol] 145 U/L Normal 26-[address] [facility] Comment on above: Performed By: #### C MADM, CMP, LIPA ####[facility] Zemhkyytqb8924 [place] [address]Dr. Sasha Montero CK.MB [Mass/Vol] 2.06 ng/mL Normal <=3.[address] [facility] Comment on above: Performed By: #### C MADM, CMP, LIPA ####[facility] Rrhlklqsyb0473 [place] [address]Dr. Sasha Montero HSTROP 5.2 pg/mL Normal 4.0-51.[address] [facility] Comment on above: Result Comment: CUT- OFF POINTS HAVE BEEN ESTABLISHED BASED ON THE FOURTH UNIVERSAL DEFINITIONS OF MYOCARDIALINFARCTION. THE UPPER REFERENCE LIMIT (URL) OF TROPONIN, DEFINED THE 99TH PERCENTILE OFcTnI DISTRIBUTION IN A REFERENCE POPULATION, HAS BEEN CONFIRMED THE DECISION THRESHOLDFOR ND DIAGNOSIS. Performed By: #### C MADM, CMP, LIPA ####[facility] Syqjvlyccn2410 [place] [phone]. Sasha Mnotero WOLFGANG 142 ng/mL Critically high 9-[address] [facility] Comment on above: Performed By: #### C MADM, CMP, LIPA ####[facility] Amlkciuurl0158 [place] [phone]. Sasha Montero CBC AUTO DIFFon 03-07-2022 BASO # 0.1 103/ul Normal 0.0-0.[address] [facility] Comment on above: Performed By: #### C BC ####[facility] Srilojtlej8863 [place] [phone]. Albinalaura Montero Basophils/100 WBC (Bld) 0.5 % Normal 0.2-2.[address] [facility] Comment on above: Performed By: #### C BC ####[facility] Mrjugpqhtd[address] [place], [place] [address]Dr. Albinalaura Montero EO # 0.1 103/ul Normal 0.0-0.[address] [facility] Comment on above: Performed By: #### C BC ####[facility] Rckvpdfttj2309 [place] [address]Dr. Sasha Montero Eosinophils/100 WBC (Bld) 0.3 % Critically low 0.9-7.0 [facility] Comment on above: Performed By: #### C BC ####[facility] Rmouuxkzzv2982 [place] [address]Dr. Sasha Montero Erythrocyte distribution width (RBC) [Ratio] 13.0 % Normal 11.0-15.[address] [facility] Comment on above: Performed By: #### C BC ####[facility] Bgrbgqadkt8451 [place] [address]Dr. Albinalaura Montero Hematocrit (Bld) [Volume fraction] 40.3 % Normal 36.0-48.[address] [facility] Comment on above: Performed By: #### C BC ####[facility] Zhvmtoowwx[address] [place], [place] [address]Dr. Sasha Montero Hemoglobin (Bld) [Mass/Vol] 13.7 g/dL Normal 12.0-16.[address] [facility] Comment on above: Performed By: #### C BC ####[facility] Cnqpmttpvu6474 [place] [phone]. Sasha Montero IG # 0.08 10e3/ul Critically high 0.00-0.03 [facility] Comment on above: Performed By: #### C BC ####[facility] Wrrbyscdev5806 [place] [phone]. Sasha Winston IG % 0.5 % Normal 0.0-0.5 [facility] Comment on above: Performed By: #### C BC ####[facility] Ahpqyvlptp0514 [place] [address]Dr. Sasha Winston LYMPH # 2.8 103/ul Normal 1.2-3.8 [facility] Comment on above: Performed By: #### C BC ####[facility] Yylklunfrl2609 [place] [address]Dr. Sasha Montero Lymphocytes/100 WBC (Bld) 16.4 % Critically low 20.5-60.0 [facility] Comment on above: Performed By: #### C BC ####[facility] Neroeyhrye3943 [place] [address]DrSvetlana Albinalaura Montero MANUAL DIFF REQ NO Normal [facility] Comment on above: Performed By: #### C BC ####[facility] Qklfwlfzmv5272 [place] [phone]. Sasha Winston MCH (RBC) [Entitic mass] 30.4 pg Normal 26.7-34.0 [facility] Comment on above: Performed By: #### C BC ####[facility] Trplvmzhxk4514 [place] [phone]. Sasha Winston MCHC (RBC) [Mass/Vol] 34.0 g/dL Normal 29.9-35.[address] [facility] Comment on above: Performed By: #### C BC ####[facility] Coqjbjtmrq7677 [place] [phone]. Sasha Winston MCV (RBC) [Entitic vol] 89.4 fL Normal 81.0-99.0 [facility] Comment on above: Performed By: #### C BC ####[facility] Zbavomqtyv3374 [place] [phone]. Sasha Montero MONO # 1.0 103/ul Critically high 0.3-0.[address] [facility] Comment on above: Performed By: #### C BC ####[facility] Yvvgdttgda2160 [place] [phone]. Sasha Montero Monocytes/100 WBC (Bld) 5.9 % Normal 1.7-12.[address] [facility] Comment on above: Performed By: #### C BC ####[facility] Iciaipuzhs9402 [place] [address]Dr. Sasha Montero NEUT # 13.1 103/ul Critically high 1.4-6.5 [facility] Comment on above: Performed By: #### C BC ####[facility] Kweiupirfg56[address] [place], [place] [address]Dr. Sasha Montero Neutrophils/100 WBC (Bld) 76.4 % Critically high 43.0-75.0 [facility] Comment on above: Performed By: #### C BC ####[facility] Ukwgzwlyju5049 [place] [address]Dr. Sasha Montero Platelet mean volume (Bld) [Entitic vol] 8.8 fL Critically low 9.5-13.5 [facility] Comment on above: Performed By: #### C BC ####[facility] Zkqckoopbl43[address] [place], [place] [address]Dr. Sasha Montero PLT 555 103/ul Critically high 150-[address] [facility] Comment on above: Performed By: #### C BC ####[facility] Lfrcjcrmxq[address] [place], [place] [address]Dr. Sasha Montero RBC 4.51 106/ul Normal 4.20-5.[address] [facility] Comment on above: Performed By: #### C BC ####[facility] Idhzskyeea5180 [place] [phone]. Sasha Montero WBC 17.1 103/ul Critically high 4.0-11.[address] [facility] Comment on above: Performed By: #### C BC ####[facility] Gxvlfmqulb4179 [place] [phone]. Sasha Montero CULTURE BLOODon 03-07-2022 Microscopic examination of blood, culture Culture Observations: NO GROWTH AT 5 DAYS. Normal [facility] Comment on above: Performed By: #### B LDCX2 ####[facility] Bfbvsugvge3331 [place] [phone]. Sasha Montero Microscopic examination of blood, culture Culture Observations: NO GROWTH AT 5 DAYS. Normal [facility] Comment on above: Performed By: #### B LDCX1 ####[facility] Fwqnosbbea4887 [place] [phone]. Sasha Montero CULTURE URINEon 03-07-2022 CULTURE URINE Culture Observations : LIGHT GROWTH OF MIXED GENITAL AUDRA. NO POTENTIAL PATHOGENS SEEN. Normal [facility] Comment on above: Performed By: #### U RCX ####[facility] Nellhzywoe[address] [place], [place] [address]Dr. Sasha Montero Covid-19 PCR (CVDTBH)on 02-15 SARS-CoV-2 (COVID-19) RNA YULIANA+probe Ql (Unsp spec) Detected Critically abnormal NOT DETECTED [facility] Comment on above: Result Comment: This test is not yet approved or cleared by the [place] FDA. When there are no FDA-approved or cleared tests available, and other criteria are met, FDA can make tests available under an emergency access mechanism called an Emergency Use Authorization (EUA). The EUA for this test is supported by the [employer] of Health and Human Service's declaration that circumstances exist to justify the emergency use of in vitro diagnostics for the detection and/or diagnosis of the virus that causes COVID-19. This EUA will remain in effect for the duration of the COVID-19 declaration justifying emergency of IVDs, unless it is terminated or revoked by the FDA (after which the test may no longer be used). Performed By: #### C VDTBH ####[facility] Hgitisdywf6217 [place] [address]Dr. Sasha Montero ER URINE PROFILEon 2 Bilirubin Ql (U) SMALL Abnormal NEGATIVE [facility] Comment on above: Performed By: #### E RUR, UMICRO, PREGU ####[facility] Cieccmypic9691 [place] [address]Dr. Albinalaura Montero Clarity (U) CLEAR Normal CLEAR [facility] Comment on above: Performed By: #### E RUR, UMICRO, PREGU ####[facility] Blgjhzznyb9421 [place] [address]Dr. Sasha Montero Color (U) DK. YELLOW Normal YELLOW [facility] Comment on above: Performed By: #### Sheila RUR, UMICRO, PREGU ####[facility] Odkmetbuwj1598 [place] [address]Dr. Sasha Montero ERUAHD A micrscopic examina tion will be performed if indicated. Normal [facility] Comment on above: Performed By: #### Sheila RUDelon UMICRO, PREGU ####[facility] Makyjrvbga3285 [place] [address]Dr. Sasha Montero Glucose Ql (U) Negative Normal NEGATIVE [facility] Comment on above: Performed By: #### KANDIS GIBSONICRO, PREGU ####[facility] Ksykbuooit7571 [place] [address]Dr. Sasha Montero Hemoglobin Ql (U) Negative Normal NEGATIVE [facility] Comment on above: Performed By: #### Sheila MARROQUIN UMICRO, PREGU ####[facility] Nhuykljlep2382 [place] [address]Dr. Sasha Montero Ketones Ql (U) TRACE Abnormal NEGATIVE [facility] Comment on above: Performed By: #### Sheila RUR, UMICRO, PREGU ####[facility] Esyytalvun5179 [place] [address]Dr. Sasha Montero LEUKOCYTES Negative Normal NEGATIVE [facility] Comment on above: Performed By: #### Sheila RUR, UMICRO, PREGU ####[facility] Cibouipjqo2296 [place] [address]Dr. Sasha Montero Nitrite Ql (U) Negative Normal NEGATIVE [facility] Comment on above: Performed By: #### Sheila RUR, UMICRO, PREGU ####[facility] Hlqjdsctsd7961 [place] [address]Dr. Sasha Montero pH (U) 5.0 [pH] Normal 5-[address] [facility] Comment on above: Performed By: #### ANGIE GIBSON PREGU ####[facility] Znluvydvdy4800 [place] [address]Dr. Sasha Montero Protein (U) [Mass/Vol] 30 mg/dL Abnormal NEGAT ARSEN/ TRACE [facility] Comment on above: Performed By: #### ANGIE GIBSON PREGU ####[facility] Megovizrye5222 [place] [address]Dr. Sasha Montero SPEC GRAVITY >=1.030 Abnormal 1.005-<=1.[address] [facility] Comment on above: Performed By: #### ANGIE GIBSON PREGU ####[facility] Biligkbckq[address] [place], [place] [address]Dr. Sasha Montero UR MICRO IND INDICATED Normal [facility] Comment on above: Performed By: #### ANGIE GIBSON PREGU ####[facility] Cplajadmde[address] [place], [place] [address]Dr. Sasha Montero Urobilinogen Qn (U) 0.2 {Josie'U}/dL Normal 0.2 - 1. [address] [facility] Comment on above: Performed By: #### ANGIE GIBSON PREGU ####[facility] Kaoadranqu[address] [place], [place] [address]Dr. Albinalaura Winston LACTATE/LACTIC ACIDon 2021 Lactate [Moles/Vol] 2.7 mmol/L Critically high 0.4-1.[address] [facility] Comment on above: Performed By: #### L ACT ####[facility] Cwsynzttfa[address] [place], [place] [address]Dr. Sasha Montero Lactate [Moles/Vol] 6.2 mmol/L Critically high 0.4-1.[address] [facility] Comment on above: Performed By: #### L ACT ####[facility] [address]dlpwslrm[address] [place] [address]Dr. Sasha Winston LIPASEon 03-07-2022 Lipase [Catalytic activity/Vol] 64.0 U/L Critically low 73.0-393.0 [facility] Comment on above: Performed By: #### C MADM, CMP, LIPA ####[facility] Dngntdglvg[address] [place] [address]Dr. Sasha Montero MONOon 03-07-2022 Monocytes (Bld) [#/Vol] Negative Normal NEGATIVE [facility] Comment on above: Performed By: #### M KAHLIL ####[facility] Xwmoaeehrk[address] [place] [address]Dr. Sasha Montero PH VENOUS BLOODon 03-07-2022 PCO2 VENOUS 30.6 mmHg Critically low 40.0-52.[address] [facility] Comment on above: Performed By: #### P HVEN ####[facility] Oyhmrcaodm[address] [place], [place] [address]Dr. Sasha Montero pH VENOUS 7.422 Normal 7.330-7.430 [facility] Comment on above: Performed By: #### P HVEN ####[facility] Tzuxojjszu[address] [place], [place] [address]Dr. Sasha Montero URon 03-07-2022 , QUAL Negative Normal NEGATIVE [facility] Comment on above: Performed By: #### E RUR, UMICRO, PREGU ####[facility] Cbjcumonjj[address] [place] [address]Dr. Sasha Montero PROF 14(COMP METB)on 022 Albumin [Mass/Vol] 4.6 g/dL Normal 3.4-5.[address] [facility] Comment on above: Performed By: #### C MADM, CMP, LIPA ####[facility] Lxsnhbpsgb30[address] [place] [address]Dr. Sasha Montero Albumin/Globulin [Mass ratio] 1.2 {ratio} Normal [facility] Comment on above: Performed By: #### C MADM, CMP, LIPA ####[facility] Albacfgdjk[address] [place] [address]Dr. Sasha Montero ALP [Catalytic activity/Vol] 100 U/L Normal 46-[address] [facility] Comment on above: Performed By: #### C MADM, CMP, LIPA ####[facility] Ftvmbazzvw13[address] [place] [address]Dr. Sasha Montero ALT [Catalytic activity/Vol] 17 U/L Normal 14-[address] [facility] Comment on above: Performed By: #### C MADM, CMP, LIPA ####[facility] Opsfkhmexj[address] [place] [address]Dr. Sasha Montero Anion gap [Moles/Vol] 23.4 mmol/L Normal Th e [facility] Comment on above: Performed By: #### C MADM, CMP, LIPA ####[facility] Ovitqhyyvj28[address] [place] [address]Dr. Sasha Montero AST [Catalytic activity/Vol] 25 U/L Normal 15-37 [facility] Comment on above: Performed By: #### C MADM, CMP, LIPA ####[facility] Uodsbatoes34[address] [place] [address]Dr. Sasha Montero Bilirubin [Mass/Vol] 0.5 mg/dL Normal 0.2-1.[address] [facility] Comment on above: Performed By: #### C MADM, CMP, LIPA ####[facility] Yxtoyybgpf5964 [place] [address]Dr. Sasha Montero Calcium [Mass/Vol] 9.8 mg/dL Normal 8.5-10.[address] [facility] Comment on above: Performed By: #### C MADM, CMP, LIPA ####[facility] Odioboujoy25[address] [place] [address]Dr. Sasha Montero Chloride [Moles/Vol] 100 mmol/L Normal 98-[address] [facility] Comment on above: Performed By: #### C MADM, CMP, LIPA ####[facility] Ncsgadpnzu[address] [place] [address]Dr. Sasha Montero CO2 [Moles/Vol] 19.3 mmol/L Critically low 21.0-32.[address] [facility] Comment on above: Performed By: #### C MADM, CMP, LIPA ####[facility] Zpbwzxkslj0148 [place] [address]Dr. Sasha Montero Creatinine [Mass/Vol] 1.31 mg/dL Critically high 0.55-1.02 [facility] Comment on above: Performed By: #### C MADM, CMP, LIPA ####[facility] Smrtlufxhg3742 [place] [address]Dr. Sasha Montero EGFR-AF BRUNEIAN 55 mL/min/1.73m2 Critically low >=60 [facility] Comment on above: Performed By: #### C MADM, CMP, LIPA ####[facility] Aycgtxwqrb[address] [place], [place] [address]Dr. Sasha Montero EGFR-NON AF BRUNEIAN 45 mL/min/1.73m2 Critically low >=60 [facility] Comment on above: Performed By: #### C MADM, CMP, LIPA ####[facility] Gfshhknise[address] [place], [place] [address]Dr. Sasha Montero Globulin (S) [Mass/Vol] 3.9 g/dL Normal [facility] Comment on above: Performed By: #### C MADM, CMP, LIPA ####[facility] Mankjmnugx[address] [place] [address]Dr. Sasha Montero Glucose [Mass/Vol] 202 mg/dL Critically high 74-106 [facility] Comment on above: Performed By: #### C MADM, CMP, LIPA ####[facility] Lohpyxnghr7[address] [place] [address]Dr. Sasha Montero Potassium [Moles/Vol] 3.7 mmol/L Normal 3.5-5.1 [facility] Comment on above: Performed By: #### C MADM, CMP, LIPA ####[facility] Webrtgoypk7[address] [place] [address]Dr. Sasha Montero Protein [Mass/Vol] 8.5 g/dL Critically high 6.4-8.2 [facility] Comment on above: Performed By: #### C MADM, CMP, LIPA ####[facility] Imntetephb[address]76 [place] [address]Dr. Sasha Montero Sodium [Moles/Vol] 139 mmol/L Normal 136-[address] [facility] Comment on above: Performed By: #### C MADM, CMP, LIPA ####[facility] Afilojrekm3439 [place] [address]Dr. Sasha Montero Urea nitrogen [Mass/Vol] 7.0 mg/dL Normal 7.0-18.[address] [facility] Comment on above: Performed By: #### C MADM, CMP, LIPA ####[facility] Lqryawkhjp8388 [place] [address]Dr. Sasha Montero Urea nitrogen/Creatinine [Mass ratio] 5.3 mg/mg Normal [facility] Comment on above: Performed By: #### C MADM, CMP, LIPA ####[facility] Cqqdrsjvgg32[address] [place] [address]Dr. Sasha Montero URINE MICROSCOPIC ONLYon BACTERIA SMALL Abnormal NONE SEEN [facility] Comment on above: Performed By: #### ANGIE GIBSON, PREGU ####[facility] Xwssejczzp9368 [place] [address]Dr. Sasha Montero Bacteria identified Cx Nom (U) INDICATED Normal [facility] Comment on above: Performed By: #### ANGIE GIBSON, PREGU ####[facility] Etwhjkhsdj9[address] [place] [address]Dr. Sasha Montero CAST SEEN Abnormal NONE SEEN [facility] Comment on above: Performed By: #### ANGIE GIBSON, PREGU ####[facility] Pyudjurjaw2146 [place] [address]Dr. Sasha Montero Crystals LM Nom (Urine sed) NONE SEEN Normal NONE SEEN [facility] Comment on above: Performed By: #### ANGIE GIBSON, PREGU ####[facility] Taxnsbovlj1708 [place] [address]Dr. Sasha Montero Epithelial cells LM Ql (Urine sed) MODERATE Abnormal NONE SEEN /RARE [facility] Comment on above: Performed By: #### ANGIE GIBSON PREGU ####[facility] Kksheksmqd2234 [place] [address]Dr. Sasha Montero HYALINE CAST MANY Normal [facility] Comment on above: Performed By: #### ANGIE GIBSON PREGU ####[facility] Qlrlkrierg0838 [place] [address]Dr. Sasha Montero MUCOUS NONE SEEN Normal NONE SEEN [facility] Comment on above: Performed By: #### ANGIE GIBSON PREGU ####[facility] Pnbfaagror4780 [place] [address]Dr. Sasha Montero RBC 0-2 Normal 0-2 [facility] Comment on above: Performed By: #### ANGIE GIBSON PREGU ####[facility] Ttvmafszro[address] [place], [place] [address]Dr. Sasha Montero WBC 2-5 Abnormal NONE SEEN [facility] Comment on above: Performed By: #### ANGIE GIBSON PREGU ####[facility] Zlgqmaicgw[address] [place], [place] [address]Dr. Sasha Montero XR ABD FLAT UP_PA Anjel 03-07 XR ABD FLAT UP_PA CH Normal [facility] AMYLASEon 02-07-2022 Amylase [Catalytic activity/Vol] 30 U/L Normal 25-[address] [facility] Comment on above: Performed By: #### L IPA, HUI, LIVER, BMP ####[facility] Znraybnrwg117[address] [place], [place] [address]Dr. Sasha Montero CBC AUTO DIFFon 02-07-2022 BASO # 0.0 103/ul Normal 0.0-0.[address] [facility] Comment on above: Performed By: #### C BC ####[facility] Wxpibxivsp5[address] [place], [place] [address]Dr. Sasha Montero Basophils/100 WBC (Bld) 0.3 % Normal 0.2-2.0 [facility] Comment on above: Performed By: #### C BC ####[facility] Xmizuqsevt[address] [place], [place] [address]Dr. Sasha Montero EO # 0.0 103/ul Normal 0.0-0.[address] [facility] Comment on above: Performed By: #### C BC ####[facility] Cxtanzmvss8128 [place] [address]Dr. Sasha Montero Eosinophils/100 WBC (Bld) 0.5 % Critically low 0.9-7.[address] [facility] Comment on above: Performed By: #### C BC ####[facility] Vmtgnxndao[address] [place], [place] [address]Dr. Sasha Montero Erythrocyte distribution width (RBC) [Ratio] 12.6 % Normal 11.0-15.[address] [facility] Comment on above: Performed By: #### C BC ####[facility] Jegjbuftqo6425[address] [place], [place] [address]Dr. Sasha Montero Hematocrit (Bld) [Volume fraction] 35.8 % Critically low 36.0-48.[address] [facility] Comment on above: Performed By: #### C BC ####[facility] Izyrgshjoh[address] [place], [place] [address]Dr. Sasha Montero Hemoglobin (Bld) [Mass/Vol] 12.1 g/dL Normal 12.0-16.[address] [facility] Comment on above: Performed By: #### C BC ####[facility] Pnqarpvmdu[address] [place], [place] [address]Dr. Sasha Montero IG # 0.02 10e3/ul Normal 0.00-0.[address] [facility] Comment on above: Performed By: #### C BC ####[facility] Daafjffreu[address] [place], [place] [address]Dr. Sasha Montero IG % 0.3 % Normal 0.0-0.[address] [facility] Comment on above: Performed By: #### C BC ####[facility] Ybbehbxuti509[address] [place], [place] [address]Dr. Sasha Montero LYMPH # 1.6 103/ul Normal 1.2-3.[address] [facility] Comment on above: Performed By: #### C BC ####[facility] Wzjgwekbla9138 [place] [address]Dr. Albinalaura Montero Lymphocytes/100 WBC (Bld) 24.4 % Normal 20.5-60.[address] [facility] Comment on above: Performed By: #### C BC ####[facility] Xsfuxmwagb4028 [place] [address]Dr. Albinalaura Montero MANUAL DIFF REQ NO Normal [facility] Comment on above: Performed By: #### C BC ####[facility] Qmowionbkl9278 [place] [address]Dr. Sasha Winston MCH (RBC) [Entitic mass] 30.7 pg Normal 26.7-34.[address] [facility] Comment on above: Performed By: #### C BC ####[facility] Jofcvgaebh7[address] [place], [place] [address]Dr. Sasha Montero MCHC (RBC) [Mass/Vol] 33.8 g/dL Normal 29.9-35.[address] [facility] Comment on above: Performed By: #### C BC ####[facility] Yhnldwldbu[address] [place], [place] [address]Dr. Sasha Montero MCV (RBC) [Entitic vol] 90.9 fL Normal 81.0-99.[address] [facility] Comment on above: Performed By: #### C BC ####[facility] Lhtimsmbpv018[address] [place], [place] [address]Dr. Sasha Montero MONO # 0.8 103/ul Normal 0.3-0.[address] [facility] Comment on above: Performed By: #### C BC ####[facility] Qsjaxfzvcu019[address] [place], [place] [address]Dr. Sasha Montero Monocytes/100 WBC (Bld) 12.7 % Critically high 1.7-12.[address] [facility] Comment on above: Performed By: #### C BC ####[facility] Jbelftknkm14[address] [place], [place] [address]Dr. Sasha Montero NEUT # 4.0 103/ul Normal 1.4-6.[address] [facility] Comment on above: Performed By: #### C BC ####[facility] Eefyjmlhen[address] [place], [place] [address]Dr. Sasha Montero Neutrophils/100 WBC (Bld) 61.8 % Normal 43.0-75.[address] [facility] Comment on above: Performed By: #### C BC ####[facility] Ztbwbsdaec7[address] [place], [place] [address]Dr. Sasha Montero Platelet mean volume (Bld) [Entitic vol] 8.8 fL Critically low 9.5-13.[address] [facility] Comment on above: Performed By: #### C BC ####[facility] Urnhexmuzt8020[address] [place], [place] [address]Dr. Sasha Winston PLT 278 103/ul Normal 150-[address] [facility] Comment on above: Performed By: #### C BC ####[facility] Wlctahymgl78[address] [place], [place] [address]Dr. Albinalaura Motnero RBC 3.94 106/ul Critically low 4.20-5.[address] [facility] Comment on above: Performed By: #### C BC ####[facility] Rbwrhtjqzy768[address] [place], [place] [address]Dr. Sasha Montero WBC 6.4 103/ul Normal 4.0-11.[address] [facility] Comment on above: Performed By: #### C BC ####[facility] Vqayqahfgu254[address] [place], [place] [address]Dr. Sasha Winston ER URINE PROFILEon 2 Bilirubin Ql (U) Negative Normal NEGATIVE [facility] Comment on above: Performed By: #### E RUR ####[facility] Lffmlqxjeh6[address] [place], [place] [address]Dr. Sasha Montero Clarity (U) CLEAR Normal CLEAR [facility] Comment on above: Performed By: #### E RUR ####[facility] Vumjpexnnr394[address] [place], [place] [address]Dr. Sasha Montero Color (U) YELLOW Normal YELLOW [facility] Comment on above: Performed By: #### E RUR ####[facility] Ikibwzwrgw099[address] [place], [place] [address]Dr. Sasha Montero ERUAHD A micrscopic examina tion will be performed if indicated. Normal [facility] Comment on above: Performed By: #### E RUR ####[facility] Duticdtsmt7[address] [place], [place] [address]Dr. Sasha Montero Glucose Ql (U) Negative Normal NEGATIVE [facility] Comment on above: Performed By: #### E RUR ####[facility] Kmrewanzoo[address] [place], [place] [address]Dr. Sasha Montero Hemoglobin Ql (U) Negative Normal NEGATIVE [facility] Comment on above: Performed By: #### E RUR ####[facility] Shwqfqgyjl22[address] [place], [place] [address]Dr. Sasha Montero Ketones Ql (U) Negative Normal NEGATIVE [facility] Comment on above: Performed By: #### E RUR ####[facility] Wbtnqdnejv574[address] [place], [place] [address]Dr. Sasha Montero LEUKOCYTES Negative Normal NEGATIVE [facility] Comment on above: Performed By: #### E RUR ####[facility] Shaqckllge9837[address] [place], [place] [address]Dr. Sasha Montero Nitrite Ql (U) Negative Normal NEGATIVE [facility] Comment on above: Performed By: #### E RUR ####[facility] Llpnyelzhd547[address] [place], [place] [address]Dr. Sasha Montero pH (U) 6.0 [pH] Normal 5-9 [facility] Comment on above: Performed By: #### E RUR ####[facility] Dayyfcdvfh9[address] [place], [place] [address]Dr. Sasha Montero SPEC GRAVITY 1.025 Normal 1.005-<=1.0 25 [facility] Comment on above: Performed By: #### E RUR ####[facility] Jkudasiial24[address] [place], [place] [address]Dr. Sasha Montero UA PROTEIN Negative Normal NEGATIVE/ TRACE [facility] Comment on above: Performed By: #### E RUR ####[facility] Etjdnzzazm97[address] [place], [place] [address]Dr. Albinalaura Winston UR MICRO IND NOT INDICATED Normal [facility] Comment on above: Performed By: #### E RUR ####[facility] Zpcgnwdxam28[address] [place] [address]Dr. Sasha Montero Urobilinogen Qn (U) 0.2 {Josie'U}/dL Normal 0.2 - 1. [address] [facility] Comment on above: Performed By: #### E RUR ####[facility] Jlpyguvhpn9323 [place] [address]Dr. Sasha Montero LIPASEon 02-07-2022 Lipase [Catalytic activity/Vol] 42.0 U/L Critically low 73.0-393.[address] [facility] Comment on above: Performed By: #### L IPA, HUI, LIVER, BMP ####[facility] Hcorwvwkvr[address] [place], [place] [address]Dr. Sasha Montero LIVER PROFILEon 02-07-2022 Albumin [Mass/Vol] 3.8 g/dL Normal 3.4-5.[address] [facility] Comment on above: Performed By: #### L IPA, HUI, LIVER, BMP ####[facility] Ppdrqbksdo[address] [place], [place] [address]Dr. Sasha Montero Albumin/Globulin [Mass ratio] 1.1 {ratio} Normal [facility] Comment on above: Performed By: #### L IPA, HUI, LIVER, BMP ####[facility] Hbhzaaaqcf[address] [place] [address]Dr. Sasha Montero ALP [Catalytic activity/Vol] 111 U/L Normal 46-[address] [facility] Comment on above: Performed By: #### L IPA, HUI, LIVER, BMP ####[facility] Zpmxyzizwo3491 [place] [address]Dr. Sasha Montero ALT [Catalytic activity/Vol] 25 U/L Normal 14-[address] [facility] Comment on above: Performed By: #### L IPA, HUI, LIVER, BMP ####[facility] Oklvooptjm5835 [place] [address]Dr. Sasha Montero AST [Catalytic activity/Vol] 25 U/L Normal 15-[address] [facility] Comment on above: Performed By: #### L IPA, HUI, LIVER, BMP ####[facility] Irwjboahvn52[address] [place] [address]Dr. Sasha Montero BILI, CONJUGATED 0.1 mg/dL Normal 0.0-0.2 [facility] Comment on above: Performed By: #### L IPA, HUI, LIVER, BMP ####[facility] Mjnghpcaza6774 [place] [address]Dr. Sasha Montero Bilirubin [Mass/Vol] 0.6 mg/dL Normal 0.2-1.0 [facility] Comment on above: Performed By: #### L IPA, HUI, LIVER, BMP ####[facility] Tucvqkbnru79[address] [place] [address]Dr. Sasha Montero Globulin (S) [Mass/Vol] 3.4 g/dL Normal [facility] Comment on above: Performed By: #### L IPA, HUI, LIVER, BMP ####[facility] Gbktjpuayv3302 [place] [address]Dr. Sasha Montero Protein [Mass/Vol] 7.2 g/dL Normal 6.4-8.[address] [facility] Comment on above: Performed By: #### L IPA, HUI, LIVER, BMP ####[facility] Wbjxuxotvh2507 [place] [address]Dr. Sasha Montero PROF CHEM 8 (BAS METB)on Anion gap [Moles/Vol] 13.6 mmol/L Normal [facility] Comment on above: Performed By: #### L IPA, HUI, LIVER, BMP ####[facility] Nprkpqasez8292 [place] [address]Dr. Sasha Montero Calcium [Mass/Vol] 8.6 mg/dL Normal 8.5-10.[address] [facility] Comment on above: Performed By: #### L IPA, HUI, LIVER, BMP ####[facility] Gixpomthcz[address] [place], [place] [address]Dr. Sasha Montero Chloride [Moles/Vol] 99 mmol/L Normal 98-107 [facility] Comment on above: Performed By: #### L IPA, HUI, LIVER, BMP ####[facility] Jivusafgkx5043 [place] [address]Dr. Sasha Montero CO2 [Moles/Vol] 28.2 mmol/L Normal 21.0-32.[address] [facility] Comment on above: Performed By: #### L IPA, HUI, LIVER, BMP ####[facility] Ocqjdtfubk7676 [place] [address]Dr. Sasha Montero Creatinine [Mass/Vol] 0.87 mg/dL Normal 0.55-1.[address] [facility] Comment on above: Performed By: #### L IPA, HUI, LIVER, BMP ####[facility] Gqnriplziu1661 [place] [address]Dr. Sasha Montero EGFR-AF BRUNEIAN >60 Normal >=[address] [facility] Comment on above: Performed By: #### L IPA, HUI, LIVER, BMP ####[facility] Eetlfwvehm86[address] [place], [place] [address]Dr. Sasha Montero EGFR-NON AF BRUNEIAN >60 Normal >=[address] [facility] Comment on above: Performed By: #### L IPA, HUI, LIVER, BMP ####[facility] Haxnrtwfog4237 [place] [address]Dr. Sasha Montero Glucose [Mass/Vol] 97 mg/dL Normal 74-[address] [facility] Comment on above: Performed By: #### L IPA, HUI, LIVER, BMP ####[facility] Upxoiudzzc6187 [place] [address]Dr. Sasha Montero Potassium [Moles/Vol] 3.8 mmol/L Normal 3.5-5.[address] [facility] Comment on above: Performed By: #### L IPA, HUI, LIVER, BMP ####[facility] Flswzxygrg9116 [place] [address]Dr. Sasha Montero Sodium [Moles/Vol] 137 mmol/L Normal 136-[address] [facility] Comment on above: Performed By: #### L IPA, HUI, LIVER, BMP ####[facility] Rtfltfzxiu[address] [place], [place] [address]Dr. Sasha Montero Urea nitrogen [Mass/Vol] 9.0 mg/dL Normal 7.0-18.[address] [facility] Comment on above: Performed By: #### L IPA, HUI, LIVER, BMP ####[facility] Knwzvqwyuf7281 [place] [address]Dr. Sasha Montero Urea nitrogen/Creatinine [Mass ratio] 10.3 mg/mg Normal [facility] Comment on above: Performed By: #### L IPA, HUI, LIVER, BMP ####[facility] Bwbjqbsdjf1801 [place] [address]Dr. Sasha Montero US PELVIS TRANSVAGon 022 US PELVIS TRANSVAG Normal [facility] AMYLASEon 01-16-2022 Amylase [Catalytic activity/Vol] 39 U/L Normal 25-[address] [facility] Comment on above: Performed By: #### C RP, CMP, HUI ####[facility] Wwwmpfrfpp9154 [place] [address]Dr. Sasha Montero CBC AUTO DIFFon 01-16-2022 BASO # 0.0 103/ul Normal 0.0-0.[address] [facility] Comment on above: Performed By: #### C BC ####[facility] Gtycvrwryi8[address] [place], [place] [address]Dr. Sasha Winston Basophils/100 WBC (Bld) 0.3 % Normal 0.2-2.[address] [facility] Comment on above: Performed By: #### C BC ####[facility] Pgwsbbenys4691 [place] [address]Dr. Sasha Winston EO # 0.1 103/ul Normal 0.0-0.[address] [facility] Comment on above: Performed By: #### C BC ####[facility] Eozpyfrsjz9[address] [place], [place] [address]Dr. Sasha Montero Eosinophils/100 WBC (Bld) 0.8 % Critically low 0.9-7.[address] [facility] Comment on above: Performed By: #### C BC ####[facility] Dkoswfyiwg44[address] [place], [place] [address]Dr. Sasha Montero Erythrocyte distribution width (RBC) [Ratio] 12.5 % Normal 11.0-15.[address] [facility] Comment on above: Performed By: #### C BC ####[facility] Wzoarezklp1205 [place] [address]Dr. Albinalaura Montero Hematocrit (Bld) [Volume fraction] 33.2 % Critically low 36.0-48.0 [facility] Comment on above: Performed By: #### C BC ####[facility] Oydokdleyq8995 [place] [address]Dr. Sasha Montero Hemoglobin (Bld) [Mass/Vol] 11.1 g/dL Critically low 12.0-16.[address] [facility] Comment on above: Performed By: #### C BC ####[facility] Ncvwlczwjj[address] [place], [place] [address]Dr. Sasha Montero IG # 0.04 10e3/ul Critically high 0.00-0.03 [facility] Comment on above: Performed By: #### C BC ####[facility] Odkiuyrvrw7[address] [place], [place] [address]Dr. Sasha Montero IG % 0.4 % Normal 0.0-0.[address] [facility] Comment on above: Performed By: #### C BC ####[facility] Rytfhstdxs[address] [place], [place] [address]Dr. Sasha Montero LYMPH # 1.1 103/ul Critically low 1.2-3.8 [facility] Comment on above: Performed By: #### C BC ####[facility] Rtaxtszkkd[address] [place], [place] [address]Dr. Sasha Montero Lymphocytes/100 WBC (Bld) 12.3 % Critically low 20.5-60.[address] [facility] Comment on above: Performed By: #### C BC ####[facility] Fsradwjtbi[address] [place], [place] [address]Dr. Sasha Montero MANUAL DIFF REQ NO Normal [facility] Comment on above: Performed By: #### C BC ####[facility] Nzunppacrw[address] [place], [place] [address]Dr. Sasha Montero MCH (RBC) [Entitic mass] 31.1 pg Normal 26.7-34.[address] [facility] [facility] Comment on above: Performed By: #### C BC ####[facility] Bfrpyfiyqw[address] [place] [id number]. Sasha Montero MCHC (RBC) [Mass/Vol] 33.4 g/dL Normal 29.9-35.[address] [facility] Comment on above: Performed By: #### C BC ####[facility] Puzdkmntbt4850 [place] [phone]. Sasha Montero MCV (RBC) [Entitic vol] 93.0 fL Normal 81.0-99.[address] [facility] Comment on above: Performed By: #### C BC ####[facility] Zeqygytjzp[address] [place], [place] [address]Dr. Sasha Montero MONO # 1.0 103/ul Critically high 0.3-0.[address] [facility] Comment on above: Performed By: #### C BC ####[facility] Mjqyqdkbyx[address] [place], [place] [address]Dr. Sasha Montero Monocytes/100 WBC (Bld) 10.3 % Normal 1.7-12.[address] [facility] Comment on above: Performed By: #### C BC ####[facility] Jeuahuatln69[address] [place], [place] [address]Dr. Sasha Montero NEUT # 7.0 103/ul Critically high 1.4-6.[address] [facility] Comment on above: Performed By: #### C BC ####[facility] Duowhsijlz448[address] [place], [place] [address]Dr. Sasha Montero Neutrophils/100 WBC (Bld) 75.9 % Critically high 43.0-75.[address] [facility] Comment on above: Performed By: #### C BC ####[facility] Awxcvtbiom8[address] [place], [place] [address]Dr. Sasha Montero Platelet mean volume (Bld) [Entitic vol] 9.1 fL Critically low 9.5-13.[address] [facility] Comment on above: Performed By: #### C BC ####[facility] Fptnlnziiw722[address] [place], [place] [address]Dr. Sasha Montero PLT 273 103/ul Normal 150-[address] [facility] Comment on above: Performed By: #### C BC ####[facility] Tpndckjhlv1314 [place] [phone]. Sasha Montero RBC 3.57 106/ul Critically low 4.20-5.[address] [facility] Comment on above: Performed By: #### C BC ####[facility] Asbcfgsjjr7639 [place] [phone]. Sasha Montero WBC 9.2 103/ul Normal 4.0-11.[address] [facility] Comment on above: Performed By: #### C BC ####[facility] Yvcddybtei7624 [place] [address]Dr. Sasha Montero CRPon 01-16-2022 CRP 1.5 mg/dL Critically high <=1.0 [facility] Comment on above: Performed By: #### C RP, CMP, HUI ####[facility] Zhcephilzp1932[address] [place], [place] [address]Dr. Sasha Montero PROF 14(COMP METB)on 022 Albumin [Mass/Vol] 3.7 g/dL Normal 3.4-5.[address] [facility] Comment on above: Performed By: #### C RP, CMP, HUI ####[facility] Gvbhtmjduc5956 [place] [address]Dr. Sasha Montero Albumin/Globulin [Mass ratio] 1.2 {ratio} Normal [facility] Comment on above: Performed By: #### C RP, CMP, HUI ####[facility] Prudxfzsfs6787 [place] [address]Dr. Sasha Montero ALP [Catalytic activity/Vol] 71 U/L Normal 46-[address] [facility] Comment on above: Performed By: #### C RP, CMP, HUI ####[facility] Xuboyrhxfy7860 [place] [address]Dr. Sasha Montero ALT [Catalytic activity/Vol] 19 U/L Normal 14-[address] [facility] Comment on above: Performed By: #### C RP, CMP, HUI ####[facility] Gyauokzwed5713 [place] [address]Dr. Sasha Montero Anion gap [Moles/Vol] 15.5 mmol/L Normal Th [facility] Comment on above: Performed By: #### C RP, CMP, HUI ####[facility] Utgopamxhl3140 [place] [address]Dr. Sasha Montero AST [Catalytic activity/Vol] 17 U/L Normal 15-[address] [facility] Comment on above: Performed By: #### C RP, CMP, HUI ####[facility] Altbaqhsmk325[address] [place], [place] [address]Dr. Sasha Montero Bilirubin [Mass/Vol] 0.7 mg/dL Normal 0.2-1.[address] [facility] Comment on above: Performed By: #### C RP, CMP, HUI ####[facility] Lznvijllno0850[address] [place], [place] [address]Dr. Sasha Montero Calcium [Mass/Vol] 8.6 mg/dL Normal 8.5-10.[address] [facility] Comment on above: Performed By: #### C RP, CMP, HUI ####[facility] Tubbyrhrfd87[address] [place], [place] [address]Dr. Sasha Montero Chloride [Moles/Vol] 102 mmol/L Normal 98-[address] [facility] Comment on above: Performed By: #### C RP, CMP, HUI ####[facility] Onqeltltfo135082 [address] [place], [place] [address]Dr. Sasha Montero CO2 [Moles/Vol] 25.7 mmol/L Normal 21.0-32.[address] [facility] Comment on above: Performed By: #### C RP, CMP, HUI ####[facility] Vthrbprnhu518[address] [place], [place] [address]Dr. Sasha Montero Creatinine [Mass/Vol] 0.75 mg/dL Normal 0.55-1.[address] [facility] Comment on above: Performed By: #### C RP, CMP, HUI ####[facility] Edluftlndn9[address] [place], [place] [address]Dr. Sasha Montero EGFR-AF BRUNEIAN >60 Normal >=[address] [facility] Comment on above: Performed By: #### C RP, CMP, HUI ####[facility] Xyvswutsyq15[address] [place], [place] [address]Dr. Sasha Montero EGFR-NON AF BRUNEIAN >60 Normal >=[address] [facility] Comment on above: Performed By: #### C RPREJI, HUI ####[facility] Rhjdwdcqpt6934 [place] [address]Dr. Sasha Montero Globulin (S) [Mass/Vol] 3.0 g/dL Normal [facility] Comment on above: Performed By: #### C RP CMP, HUI ####[facility] Uwcavunjoe2703 [place] [address]Dr. Sasha Montero Glucose [Mass/Vol] 104 mg/dL Normal 74-[address] [facility] Comment on above: Performed By: #### C REJI MONROY, HUI ####[facility] Skbrezidfo9806 [place] [address]Dr. Sasha Montero Potassium [Moles/Vol] 3.2 mmol/L Critically low 3.5-5.[address] [facility] Comment on above: Performed By: #### C RPREJI, HUI ####[facility] Mkecfgdqos20[address] [place], [place] [address]Dr. Sasha Montero Protein [Mass/Vol] 6.7 g/dL Normal 6.4-8.[address] [facility] Comment on above: Performed By: #### C RPREJI, HUI ####[facility] Ppoqeshrdf3977 [place] [address]Dr. Sasha Montero Sodium [Moles/Vol] 140 mmol/L Normal 136-[address] [facility] Comment on above: Performed By: #### C RP CMP, HUI ####[facility] Kmnrvxpihu1235[address] [place], [place] [address]Dr. Sasha Montero Urea nitrogen [Mass/Vol] 10.0 mg/dL Normal 7.0-18.[address] [facility] Comment on above: Performed By: #### C RP CMP, HUI ####[facility] Djsarzhels5546 [place] [address]Dr. Sasha Montero Urea nitrogen/Creatinine [Mass ratio] 13.3 mg/mg Normal [facility] Comment on above: Performed By: #### C RP CMP, HUI ####[facility] Subtkqdcvz3520 [place] [phone]. Sasha Montero AMYLASEon 01-15-2022 Amylase [Catalytic activity/Vol] 39 U/L Normal 25-[address] [facility] Comment on above: Performed By: #### C MP, CRP, HUI ####[facility] Apzxbtdxac9214 [place] [address]Dr. Sasha Montero CBC AUTO DIFFon 01-15-2022 BASO # 0.0 103/ul Normal 0.0-0.[address] [facility] Comment on above: Performed By: #### C BC ####[facility] Onyvhpqvwu958[address] [place], [place] [address]Dr. Albinalaura Montero Basophils/100 WBC (Bld) 0.3 % Normal 0.2-2.0 [facility] Comment on above: Performed By: #### C BC ####[facility] Gbwhiwvjrt3934[address] [place], [place] [address]Dr. Sasha Montero EO # 0.1 103/ul Normal 0.0-0.[address] [facility] Comment on above: Performed By: #### C BC ####[facility] Jzbmchxmbx209[address] [place], [place] [address]Dr. Albinalaura Montero Eosinophils/100 WBC (Bld) 0.8 % Critically low 0.9-7.0 [facility] Comment on above: Performed By: #### C BC ####[facility] Sxgewgbhkz3416[address] [place], [place] [address]Dr. Sasha Montero Erythrocyte distribution width (RBC) [Ratio] 12.8 % Normal 11.0-15.[address] [facility] Comment on above: Performed By: #### C BC ####[facility] Hoieqqzshp430[address] [place], [place] [address]Dr. Albinalaura Montero Hematocrit (Bld) [Volume fraction] 30.4 % Critically low 36.0-48.[address] [facility] Comment on above: Performed By: #### C BC ####[facility] Victxobeua9815[address] [place], [place] [address]Dr. Sasha Montero Hemoglobin (Bld) [Mass/Vol] 9.9 g/dL Critically low 12.0-16.0 [facility] Comment on above: Performed By: #### C BC ####[facility] Jgyrwloiar3384 [place] [address]DrSvetlana Montero IG # 0.02 10e3/ul Normal 0.00-0.03 [facility] Comment on above: Performed By: #### C BC ####[facility] Kplzsuluiv8277 [place] [address]DrSvetlana Montero IG % 0.3 % Normal 0.0-0.5 [facility] Comment on above: Performed By: #### C BC ####[facility] Cjupdwymtp[address] [place], [place] [address]DrSvetlana Montero LYMPH # 2.3 103/ul Normal 1.2-3.[address] [facility] Comment on above: Performed By: #### C BC ####[facility] Dsnhqjfatg0434 [place] [address]DrSvetlana Montero Lymphocytes/100 WBC (Bld) 39.0 % Normal 20.5-60.0 [facility] Comment on above: Performed By: #### C BC ####[facility] Pmyujyvyoz3731 [place] [address]DrSvetlana Montero MANUAL DIFF REQ NO Normal [facility] Comment on above: Performed By: #### C BC ####[facility] Zznvnmlxgc4281 [place] [address]DrSvetlana Montero MCH (RBC) [Entitic mass] 30.5 pg Normal 26.7-34.[address] [facility] Comment on above: Performed By: #### C BC ####[facility] Cisqlzdoop8479 [place] [address]DrSvetlana Montero MCHC (RBC) [Mass/Vol] 32.6 g/dL Normal 29.9-35.[address] [facility] Comment on above: Performed By: #### C BC ####[facility] Ohkujxvipm0687 [place] [address]DrSvetlana Montero MCV (RBC) [Entitic vol] 93.5 fL Normal 81.0-99.0 [facility] Comment on above: Performed By: #### C BC ####[facility] Tadgaydaaz9133 [place] [phone]. Sasha Montero MONO # 0.7 103/ul Normal 0.3-0.[address] [facility] Comment on above: Performed By: #### C BC ####[facility] Hxpubfuqdi5877 [place] [phone]. Sasha Montero Monocytes/100 WBC (Bld) 12.0 % Normal 1.7-12.0 [facility] Comment on above: Performed By: #### C BC ####[facility] Xjnhgjogfp7170 [place] [address]Dr. Sasha Montero NEUT # 2.8 103/ul Normal 1.4-6.[address] [facility] Comment on above: Performed By: #### C BC ####[facility] Cyyrqkshjt17[address] [place], [place] [address]Dr. Sasha Montero Neutrophils/100 WBC (Bld) 47.6 % Normal 43.0-75.[address] [facility] Comment on above: Performed By: #### C BC ####[facility] Jeytmynysd4633 [place] [address]Dr. Sasha Montero Platelet mean volume (Bld) [Entitic vol] 8.9 fL Critically low 9.5-13.[address] [facility] Comment on above: Performed By: #### C BC ####[facility] Taiyryorpy9393 [place] [address]Dr. Sasha Montero PLT 257 103/ul Normal 150-[address] [facility] Comment on above: Performed By: #### C BC ####[facility] Oaamyrirvi4621 [place] [id number]. Sasha Montero RBC 3.25 106/ul Critically low 4.20-5.[address] [facility] Comment on above: Performed By: #### C BC ####[facility] Qxztlvxrhu7504 [place] [phone]. Albinalaura Winston WBC 5.9 103/ul Normal 4.0-11.[address] [facility] Comment on above: Performed By: #### C BC ####[facility] Xratmthqax3276 [place] [address]Dr. Sasha Montero CRPon 01-15-2022 CRP [Mass/Vol] mg/L Normal <=1.[address] [facility] Comment on above: Performed By: #### C MP, CRP, HUI ####[facility] Fomkiliriv8928 [place] [address]Dr. Sasha Montero CULTURE URINEon 01-15-2022 CULTURE URINE Culture Observations : MODERATE GROWTH OF MIXED GENITAL AUDRA. NO POTENTIAL PATHOGENS SEEN. Normal [facility] Comment on above: Performed By: #### U RCX ####[facility] Tpvyrffnso688[address] [place], [place] [address]Dr. Sasha Montero PROF 14(COMP METB)on 022 Albumin [Mass/Vol] 3.4 g/dL Normal 3.4-5.[address] [facility] Comment on above: Performed By: #### C MP, CRP, HUI ####[facility] Xdbfimhzse490[address] [place], [place] [address]Dr. Sasha Montero Albumin/Globulin [Mass ratio] 1.3 {ratio} Normal [facility] Comment on above: Performed By: #### C MP, CRP, HUI ####[facility] Kqcvadoplx6539[address] [place], [place] [address]Dr. Sasha Montero ALP [Catalytic activity/Vol] 67 U/L Normal 46-[address] [facility] Comment on above: Performed By: #### C MP, CRP, HUI ####[facility] Shlhifjsxc2791 [place] [address]Dr. Sasha Montero ALT [Catalytic activity/Vol] 21 U/L Normal 14-[address] [facility] Comment on above: Performed By: #### C MP, CRP, HUI ####[facility] Khmuweespz5395 [place] [address]Dr. Sasha Montero Anion gap [Moles/Vol] 8.1 mmol/L Normal [facility] Comment on above: Performed By: #### C MP, CRP, HUI ####[facility] Bcqyzkdfte5145 [place] [address]Dr. Sasha Montero AST [Catalytic activity/Vol] 18 U/L Normal 15-[address] [facility] Comment on above: Performed By: #### C MP, CRP, HUI ####[facility] Hcjiotmuox0328 [place] [address]Dr. Sasha Montero Bilirubin [Mass/Vol] 1.0 mg/dL Normal 0.2-1.0 [facility] Comment on above: Performed By: #### C MP, CRP, HUI ####[facility] Etnpqlojge0870[address] [place], [place] [address]Dr. Sasha Montero Calcium [Mass/Vol] 8.4 mg/dL Critically low 8.5-10.1 [facility] Comment on above: Performed By: #### C MP, CRP, HUI ####[facility] Pktdxkzgao955182 [address] [place], [place] [address]Dr. Sahsa Montero Chloride [Moles/Vol] 106 mmol/L Normal 98-[address] [facility] Comment on above: Performed By: #### C MP, CRP, HUI ####[facility] Eodpasvyrv2229[address] [place], [place] [address]Dr. Sasha Montero CO2 [Moles/Vol] 29.3 mmol/L Normal 21.0-32.0 [facility] Comment on above: Performed By: #### C MP, CRP, HUI ####[facility] Aadakhilit493482 [address] [place], [place] [address]Dr. Sasha Montero Creatinine [Mass/Vol] 0.70 mg/dL Normal 0.55-1.02 [facility] Comment on above: Performed By: #### C MP, CRP, HUI ####[facility] Sblzixxeab04[address] [place], [place] [address]Dr. Sasha Montero EGFR-AF BRUNEIAN >60 Normal >=[address] [facility] Comment on above: Performed By: #### C MP, CRP, HUI ####[facility] Qkbagohnre731382 [address] [place], [place] [address]Dr. Sasha Montero EGFR-NON AF BRUNEIAN >60 Normal >=[address] [facility] Comment on above: Performed By: #### C MP, CRP, HUI ####[facility] Mjrmctxjsw7199 [place] [address]Dr. Sasha Montero Globulin (S) [Mass/Vol] 2.7 g/dL Normal [facility] Comment on above: Performed By: #### C MP, CRP, HUI ####[facility] Txtahdfoto5328 [place] [address]Dr. Sasha Montero Glucose [Mass/Vol] 85 mg/dL Normal 74-106 [facility] Comment on above: Performed By: #### C MP, CRP, HUI ####[facility] Cmolcsdviy6332 [place] [address]Dr. Sasha Montero Potassium [Moles/Vol] 3.4 mmol/L Critically low 3.5-5.1 [facility] Comment on above: Performed By: #### C MP, CRP, HUI ####[facility] Uomzbndbav6538[address] [place], [place] [address]Dr. Sasha Montero Protein [Mass/Vol] 6.1 g/dL Critically low 6.4-8.2 [facility] Comment on above: Performed By: #### C MP, CRP, HUI ####[facility] Jwqexipexj682182 [address] [place], [place] [address]Dr. Sasha Montero Sodium [Moles/Vol] 140 mmol/L Normal 136-145 [facility] Comment on above: Performed By: #### C MP, CRP, HUI ####[facility] Jdeytzckmu255[address] [place], [place] [address]Dr. Sasha Montero Urea nitrogen [Mass/Vol] 8.0 mg/dL Normal 7.0-18.0 [facility] Comment on above: Performed By: #### C MP, CRP, HUI ####[facility] Hofljvmxel346[address] [place], [place] [address]Dr. Sasha Montero Urea nitrogen/Creatinine [Mass ratio] 11.4 mg/mg Normal [facility] Comment on above: Performed By: #### C MP, CRP, HUI ####[facility] Smivldjxui503182 [address] [place], [place] [address]Dr. Sasha Montero UA RANDOM W/MICROSCOPICon BACTERIA NONE SEEN Normal NONE SEEN [facility] Comment on above: Performed By: #### U AMIC ####[facility] Drzeldfdwy1920[address] [place], [place] [address]Dr. Sasha Montero Bilirubin Ql (U) Negative Normal NEGATIVE [facility] Comment on above: Performed By: #### U AMIC ####[facility] Lsvhohjpon5582 [place] [address]Dr. Sasha Montero CAST NONE SEEN Normal NONE SEEN [facility] Comment on above: Performed By: #### U AMIC ####[facility] Kkuaxvrvel1226[address] [place], [place] [address]Dr. Sasha Montero Clarity (U) CLEAR Normal CLEAR [facility] Comment on above: Performed By: #### U AMIC ####[facility] Aiyjcxmtcp0312[address] [place], [place] [address]Dr. Sasha Montero Color (U) LT. YELLOW Normal YELLOW [facility] Comment on above: Performed By: #### U AMIC ####[facility] Oisxcaowbh259[address] [place], [place] [address]Dr. Sasha Montero Crystals LM Nom (Urine sed) NONE SEEN Normal NONE SEEN [facility] Comment on above: Performed By: #### U AMIC ####[facility] Qtueafcycx749882 [address] [place], [place] [address]Dr. Sasha Montero Epithelial cells LM Ql (Urine sed) NONE SEEN Normal NONE SEEN /RARE [facility] Comment on above: Performed By: #### U AMIC ####[facility] Mhuzksznuf0635[address] [place], [place] [address]Dr. Sasha Montero Glucose Ql (U) Negative Normal NEGATIVE [facility] Comment on above: Performed By: #### U AMIC ####[facility] Twqptuchlo211182 [address] [place], [place] [address]Dr. Sasha Montero Hemoglobin Ql (U) Negative Normal NEGATIVE [facility] Comment on above: Performed By: #### U AMIC ####[facility] Kgundcaytm842182 [address] [place], [place] [address]Dr. Sasha Montero Ketones Ql (U) Negative Normal NEGATIVE [facility] Comment on above: Performed By: #### U AMIC ####[facility] Ebleoiirsn8958 [place] [address]Dr. Sasha Montero LEUKOCYTES Negative Normal NEGATIVE [facility] Comment on above: Performed By: #### U AMIC ####[facility] Xmnprsqesk2896 [place] [address]Dr. Sasha Montero MUCOUS NONE SEEN Normal NONE SEEN [facility] Comment on above: Performed By: #### U AMIC ####[facility] Lzthmigrka9149[address] [place], [place] [address]Dr. Sasha Montero Nitrite Ql (U) Negative Normal NEGATIVE [facility] Comment on above: Performed By: #### U AMIC ####[facility] Geiwexritm2340[address] [place], [place] [address]Dr. Sasha Montero pH (U) 7.0 [pH] Normal 5-[address] [facility] Comment on above: Performed By: #### U AMIC ####[facility] Jlzksiyjeq5[address] [place], [place] [address]Dr. Sasha Montero RBC NONE SEEN Abnormal 0-[address] [facility] Comment on above: Performed By: #### U AMIC ####[facility] Vhmawvttug627[address] [place], [place] [address]Dr. Sasha Montero SPEC GRAVITY 1.015 Normal 1.005-<=1.[address] [facility] Comment on above: Performed By: #### U AMIC ####[facility] Fqakxrdmzu623[address] [place], [place] [address]Dr. Sasha Montero UA PROTEIN Negative Normal NEGATIVE/ TRACE [facility] Comment on above: Performed By: #### U AMIC ####[facility] Vcliwwokff278[address] [place], [place] [address]Dr. Sasha Montero Urobilinogen Qn (U) 0.2 {Josie'U}/dL Normal 0.2 - 1. [address] [facility] Comment on above: Performed By: #### U AMIC ####[facility] Adnbuwmhbu4067[address] [place], [place] [address]Dr. Sasha Montero WBC NONE SEEN Normal NONE SEEN [facility] Comment on above: Performed By: #### U AMIC ####[facility] Lhdsbuogkc0838 [place] [address]Dr. Sasha Montero AMYLASEon 2 Amylase [Catalytic activity/Vol] 57 U/L Normal 25-[address] [facility] Comment on above: Performed By: #### A MY, CRP, CMP ####[facility] Pmzooigrgr9749 [place] [address]Dr. Sasha Montero CARDIAC BROOK[place]NN 3-6on 2 CK [Catalytic activity/Vol] 134 U/L Normal 26-[address] [facility] Comment on above: Performed By: #### C MREP ####[facility] Niqvpaqfpo540[address] [place], [place] [address]Dr. Sasha Montero CK.MB [Mass/Vol] 2.41 ng/mL Normal <=3.[address] [facility] Comment on above: Performed By: #### C MREP ####[facility] Qhnnwygtoy235[address] [place], [place] [address]Dr. Sasha Montero HSTROP 10.7 pg/mL Normal 4.0-51.[address] [facility] Comment on above: Result Comment: CUT- OFF POINTS HAVE BEEN ESTABLISHED BASED ON THE FOURTH UNIVERSAL DEFINITIONS OF MYOCARDIALINFARCTION. THE UPPER REFERENCE LIMIT (URL) OF TROPONIN, DEFINED THE 99TH PERCENTILE OFcTnI DISTRIBUTION IN A REFERENCE POPULATION, HAS BEEN CONFIRMED THE DECISION THRESHOLDFOR ND DIAGNOSIS. Performed By: #### C MREP ####[facility] Hzfiaddaen37038[address] [place], [place] [address]Dr. Sasha Montero CK [Catalytic activity/Vol] 125 U/L Normal 26-[address] [facility] Comment on above: Performed By: #### C MREP ####[facility] Pcplrmpizh0399 [place] [address]Dr. Sasha Montero CK.MB [Mass/Vol] 2.09 ng/mL Normal <=3.[address] [facility] Comment on above: Performed By: #### C MREP ####[facility] Dlklrpggnu3565 [place] [address]Dr. Sasha Montero HSTROP 9.9 pg/mL Normal 4.0-51.[address] [facility] Comment on above: Result Comment: CUT- OFF POINTS HAVE BEEN ESTABLISHED BASED ON THE FOURTH UNIVERSAL DEFINITIONS OF MYOCARDIALINFARCTION. THE UPPER REFERENCE LIMIT (URL) OF TROPONIN, DEFINED THE 99TH PERCENTILE OFcTnI DISTRIBUTION IN A REFERENCE POPULATION, HAS BEEN CONFIRMED THE DECISION THRESHOLDFOR ND DIAGNOSIS. Performed By: #### C MREP ####[facility] Urohowkybd5731 [place] [address]Dr. Sasha Montero CBC AUTO DIFFon 01-14-2022 BASO # 0.0 103/ul Normal 0.0-0.[address] [facility] Comment on above: Performed By: #### C BC ####[facility] Kmokqusnob34[address] [place], [place] [address]DrSvetlana Sasha Montero Basophils/100 WBC (Bld) 0.1 % Critically low 0.2-2.[address] [facility] Comment on above: Performed By: #### C BC ####[facility] Cgcvwgcjtp78[address] [place], [place] [address]Dr. Sasha Montero EO # 0.0 103/ul Normal 0.0-0.[address] [facility] Comment on above: Performed By: #### C BC ####[facility] Ynjltezzku2539[address] [place], [place] [address]Dr. Sasha Montero Eosinophils/100 WBC (Bld) 0.0 % Critically low 0.9-7.[address] [facility] Comment on above: Performed By: #### C BC ####[facility] Npktrzdmym066[address] [place], [place] [address]Dr. Sasha Montero Erythrocyte distribution width (RBC) [Ratio] 12.8 % Normal 11.0-15.[address] [facility] Comment on above: Performed By: #### C BC ####[facility] Pvmdbnllsl7[address] [place], [place] [address]DrSvetlana Sasha Montero Hematocrit (Bld) [Volume fraction] 33.8 % Critically low 36.0-48.[address] [facility] Comment on above: Performed By: #### C BC ####[facility] Pzeaoqclbo2525 [place] [address]Dr. Sasha Montero Hemoglobin (Bld) [Mass/Vol] 11.6 g/dL Critically low 12.0-16.[address] [facility] Comment on above: Performed By: #### C BC ####[facility] Wrlfvzzjpo34[address] [place] [id number]. Sasha Montero IG # 0.06 10e3/ul Critically high 0.00-0.[address] [facility] Comment on above: Performed By: #### C BC ####[facility] Nyxfrzsigb[address] [place] [address]Dr. Sasha Montero IG % 0.4 % Normal 0.0-0.[address] [facility] Comment on above: Performed By: #### C BC ####[facility] Crldbpycqa3948 [place] [address]Dr. Sasha Montero LYMPH # 0.9 103/ul Critically low 1.2-3.[address] [facility] Comment on above: Performed By: #### C BC ####[facility] Wktcakdusw9129 [place] [address]Dr. Sasha Montero Lymphocytes/100 WBC (Bld) 6.0 % Critically low 20.5-60.[address] [facility] Comment on above: Performed By: #### C BC ####[facility] Rwzkyyirlo3417 [place] [address]Dr. Sasha Montero MANUAL DIFF REQ NO Normal [facility] Comment on above: Performed By: #### C BC ####[facility] Urecwethvd[address] [place], [place] [address]Dr. Sasha Montero MCH (RBC) [Entitic mass] 31.1 pg Normal 26.7-34.[address] [facility] Comment on above: Performed By: #### C BC ####[facility] Ktntfqftkh[address] [place], [place] [address]Dr. Sasha Montero MCHC (RBC) [Mass/Vol] 34.3 g/dL Normal 29.9-35.[address] [facility] Comment on above: Performed By: #### C BC ####[facility] Hdhcwnkpzd[address] [place], [place] [id number]. Sasha Montero MCV (RBC) [Entitic vol] 90.6 fL Normal 81.0-99.[address] [facility] Comment on above: Performed By: #### C BC ####[facility] Tyenuvmjip0572 [place] [address]Dr. Sasha Montero MONO # 0.7 103/ul Normal 0.3-0.[address] [facility] Comment on above: Performed By: #### C BC ####[facility] Kcqgsdhgtz0746 [place] [address]Dr. Sasha Winston Monocytes/100 WBC (Bld) 4.6 % Normal 1.7-12.[address] [facility] Comment on above: Performed By: #### C BC ####[facility] Gedhpbrnqv1361 [place] [address]Dr. Sasha Montero NEUT # 13.6 103/ul Critically high 1.4-6.[address] [facility] Comment on above: Performed By: #### C BC ####[facility] Xvykerikgq2357 [place] [address]Dr. Sasha Winston Neutrophils/100 WBC (Bld) 88.9 % Critically high 43.0-75.[address] [facility] Comment on above: Performed By: #### C BC ####[facility] Kjkgkxxegg8434 [place] [address]Dr. Sasha Winston Platelet mean volume (Bld) [Entitic vol] 8.7 fL Critically low 9.5-13.[address] [facility] Comment on above: Performed By: #### C BC ####[facility] Zhqwseabwb3402 [place] [address]Dr. Sasha Winston PLT 301 103/ul Normal 150-[address] [facility] Comment on above: Performed By: #### C BC ####[facility] Ovueiyjtew[address] [place], [place] [address]Dr. Albinalaura Winston RBC 3.73 106/ul Critically low 4.20-5.[address] [facility] Comment on above: Performed By: #### C BC ####[facility] Wbfchurvgc[address] [place], [place] [address]Dr. Sasha Montero WBC 15.3 103/ul Critically high 4.0-11.[address] [facility] Comment on above: Performed By: #### C BC ####[facility] Skxcoiyzka4168 [place] [address]Dr. Sasha Montero CRPon 01-14-2022 CRP [Mass/Vol] mg/L Normal <=1.[address] [facility] Comment on above: Performed By: #### A MY, CRP, CMP ####[facility] Kaxunndbuj3064 [place] [address]Dr. Sasha Montero Covid-19 PCR (CVDTBH)on 12-17 SARS-CoV-2 (COVID-19) RNA YULIANA+probe Ql (Unsp spec) Not detected Normal NOT DETECTED [facility] Comment on above: Result Comment: When diagnostic testing is negative, the possibility of a false negative should be considered inthe context of a patient's recent exposures and the presence of clinical signs and symptomsconsistent with SARS-CoV-2.This test is not yet approved or cleared by the [place] FDA. When there are no FDA-approved or cleared tests available, and other criteria are met, FDA can make tests available under an emergency access mechanism called an Emergency Use Authorization (EUA). The EUA for this test is supported by the [place] of Health and Human Service's declaration that circumstances exist to justify the emergency use of in vitro diagnostics for the detection and/or diagnosis of the virus that causes COVID-19. This EUA will remain in effect for the duration of the COVID-19 declaration justifying emergency of IVDs, unless it is terminated or revoked by the FDA (after which the test may no longer be used). Performed By: #### C VDTBH ####[facility] Gwjrzmdzga1430 [place] [address]Dr. Sasha Montero LACTATE/LACTIC ACIDon 2021 Lactate [Moles/Vol] 1.4 mmol/L Normal 0.4-1.[address] [facility] Comment on above: Performed By: #### L ACT ####[facility] Meeluhpyhy3350 [place] [address]Dr. Sasha Montero Lactate [Moles/Vol] 3.9 mmol/L Critically high 0.4-1.9 [facility] Comment on above: Performed By: #### L ACT ####[facility] Uwzbylpuhj4444 [place] [address]Dr. Sasha Montero PROF 14(COMP METB)on 022 Albumin [Mass/Vol] 4.3 g/dL Normal 3.4-5.0 [facility] Comment on above: Performed By: #### A MY, CRP, CMP ####[facility] Jonyjodghi4652 [place] [address]Dr. Sasha Montero Albumin/Globulin [Mass ratio] 1.3 {ratio} Normal [facility] Comment on above: Performed By: #### A MY, CRP, CMP ####[facility] Wqkvrzsaoy5373 [place] [address]Dr. Sasha Montero ALP [Catalytic activity/Vol] 84 U/L Normal 46-[address] [facility] Comment on above: Performed By: #### A MY, CRP, CMP ####[facility] Zcefcwiijp9247 [place] [address]Dr. Sasha Montero ALT [Catalytic activity/Vol] 22 U/L Normal 14-[address] [facility] Comment on above: Performed By: #### A MY, CRP, CMP ####[facility] Xvlhqxnpaz9354 [place] [address]Dr. Sasha Montero Anion gap [Moles/Vol] 15.7 mmol/L Normal [facility] Comment on above: Performed By: #### A MY, CRP, CMP ####[facility] Dqptunabns8681 [place] [address]Dr. Sasha Montero AST [Catalytic activity/Vol] 22 U/L Normal 15-[address] [facility] Comment on above: Performed By: #### A MY, CRP, CMP ####[facility] Jwgggkmvdn5575 [place] [address]Dr. Sasha Montero Bilirubin [Mass/Vol] 0.5 mg/dL Normal 0.2-1.[address] [facility] Comment on above: Performed By: #### A MY, CRP, CMP ####[facility] Xtfsrnyxix7437 [place] [address]Dr. Sasha Montero Calcium [Mass/Vol] 8.9 mg/dL Normal 8.5-10.[address] [facility] Comment on above: Performed By: #### A MY, CRP, CMP ####[facility] Ytegirvxhf5855 [place] [address]Dr. Sasha Montero Chloride [Moles/Vol] 100 mmol/L Normal 98-[address] [facility] Comment on above: Performed By: #### A MY, CRP, CMP ####[facility] Yntzlxpkem339[address] [place], [place] [address]Dr. Sasha Montero CO2 [Moles/Vol] 23.4 mmol/L Normal 21.0-32.[address] [facility] Comment on above: Performed By: #### A MY, CRP, CMP ####[facility] Sxrnnuelce8[address] [place], [place] [address]Dr. Sasha Montero Creatinine [Mass/Vol] 0.67 mg/dL Normal 0.55-1.[address] [facility] Comment on above: Performed By: #### A MY, CRP, CMP ####[facility] Fwwbqmnexs224[address] [place], [place] [address]Dr. Sasha Montero EGFR-AF BRUNEIAN >60 Normal >=60 [facility] Comment on above: Performed By: #### A MY, CRP, CMP ####[facility] Vroydcfldh720[address] [place], [place] [address]Dr. Sasha Montero EGFR-NON AF BRUNEIAN >60 Normal >=[address] [facility] Comment on above: Performed By: #### A MY, CRP, CMP ####[facility] Ctcynsatew8057[address] [place], [place] [address]Dr. Sasha Montero Globulin (S) [Mass/Vol] 3.3 g/dL Normal [facility] Comment on above: Performed By: #### A MY, CRP, CMP ####[facility] Ktzyzsnxur89[address] [place], [place] [address]Dr. Sasha Montero Glucose [Mass/Vol] 122 mg/dL Critically high 74-106 [facility] Comment on above: Performed By: #### A MY, CRP, CMP ####[facility] Efsleuvkmw4183 [place] [address]Dr. Sasha Montero Potassium [Moles/Vol] 3.1 mmol/L Critically low 3.5-5.[address] [facility] Comment on above: Performed By: #### A MY, CRP, CMP ####[facility] Wvtywbtviy2846 [place] [address]Dr. Sasha Montero Protein [Mass/Vol] 7.6 g/dL Normal 6.4-8.[address] [facility] Comment on above: Performed By: #### A MY, CRP, CMP ####[facility] Szxbhvwshh0341 [place] [address]Dr. Albinalaura Montero Sodium [Moles/Vol] 136 mmol/L Normal 136-145 [facility] Comment on above: Performed By: #### A MY, CRP, CMP ####[facility] Lqpvfwdvmu66[address] [place], [place] [address]Dr. Sasha Montero Urea nitrogen [Mass/Vol] 8.0 mg/dL Normal 7.0-18.[address] [facility] Comment on above: Performed By: #### A MY, CRP, CMP ####[facility] Nsgmhkkvlg49[address] [place], [place] [address]Dr. Sasha Montero Urea nitrogen/Creatinine [Mass ratio] 11.9 mg/mg Normal [facility] Comment on above: Performed By: #### A MY, CRP, CMP ####[facility] Derajfcqmx6633 [place] [address]Dr. Sasha Montero XR ABD FLAT UP_PA Anjel 01-14 XR ABD FLAT UP_PA CH Normal [facility] CARDIAC BROOKLYNN ADMITon 022 CK [Catalytic activity/Vol] 119 U/L Normal 26-[address] [facility] Comment on above: Performed By: #### C MADM, CMP ####[facility] Eqaclwmuwf7573 [place] [address]Dr. Sasha Montero CK.MB [Mass/Vol] 1.71 ng/mL Normal <=3.[address] [facility] Comment on above: Performed By: #### C MADM, CMP ####[facility] Mqzcdseynl5503 [place] [phone]. Sasha Montero HSTROP 8.0 pg/mL Normal 4.0-51.[address] [facility] Comment on above: Result Comment: CUT- OFF POINTS HAVE BEEN ESTABLISHED BASED ON THE FOURTH UNIVERSAL DEFINITIONS OF MYOCARDIALINFARCTION. THE UPPER REFERENCE LIMIT (URL) OF TROPONIN, DEFINED THE 99TH PERCENTILE OFcTnI DISTRIBUTION IN A REFERENCE POPULATION, HAS BEEN CONFIRMED THE DECISION THRESHOLDFOR ND DIAGNOSIS. Performed By: #### C MADM, CMP ####[facility] Dwjjzrcven4915 [place] [id number]. Sasha Montero WOLFGANG 39 ng/mL Normal 9-[address] [facility] Comment on above: Performed By: #### C MADI, CMP ####[facility] Dzbwwzqgpm7644 [place] [id number]. Sasha Winston CBC AUTO DIFFon 01-13-2022 BASO # 0.1 103/ul Normal 0.0-0.1 [facility] Comment on above: Performed By: #### C BC ####[facility] Ejdvspepbo0660 [place] [address]Dr. Sasha Winston Basophils/100 WBC (Bld) 0.4 % Normal 0.2-2.[address] [facility] Comment on above: Performed By: #### C BC ####[facility] Clkiiskfej6271 [place] [id number]. Sasha Montero EO # 0.0 103/ul Normal 0.0-0.[address] [facility] Comment on above: Performed By: #### C BC ####[facility] Ooixtsdtvj8258 [place] [id number]. Sasha Winston Eosinophils/100 WBC (Bld) 0.1 % Critically low 0.9-7.[address] [facility] Comment on above: Performed By: #### C BC ####[facility] Tgzxzqecvg4428 [place] [phone]. Sasha Montero Erythrocyte distribution width (RBC) [Ratio] 12.8 % Normal 11.0-15.0 [facility] Comment on above: Performed By: #### C BC ####[facility] Royzuzckbq2283 [place] [address]Dr. Sasha Montero Hematocrit (Bld) [Volume fraction] 36.2 % Normal 36.0-48.0 [facility] Comment on above: Performed By: #### C BC ####[facility] Zstqpddodg4023 [place] [address]Dr. Sasha Montero Hemoglobin (Bld) [Mass/Vol] 12.0 g/dL Normal 12.0-16.[address] [facility] Comment on above: Performed By: #### C BC ####[facility] Vroeqrqanp78[address] [place], [place] [address]DrSvetlana Albinalaura Montero IG # 0.07 10e3/ul Critically high 0.00-0.03 [facility] Comment on above: Performed By: #### C BC ####[facility] Pzcxticfbl[address] [place], [place] [address]Dr. Albinalaura Montero IG % 0.4 % Normal 0.0-0.5 [facility] Comment on above: Performed By: #### C BC ####[facility] Nckjtvnylk29[address] [place], [place] [address]DrSvetlnaa Sasha Winston LYMPH # 1.7 103/ul Normal 1.2-3.8 [facility] Comment on above: Performed By: #### C BC ####[facility] Zdeclduuxn9814[address] [place], [place] [address]DrSvetlana Albinalaura Montero Lymphocytes/100 WBC (Bld) 9.9 % Critically low 20.5-60.[address] [facility] Comment on above: Performed By: #### C BC ####[facility] Bkcoyagvyz40[address] [place], [place] [address]DrSvetlana Albinalaura Montero MANUAL DIFF REQ NO Normal [facility] Comment on above: Performed By: #### C BC ####[facility] Uvigttgkti874[address] [place], [place] [address]Dr. Sasha Montero MCH (RBC) [Entitic mass] 31.2 pg Normal 26.7-34.[address] [facility] Comment on above: Performed By: #### C BC ####[facility] Hbaapdkbfl4001 [place] [phone]. Sasha Winston MCHC (RBC) [Mass/Vol] 33.1 g/dL Normal 29.9-35.[address] [facility] Comment on above: Performed By: #### C BC ####[facility] Uhawynmyum1964 [place] [phone] Montero MCV (RBC) [Entitic vol] 94.0 fL Normal 81.0-99.0 [facility] Comment on above: Performed By: #### C BC ####[facility] Cxuofcqmqs4962 [place] [address]DrSvetlana Montero MONO # 1.1 103/ul Critically high 0.3-0.[address] [facility] Comment on above: Performed By: #### C BC ####[facility] Zpevfbtbdb8[address] [place], [place] [address]Dr. Sasha Montero Monocytes/100 WBC (Bld) 6.4 % Normal 1.7-12.[address] [facility] Comment on above: Performed By: #### C BC ####[facility] Jsrdjdwjwe98[address] [place], [place] [address]DrSvetlana Montero NEUT # 13.9 103/ul Critically high 1.4-6.[address] [facility] Comment on above: Performed By: #### C BC ####[facility] Wuwyjlrvrl8[address] [place], [place] [address]DrSvetlana Montero Neutrophils/100 WBC (Bld) 82.8 % Critically high 43.0-75.[address] [facility] Comment on above: Performed By: #### C BC ####[facility] Mvfiojobkn2199[address] [place], [place] [address]DrSvetlana Montero Platelet mean volume (Bld) [Entitic vol] 8.8 fL Critically low 9.5-13.[address] [facility] Comment on above: Performed By: #### C BC ####[facility] Ljuiplpmst08[address] [place], [place] [address]DrSvetlana Montero PLT 338 103/ul Normal 150-[address] [facility] Comment on above: Performed By: #### C BC ####[facility] Hwwfwhtftw9309 [place] [address]Dr. Sasha Montero RBC 3.85 106/ul Critically low 4.20-5.[address] [facility] Comment on above: Performed By: #### C BC ####[facility] Ruuljyfdwd9035 [place] [address]Dr. Sasha Winston WBC 16.8 103/ul Critically high 4.0-11.[address] [facility] Comment on above: Performed By: #### C BC ####[facility] Mveimcdfiz5259 [place] [address]Dr. Albinalaura Montero LACTATE/LACTIC ACIDon 2021 Lactate [Moles/Vol] 2.6 mmol/L Critically high 0.4-1.[address] [facility] Comment on above: Performed By: #### L ACT ####[facility] Qaaueywsyy104[address] [place], [place] [address]Dr. Albinalaura Montero PROF 14(COMP METB)on 022 Albumin [Mass/Vol] 4.3 g/dL Normal 3.4-5.[address] [facility] Comment on above: Performed By: #### Donnie BARRAZA CMP ####[facility] Kywrvontyq5138 [place] [address]Dr. Albinalaura Montero Albumin/Globulin [Mass ratio] 1.3 {ratio} Normal [facility] Comment on above: Performed By: #### C MADI, CMP ####[facility] Zcqmxwsqqz7663 [place] [address]Dr. Albinalaura Montero ALP [Catalytic activity/Vol] 82 U/L Normal 46-[address] [facility] Comment on above: Performed By: #### C MADI, CMP ####[facility] Pooukhcopb3920 [place] [address]Dr. Sasha Montero ALT [Catalytic activity/Vol] 11 U/L Critically low 14-[address] [facility] Comment on above: Performed By: #### C MADI, CMP ####[facility] Quwmsyymps4672 [place] [address]Dr. Sasha Montero Anion gap [Moles/Vol] 18.9 mmol/L Normal Th [facility] Comment on above: Performed By: #### Donnie BARRAZA, CMP ####[facility] Poanffupws6797 [place] [address]Dr. Sasha Montero AST [Catalytic activity/Vol] 24 U/L Normal 15-[address] [facility] Comment on above: Performed By: #### Donnie BARRAZA, CMP ####[facility] Tthveojbsk8792 [place] [address]Dr. Sasha Montero Bilirubin [Mass/Vol] 0.4 mg/dL Normal 0.2-1.[address] [facility] Comment on above: Performed By: #### Donnie BARRAZA, CMP ####[facility] Idepfijdtb5227 [place] [address]Dr. Sasha Montero Calcium [Mass/Vol] 8.8 mg/dL Normal 8.5-10.[address] [facility] Comment on above: Performed By: #### Donnie BARRAZA, CMP ####[facility] Xsfilrelwf8708 [place] [address]Dr. Sasha Montero Chloride [Moles/Vol] 102 mmol/L Normal 98-[address] [facility] Comment on above: Performed By: #### Donnie BARRAZA, CMP ####[facility] Fbatmgldoh8371 [place] [address]Dr. Sasha Montero CO2 [Moles/Vol] 23.3 mmol/L Normal 21.0-32.[address] [facility] Comment on above: Performed By: #### Donnie BARRAZA, CMP ####[facility] Avrggqkeiz6754 [place] [address]Dr. Sasha Montero Creatinine [Mass/Vol] 0.86 mg/dL Normal 0.55-1.[address] [facility] Comment on above: Performed By: #### Donnie BARRAZA, CMP ####[facility] Dxgofbdlep2718 [place] [address]Dr. Sasha Montero EGFR-AF BRUNEIAN >60 Normal >=[address] [facility] Comment on above: Performed By: #### Donnie BARRAZA, CMP ####[facility] Hwwzjlakhn8868 [place] [phone]. Sasha Montero EGFR-NON AF BRUNEIAN >60 Normal >=[address] [facility] Comment on above: Performed By: #### C MADI, CMP ####[facility] Wkplhrlyjm8643 [place] [address]Dr. Sasha Montero Globulin (S) [Mass/Vol] 3.2 g/dL Normal [facility] Comment on above: Performed By: #### C MADI, CMP ####[facility] Nccambvltj7038 [place] [address]Dr. Sasha Montero Glucose [Mass/Vol] 108 mg/dL Critically high 74-106 [facility] Comment on above: Performed By: #### C MADI, CMP ####[facility] Szuygmkclz8957 [place] [address]Dr. Sasha Montero Potassium [Moles/Vol] 3.2 mmol/L Critically low 3.5-5.[address] [facility] Comment on above: Performed By: #### C MADI, CMP ####[facility] Rmpsyyytzu[address] [place], [place] [address]Dr. Sasha Montero Protein [Mass/Vol] 7.5 g/dL Normal 6.4-8.[address] [facility] Comment on above: Performed By: #### C MADI, CMP ####[facility] Vxgtufxsqn8136 [place] [address]Dr. Sasha Montero Sodium [Moles/Vol] 141 mmol/L Normal 136-[address] [facility] Comment on above: Performed By: #### C MADI, CMP ####[facility] Oyardacxnm8863 [place] [address]Dr. Sasha Montero Urea nitrogen [Mass/Vol] 11.0 mg/dL Normal 7.0-18.[address] [facility] Comment on above: Performed By: #### C MADI, CMP ####[facility] Dmgxtuyldc405[address] [place], [place] [address]Dr. Sasha Montero Urea nitrogen/Creatinine [Mass ratio] 12.8 mg/mg Normal [facility] Comment on above: Performed By: #### C MADM, CMP ####[facility] Rraogfurxg7808 [place] [id number]. Sasha Montero CBC AUTO DIFFon 01-12-2022 BASO # 0.0 103/ul Normal 0.0-0.1 [facility] Comment on above: Performed By: #### C BC ####[facility] Ziggosyrta8111 [place] [phone]. Sasha Winston Basophils/100 WBC (Bld) 0.2 % Normal 0.2-2.[address] [facility] Comment on above: Performed By: #### C BC ####[facility] Wydghrgoat[address] [place], [place] [address]Dr. Sasha Montero EO # 0.0 103/ul Normal 0.0-0.[address] [facility] Comment on above: Performed By: #### C BC ####[facility] Sgkwcpijhi740[address] [place], [place] [address]Dr. Sasha Winston Eosinophils/100 WBC (Bld) 0.2 % Critically low 0.9-7.0 [facility] Comment on above: Performed By: #### C BC ####[facility] Gbjmqtlmba[address] [place], [place] [address]Dr. Sasha Montero Erythrocyte distribution width (RBC) [Ratio] 13.0 % Normal 11.0-15.[address] [facility] Comment on above: Performed By: #### C BC ####[facility] Mjpztnmwnd207[address] [place], [place] [address]Dr. Sasha Montero Hematocrit (Bld) [Volume fraction] 33.7 % Critically low 36.0-48.[address] [facility] Comment on above: Performed By: #### C BC ####[facility] Uacrpnvpfh88[address] [place], [place] [address]Dr. Sasha Montero Hemoglobin (Bld) [Mass/Vol] 11.3 g/dL Critically low 12.0-16.0 [facility] Comment on above: Performed By: #### C BC ####[facility] Zmwfvpxupp2312[address] [place], [place] [address]Dr. Sasha Montero IG # 0.02 10e3/ul Normal 0.00-0.03 [facility] Comment on above: Performed By: #### C BC ####[facility] Aeegxawasm8912 [place] [address]DrSvetlana Sasha Montero IG % 0.2 % Normal 0.0-0.5 [facility] Comment on above: Performed By: #### C BC ####[facility] Ljglwiojkj9475 [place] [address]DrSvetlana Sasha Winston LYMPH # 2.9 103/ul Normal 1.2-3.8 [facility] Comment on above: Performed By: #### C BC ####[facility] Ktjxwzowbg88[address] [place], [place] [address]DrSvetlana Albinalaura Montero Lymphocytes/100 WBC (Bld) 26.6 % Normal 20.5-60.0 [facility] Comment on above: Performed By: #### C BC ####[facility] Ostssndkgk45[address] [place], [place] [address]DrSvetlana Albinalaura Montero MANUAL DIFF REQ NO Normal [facility] Comment on above: Performed By: #### C BC ####[facility] Bscdcjhgzt46[address] [place], [place] [address]DrSvetlana Sasha Winston MCH (RBC) [Entitic mass] 30.9 pg Normal 26.7-34.0 [facility] Comment on above: Performed By: #### C BC ####[facility] Vkgspbfglr[address] [place], [place] [address]DrSvetlana Sasha Winston MCHC (RBC) [Mass/Vol] 33.5 g/dL Normal 29.9-35.[address] [facility] Comment on above: Performed By: #### C BC ####[facility] Nlohkcympn[address] [place], [place] [address]DrSvetlana Albinalaura Montero MCV (RBC) [Entitic vol] 92.1 fL Normal 81.0-99.0 [facility] Comment on above: Performed By: #### C BC ####[facility] Fvwzjgpaec[address] [place], [place] [address]DrSvetlana Montero MONO # 0.9 103/ul Critically high 0.3-0.8 [facility] Comment on above: Performed By: #### C BC ####[facility] Aeitzvmtrs9248 [place] [address]Dr. Sasha Montero Monocytes/100 WBC (Bld) 8.6 % Normal 1.7-12.0 [facility] Comment on above: Performed By: #### C BC ####[facility] Sfxthhmrys0028 [place] [address]Dr. Sasha Montero NEUT # 7.0 103/ul Critically high 1.4-6.5 [facility] Comment on above: Performed By: #### C BC ####[facility] Tpevnpthef4290 [place] [address]Dr. Sasha Montero Neutrophils/100 WBC (Bld) 64.2 % Normal 43.0-75.0 [facility] Comment on above: Performed By: #### C BC ####[facility] Habnkivxjl8893 [place] [address]Dr. Sasha Montero Platelet mean volume (Bld) [Entitic vol] 8.8 fL Critically low 9.5-13.5 [facility] Comment on above: Performed By: #### C BC ####[facility] Xvyplmueqd5209 [place] [address]Dr. Sasha Montero PLT 266 103/ul Normal 150-[address] [facility] Comment on above: Performed By: #### C BC ####[facility] Csawmxburg3895 [place] [address]Dr. Sasha Montero RBC 3.66 106/ul Critically low 4.20-5.[address] [facility] Comment on above: Performed By: #### C BC ####[facility] Rtxsgnuxug0019 [place] [id number]. Sasha Montero WBC 10.9 103/ul Normal 4.0-11.[address] [facility] Comment on above: Performed By: #### C BC ####[facility] Vousgukvym4525 [place] [address]Dr. Sasha Montero PROF 14(COMP METB)on 022 Albumin [Mass/Vol] 3.7 g/dL Normal 3.4-5.0 [facility] Comment on above: Performed By: #### C MP ####[facility] Qegvmufqww1789 [place] [address]Dr. Sasha Montero Albumin/Globulin [Mass ratio] 1.2 {ratio} Normal [facility] Comment on above: Performed By: #### C MP ####[facility] Yvhwfdxgzb0663 [place] [address]Dr. Sasha Montero ALP [Catalytic activity/Vol] 74 U/L Normal 46-116 [facility] Comment on above: Performed By: #### C MP ####[facility] Lqdpllnidt90[address] [place], [place] [address]Dr. Sasha Montero ALT [Catalytic activity/Vol] 20 U/L Normal 14-59 [facility] Comment on above: Performed By: #### C MP ####[facility] Fsjbedbhmu40[address] [place], [place] [address]Dr. Sasha Montero Anion gap [Moles/Vol] 12.7 mmol/L Normal [facility] Comment on above: Performed By: #### C MP ####[facility] Djypihvfzv4810[address] [place], [place] [address]Dr. Sasha Montero AST [Catalytic activity/Vol] 23 U/L Normal 15-37 [facility] Comment on above: Performed By: #### C MP ####[facility] Eulicqnvmk416[address] [place], [place] [address]Dr. Sasha Montero Bilirubin [Mass/Vol] 1.0 mg/dL Normal 0.2-1.[address] [facility] Comment on above: Performed By: #### C MP ####[facility] Cjgnqbamcj0011[address] [place], [place] [address]Dr. Sasha Montero Calcium [Mass/Vol] 8.7 mg/dL Normal 8.5-10.1 [facility] Comment on above: Performed By: #### C MP ####[facility] Pxhbrlxchs240782 [address] [place], [place] [address]Dr. Sasha Montero Chloride [Moles/Vol] 104 mmol/L Normal 98-107 [facility] Comment on above: Performed By: #### C MP ####[facility] Kywaoiyehc7302 [place] [address]Dr. Sasha Montero CO2 [Moles/Vol] 28.5 mmol/L Normal 21.0-32.[address] [facility] Comment on above: Performed By: #### C MP ####[facility] Vkjolrievu8908 [place] [address]Dr. Sasha Montero Creatinine [Mass/Vol] 0.72 mg/dL Normal 0.55-1.[address] [facility] Comment on above: Performed By: #### C MP ####[facility] Qyvwkkwxqq5160 [place] [address]Dr. Sasha Montero EGFR-AF BRUNEIAN >60 Normal >=[address] [facility] Comment on above: Performed By: #### C MP ####[facility] Dlkclssqmv389182 [address] [place], [place] [address]Dr. Sasha Montero EGFR-NON AF BRUNEIAN >60 Normal >=[address] [facility] Comment on above: Performed By: #### C MP ####[facility] Uhfhudaulu289182 [address] [place], [place] [address]Dr. Sasha Montero Globulin (S) [Mass/Vol] 3.0 g/dL Normal [facility] Comment on above: Performed By: #### C MP ####[facility] Apjwcwxuzq421182 [address] [place], [place] [address]Dr. Sasha Omntero Glucose [Mass/Vol] 97 mg/dL Normal 74-[address] [facility] Comment on above: Performed By: #### C MP ####[facility] Orvxnxadsn1877 [place] [address]Dr. Sasha Montero Potassium [Moles/Vol] 3.2 mmol/L Critically low 3.5-5.[address] [facility] Comment on above: Performed By: #### C MP ####[facility] Acfjhoanqr1231 [place] [address]Dr. Sasha Montero Protein [Mass/Vol] 6.7 g/dL Normal 6.4-8.[address] [facility] Comment on above: Performed By: #### C MP ####[facility] Qzbwweoddl9410 [place] [phone]. Sasha Montero Sodium [Moles/Vol] 142 mmol/L Normal 136-[address] [facility] Comment on above: Performed By: #### C MP ####[facility] Sexzkneide239782 [address] [place], [place] [address]Dr. Sasha Montero Urea nitrogen [Mass/Vol] 10.0 mg/dL Normal 7.0-18.[address] [facility] Comment on above: Performed By: #### C MP ####[facility] Uouatygpox32[address] [place], [place] [address]Dr. Sasha Montero Urea nitrogen/Creatinine [Mass ratio] 13.9 mg/mg Normal [facility] Comment on above: Performed By: #### C MP ####[facility] Qxjjlqncdu438[address] [place], [place] [address]Dr. Sasha Montero CBC AUTO DIFFon 01-11-2022 BASO # 0.0 103/ul Normal 0.0-0.[address] [facility] Comment on above: Performed By: #### C BC ####[facility] Kepfhdnepp906[address] [place], [place] [address]Dr. Sasha Montero Basophils/100 WBC (Bld) 0.2 % Normal 0.2-2.[address] [facility] Comment on above: Performed By: #### C BC ####[facility] Kpyjtqqmcw024382 [address] [place], [place] [address]Dr. Sasha Montero EO # 0.0 103/ul Normal 0.0-0.[address] [facility] Comment on above: Performed By: #### C BC ####[facility] Xahezgtsxd027482 [address] [place], [place] [address]Dr. Sasha Montero Eosinophils/100 WBC (Bld) 0.0 % Critically low 0.9-7.[address] [facility] Comment on above: Performed By: #### C BC ####[facility] Fubatygemw4000[address] [place], [place] [address]Dr. Sasha Montero Erythrocyte distribution width (RBC) [Ratio] 12.5 % Normal 11.0-15.[address] [facility] Comment on above: Performed By: #### C BC ####[facility] Hijtkgxkse6485 [place] [address]Dr. Sasha Montero Hematocrit (Bld) [Volume fraction] 37.3 % Normal 36.0-48.0 [facility] Comment on above: Performed By: #### C BC ####[facility] Aaiwsvbdcf0072 [place] [address]Dr. Sasha Montero Hemoglobin (Bld) [Mass/Vol] 12.8 g/dL Normal 12.0-16.[address] [facility] Comment on above: Performed By: #### C BC ####[facility] Cbpapcsmrn191882 [address] [place], [place] [address]Dr. Sasha Winston IG # 0.14 10e3/ul Critically high 0.00-0.03 [facility] Comment on above: Performed By: #### C BC ####[facility] Dpgwmdeebv781382 [address] [place], [place] [address]Dr. Sasha Montero IG % 0.7 % Critically high 0.0-0.5 [facility] Comment on above: Performed By: #### C BC ####[facility] Pvmmjoeltj830[address] [place], [place] [address]Dr. Ablinalaura Montero LYMPH # 0.8 103/ul Critically low 1.2-3.8 [facility] Comment on above: Performed By: #### C BC ####[facility] Oimoskutvy561382 [address] [place], [place] [address]Dr. Sasha Montero Lymphocytes/100 WBC (Bld) 3.6 % Critically low 20.5-60.[address] [facility] Comment on above: Performed By: #### C BC ####[facility] Mzkctetgop769[address] [place], [place] [address]Dr. Albinalaura Montero MANUAL DIFF REQ NO Normal [facility] Comment on above: Performed By: #### C BC ####[facility] Aouqoklkql893282 [address] [place], [place] [address]Dr. Sasha Montero MCH (RBC) [Entitic mass] 30.9 pg Normal 26.7-34.[address] [facility] Comment on above: Performed By: #### C BC ####[facility] Ghqbwgvwya4550 [place] [phone]. Sasha Montero MCHC (RBC) [Mass/Vol] 34.3 g/dL Normal 29.9-35.[address] [facility] Comment on above: Performed By: #### C BC ####[facility] Xdczwzaokc5794 [place] [phone]. Sasha Montero MCV (RBC) [Entitic vol] 90.1 fL Normal 81.0-99.[address] [facility] Comment on above: Performed By: #### C BC ####[facility] Onjcoozeco099[address] [place], [place] [address]Dr. Sasha Montero MONO # 0.7 103/ul Normal 0.3-0.[address] [facility] Comment on above: Performed By: #### C BC ####[facility] Ljgenllzwm701382 [address] [place], [place] [address]Dr. Sasha Montero Monocytes/100 WBC (Bld) 3.1 % Normal 1.7-12.[address] [facility] Comment on above: Performed By: #### C BC ####[facility] Vzydnwtbuj8[address] [place], [place] [address]Dr. Sasha Montero NEUT # 19.8 103/ul Critically high 1.4-6.5 [facility] Comment on above: Performed By: #### C BC ####[facility] Ihfwosyzks584782 [address] [place], [place] [address]Dr. Sasha Montero Neutrophils/100 WBC (Bld) 92.4 % Critically high 43.0-75.[address] [facility] Comment on above: Performed By: #### C BC ####[facility] Eltxgrirch246182 [address] [place], [place] [address]Dr. Sasha Montero Platelet mean volume (Bld) [Entitic vol] 8.7 fL Critically low 9.5-13.[address] [facility] Comment on above: Performed By: #### C BC ####[facility] Htvnybbsnp947[address] [place], [place] [address]Dr. Sasha Montero PLT 342 103/ul Normal 150-[address] [facility] Comment on above: Performed By: #### C BC ####[facility] Yzpwpzjgav9699 [place] [phone]. Sasha Montero RBC 4.14 106/ul Critically low 4.20-5.[address] [facility] Comment on above: Performed By: #### C BC ####[facility] Jplatnvixe4291 [place] [phone]. Sasha Montero WBC 21.4 103/ul Critically high 4.0-11.[address] [facility] Comment on above: Performed By: #### C BC ####[facility] Kgpeqfebaj8053 [place] [phone]. Sasha Montero BASO # 0.1 103/ul Normal 0.0-0.[address] [facility] Comment on above: Performed By: #### C BC ####[facility] Iknndkfowj2772 [place] [phone]. Sasha Montero Basophils/100 WBC (Bld) 0.4 % Normal 0.2-2.[address] [facility] Comment on above: Performed By: #### C BC ####[facility] Xbsbexwzgd2587 [place] [phone]. Sasha Montero EO # 0.1 103/ul Normal 0.0-0.7 [facility] Comment on above: Performed By: #### C BC ####[facility] Tlphcifsoi3287 [place] [phone]. Sasha Montero Eosinophils/100 WBC (Bld) 0.3 % Critically low 0.9-7.[address] [facility] Comment on above: Performed By: #### C BC ####[facility] Gjdzotfqwe2269 [place] [phone]. Sasha Montero Erythrocyte distribution width (RBC) [Ratio] 12.6 % Normal 11.0-15.[address] [facility] Comment on above: Performed By: #### C BC ####[facility] Pdecvgjxcm9974[address] [place], [place] [address]Dr. Sasha Montero Hematocrit (Bld) [Volume fraction] 39.1 % Normal 36.0-48.[address] [facility] Comment on above: Performed By: #### C BC ####[facility] Grmpknaqwl9264 [place] [address]Dr. Sasha Montero Hemoglobin (Bld) [Mass/Vol] 13.4 g/dL Normal 12.0-16.[address] [facility] Comment on above: Performed By: #### C BC ####[facility] Xlxcimgeun4953 [place] [address]Dr. Sasha Montero IG # 0.12 10e3/ul Critically high 0.00-0.[address] [facility] Comment on above: Performed By: #### C BC ####[facility] Gxmtjdbjec8815[address] [place], [place] [address]Dr. Sasha Montero IG % 0.5 % Normal 0.0-0.5 [facility] Comment on above: Performed By: #### C BC ####[facility] Bnjqcuxqei516982 [address] [place], [place] [address]Dr. Sasha Montero LYMPH # 4.2 103/ul Critically high 1.2-3.[address] [facility] Comment on above: Performed By: #### C BC ####[facility] Xrckyimcxn774782 [address] [place], [place] [address]Dr. Sasha Montero Lymphocytes/100 WBC (Bld) 17.6 % Critically low 20.5-60.0 [facility] Comment on above: Performed By: #### C BC ####[facility] Romdpqbrxj591382 [address] [place], [place] [address]Dr. Sasha Montero MANUAL DIFF REQ NO Normal [facility] Comment on above: Performed By: #### C BC ####[facility] Avhjgajmso805[address] [place], [place] [address]Dr. Sasha Montero MCH (RBC) [Entitic mass] 31.2 pg Normal 26.7-34.[address] [facility] Comment on above: Performed By: #### C BC ####[facility] Ffghlrzvws3587[address] [place], [place] [address]Dr. Sasha Montero MCHC (RBC) [Mass/Vol] 34.3 g/dL Normal 29.9-35.[address] [facility] Comment on above: Performed By: #### C BC ####[facility] Sfdytckuvd5650 [place] [phone]. Sasha Montero MCV (RBC) [Entitic vol] 90.9 fL Normal 81.0-99.[address] [facility] Comment on above: Performed By: #### C BC ####[facility] Nsmtgcnpaq1665 [place] [phone]. Sasha Montero MONO # 2.0 103/ul Critically high 0.3-0.[address] [facility] Comment on above: Performed By: #### C BC ####[facility] Nuhpogbozu34[address] [place], [place] [address]Dr. Sasha Montero Monocytes/100 WBC (Bld) 8.2 % Normal 1.7-12.[address] [facility] Comment on above: Performed By: #### C BC ####[facility] Jnjnumdpnn378882 [address] [place], [place] [address]Dr. Sasha Montero NEUT # 17.5 103/ul Critically high 1.4-6.5 [facility] Comment on above: Performed By: #### C BC ####[facility] Pmshxjrwfl449[address] [place], [place] [address]Dr. Sasha Montero Neutrophils/100 WBC (Bld) 73.0 % Normal 43.0-75.[address] [facility] Comment on above: Performed By: #### C BC ####[facility] Kpftqwejuy435[address] [place], [place] [address]Dr. Sasha Montero Platelet mean volume (Bld) [Entitic vol] 8.6 fL Critically low 9.5-13.[address] [facility] Comment on above: Performed By: #### C BC ####[facility] Vukcowxmrx29[address] [place], [place] [address]Dr. Sasha Montero PLT 452 103/ul Critically high 150-[address] [facility] Comment on above: Performed By: #### C BC ####[facility] Ezuppzankp6574[address] [place], [place] [address]Dr. Sasha Montero RBC 4.30 106/ul Normal 4.20-5.[address] [facility] Comment on above: Performed By: #### C BC ####[facility] Bhejdrijue1370 [place], [place] [address]Pe. Sasha Montero WBC 24.0 103/ul Critically high 4.0-11.[address] [facility] Comment on above: Performed By: #### C BC ####[facility] Wpqquepxof0385 [place], [place] [address]Fe. Sasha Montero Covid-19 PCR (CVDTB)on 12-16 SARS-CoV-2 (COVID-19) RNA YULIANA+probe Ql (Unsp spec) Not detected Normal NOT DETECTED [facility] Comment on above: Result Comment: When diagnostic testing is negative, the possibility of a false negative should be considered inthe context of a patient's recent exposures and the presence of clinical signs and symptomsconsistent with SARS-CoV-2.This test is not yet approved or cleared by the [place] FDA. When there are no FDA-approved or cleared tests available, and other criteria are met, FDA can make tests available under an emergency access mechanism called an Emergency Use Authorization (EUA). The EUA for this test is supported by the [employer] of Health and Human Service's declaration that circumstances exist to justify the emergency use of in vitro diagnostics for the detection and/or diagnosis of the virus that causes COVID-19. This EUA will remain in effect for the duration of the COVID-19 declaration justifying emergency of IVDs, unless it is terminated or revoked by the FDA (after which the test may no longer be used). Performed By: #### C VDTBH ####[facility] Ujhmjhenmj3412 [place] [id number]. Sasha Montero LACTATE/LACTIC ACIDon 2021 Lactate [Moles/Vol] 4.3 mmol/L Critically high 0.4-1.[address] [facility] Comment on above: Performed By: #### L ACT ####[facility] Ffiouveyvb8752 [place] [phone]. Sasha Montero Lactate [Moles/Vol] 6.1 mmol/L Critically high 0.4-1.[address] [facility] Comment on above: Performed By: #### L ACT ####[facility] Anjqsnzjhp8840[address] [place], [place] [address]Dr. Sasha Montero PROF 14(COMP METB)on 022 Albumin [Mass/Vol] 4.7 g/dL Normal 3.4-5.0 [facility] Comment on above: Performed By: #### C MP ####[facility] Mgthhjrriu0412[address] [place], [place] [address]Dr. Sasha Mnotero Albumin/Globulin [Mass ratio] 1.2 {ratio} Normal [facility] Comment on above: Performed By: #### C MP ####[facility] Fnxlikhnrw589[address] [place], [place] [address]Dr. Sasha Montero ALP [Catalytic activity/Vol] 102 U/L Normal 46-[address] [facility] Comment on above: Performed By: #### C MP ####[facility] Yvkpxulmas786582 [address] [place], [place] [address]Dr. Sasha Montero ALT [Catalytic activity/Vol] 25 U/L Normal 14-[address] [facility] Comment on above: Performed By: #### C MP ####[facility] Fjtchwbtoe48[address] [place], [place] [address]Dr. Sasha Montero Anion gap [Moles/Vol] 19.9 mmol/L Normal [facility] Comment on above: Performed By: #### C MP ####[facility] Fmntprpceo348382 [address] [place], [place] [address]Dr. Sasha Montero AST [Catalytic activity/Vol] 25 U/L Normal 15-[address] [facility] Comment on above: Performed By: #### C MP ####[facility] Ceplxrefsl294[address] [place], [place] [address]Dr. Sasha Montero Bilirubin [Mass/Vol] 0.7 mg/dL Normal 0.2-1.[address] [facility] Comment on above: Performed By: #### C MP ####[facility] Efjkewjxng0700[address] [place], [place] [address]Dr. Sasha Montero Calcium [Mass/Vol] 9.3 mg/dL Normal 8.5-10.1 [facility] Comment on above: Performed By: #### C MP ####[facility] Ehzilptuee0973 [place] [address]Dr. Sasha Montero Chloride [Moles/Vol] 100 mmol/L Normal 98-[address] [facility] Comment on above: Performed By: #### C MP ####[facility] Zxpycajakb2234[address] [place], [place] [address]Dr. Sasha Montero CO2 [Moles/Vol] 21.9 mmol/L Normal 21.0-32.[address] [facility] Comment on above: Performed By: #### C MP ####[facility] Zakwrxhycq2918[address] [place], [place] [address]Dr. Sasha Winston Creatinine [Mass/Vol] 1.00 mg/dL Normal 0.55-1.[address] [facility] Comment on above: Performed By: #### C MP ####[facility] Ovsogvolbk2260[address] [place], [place] [address]Dr. Sasha Winston EGFR-AF BRUNEIAN >60 Normal >=[address] [facility] Comment on above: Performed By: #### C MP ####[facility] Nxyuifzbrf913[address] [place], [place] [address]Dr. Sasha Winston EGFR-NON AF BRUNEIAN >60 Normal >=[address] [facility] Comment on above: Performed By: #### C MP ####[facility] Ezwvdbauus897[address] [place], [place] [address]Dr. Sasha Winston Globulin (S) [Mass/Vol] 3.8 g/dL Normal [facility] Comment on above: Performed By: #### C MP ####[facility] Snvorgmwsb5265[address] [place], [place] [address]Dr. Sasha Winston Glucose [Mass/Vol] 139 mg/dL Critically high 74-106 [facility] Comment on above: Performed By: #### C MP ####[facility] Vmldiuklxc528[address] [place], [place] [address]Dr. Sasha Montero Potassium [Moles/Vol] 3.8 mmol/L Normal 3.5-5.[address] [facility] Comment on above: Performed By: #### C MP ####[facility] Bahaexpmhk217[address] [place], [place] [address]Dr. Sasha Montero Protein [Mass/Vol] 8.5 g/dL Critically high 6.4-8.2 [facility] Comment on above: Performed By: #### C MP ####[facility] Hktruxdago5645 [place] [address]Dr. Sasha Montero Sodium [Moles/Vol] 138 mmol/L Normal 136-145 [facility] Comment on above: Performed By: #### C MP ####[facility] Irnvmkftgx5883 [place] [address]Dr. Sasha Montero Urea nitrogen [Mass/Vol] 13.0 mg/dL Normal 7.0-18.0 [facility] Comment on above: Performed By: #### C MP ####[facility] Nnrasxrmbg287[address] [place], [place] [address]Dr. Sasha Montero Urea nitrogen/Creatinine [Mass ratio] 13.0 mg/mg Normal [facility] Comment on above: Performed By: #### C MP ####[facility] Onvsxdzshz7511[address] [place], [place] [address]Dr. Sasha Montero Albumin [Mass/Vol] 4.5 g/dL Normal 3.4-5.0 [facility] Comment on above: Performed By: #### C MP ####[facility] Njvflhyizj9[address] [place], [place] [address]Dr. Sasha Montero Albumin/Globulin [Mass ratio] 1.2 {ratio} Normal [facility] Comment on above: Performed By: #### C MP ####[facility] Ozltdaclvr6662 [place] [address]Dr. Sasha Montero ALP [Catalytic activity/Vol] 102 U/L Normal 46-[address] [facility] Comment on above: Performed By: #### C MP ####[facility] Esagehqpvr6063 [place] [address]Dr. Sasha Montero ALT [Catalytic activity/Vol] 23 U/L Normal 14-59 [facility] Comment on above: Performed By: #### C MP ####[facility] Zkkxtivrqp6889 [place] [address]Dr. Sasha Montero Anion gap [Moles/Vol] 21.7 mmol/L Normal Th e [facility] Comment on above: Performed By: #### C MP ####[facility] Ffebxewhaa5442 [place] [id number]. Sasha Montero AST [Catalytic activity/Vol] 22 U/L Normal 15-37 [facility] Comment on above: Performed By: #### C MP ####[facility] Yarqdshocn0553 [place] [phone]. Sasha Montero Bilirubin [Mass/Vol] 0.7 mg/dL Normal 0.2-1.0 [facility] Comment on above: Performed By: #### C MP ####[facility] Rgrksfrcxm3553 [place] [phone]. Sasha Montero Calcium [Mass/Vol] 9.7 mg/dL Normal 8.5-10.1 [facility] Comment on above: Performed By: #### C MP ####[facility] Mteirfddys[address] [place], [place] [address]Dr. Sasha Montero Chloride [Moles/Vol] 99 mmol/L Normal 98-107 [facility] Comment on above: Performed By: #### C MP ####[facility] Myanrgseev1647 [place] [phone]. Sasha Montero CO2 [Moles/Vol] 20.5 mmol/L Critically low 21.0-32.0 [facility] Comment on above: Performed By: #### C MP ####[facility] Qwlwaoklwd0495 [place] [id number]. Sasha Montero Creatinine [Mass/Vol] 1.23 mg/dL Critically high 0.55-1.02 [facility] Comment on above: Performed By: #### C MP ####[facility] Dooputzsvs6026 [place] [phone]. Sasha Winston EGFR-AF BRUNEIAN 59 mL/min/1.73m2 Critically low >=[address] [facility] Comment on above: Performed By: #### C MP ####[facility] Cwqzwxycgb5483 [place] [phone]. Sasha Winston EGFR-NON AF BRUNEIAN 49 mL/min/1.73m2 Critically low >=60 [facility] Comment on above: Performed By: #### C MP ####[facility] Txjpndpthf6443 [place] [address]Dr. Sasha Montero Globulin (S) [Mass/Vol] 3.9 g/dL Normal [facility] Comment on above: Performed By: #### C MP ####[facility] Wqcxwjtfmi0958 [place] [address]Dr. Sasha Montero Glucose [Mass/Vol] 141 mg/dL Critically high 74-106 [facility] Comment on above: Performed By: #### C MP ####[facility] Fetkewaxvp6752 [place] [address]Dr. Sasha Montero Potassium [Moles/Vol] 3.2 mmol/L Critically low 3.5-5.1 [facility] Comment on above: Performed By: #### C MP ####[facility] Jkzyvkbwpp3940 [place] [address]Dr. Sasha Montero Protein [Mass/Vol] 8.4 g/dL Critically high 6.4-8.2 [facility] Comment on above: Performed By: #### C MP ####[facility] Yzihaefdpo[address] [place], [place] [address]Dr. Sasha Montero Sodium [Moles/Vol] 138 mmol/L Normal 136-145 [facility] Comment on above: Performed By: #### C MP ####[facility] Ksfcgcyxfh1176 [place] [address]Dr. Sasha Montero Urea nitrogen [Mass/Vol] 12.0 mg/dL Normal 7.0-18.0 [facility] System Comment on above: Performed By: #### C MP ####[facility] [address]so[address]ke[address] [place] [address]Dr. Sasha Winston Urea nitrogen/Creatinine [Mass ratio] 9.8 mg/mg Normal [facility] Comment on above: Performed By: #### C MP ####[facility] [address]jnmfyl[address] [place] [address]Dr. Sasha Winston CBC AUTO DIFFon 12-10-2021 BASO # 0.5 103/ul Critically high 0.0-0.[address] [facility] Comment on above: Performed By: #### C BC ####[facility] Lurgmlyxnp[address] [place], [place] [address]DrSvetlana Montero Basophils/100 WBC (Bld) 0.5 % Normal 0.2-2.[address] [facility] Comment on above: Performed By: #### C BC ####[facility] Cwjrxzsquk[address] [place], [place] [address]DrSvetlana Montero EO # 1.0 103/ul Critically high 0.0-0.[address] [facility] Comment on above: Performed By: #### C BC ####[facility] Eklbaehhhn4713[address] [place], [place] [address]DrSvetlana Montero Eosinophils/100 WBC (Bld) 0.9 % Normal 0.9-7.[address] [facility] Comment on above: Performed By: #### C BC ####[facility] Ahhqwadlup67[address] [place], [place] [address]DrSvetlana Montero Erythrocyte distribution width (RBC) [Ratio] 13.1 % Normal 11.0-15.[address] [facility] Comment on above: Performed By: #### C BC ####[facility] Klxnfzrsyr1447[address] [place], [place] [address]DrSvetlana Montero Hematocrit (Bld) [Volume fraction] 33.7 % Critically low 36.0-48.0 [facility] Comment on above: Performed By: #### C BC ####[facility] Vynjrsnhvj50[address] [place], [place] [address]DrSvetlana Montero Hemoglobin (Bld) [Mass/Vol] 10.9 g/dL Critically low 12.0-16.[address] [facility] Comment on above: Performed By: #### C BC ####[facility] Tqwleyyqat879[address] [place], [place] [address]DrSvetlana Montero IG # 0.20 10e3/ul Critically high 0.00-0.03 [facility] Comment on above: Performed By: #### C BC ####[facility] Rzypetcwtz5675[address] [place], [place] [address]Dr. Sasha Montero IG % 0.2 % Normal 0.0-0.5 [facility] Comment on above: Performed By: #### C BC ####[facility] [address]vrhnzgul[address] [place] [address]DrSvetalna Montero LYMPH # 2.4 103/ul Normal 1.2-3.[address] [facility] Comment on above: Performed By: #### C BC ####[facility] Zhweqbiuze68[address] [place] [address]DrSvetlana Montero Lymphocytes/100 WBC (Bld) 29.7 % Normal 20.5-60.[address] [facility] Comment on above: Performed By: #### C BC ####[facility] Gngivklhkn8739[address] [place], [place] [address]DrSvetlana Montero MANUAL DIFF REQ NO Normal [facility] Comment on above: Performed By: #### C BC ####[facility] Bervnouodk1224[address] [place], [place] [address]DrSvetlana Montero MCH (RBC) [Entitic mass] 31.3 pg Normal 26.7-34.[address] [facility] Comment on above: Performed By: #### C BC ####[facility] Mrtitiefcx0629[address] [place], [place] [address]DrSvetlana Montero MCHC (RBC) [Mass/Vol] 32.3 g/dL Normal 29.9-35.[address] [facility] Comment on above: Performed By: #### C BC ####[facility] Vagtojvwda3629[address] [place], [place] [address]DrSvetlana Montero MCV (RBC) [Entitic vol] 96.8 fL Normal 81.0-99.[address] [facility] Comment on above: Performed By: #### C BC ####[facility] Gceyyvboph1380[address] [place], [place] [address]DrSvetlana Montero MONO # 0.8 103/ul Normal 0.3-0.[address] [facility] Comment on above: Performed By: #### C BC ####[facility] Tglzjxauod117[address] [place], [place] [address]DrSvetlana Montero Monocytes/100 WBC (Bld) 9.2 % Normal 1.7-12.0 [facility] Comment on above: Performed By: #### C BC ####[facility] Uvwklrczxh7[address] [place] [address]Dr. Sasha Montero NEUT # 4.8 103/ul Normal 1.4-6.5 [facility] Comment on above: Performed By: #### C BC ####[facility] Qetfrxmedu39[address] [place] [address]DrSvetlana Montero Neutrophils/100 WBC (Bld) 59.5 % Normal 43.0-75.0 [facility] Comment on above: Performed By: #### C BC ####[facility] Qjjzxvwxwb091282 [address] [place], [place] [address]DrSvetlana Montero Platelet mean volume (Bld) [Entitic vol] 8.7 fL Critically low 9.5-13.5 [facility] Comment on above: Performed By: #### C BC ####[facility] Qsgwdbthse884982 [address] [place], [place] [address]Dr. Sasha Montero PLT 286 103/ul Normal 150-[address] [facility] Comment on above: Performed By: #### C BC ####[facility] Ekgzniifsg3930[address] [place], [place] [address]DrSvetlana Montero RBC 3.48 106/ul Critically low 4.20-5.[address] [facility] Comment on above: Performed By: #### C BC ####[facility] Ntbmbdkqll160982 [address] [place], [place] [address]DrSvetlana Montero WBC 8.2 103/ul Normal 4.0-11.[address] [facility] Comment on above: Performed By: #### C BC ####[facility] Eykdwvgvii958982 [address] [place], [place] [address]DrSvetlana Montero PROF CHEM 8 (BAS METB)on Anion gap [Moles/Vol] 14.8 mmol/L Normal [facility] Comment on above: Performed By: #### B MP ####[facility] Vzullyrmrp026[address] [place], [place] [address]DrSvetlana Montero Calcium [Mass/Vol] 7.8 mg/dL Critically low 8.5-10.[address] [facility] Comment on above: Performed By: #### B MP ####[facility] F[address]iaixlum65[address] [place] [address]Dr. Sasha Montero Chloride [Moles/Vol] 103 mmol/L Normal 98-[address] [facility] Comment on above: Performed By: #### B MP ####[facility] Nwfksgalfy7[address] [place] [address]Dr. Sasha Montero CO2 [Moles/Vol] 25.3 mmol/L Normal 21.0-32.[address] [facility] Comment on above: Performed By: #### B MP ####[facility] Wjeffalnan351682 [address] [place], [place] [address]Dr. Sasha Montero Creatinine [Mass/Vol] 0.54 mg/dL Critically low 0.55-1.02 [facility] Comment on above: Performed By: #### B MP ####[facility] Swuyxjlexu935082 [address] [place], [place] [address]Dr. Sasha Montero EGFR-AF BRUNEIAN >60 Normal >=[address] [facility] Comment on above: Performed By: #### B MP ####[facility] Pixzphvwmd680282 [address] [place], [place] [address]Dr. Sasha Winston EGFR-NON AF BRUNEIAN >60 Normal >=[address] [facility] Comment on above: Performed By: #### B MP ####[facility] Wowftcfych763782 [address] [place], [place] [address]Dr. Sasha Winston Glucose [Mass/Vol] 84 mg/dL Normal 74-[address] [facility] Comment on above: Performed By: #### B MP ####[facility] Irkovrnpsi854382 [address] [place], [place] [address]Dr. Sasha Montero Potassium [Moles/Vol] 3.1 mmol/L Critically low 3.5-5.[address] [facility] Comment on above: Performed By: #### B MP ####[facility] Injyfnjdym3427[address] [place], [place] [address]Dr. Sasha Montero Sodium [Moles/Vol] 140 mmol/L Normal 136-[address] [facility] Comment on above: Performed By: #### B MP ####[facility] Vftvkrhgkh770[address] [place], [place] [address]Dr. Sasha Montero Urea nitrogen [Mass/Vol] 5.0 mg/dL Critically low 7.0-18.0 [facility] Comment on above: Performed By: #### B MP ####[facility] Eashjxrsvl377[address] [place], [place] [address]Dr. Sasha Montero Urea nitrogen/Creatinine [Mass ratio] 9.3 mg/mg Normal [facility] Comment on above: Performed By: #### B MP ####[facility] Crvtqhkrym826182 [address] [place], [place] [address]Dr. Sasha Montero CBC AUTO DIFFon 12-09-2021 BASO # 0.0 103/ul Normal 0.0-0.1 [facility] Comment on above: Performed By: #### C BC ####[facility] Senowpbkxf943182 [address] [place], [place] [address]Dr. Sasha Montero Basophils/100 WBC (Bld) 0.2 % Normal 0.2-2.[address] [facility] Comment on above: Performed By: #### C BC ####[facility] Iolfxbjenq818182 [address] [place], [place] [address]Dr. Sasha Montero EO # 0.0 103/ul Normal 0.0-0.7 [facility] Comment on above: Performed By: #### C BC ####[facility] Wobxjmftjn201[address] [place], [place] [address]Dr. Sasha Montero Eosinophils/100 WBC (Bld) 0.0 % Critically low 0.9-7.[address] [facility] Comment on above: Performed By: #### C BC ####[facility] Gmkiwralhz3687[address] [place], [place] [address]Dr. Sasha Montero Erythrocyte distribution width (RBC) [Ratio] 12.9 % Normal 11.0-15.[address] [facility] Comment on above: Performed By: #### C BC ####[facility] Dqdncnbxwx858682 [address] [place], [place] [address]Dr. Sasha Montero Hematocrit (Bld) [Volume fraction] 34.6 % Critically low 36.0-48.0 [facility] Comment on above: Performed By: #### C BC ####[facility] [address]jbltzks[address] [place] [address]DrSevtlana Montero Hemoglobin (Bld) [Mass/Vol] 11.8 g/dL Critically low 12.0-16.0 [facility] Comment on above: Performed By: #### C BC ####[facility] Oybdvlzlnn868[address] [place], [place] [address]DrSvetlana Montero IG # 0.07 10e3/ul Critically high 0.00-0.03 [facility] Comment on above: Performed By: #### C BC ####[facility] Izpzjkjguw952182 [address] [place], [place] [address]DrSvetlana Montero IG % 0.4 % Normal 0.0-0.5 [facility] Comment on above: Performed By: #### C BC ####[facility] Prydtquman658[address] [place], [place] [address]DrSvetlana Montero LYMPH # 1.0 103/ul Critically low 1.2-3.8 [facility] Comment on above: Performed By: #### C BC ####[facility] Bcmtqfdycv817[address] [place], [place] [address]DrSvetlana Montero Lymphocytes/100 WBC (Bld) 5.0 % Critically low 20.5-60.0 [facility] Comment on above: Performed By: #### C BC ####[facility] Hfojyfpqxy392182 [address] [place], [place] [address]DrSvetlana Montero MANUAL DIFF REQ NO Normal [facility] Comment on above: Performed By: #### C BC ####[facility] Zxjnwmfqyh663882 [address] [place], [place] [address]DrSvetlana Montero MCH (RBC) [Entitic mass] 31.5 pg Normal 26.7-34.0 [facility] Comment on above: Performed By: #### C BC ####[facility] Moqcpgdkwn665982 [address] [place], [place] [address]DrSvetlana Montero MCHC (RBC) [Mass/Vol] 34.1 g/dL Normal 29.9-35.[address] [facility] Comment on above: Performed By: #### C BC ####[facility] Bpnebauewb06[address] [place] [address]DrSvetlana Montero MCV (RBC) [Entitic vol] 92.3 fL Normal 81.0-99.[address] [facility] Comment on above: Performed By: #### C BC ####[facility] Bjnhteooyy870982 [address] [place], [place] [address]DrSvetlana Montero MONO # 0.6 103/ul Normal 0.3-0.[address] [facility] Comment on above: Performed By: #### C BC ####[facility] Ungojvvgke399382 [address] [place], [place] [address]DrSvetlana Montero Monocytes/100 WBC (Bld) 3.1 % Normal 1.7-12.[address] [facility] Comment on above: Performed By: #### C BC ####[facility] Bilqkxpgfd223482 [address] [place], [place] [address]DrSvetlana Montero NEUT # 17.6 103/ul Critically high 1.4-6.[address] [facility] Comment on above: Performed By: #### C BC ####[facility] Sqjztrtroe826082 [address] [place], [place] [address]DrSvetlana Monetro Neutrophils/100 WBC (Bld) 91.3 % Critically high 43.0-75.[address] [facility] Comment on above: Performed By: #### C BC ####[facility] Lhhtkxyujb312182 [address] [place], [place] [address]DrSvetlana Montero Platelet mean volume (Bld) [Entitic vol] 8.9 fL Critically low 9.5-13.[address] [facility] Comment on above: Performed By: #### C BC ####[facility] Fjceicmgqb430[address] [place], [place] [address]DrSvetlana Montero PLT 365 103/ul Normal 150-[address] [facility] Comment on above: Performed By: #### C BC ####[facility] Vgfumreogu507[address] [place], [place] [address]DrSvetlana Montero RBC 3.75 106/ul Critically low 4.20-5.40 [facility] Comment on above: Performed By: #### C BC ####[facility] Natfanatlk769682 [address] [place], [place] [address]Dr. Sasha Montero WBC 19.2 103/ul Critically high 4.0-11.0 [facility] Comment on above: Performed By: #### C BC ####[facility] Izedifvkzd744382 [address] [place], [place] [address]Dr. Sasha Montero PROF CHEM 8 (BAS METB)on Anion gap [Moles/Vol] 17.7 mmol/L Normal [facility] Comment on above: Performed By: #### B MP ####[facility] Vjxqqaudun947382 [address] [place], [place] [address]Dr. Sasha Montero Calcium [Mass/Vol] 8.2 mg/dL Critically low 8.5-10.1 [facility] Comment on above: Performed By: #### B MP ####[facility] Glhgcsyvjb138182 [address] [place], [place] [address]Dr. Sasha Montero Chloride [Moles/Vol] 99 mmol/L Normal 98-107 [facility] Comment on above: Performed By: #### B MP ####[facility] Vgtmcnkvsw715582 [address] [place], [place] [address]Dr. Sasha Montero CO2 [Moles/Vol] 22.6 mmol/L Normal 21.0-32.0 [facility] Comment on above: Performed By: #### B MP ####[facility] Pysofldgza175882 [address] [place], [place] [address]Dr. Sasha Montero Creatinine [Mass/Vol] 0.82 mg/dL Normal 0.55-1.02 [facility] Comment on above: Performed By: #### B MP ####[facility] Ampknzjhqj988082 [address] [place], [place] [address]Dr. Sasha Montero EGFR-AF BRUNEIAN >60 Normal >=60 [facility] Comment on above: Performed By: #### B MP ####[facility] Jonbsochta892082 [address] [place], [place] [address]Dr. Sasha Montero EGFR-NON AF BRUNEIAN >60 Normal >=60 [facility] Comment on above: Performed By: #### B MP ####[facility] Ernfjaptvk63[address] [place] [address]Dr. Sasha Montero Glucose [Mass/Vol] 129 mg/dL Critically high 74-106 [facility] Comment on above: Performed By: #### B MP ####[facility] Jvsedtmsnk7344 [place] [address]Dr. Sasha Montero Potassium [Moles/Vol] 3.3 mmol/L Critically low 3.5-5.1 [facility] Comment on above: Performed By: #### B MP ####[facility] Dbaqoyipkr930[address] [place], [place] [address]Dr. Sasha Montero Sodium [Moles/Vol] 136 mmol/L Normal 136-145 [facility] Comment on above: Performed By: #### B MP ####[facility] Oqftciulun428082 [address] [place], [place] [address]Dr. Sasha Winston Urea nitrogen [Mass/Vol] 7.0 mg/dL Normal 7.0-18.0 [facility] Comment on above: Performed By: #### B MP ####[facility] Kfwaynwuhv380782 [address] [place], [place] [address]Dr. Sasha Montero Urea nitrogen/Creatinine [Mass ratio] 8.5 mg/mg Normal [facility] Comment on above: Performed By: #### B MP ####[facility] Tldxmymdyx1159[address] [place], [place] [address]Dr. Sasha Winston XR CHEST 2 Von 12-09-2021 XR CHEST 2 V Normal [facility] AMYLASEon 12-08-2021 Amylase [Catalytic activity/Vol] 94 U/L Normal 25-[address] [facility] Comment on above: Performed By: #### C MP, [place] ####[facility] Ygxoiemsgr[address] [place] [address]Dr. Sasha Winston CBC AUTO DIFFon 12-08-2021 BASO # 0.1 103/ul Normal 0.0-0.1 [facility] Comment on above: Performed By: #### C BC ####[facility] Jisjmcrdhp[address] [place], [place] [address]Dr. Sasha Montero Basophils/100 WBC (Bld) 0.4 % Normal 0.2-2.[address] [facility] Comment on above: Performed By: #### C BC ####[facility] Qmqkueepcg2564[address] [place], [place] [address]Dr. Sasha Montero EO # 0.0 103/ul Normal 0.0-0.[address] [facility] Comment on above: Performed By: #### C BC ####[facility] Camwjpmefv018[address] [place], [place] [address]Dr. Sasha Montero Eosinophils/100 WBC (Bld) 0.2 % Critically low 0.9-7.[address] [facility] Comment on above: Performed By: #### C BC ####[facility] Dtbtcmuqdb911[address] [place], [place] [address]Dr. Sasha Montero Erythrocyte distribution width (RBC) [Ratio] 12.9 % Normal 11.0-15.[address] [facility] Comment on above: Performed By: #### C BC ####[facility] Uqgyxraqff3570[address] [place], [place] [address]Dr. Sasha Montero Hematocrit (Bld) [Volume fraction] 40.3 % Normal 36.0-48.0 [facility] Comment on above: Performed By: #### C BC ####[facility] Itpkcsiivd364[address] [place], [place] [address]Dr. Sasha Montero Hemoglobin (Bld) [Mass/Vol] 13.4 g/dL Normal 12.0-16.[address] [facility] Comment on above: Performed By: #### C BC ####[facility] Yloahhinls6434[address] [place], [place] [address]Dr. Sasha Montero IG # 0.08 10e3/ul Critically high 0.00-0.[address] [facility] Comment on above: Performed By: #### C BC ####[facility] Feeapropsj7999[address] [place], [place] [address]Dr. Sasha Montero IG % 0.4 % Normal 0.0-0.[address] [facility] Comment on above: Performed By: #### C BC ####[facility] Uiqrjjnliw26[address] [place] [id number]. Sasha Montero LYMPH # 2.5 103/ul Normal 1.2-3.[address] [facility] Comment on above: Performed By: #### C BC ####[facility] Iqnsttfuvx15[address] [place] [address]Dr. Sasha Winston Lymphocytes/100 WBC (Bld) 13.5 % Critically low 20.5-60.[address] [facility] Comment on above: Performed By: #### C BC ####[facility] [address]uyirhda[address] [place] [address]Dr. Albinalaura Montero MANUAL DIFF REQ NO Normal [facility] Comment on above: Performed By: #### C BC ####[facility] Udvfuqqrxl8[address] [place] [phone]. Sasha Winston MCH (RBC) [Entitic mass] 31.3 pg Normal 26.7-34.0 [facility] Comment on above: Performed By: #### C BC ####[facility] Kjfcbugrvm22[address] [place] [phone]. Sasha Montero MCHC (RBC) [Mass/Vol] 33.3 g/dL Normal 29.9-35.2 [facility] Comment on above: Performed By: #### C BC ####[facility] Hknpouonwz2[address] [place] [phone]. Sasha Winston MCV (RBC) [Entitic vol] 94.2 fL Normal 81.0-99.[address] [facility] Comment on above: Performed By: #### C BC ####[facility] Xxwxvgdgal1744 [place] [phone]. Sasha Montero MONO # 1.5 103/ul Critically high 0.3-0.[address] [facility] Comment on above: Performed By: #### C BC ####[facility] Rwqodyotaq45[address] [place] [phone]. Sasha Winston Monocytes/100 WBC (Bld) 7.9 % Normal 1.7-12.[address] [facility] Comment on above: Performed By: #### C BC ####[facility] Eusyaoqrac26[address] [place] [phone]. Sasha Montero NEUT # 14.6 103/ul Critically high 1.4-6.5 [facility] Comment on above: Performed By: #### C BC ####[facility] Rgpvatosea93[address] [place] [address]Dr. Sasha Montero Neutrophils/100 WBC (Bld) 77.6 % Critically high 43.0-75.0 [facility] Comment on above: Performed By: #### C BC ####[facility] Ayuptjjlgy[address] [place] [address]Dr. Sasha Montero Platelet mean volume (Bld) [Entitic vol] 8.9 fL Critically low 9.5-13.5 [facility] Comment on above: Performed By: #### C BC ####[facility] Kcfdgdxkqt8260[address] [place], [place] [address]Dr. Sasha Montero PLT 499 103/ul Critically high 150-450 [facility] Comment on above: Performed By: #### C BC ####[facility] Ntmzmongeo1155[address] [place], [place] [address]Dr. Sasha Montero RBC 4.28 106/ul Normal 4.20-5.[address] [facility] Comment on above: Performed By: #### C BC ####[facility] Ruzalqdyfj665[address] [place], [place] [address]Dr. Sasha Montero WBC 18.8 103/ul Critically high 4.0-11.[address] [facility] Comment on above: Performed By: #### C BC ####[facility] Nkidxoihqy725[address] [place], [place] [address]Dr. Sasha Montero CT ABD/PELV W CONon 12-09-19 CT ABD/PELV W CON Normal [facility] CULTURE BLOODon 12-08-2021 Microscopic examination of blood, culture Culture Observations: NO GROWTH AT 5 DAYS Normal [facility] Comment on above: Performed By: #### B LDCX2 ####[facility] Jsgcvteyce2475[address] [place], [place] [address]Dr. Sasha Montero Microscopic examination of blood, culture Culture Observations: NO GROWTH AT 5 DAYS Normal [facility] Comment on above: Performed By: #### B LDCX1 ####[facility] [address]jeimgc[address] [place], [place] [address]Dv. Sasha Montero CULTURE URINEon 12-08-2021 CULTURE URINE Culture Observations : No growth Normal [facility] Comment on above: Performed By: #### U RCX ####[facility] Pijeqhotcn[address] [place] [id number]. Sasha Montero [facility]on [facility]-16 SARS-CoV-2 (COVID-19) RNA YULIANA+probe Ql (Unsp spec) Not detected Normal NOT DETECTED [facility] Comment on above: Result Comment: This test is not yet approved or cleared by the [place] FDA. When there are no FDA-approved or cleared tests available, and other criteria are met, FDA can make tests available under an emergency access mechanism called an Emergency Use Authorization (EUA). The EUA for this test is supported by the [place] of Health and Human Service's (HHS's) declaration that circumstances exist to justify the emergency use of in vitro diagnostics for the detection and/or diagnosis of the virus that causes COVID-19. This EUA will remain in effect (meaning this test can be used) for the duration of the COVID-19 declaration justifying emergency of IVDs, unless it is terminated or revoked by FDA (after which the test may no longer be used).When diagnostic testing is negative, the possibility of a false negative should be considered inthe context of a patient's recent exposures and the presence of clinical signs and symptomsconsistent with SARS-CoV-2. Performed By: #### C VDTBH ####[facility] Zx[address]iiiypjn4[address] [place], [place] [address]Oq. Sasha Montero DRUG SCREEN RAPID (URINE)on 12-08-2021 AMP Negative Normal NEGATIVE [facility] Comment on above: Performed By: #### E RUR, DRUGRPD, UMICRO ####[facility] Vxdc[address]xsqvk7[address] [place], [place] [address]Tp. Sasha Winston BAR Negative Normal NEGATIVE [facility] Comment on above: Performed By: #### E RUR, DRUGRPD, UMICRO ####[facility] [address]nkslcl[address] [place] [address]Dr. Sasha Montero BUP Negative Normal NEGATIVE [facility] Comment on above: Performed By: #### E RUR, DRUGRPD, UMICRO ####[facility] Aipoofouib10[address] [place], [place] [address]Dr. Sasha Montero BZO Negative Normal NEGATIVE [facility] Comment on above: Performed By: #### E RUR, DRUGRPD, UMICRO ####[facility] Nuphnusqob09[address] [place], [place] [address]Dr. Sasha Montero JAMESON Negative Normal NEGATIVE [facility] Comment on above: Performed By: #### E RUR, DRUGRPD, UMICRO ####[facility] Uwowzzjxea8[address] [place], [place] [address]Dr. Sasha Montero CUT-OFFS SEE BELOW Normal [facility] Comment on above: Result Comment: AMP (Amphetamine): 500ng/mL, BAR (Barbituates): 200 ng/mL, BZO (Benzodiazepines): 150 ng/mL, BUP (Buprenorphine): 10 ng/mL, JAMESON (Cocaine): 150 ng/mL, mAMP (Methamphetamine): 500 ng/mL, MTD (Methadone): 200 ng/mL, OPI (Opiates): 100 ng/mL, OXY (Oxycodone): 100 ng/mL, PCP (Phencyclidine): 25 ng/mL, PPX (Propoxyphene): 300 ng/mL, THC (Cannabinoids): 50 ng/mL, TCA (Trycyclic Antidepressants): 300 ng/mL Performed By: #### E RUR, DRUGRPD, UMICRO ####[facility] Uzaf[address] [place], [place] [address]Dr. Sasha Montero DRUG CUT HEADER DRUG CLASS TEST SYST EM CUT-OFF CONCENTRATIONS ARE FOLLOWS: Normal [facility] Comment on above: Performed By: #### E RUR, DRUGRPD, UMICRO ####[facility] Udvoaokcty[address] [place], [place] [address]Dr. Sasha Montero mAMP Negative Normal NEGATIVE [facility] Comment on above: Performed By: #### E RUR, DRUGRPD, UMICRO ####[facility] Gmenamcdgo[address] [place] [address]Dr. Sasha Montero MTD Negative Normal NEGATIVE [facility] Comment on above: Performed By: #### E RUR, DRUGRPD, UMICRO ####[facility] Kmnmdnkgxn[address] [place], [place] [address]Dr. Sasha Montero OPI Negative Normal NEGATIVE [facility] Comment on above: Performed By: #### E RUR, DRUGRPD, UMICRO ####[facility] Lcfdjtfugq65[address] [place], [place] [address]Dr. Sasha Montero OXY Negative Normal NEGATIVE [facility] Comment on above: Performed By: #### E RUR, DRUGRPD, UMICRO ####[facility] Edcwrftglt04[address] [place], [place] [address]Dr. Sasha Montero PCP Negative Normal NEGATIVE [facility] Comment on above: Performed By: #### E RUR, DRUGRPD, UMICRO ####[facility] Ckchcravdx[address] [place], [place] [address]Dr. Sasha Montero PPX Negative Normal NEGATIVE [facility] Comment on above: Performed By: #### E RUR, DRUGRPD, UMICRO ####[facility] Axkxhrwgbb9224[address] [place], [place] [address]Dr. Sasha Montero TCA Negative Normal NEGATIVE [facility] Comment on above: Performed By: #### E RUR, DRUGRPD, UMICRO ####[facility] Iihvojqwyc070[address] [place], [place] [address]Dr. Sasha Montero THC Positive Abnormal NEGATIVE [facility] Comment on above: Performed By: #### E RUR, DRUGRPD, UMICRO ####[facility] Yqddyoeazz[address] [place], [place] [address]Dr. Sasha Montero ER URINE PROFILEon 2 Bilirubin Ql (U) SMALL Abnormal NEGATIVE [facility] Comment on above: Performed By: #### E RUR, DRUGRPD, UMICRO ####[facility] Wcbhrfvqor[address] [place] [address]Dr. Sasha Montero Clarity (U) CLEAR Normal CLEAR [facility] Comment on above: Performed By: #### WELLINGTON GIBSON UMICRO ####[facility] Metohyzzwm[address] [place] [address]Dr. Sasha Montero Color (U) DK. ORANGE Abnormal YELLOW [facility] Comment on above: Performed By: #### WELLINGTON GIBSON UMICRO ####[facility] Zxydbjozcw60[address] [place], [place] [address]Dr. Albinalaura Montero ERUAHD A micrscopic examina tion will be performed if indicated. Normal [facility] Comment on above: Performed By: #### WELLINGTON GIBSON UMICRO ####[facility] Dhftkfglgu25[address] [place], [place] [address]Dr. Albinaluara Winston Glucose Ql (U) Negative Normal NEGATIVE [facility] Comment on above: Performed By: #### WELILNGTON GIBSON UMICRO ####[facility] Rgceqawttt26[address] [place], [place] [address]Dr. Albinalaura Montero Hemoglobin Ql (U) TRACE-INTACT Abnormal NEGATIVE [facility] Comment on above: Performed By: #### WELLINGTON GIBSON UMICRO ####[facility] Akwmmfxnxf394[address] [place], [place] [address]Dr. Sasha Montero Ketones Ql (U) TRACE Abnormal NEGATIVE [facility] Comment on above: Performed By: #### WELLINGTON GIBSON UMICRO ####[facility] Dnbigqlykf67[address] [place], [place] [address]Dr. Albinalaura Montero LEUKOCYTES Negative Normal NEGATIVE [facility] Comment on above: Performed By: #### WELLINGTON GIBSON UMICRO ####[facility] Tofebsyxpx[address] [place], [place] [address]Dr. Albinalaura Montero Nitrite Ql (U) Negative Normal NEGATIVE [facility] Comment on above: Performed By: #### WELLINGTON GIBSON UMICRO ####[facility] Lujviybhlr1563 [place] [address]Dr. Sasha Montero pH (U) 5.5 [pH] Normal 5-[address] [facility] Comment on above: Performed By: #### WELLINGTON GIBSON, UMICRO ####[facility] Mjsichjuju4943 [place] [address]Dr. Sasha Montero Protein (U) [Mass/Vol] 100 mg/dL Abnormal NEGAT ARSEN/ TRACE [facility] Comment on above: Performed By: #### WELLINGTON GIBSON, UMICRO ####[facility] Cucxsiohev6898 [place] [address]Dr. Sasha Montero SPEC GRAVITY >=1.030 Abnormal 1.005-<=1.[address] [facility] Comment on above: Performed By: #### WELLINGTON GIBSON, UMICRO ####[facility] Phpdrbmrdt9[address] [place], [place] [address]Dr. Sasha Montero UR MICRO IND INDICATED Normal [facility] Comment on above: Performed By: #### WELLINGTON GIBSON, UMICRO ####[facility] Hcebjpzpby8546 [place] [address]Dr. Sasha Montero Urobilinogen Qn (U) 0.2 {Josie'U}/dL Normal 0.2 - 1. [address] [facility] Comment on above: Performed By: #### WELLINGTON GIBSON, UMICRO ####[facility] Lpiplfdpqk[address] [place], [place] [address]Dr. Sasha Montero LACTATE/LACTIC ACIDon 2021 Lactate [Moles/Vol] 1.2 mmol/L Normal 0.4-2.[address] [facility] Comment on above: Performed By: #### L ACT ####[facility] Nkjqmkfcis066[address] [place], [place] [address]Dr. Sasha Montero Lactate [Moles/Vol] 4.0 mmol/L Critically high 0.4-2.[address] [facility] Comment on above: Performed By: #### L ACT ####[facility] Izxlgbjxxh8577 [place] [address]Dr. Sasha Montero LIPASEon 12-08-2021 Lipase [Catalytic activity/Vol] 60.0 U/L Critically low 73.0-393.0 [facility] Comment on above: Performed By: #### C MP, HUI, LIPA ####[facility] Vvlzprqaqi8277 [place] [address]Dr. Sasha Montero PROF 14(COMP METB)on 022 Albumin [Mass/Vol] 4.7 g/dL Normal 3.4-5.0 [facility] Comment on above: Performed By: #### C MP, HUI, LIPA ####[facility] Ixbpmhpaat7669 [place] [address]Dr. Sasha Montero Albumin/Globulin [Mass ratio] 1.3 {ratio} Normal [facility] Comment on above: Performed By: #### C MP, HUI, LIPA ####[facility] Bzhsnoiqqo9[address] [place], [place] [address]Dr. Sasha Montero ALP [Catalytic activity/Vol] 102 U/L Normal 46-116 [facility] Comment on above: Performed By: #### C MP, HUI, LIPA ####[facility] Jbfrmwjcyh78[address] [place], [place] [address]Dr. Sasha Montero ALT [Catalytic activity/Vol] 22 U/L Normal 14-59 [facility] Comment on above: Performed By: #### C MP, HUI, LIPA ####[facility] Kijvcuivee[address] [place], [place] [address]Dr. Sasha Montero Anion gap [Moles/Vol] 17.1 mmol/L Normal [facility] Comment on above: Performed By: #### C MP, HUI, LIPA ####[facility] Ryqcowlvkg177[address] [place], [place] [address]Dr. Sasha Montero AST [Catalytic activity/Vol] 18 U/L Normal 15-37 [facility] Comment on above: Performed By: #### C MP, HUI, LIPA ####[facility] Nbrzmhbfta8423 [place] [address]Dr. Sasha Montero Bilirubin [Mass/Vol] 0.5 mg/dL Normal 0.2-1.[address] [facility] Comment on above: Performed By: #### C HUI [place] LIPA ####[facility] Ovwecmlwbv6317 [place] [address]Dr. Sasha Montero Calcium [Mass/Vol] 8.8 mg/dL Normal 8.5-10.[address] [facility] Comment on above: Performed By: #### C HUI [place] LIPA ####[facility] Jnkpsgevfd8080 [place] [address]Dr. Sasha Montero Chloride [Moles/Vol] 100 mmol/L Normal 98-[address] [facility] Comment on above: Performed By: #### C HUI [place] LIPA ####[facility] Imyfigshab6159 [place] [address]Dr. Sasha Montero CO2 [Moles/Vol] 24.2 mmol/L Normal 21.0-32.[address] [facility] Comment on above: Performed By: #### C HUI [place] LIPA ####[facility] Nwmxmxpopy6915 [place] [address]Dr. Sasha Montero Creatinine [Mass/Vol] 1.11 mg/dL Critically high 0.55-1.[address] [facility] Comment on above: Performed By: #### C HUI [place] LIPA ####[facility] Gyyrpjzjil1672 [place] [address]Dr. Sasha Montero EGFR-AF BRUNEIAN >60 Normal >=[address] [facility] Comment on above: Performed By: #### C HUI [place], LIPA ####[facility] Hmuhvofzip3774 [place] [address]Dr. Sasha Montero EGFR-NON AF BRUNEIAN 55 mL/min/1.73m2 Critically low >=[address] [facility] Comment on above: Performed By: #### C HUI [place], LIPA ####[facility] Bmujputftm5669 [place] [address]Dr. Sasha Montero Globulin (S) [Mass/Vol] 3.6 g/dL Normal [facility] Comment on above: Performed By: #### C HUI [place] LIPA ####[facility] Uqsecfflxt3486 [place] [address]Dr. Ssaha Montero Glucose [Mass/Vol] 114 mg/dL Critically high 74-106 [facility] Comment on above: Performed By: #### C MP, HUI, LIPA ####[facility] Wywextyfhs8426 [place] [address]Dr. Sasha Montero Potassium [Moles/Vol] 3.3 mmol/L Critically low 3.5-5.1 [facility] Comment on above: Performed By: #### C MP, HUI, LIPA ####[facility] Mygesmroyo1905 [place] [address]Dr. Sasha Montero Protein [Mass/Vol] 8.3 g/dL Critically high 6.1-8.2 [facility] Comment on above: Performed By: #### C MP, HUI, LIPA ####[facility] Lmtmuxhzqp2902 [place] [address]Dr. Sasha Montero Sodium [Moles/Vol] 138 mmol/L Normal 136-145 [facility] Comment on above: Performed By: #### C MP, HUI, LIPA ####[facility] Ilbofdevug8135 [place] [address]Dr. Sahsa Montero Urea nitrogen [Mass/Vol] 9.0 mg/dL Normal 7.0-18.0 [facility] Comment on above: Performed By: #### C MP, HUI, LIPA ####[facility] Uhlncghapf5377 [place] [address]Dr. Sasha Montero Urea nitrogen/Creatinine [Mass ratio] 8.1 mg/mg Normal [facility] Comment on above: Performed By: #### C MP, HUI, LIPA ####[facility] Lvlzosizki0291 [place] [address]Dr. Sasha Montero URINE MICROSCOPIC ONLYon BACTERIA SMALL Abnormal NONE SEEN [facility] Comment on above: Performed By: #### E RUR, DRUGRPD, UMICRO ####[facility] Dmwxprmkpj1006 [place] [address]Dr. Sasha Montero Bacteria identified Cx Nom (U) INDICATED Normal [facility] Comment on above: Performed By: #### Sheila MARROQUIN DRUGADINA, UMICRO ####[facility] Gswnlpufav[address] [place], [place] [address]Dr. Sasha Montero CAST SEEN Abnormal NONE SEEN [facility] Comment on above: Performed By: #### E RUDelon DRUGRPEster, UMICRO ####[facility] Uxukxjbwnp8441 [place] [address]Dr. Sasha Montero Crystals LM Nom (Urine sed) NONE SEEN Normal NONE SEEN [facility] Comment on above: Performed By: #### Sheila RUDelon DRUGADINA, UMICRO ####[facility] Kbivamvilw4[address] [place], [place] [address]Dr. Sasha Montero Epithelial cells LM Ql (Urine sed) MANY Abnormal NONE SEEN /RARE [facility] Comment on above: Performed By: #### Sheila MARROQUIN DRUGADINA, UMICRO ####[facility] Ivqjpdjmld[address] [place], [place] [address]Dr. Sasha Montero HYALINE CAST MANY Normal [facility] Comment on above: Performed By: #### Sheila MARROQUIN DRUGADINA, UMICRO ####[facility] Grkznqdndd04[address] [place], [place] [address]Dr. Sasha Montero MUCOUS MODERATE Abnormal NONE SEEN [facility] Comment on above: Performed By: #### Sheila MARROQUIN DRUGADINA, UMICRO ####[facility] Auzsdtfgyl[address] [place], [place] [address]Dr. Sasha Montero RBC 2-5 Abnormal 0-[address] [facility] Comment on above: Performed By: #### Sheila RUDelon DRUGRPEster, UMICRO ####[facility] Rauauxgwxv[address] [place], [place] [address]Dr. Sasha Montero WBC 0-2 Abnormal NONE SEEN [facility] Comment on above: Performed By: #### E RUR DRUGRPD, UMICRO ####[facility] Fevqzkaten[address] [place], [place] [address]Dr. Sasha Montero COMPLIANCE DRUG SCREENon PDF . Normal [facility] Comment on above: Performed By: #### D [facility] ####[facility] Rmixdxcsje5822 [place], [place] [address]HeSvetlana Montero Summary FINAL Normal [facility] Comment on above: Result Comment: =====TOXASSURE COMP DRUG ANALYSIS,UR Test Result Flag UnitsDrug Present Oxazepam 173 ng/mg creat Temazepam >3636 ng/mg creat Oxazepam and temazepam are expected metabolites of diazepam. Oxazepam is also an expected metabolite of other benzodiazepine drugs, including chlordiazepoxide, prazepam, clorazepate, halazepam, and temazepam. Oxazepam and temazepam are available as scheduled prescription medications. Alprazolam 62 ng/mg creat Alpha-hydroxyalprazolam 133 ng/mg creat Source of alprazolam is a scheduled prescription medication. Alpha-hydroxyalprazolam is an expected metabolite of alprazolam. Lorazepam 331 ng/mg creat Source of lorazepam is a scheduled prescription medication. Carboxy-THC 1264 ng/mg creat Carboxy-THC is a metabolite of tetrahydrocannabinol (THC). Source of THC is most commonly herbal marijuana or marijuana-based products, but THC is also present in a scheduled prescription medication. Trace amounts of THC can be present in hemp and cannabidiol (CBD) products. This test is not intended to distinguish between dyogr-9-gavsirdmuzkqvqcolpon, the predominant form of THC in most herbal or marijuana-based products, and rmbpc-8-itkfdsfvojeomhmsgeky. Tramadol 2738 ng/mg creat O-Desmethyltramadol 1616 ng/mg creat N-Desmethyltramadol 793 ng/mg creat Source of tramadol is a prescription medication. O-desmethyltramadol and N-desmethyltramadol are expected metabolites of tramadol. Fluvoxamine PRESENT Haloperidol PRESENT Prochlorperazine PRESENT Ziprasidone PRESENT Diphenhydramine PRESENT Diltiazem PRESENT Metoprolol PRESENT Test Result Flag Units Ref Range Creatinine 55 mg/dL >=20 =========Declared Medications: Medication list was not provided. For clinical consultation, please call . Performed By: #### D SDOALC ####[facility] Cdvhfuhuya6777 [place], [place] [address]LhSvetlana Sasha Montero AMYLASEon 11-20-2021 Amylase [Catalytic activity/Vol] 45 U/L Normal 25-[address] [facility] Comment on above: Performed By: #### A MY, CMP, LIPA, CRP ####[facility] Kjfwibrtpe5[address] [place] [address]Dr. Sasha Winston CBC AUTO DIFFon 11-20-2021 BASO # 0.0 103/ul Normal 0.0-0.[address] [facility] Comment on above: Performed By: #### C BC ####[facility] Aubgeqgjov9[address] [place] [id number]. Sasha Winston Basophils/100 WBC (Bld) 0.5 % Normal 0.2-2.[address] [facility] Comment on above: Performed By: #### C BC ####[facility] Xmjmclrfgw7942 [place] [address]Dr. Sasha Winston EO # 0.0 103/ul Normal 0.0-0.[address] [facility] Comment on above: Performed By: #### C BC ####[facility] Iaqtijdtle7801 [place] [address]Dr. Albinalaura Montero Eosinophils/100 WBC (Bld) 0.3 % Critically low 0.9-7.[address] [facility] Comment on above: Performed By: #### C BC ####[facility] Uyflyajfun87[address] [place] [address]Dr. Sasha Montero Erythrocyte distribution width (RBC) [Ratio] 12.7 % Normal 11.0-15.[address] [facility] Comment on above: Performed By: #### C BC ####[facility] Mmntmquiqj2451 [place] [id number]. Sasha Montero Hematocrit (Bld) [Volume fraction] 34.9 % Critically low 36.0-48.[address] [facility] Comment on above: Performed By: #### C BC ####[facility] Rlcswymnqe0316 [place] [address]Dr. Sasha Montero Hemoglobin (Bld) [Mass/Vol] 11.7 g/dL Critically low 12.0-16.[address] [facility] Comment on above: Performed By: #### C BC ####[facility] Wgmlnslbqk3[address] [place] [address]Dr. Sasha Montero IG # 0.04 10e3/ul Critically high 0.00-0.[address] [facility] Comment on above: Performed By: #### C BC ####[facility] Nzhunsevfn8351 [place] [id number]. Sasha Montero IG % 0.5 % Normal 0.0-0.[address] [facility] Comment on above: Performed By: #### C BC ####[facility] Cioraetdkp8884 [place] [phone]. Sasha Montero LYMPH # 3.6 103/ul Normal 1.2-3.[address] [facility] Comment on above: Performed By: #### C BC ####[facility] Gdnyshspqc7679 [place] [phone]. Sasha Montero Lymphocytes/100 WBC (Bld) 41.0 % Normal 20.5-60.[address] [facility] Comment on above: Performed By: #### C BC ####[facility] Iutwgdoiqs5483 [place] [address]Dr. Sasha Montero MANUAL DIFF REQ NO Normal [facility] Comment on above: Performed By: #### C BC ####[facility] Qrqgracjxc5035 [place] [phone]. Sasha Montero MCH (RBC) [Entitic mass] 31.6 pg Normal 26.7-34.[address] [facility] Comment on above: Performed By: #### C BC ####[facility] Lowjkwplvv[address] [place], [place] [address]Dr. Sasha Montero MCHC (RBC) [Mass/Vol] 33.5 g/dL Normal 29.9-35.[address] [facility] Comment on above: Performed By: #### C BC ####[facility] Azywgxqdhg[address] [place], [place] [address]Dr. Sasha Montero MCV (RBC) [Entitic vol] 94.3 fL Normal 81.0-99.[address] [facility] Comment on above: Performed By: #### C BC ####[facility] Fsjpqowtol6968 [place] [phone]. Sasha Winston MONO # 0.9 103/ul Critically high 0.3-0.[address] [facility] Comment on above: Performed By: #### C BC ####[facility] Rjraqmovyg7283 [place] [phone]. Sasha Montero Monocytes/100 WBC (Bld) 10.2 % Normal 1.7-12.[address] [facility] Comment on above: Performed By: #### C BC ####[facility] Neqipyyrzb1636 [place] [phone]. Sasha Montero NEUT # 4.2 103/ul Normal 1.4-6.[address] [facility] Comment on above: Performed By: #### C BC ####[facility] Gbhlqzczdl6404 [place] [phone]. Sasha Montero Neutrophils/100 WBC (Bld) 47.5 % Normal 43.0-75.[address] [facility] Comment on above: Performed By: #### C BC ####[facility] Zhlylzfuks0399 [place] [address]Dr. Sasha Motnero Platelet mean volume (Bld) [Entitic vol] 9.0 fL Critically low 9.5-13.[address] [facility] Comment on above: Performed By: #### C BC ####[facility] Hybautndjq5829 [place] [phone]. Sasha Montero PLT 274 103/ul Normal 150-[address] [facility] Comment on above: Performed By: #### C BC ####[facility] Apbpjqgaoz6513 [place] [phone]. Sasha Montero RBC 3.70 106/ul Critically low 4.20-5.[address] [facility] Comment on above: Performed By: #### C BC ####[facility] Egogbghgqc[address] [place], [place] [address]Dr. Sasha Montero WBC 8.8 103/ul Normal 4.0-11.[address] [facility] Comment on above: Performed By: #### C BC ####[facility] Stdzfzzcki8993 [place] [address]Dr. Sasha Montero CRPon 11-20-2021 CRP [Mass/Vol] mg/L Normal <=1.[address] [facility] Comment on above: Performed By: #### A MY, CMP, LIPA, CRP ####[facility] Odstwqlmbt4432 [place] [address]Dr. Sasha Montero LIPASEon 11-20-2021 Lipase [Catalytic activity/Vol] 85.0 U/L Normal 23.0-300.[address] [facility] Comment on above: Performed By: #### A MY, CMP, LIPA, CRP ####[facility] Delexpjoza1252 [place] [address]Dr. Sasha Montero PROF 14(COMP METB)on 022 Albumin [Mass/Vol] 3.5 g/dL Normal 3.4-5.[address] [facility] Comment on above: Performed By: #### A MY, CMP, LIPA, CRP ####[facility] Qbqemeneik5490 [place] [address]Dr. Sasha Montero Albumin/Globulin [Mass ratio] 1.2 {ratio} Normal [facility] Comment on above: Performed By: #### A MY, CMP, LIPA, CRP ####[facility] Gnxnqwikzn6971 [place] [address]Dr. Sasha Montero ALP [Catalytic activity/Vol] 68 U/L Normal 46-[address] [facility] Comment on above: Performed By: #### A MY, CMP, LIPA, CRP ####[facility] Zrmnzkpsai0055 [place] [address]Dr. Sasha Montero ALT [Catalytic activity/Vol] 17 U/L Normal 14-[address] [facility] Comment on above: Performed By: #### A MY, CMP, LIPA, CRP ####[facility] Ntwomodlpn0031 [place] [address]Dr. Sasha Montero Anion gap [Moles/Vol] 8.4 mmol/L Normal [facility] Comment on above: Performed By: #### A MY, CMP, LIPA, CRP ####[facility] Xjlorwvorh6409 [place] [address]Dr. Sasha Montero AST [Catalytic activity/Vol] 17 U/L Normal 15-[address] [facility] Comment on above: Performed By: #### A MY, CMP, LIPA, CRP ####[facility] Tyvexdpqxn1450 [place] [address]Dr. Sasha Montero Bilirubin [Mass/Vol] 0.6 mg/dL Normal 0.2-1.[address] [facility] Comment on above: Performed By: #### A MY, CMP, LIPA, CRP ####[facility] Uebbtcnrej1029 [place] [address]Dr. Sasha Montero Calcium [Mass/Vol] 8.5 mg/dL Normal 8.5-10.[address] [facility] Comment on above: Performed By: #### A MY, CMP, LIPA, CRP ####[facility] Lrtdmiyxlk[address] [place], [place] [address]Dr. Sasha Montero Chloride [Moles/Vol] 105 mmol/L Normal 98-[address] [facility] Comment on above: Performed By: #### A MY, CMP, LIPA, CRP ####[facility] Rxzpojpxlo[address] [place], [place] [address]Dr. Sasha Montero CO2 [Moles/Vol] 32.0 mmol/L Critically high 22.0-30.[address] [facility] Comment on above: Performed By: #### A MY, CMP, LIPA, CRP ####[facility] Lrgddmoyng[address] [place], [place] [address]Dr. Sasha Montero Creatinine [Mass/Vol] 0.81 mg/dL Normal 0.52-1.[address] [facility] Comment on above: Performed By: #### A MY, CMP, LIPA, CRP ####[facility] Gcmczrpzbe[address] [place], [place] [address]Dr. Sasha Montero EGFR-AF BRUNEIAN >60 Normal >=[address] [facility] Comment on above: Performed By: #### A MY, CMP, LIPA, CRP ####[facility] Ggzppkctcn69[address] [place], [place] [address]Dr. Sasha Montero EGFR-NON AF BRUNEIAN >60 Normal >=[address] [facility] Comment on above: Performed By: #### A MY, CMP, LIPA, CRP ####[facility] Jvosieidmf[address] [place], [place] [address]Dr. Sasha Montero Globulin (S) [Mass/Vol] 2.8 g/dL Normal [facility] Comment on above: Performed By: #### A MY, CMP, LIPA, CRP ####[facility] Xjyhhjmqtb5504 [place] [address]Dr. Sasha Montero Glucose [Mass/Vol] 94 mg/dL Normal 74-[address] [facility] Comment on above: Performed By: #### A MY, CMP, LIPA, CRP ####[facility] Iyohxshxfk3688 [place] [address]Dr. Sasha Montero Potassium [Moles/Vol] 3.4 mmol/L Normal 3.4-5.[address] [facility] Comment on above: Performed By: #### A MY, CMP, LIPA, CRP ####[facility] Xeazzqowuc[address] [place], [place] [address]Dr. Sasha Montero Protein [Mass/Vol] 6.3 g/dL Normal 6.1-8.[address] [facility] Comment on above: Performed By: #### A MY, CMP, LIPA, CRP ####[facility] Kkgflzrkff[address] [place], [place] [address]Dr. Sasha Montero Sodium [Moles/Vol] 142 mmol/L Normal 137-[address] [facility] Comment on above: Performed By: #### A MY, CMP, LIPA, CRP ####[facility] Eetbjxunel5479 [place] [address]Dr. Sasha Montero Urea nitrogen [Mass/Vol] 9.0 mg/dL Normal 7.0-18.[address] [facility] Comment on above: Performed By: #### A MY, CMP, LIPA, CRP ####[facility] Cnhipusprh[address] [place], [place] [address]Dr. Sasha Montero Urea nitrogen/Creatinine [Mass ratio] 11.1 mg/mg Normal The [facility] Comment on above: Performed By: #### A MY, CMP, LIPA, CRP ####[facility] [address] [place] [address]Dr. Sasha Montreo AMYLASEon 11-19-2021 Amylase [Catalytic activity/Vol] 47 U/L Normal 25-[address] [facility] Comment on above: Performed By: #### C MP, CRP, HUI, LIPA ####[facility] Opmpsajsfc[address] [place] [address]Dr. Sasha Winston CBC AUTO DIFFon 11-19-2021 BASO # 0.0 103/ul Normal 0.0-0.[address] [facility] Comment on above: Performed By: #### C BC ####[facility] Cyltblstjs[address] [place] [address]Dr. Sasha Montero Basophils/100 WBC (Bld) 0.3 % Normal 0.2-2.[address] [facility] Comment on above: Performed By: #### C BC ####[facility] Siqeufzihw[address] [place], [place] [address]Dr. Sasha Montero EO # 0.0 103/ul Normal 0.0-0.[address] [facility] Comment on above: Performed By: #### C BC ####[facility] Yvmkejfjlf[address] [place], [place] [address]Dr. Sasha Montero Eosinophils/100 WBC (Bld) 0.3 % Critically low 0.9-7.[address] [facility] Comment on above: Performed By: #### C BC ####[facility] Yavjckztrr[address] [place], [place] [address]Dr. Sasha Montero Erythrocyte distribution width (RBC) [Ratio] 13.1 % Normal 11.0-15.[address] [facility] Comment on above: Performed By: #### C BC ####[facility] Ljwjaacpdo[address] [place], [place] [address]Dr. Sasha Montero Hematocrit (Bld) [Volume fraction] 34.3 % Critically low 36.0-48.[address] [facility] Comment on above: Performed By: #### C BC ####[facility] Lkgobsqgej14[address] [place], [place] [address]Dr. Sasha Montero Hemoglobin (Bld) [Mass/Vol] 11.4 g/dL Critically low 12.0-16.[address] [facility] Comment on above: Performed By: #### C BC ####[facility] Qvthzkzadz54[address] [place], [place] [address]DrSvetlana Montero IG # 0.03 10e3/ul Normal 0.00-0.03 [facility] Comment on above: Performed By: #### C BC ####[facility] Xirhplrtzi[address] [place] [address]DrSvetlana Montero IG % 0.3 % Normal 0.0-0.5 [facility] Comment on above: Performed By: #### C BC ####[facility] Qauyvvxjnk5353 [place] [address]DrSvetlana Montero LYMPH # 3.9 103/ul Critically high 1.2-3.8 [facility] Comment on above: Performed By: #### C BC ####[facility] Sgrqnxiwai0859 [place] [address]DrSvetlana Montero Lymphocytes/100 WBC (Bld) 35.7 % Normal 20.5-60.0 [facility] Comment on above: Performed By: #### C BC ####[facility] Vyoogycfmr12[address] [place], [place] [address]DrSvetlana Montero MANUAL DIFF REQ NO Normal [facility] Comment on above: Performed By: #### C BC ####[facility] Cicknabgob[address] [place], [place] [address]DrSvetlana Montero MCH (RBC) [Entitic mass] 31.3 pg Normal 26.7-34.0 [facility] Comment on above: Performed By: #### C BC ####[facility] Meqzcnhkap[address] [place], [place] [address]DrSvetlana Montero MCHC (RBC) [Mass/Vol] 33.2 g/dL Normal 29.9-35.[address] [facility] Comment on above: Performed By: #### C BC ####[facility] Cmhzzctema1138 [place] [address]DrSvetlana Montero MCV (RBC) [Entitic vol] 94.2 fL Normal 81.0-99.0 [facility] Comment on above: Performed By: #### C BC ####[facility] Hofgjviztz57[address] [place], [place] [address]DrSvetlana Montero MONO # 1.0 103/ul Critically high 0.3-0.[address] [facility] Comment on above: Performed By: #### C BC ####[facility] Nwttipjaxi4[address] [place] [id number]. Sasha Montero Monocytes/100 WBC (Bld) 9.6 % Normal 1.7-12.[address] [facility] Comment on above: Performed By: #### C BC ####[facility] Zbszlzolki020[address] [place], [place] [address]Dr. Sasha Montero NEUT # 5.9 103/ul Normal 1.4-6.[address] [facility] Comment on above: Performed By: #### C BC ####[facility] Rpxjekikvl8466 [place] [address]Dr. Sasha Montero Neutrophils/100 WBC (Bld) 53.8 % Normal 43.0-75.[address] [facility] Comment on above: Performed By: #### C BC ####[facility] Szyogegbek94[address] [place], [place] [address]Dr. Sasha Montero Platelet mean volume (Bld) [Entitic vol] 8.9 fL Critically low 9.5-13.[address] [facility] Comment on above: Performed By: #### C BC ####[facility] Gzxgbwjbtn9020[address] [place], [place] [address]Dr. Sasha Montero PLT 294 103/ul Normal 150-[address] [facility] Comment on above: Performed By: #### C BC ####[facility] Ydjhjiwvpz[address] [place], [place] [address]Dr. Sasha Montero RBC 3.64 106/ul Critically low 4.20-5.[address] [facility] Comment on above: Performed By: #### C BC ####[facility] Tcgpibynla[address] [place], [place] [address]Dr. Sasha Montero WBC 10.9 103/ul Normal 4.0-11.[address] [facility] Comment on above: Performed By: #### C BC ####[facility] Tmqouudsbb30[address] [place], [place] [address]DrSvetlana Sasha Montero CRPon 11-19-2021 CRP 1.3 mg/dL Critically high <=1.0 [facility] Comment on above: Performed By: #### C MP, CRP, HUI, LIPA ####[facility] Ooecngdysf[address] [place] [address]Dr. Sasha Montero LIPASEon 11-19-2021 Lipase [Catalytic activity/Vol] 68.0 U/L Normal 23.0-300.0 [facility] Comment on above: Performed By: #### C MP, CRP, HUI, LIPA ####[facility] Putkagbawv4[address] [place] [address]Dr. Sasha Montero PROF 14(COMP METB)on 022 Albumin [Mass/Vol] 3.5 g/dL Normal 3.4-5.0 [facility] Comment on above: Performed By: #### C MP, CRP, HUI, LIPA ####[facility] Wrkyhjfehc9747 [place] [address]Dr. Sasha Montero Albumin/Globulin [Mass ratio] 1.2 {ratio} Normal [facility] Comment on above: Performed By: #### C MP, CRP, HUI, LIPA ####[facility] Xqgffsqhzo232[address] [place], [place] [address]Dr. Sasha Montero ALP [Catalytic activity/Vol] 72 U/L Normal 46-116 [facility] Comment on above: Performed By: #### C MP, CRP, HUI, LIPA ####[facility] Avaamqlrps3[address] [place] [address]Dr. Sasha Montero ALT [Catalytic activity/Vol] 20 U/L Normal 14-59 [facility] Comment on above: Performed By: #### C MP, CRP, HUI, LIPA ####[facility] Bxixrqvmpy4[address] [place] [address]Dr. Sasha Montero Anion gap [Moles/Vol] 10.3 mmol/L Normal [facility] Comment on above: Performed By: #### C MP, CRP, HUI, LIPA ####[facility] Rxioqeaprd3570 [place] [address]Dr. Sasha Montero AST [Catalytic activity/Vol] 19 U/L Normal 15-37 [facility] Comment on above: Performed By: #### C MP, CRP, HUI, LIPA ####[facility] Cetlwafeph8[address] [place] [address]Dr. Sasha Montero Bilirubin [Mass/Vol] 0.9 mg/dL Normal 0.2-1.3 [facility] Comment on above: Performed By: #### C MP, CRP, HUI, LIPA ####[facility] Xqypfvzcgt8740 [place] [address]Dr. Sasha Montero Calcium [Mass/Vol] 8.2 mg/dL Critically low 8.5-10.1 [facility] Comment on above: Performed By: #### C MP, CRP, HUI, LIPA ####[facility] Jhekuzklkj[address] [place] [address]Dr. Sasha Montero Chloride [Moles/Vol] 106 mmol/L Normal 98-107 [facility] Comment on above: Performed By: #### C MP, CRP, HUI, LIPA ####[facility] Fwxdnqelnb23[address] [place], [place] [address]Dr. Sasha Montero CO2 [Moles/Vol] 29.1 mmol/L Normal 22.0-30.[address] [facility] Comment on above: Performed By: #### C MP, CRP, HUI, LIPA ####[facility] Guzndqxfua[address] [place], [place] [address]Dr. Sasha Montero Creatinine [Mass/Vol] 0.83 mg/dL Normal 0.52-1.04 [facility] Comment on above: Performed By: #### C MP, CRP, HUI, LIPA ####[facility] Mtzbewjnxw[address] [place], [place] [address]Dr. Sasha Montero EGFR-AF BRUNEIAN >60 Normal >=[address] [facility] Comment on above: Result Comment: Prev iously reported as: >93 On 11/19/2021 04:49 By JAW Performed By: #### C MP, CRP, HUI, LIPA ####[facility] Rzmzhappet[address] [place], [place] [address]Dr. Yilan Montero EGFR-NON AF BRUNEIAN >60 Normal >=[address] [facility] Comment on above: Result Comment: Prev iously reported as: >77 On 11/19/2021 04:49 By JAW Performed By: #### C MP, CRP, HUI, LIPA ####[facility] Dtxllzcbzd9652 [place] [address]Dr. Sasha Montero Globulin (S) [Mass/Vol] 3.0 g/dL Normal [facility] Comment on above: Performed By: #### C MP, CRP, HUI, LIPA ####[facility] Bryzbfoywb[address] [place] [address]Dr. Sasha Montero Glucose [Mass/Vol] 96 mg/dL Normal 74-[address] [facility] Comment on above: Performed By: #### C MP, CRP, HUI, LIPA ####[facility] Zbcicjajil[address] [place] [address]Dr. Sasha Montero Potassium [Moles/Vol] 3.4 mmol/L Normal 3.4-5.[address] [facility] Comment on above: Performed By: #### C MP, CRP, HUI, LIPA ####[facility] Ktescjhszu39[address] [place] [address]Dr. Sasha Montero Protein [Mass/Vol] 6.5 g/dL Normal 6.1-8.[address] [facility] Comment on above: Performed By: #### C MP, CRP, HUI, LIPA ####[facility] Sjdprnrurs36[address] [place] [address]Dr. Sasha Montero Sodium [Moles/Vol] 142 mmol/L Normal 137-[address] [facility] Comment on above: Performed By: #### C MP, CRP, HUI, LIPA ####[facility] Cgnzkijdxi3580 [place] [address]Dr. Sasha Montero Urea nitrogen [Mass/Vol] 10.0 mg/dL Normal 7.0-18.[address] [facility] Comment on above: Performed By: #### C MP, CRP, HUI, LIPA ####[facility] Hqlkicksii9630 [place] [address]Dr. Sasha Montero Urea nitrogen/Creatinine [Mass ratio] 12.0 mg/mg Normal [facility] Comment on above: Performed By: #### C MP, CRP, HUI, LIPA ####[facility] Kzfwojldrz8[address] [place] [address]Dr. Albinalaura Winston XR ABD FLAT UP_PA Anjel 11-19 XR ABD FLAT UP_PA CH Normal [facility] AMYLASEon 11-18-2021 Amylase [Catalytic activity/Vol] 59 U/L Normal 25-[address] [facility] Comment on above: Performed By: #### C MP, CRP, HUI, LIPA ####[facility] Wdjwfuwdks85[address] [place] [address]Dr. Sasha Montero CBC W MANUAL DIFFon 11-19-19 22 ATYPICAL LYMPH # Normal [facility] Comment on above: Performed By: #### C CARYL ####[facility] Pndqsjjqbg[address] [place], [place] [address]Dr. Albinalaura Winston ATYPICAL LYMPH % Normal [facility] Comment on above: Performed By: #### C CARYL ####[facility] Mcjmflpyot170[address] [place], [place] [address]Dr. Sasha Montero BAND # 0.2 103/ul Normal 0.0-0.[address] [facility] Comment on above: Performed By: #### C CARYL ####[facility] Ojhhdyggti4836[address] [place], [place] [address]Dr. Sasha Montero BAND % 1 % Normal 0-[address] [facility] Comment on above: Performed By: #### C CARYL ####[facility] Iszjixzgsp[address] [place], [place] [address]Dr. Sasha Winston BASOM # 0.00 103/ul Normal 0.00-0.[address] [facility] Comment on above: Performed By: #### C CARYL ####[facility] Dtvatugwxw98[address] [place], [place] [address]Dr. Sasha Montero BASOM % 0.0 % Critically low 0.2-2.[address] [facility] Comment on above: Performed By: #### C CARYL ####[facility] Auonvapwzs[address] [place], [place] [address]Dr. Sasha Montero BLAST # Normal [facility] Comment on above: Performed By: #### C CARYL ####[facility] Cazwfkruya36[address] [place] [address]Dr. Sasha Montero BLAST % Normal [facility] Comment on above: Performed By: #### C CARYL ####[facility] Pvsaqrdssc0694 [place] [address]Dr. Sasha Montero CORRECTED WBC Normal 4.0-11.[address] [facility] Comment on above: Performed By: #### C CARYL ####[facility] Lzxgpkfuvv4155 [place] [address]Dr. Sasha Montero EOS # 0.00 103/ul Normal 0.00-0.[address] [facility] Comment on above: Performed By: #### C CARYL ####[facility] Tdxwriyuzp64[address] [place], [place] [address]Dr. Sasha Montero EOS% 0.0 % Critically low 0.9-7.0 [facility] Comment on above: Performed By: #### C CARYL ####[facility] Zxnsohqjnb1492 [place] [address]Dr. Sasha Montero HCT 35.6 % Critically low 36.0-48.[address] [facility] Comment on above: Performed By: #### C CARYL ####[facility] Tgaxnlvwcj95[address] [place], [place] [address]Dr. Sasha Montero HGB 12.4 g/dl Normal 12.0-16.[address] [facility] Comment on above: Performed By: #### C CARYL ####[facility] Wlluxxslie[address] [place], [place] [address]Dr. Sasha Montero LYMPHM # 1.22 103/ul Normal 1.20-3.[address] [facility] Comment on above: Performed By: #### C CARYL ####[facility] Bjestmmrhu[address] [place], [place] [address]Dr. Sasha Montero LYMPHM% 5.0 % Critically low 20.5-60.[address] [facility] Comment on above: Performed By: #### C CARYL ####[facility] [address]qafubzrt[address] [place], [place] [address]Qt. Sasha Montero MCH 31.9 pg Normal 26.7-34.[address] [facility] Comment on above: Performed By: #### C CARYL ####[facility] Lscvlnkdrs3567 [place], [place] [address]Ej. Sasha Montero MCHC 34.8 g/dl Normal 29.9-35.[address] [facility] Comment on above: Performed By: #### C CARYL ####[facility] Sxqslnbawh78[address] [place] [phone]. Sasha Montero MCV 91.5 fL Normal 81.0-99.[address] [facility] Comment on above: Performed By: #### Donnie HUTSON ####[facility] Ugadvohcim4980 [place] [id number]. Sasha Montero METAMYELOCYTE # Normal [facility] Comment on above: Performed By: #### Donnie HUTSON ####[facility] Xafrwplyaz5230 [place] [phone]. Sahsa Montero METAMYELOCYTE % Normal [facility] Comment on above: Performed By: #### Donnie HUTSON ####[facility] Pupjoaozbw4145 [place] [phone]. Sasha Montero MONOM# 1.22 103/ul Critically high 0.30-0.80 [facility] Comment on above: Performed By: #### Donnie HUTSON ####[facility] Hunyqnxrta2[address] [place] [id number]. Sasha Montero MONOM% 5.0 % Normal 1.7-12.[address] [facility] Comment on above: Performed By: #### Donnie HUTSON ####[facility] Fyqexnzpfg3979 [place] [phone]. Sasha Montero MPV 9.3 fL Critically low 9.5-13.[address] [facility] Comment on above: Performed By: #### Donnie HUTSON ####[facility] Jlrnekactf1040 [place] [phone]. Sasha Montero MYELOCYTE # Normal [facility] Comment on above: Performed By: #### C CARYL ####[facility] Nnjqbwlzkg6413 [place], [place] [address]Yr. Sasha Montero MYELOCYTE % Normal [facility] Comment on above: Performed By: #### C CARYL ####[facility] Iokkyjifml7759 [place], [place] [address]Bm. Sasha Montero NRBC Normal [facility] Comment on above: Performed By: #### C CARYL ####[facility] Snnkoktyln3220 [place] [phone]. Sasha Montero PLT 375 103/ul Normal 150-450 [facility] Comment on above: Performed By: #### C CARYL ####[facility] Mrunvsvijg3968 [place] [phone]. Sasha Montero RBC 3.89 106/ul Critically low 4.20-5.40 [facility] Comment on above: Performed By: #### C CARYL ####[facility] Phurbgbkmm6863 [place] [phone]. Sasha Montero RDW 12.9 % Normal 11.0-15.0 [facility] Comment on above: Performed By: #### C CARYL ####[facility] Qkhyiaogzz8975 [place] [phone]. Sasha Montero SEG # 21.63 103/ul Critically high 1.40-6.50 [facility] Comment on above: Performed By: #### C CARYL ####[facility] Ydcqvzrdlb4474 [place] [phone]. Sasha Montero SEG % 89.0 % Critically high 43.0-75.0 [facility] Comment on above: Performed By: #### C CARYL ####[facility] Yudwnmejux2932 [place] [phone]. Sasha Montero WBC 24.3 103/ul Critically high 4.0-11.[address] [facility] Comment on above: Performed By: #### C CARYL ####[facility] Dldqjxqwqw1253 [place] [phone]. Sasha Montero CRPon 11-18-2021 CRP 2.7 mg/dL Critically high <=1.[address] [facility] Comment on above: Performed By: #### C MP, CRP, HUI, LIPA ####[facility] Iifquljwkw[address] [place] [address]Dr. Sasha Montero DRUG SCREEN RAPID (URINE)on 11-18-2021 AMP Negative Normal NEGATIVE [facility] Comment on above: Performed By: #### D RUGRPD ####[facility] Avpacapuzd3408 [place] [address]Dr. Albinalaura Montero BAR Negative Normal NEGATIVE [facility] Comment on above: Performed By: #### D RUGRPD ####[facility] Sqzsypjpvg[address] [place], [place] [address]Dr. Sasha Montero BUP Negative Normal NEGATIVE [facility] Comment on above: Performed By: #### D RUGRPD ####[facility] Ttxjtvwdfr[address] [place], [place] [address]Dr. Albinalaura Montero BZO Positive Abnormal NEGATIVE [facility] Comment on above: Performed By: #### D RUGRPD ####[facility] Atfgvnmzjv588[address] [place], [place] [address]Dr. Sasha Montero JAMESON Negative Normal NEGATIVE [facility] Comment on above: Performed By: #### D RUGRPD ####[facility] Kdduhipbks99[address] [place], [place] [address]Dr. Sasha Montero CUT-OFFS SEE BELOW Normal [facility] Comment on above: Result Comment: AMP (Amphetamine): 500ng/mL, BAR (Barbituates): 200 ng/mL, BZO (Benzodiazepines): 150 ng/mL, BUP (Buprenorphine): 10 ng/mL, JAMESON (Cocaine): 150 ng/mL, mAMP (Methamphetamine): 500 ng/mL, MTD (Methadone): 200 ng/mL, OPI (Opiates): 100 ng/mL, OXY (Oxycodone): 100 ng/mL, PCP (Phencyclidine): 25 ng/mL, PPX (Propoxyphene): 300 ng/mL, THC (Cannabinoids): 50 ng/mL, TCA (Trycyclic Antidepressants): 300 ng/mL Performed By: #### D RUGRPD ####[facility] Ckaunrjtsu5759 [place] [phone]. Sasha Montero DRUG CUT HEADER DRUG CLASS TEST SYST EM CUT-OFF CONCENTRATIONS ARE FOLLOWS: Normal [facility] Comment on above: Performed By: #### D RUGRPD ####[facility] Aonmclttge6803 [place] [phone]. Sasha Montero mAMP Negative Normal NEGATIVE [facility] Comment on above: Performed By: #### D RUGRPD ####[facility] Yjontjoacz2517 [place] [address]Dr. Sasha Montero MTD Negative Normal NEGATIVE [facility] Comment on above: Performed By: #### D RUGRPD ####[facility] Hmcxojqfyc[address] [place], [place] [address]Dr. Sasha Montero OPI Negative Normal NEGATIVE [facility] Comment on above: Performed By: #### D RUGRPD ####[facility] Mhxumrpdgo57[address] [place], [place] [address]Dr. Yilaura Montero OXY Negative Normal NEGATIVE [facility] Comment on above: Performed By: #### D RUGRPD ####[facility] Rowzupglsv0945[address] [place], [place] [address]Dr. Sasha Montero PCP Negative Normal NEGATIVE [facility] Comment on above: Performed By: #### D RUGRPD ####[facility] Jmfypwgaxp4040 [place] [address]Dr. Sasha Winston PPX Negative Normal NEGATIVE [facility] Comment on above: Performed By: #### D RUGRPD ####[facility] Ruexsrvlnp4640 [place] [address]Dr. Sasha Montero TCA Negative Normal NEGATIVE [facility] Comment on above: Performed By: #### D RUGRPD ####[facility] Jtnkhadigt46[address] [place], [place] [address]Dr. Sasha Winston THC Positive Abnormal NEGATIVE [facility] Comment on above: Performed By: #### D RUGRPD ####[facility] Cwqdjqyjck[address] [place], [place] [address]Dr. Sasha Montero LIPASEon 11-18-2021 Lipase [Catalytic activity/Vol] 32.0 U/L Normal 23.0-300.0 [facility] Comment on above: Performed By: #### C MP, CRP, HUI, LIPA ####[facility] Zomhtqwulv3136 [place] [address]Dr. Sasha Montero PROF 14(COMP METB)on 022 Albumin [Mass/Vol] 4.4 g/dL Normal 3.4-5.0 [facility] Comment on above: Performed By: #### C MP, CRP, HUI, LIPA ####[facility] Ybyuxadewu5273 [place] [address]Dr. Sasha Montero Albumin/Globulin [Mass ratio] 1.2 {ratio} Normal [facility] Comment on above: Performed By: #### C MP, CRP, HUI, LIPA ####[facility] Zjovudvuhl[address] [place], [place] [address]Dr. Sasha Montero ALP [Catalytic activity/Vol] 89 U/L Normal 46-116 [facility] Comment on above: Performed By: #### C MP, CRP, HUI, LIPA ####[facility] Gdoaqtpsyh[address] [place], [place] [address]Dr. Sasha Montero ALT [Catalytic activity/Vol] 18 U/L Normal 14-59 [facility] Comment on above: Performed By: #### C MP, CRP, HUI, LIPA ####[facility] Khwetakqje[address] [place] [address]Dr. Sasha Montero Anion gap [Moles/Vol] 17.3 mmol/L Normal [facility] Comment on above: Performed By: #### C MP, CRP, HUI, LIPA ####[facility] Ugaytbhmvw8099 [place] [address]Dr. Sasha Montero AST [Catalytic activity/Vol] 24 U/L Normal 15-37 [facility] Comment on above: Performed By: #### C MP, CRP, HUI, LIPA ####[facility] Wjmnndbidr9847 [place] [address]Dr. Sasha Montero Bilirubin [Mass/Vol] 0.7 mg/dL Normal 0.2-1.[address] [facility] Comment on above: Performed By: #### C MP, CRP, HUI, LIPA ####[facility] Niiwliyova1369 [place] [address]Dr. Sasha Montero Calcium [Mass/Vol] 8.6 mg/dL Normal 8.5-10.[address] [facility] Comment on above: Performed By: #### C MP, CRP, HUI, LIPA ####[facility] Wkbhvsdnvv7499 [place] [address]Dr. Sasha Montero Chloride [Moles/Vol] 99 mmol/L Normal 98-[address] [facility] Comment on above: Performed By: #### C MP, CRP, HUI, LIPA ####[facility] S[address]ormczev[address] [place], [place] [address]Dr. Sasha Montero CO2 [Moles/Vol] 24.3 mmol/L Normal 22.0-30.[address] [facility] Comment on above: Performed By: #### C MP, CRP, HUI, LIPA ####[facility] Ibonzbvhvi[address] [place], [place] [address]Dr. Sasha Montero Creatinine [Mass/Vol] 0.72 mg/dL Normal 0.52-1.[address] [facility] Comment on above: Performed By: #### C MP, CRP, HUI, LIPA ####[facility] Cwuoqatxjj4498 [place] [address]Dr. Sasha Montero EGFR-AF BRUNEIAN >60 Normal >=[address] [facility] Comment on above: Performed By: #### C MP, CRP, HUI, LIPA ####[facility] Oupmvbfyxc4366 [place] [address]Dr. Sasha Montero EGFR-NON AF BRUNEIAN >60 Normal >=[address] [facility] Comment on above: Performed By: #### C MP, CRP, HUI, LIPA ####[facility] Zzwwxvnleh1405 [place] [address]Dr. Sasha Montero Globulin (S) [Mass/Vol] 3.6 g/dL Normal [facility] Comment on above: Performed By: #### C MP, CRP, HUI, LIPA ####[facility] Sfaujngjtl43[address] [place] [address]Dr. Sasha Montero Glucose [Mass/Vol] 125 mg/dL Critically high 74-106 [facility] Comment on above: Performed By: #### C MP, CRP, HUI, LIPA ####[facility] Idhmjpkujv3136 [place] [address]Dr. Sasha Montero Potassium [Moles/Vol] 3.6 mmol/L Normal 3.4-5.0 [facility] Comment on above: Performed By: #### C MP, CRP, HUI, LIPA ####[facility] Kmgasxuqbw3574 [place] [address]Dr. Sasha Montero Protein [Mass/Vol] 8.0 g/dL Normal 6.1-8.2 [facility] Comment on above: Performed By: #### C MP, CRP, HUI, LIPA ####[facility] Aepsdyjdix[address] [place], [place] [address]Dr. Sasha Montero Sodium [Moles/Vol] 137 mmol/L Normal 137-145 [facility] Comment on above: Performed By: #### C MP, CRP, HUI, LIPA ####[facility] Lruogottgt[address] [place], [place] [address]Dr. Sasha Montero Urea nitrogen [Mass/Vol] 9.0 mg/dL Normal 7.0-18.0 [facility] Comment on above: Performed By: #### C MP, CRP, HUI, LIPA ####[facility] Fpzqeukrka[address] [place], [place] [address]Dr. Sasha Montero Urea nitrogen/Creatinine [Mass ratio] 12.5 mg/mg Normal [facility] Comment on above: Performed By: #### C MP, CRP, HUI, LIPA ####[facility] Nvrvvevwdb[address] [place], [place] [address]Dr. Sasha Montero T4on 11-18-2021 T4 [Mass/Vol] 9.60 ug/dL Normal 5.53-11.00 [facility] Comment on above: Performed By: #### T 4 ####[facility] [address]wl[address] [place] [address]Dr. Sasha Montero TSHon 11-18-2021 TSH 0.856 uIU/mL Normal 0.470-4.[address] [facility] Comment on above: Performed By: #### T SH ####[facility] Rffffhuasm[address] [place], [place] [address]Dr. Sasha Montero TSH RANGE SEE BELOW Normal [facility] Comment on above: Result Comment: <0.3 4 UIU/ml HYPERTHYROID 0.34-5.60 UIU/ml EUTHYROID >5.60 UIU/ml HYPOTHYROID Performed By: #### T SH ####[facility] Mcttaazucm[address] [place], [place] [address]Dr. Sasha Montero CBC W MANUAL DIFFon 11-18-19 22 ATYPICAL LYMPH # Normal [facility] Comment on above: Performed By: #### C CARYL ####[facility] Keelpvmkkf110[address] [place], [place] [address]Dr. Sasha Montero ATYPICAL LYMPH % Normal [facility] Comment on above: Performed By: #### C CARYL ####[facility] Jiqkqcxcly15[address] [place], [place] [address]Dr. Sasha Montero BAND # 0.9 103/ul Critically high 0.0-0.[address] [facility] Comment on above: Performed By: #### C CARYL ####[facility] Opgcqyjmxq48[address] [place], [place] [address]Dr. Sasha Montero BAND % 3 % Normal 0-[address] [facility] Comment on above: Performed By: #### C CARYL ####[facility] Peligocief[address] [place], [place] [address]Dr. Sasha Montero BASOM # 0.00 103/ul Normal 0.00-0.[address] [facility] Comment on above: Performed By: #### C CARYL ####[facility] Aoppnggfoy76[address] [place], [place] [address]Dr. Sasha Montero BASOM % 0.0 % Critically low 0.2-2.[address] [facility] Comment on above: Performed By: #### C CARYL ####[facility] Pmznjufklt8[address] [place] [id number]. Sasha Montero BLAST # Normal [facility] Comment on above: Performed By: #### C BCJOSAFAT ####[facility] Visovoixrl[address] [place] [address]Dr. Sasha Montero BLAST % Normal [facility] Comment on above: Performed By: #### C BCJOSAFAT ####[facility] Ihugrvnila[address] [place] [address]Dr. Sasha Montero CORRECTED WBC Normal 4.0-11.0 [facility] Comment on above: Performed By: #### C CARYL ####[facility] Srxmfbeamr77[address] [place], [place] [address]Dr. Sasha Montero EOS # 0.00 103/ul Normal 0.00-0.70 [facility] Comment on above: Performed By: #### C CARYL ####[facility] Fvqqfypdpn368[address] [place], [place] [address]Dr. Sasha Montero EOS% 0.0 % Critically low 0.9-7.0 [facility] Comment on above: Performed By: #### C CARYL ####[facility] Ffszumundr0[address] [place], [place] [address]Dr. Sasha Montero HCT 40.7 % Normal 36.0-48.[address] [facility] Comment on above: Performed By: #### C CARYL ####[facility] Bukvhjtxlj7[address] [place], [place] [address]Dr. Sasha Montero HGB 13.9 g/dl Normal 12.0-16.[address] [facility] Comment on above: Performed By: #### C BCJOSAFAT ####[facility] Imbcucykij9[address] [place], [place] [address]Dr. Sasha Montero LYMPHM # 2.85 103/ul Normal 1.20-3.[address] [facility] Comment on above: Performed By: #### C BCJOSAFAT ####[facility] Hoefyfbcns232[address] [place], [place] [address]Dr. Sasha Montero LYMPHM% 10.0 % Critically low 20.5-60.[address] [facility] Comment on above: Performed By: #### C CARYL ####[facility] Sm[address]xfalhmn9[address] [place], [place] [address]Fa. Sasha Montero MCH 31.4 pg Normal 26.7-34.[address] [facility] Comment on above: Performed By: #### C CARYL ####[facility] Krtmgrifto6140 [place], [place] [address]Xh. Sasha Montero MCHC 34.2 g/dl Normal 29.9-35.[address] [facility] Comment on above: Performed By: #### C CARYL ####[facility] Nlroloiqci5817 [place] [phone]. Sasha Montero MCV 92.1 fL Normal 81.0-99.[address] [facility] Comment on above: Performed By: #### C CARYL ####[facility] Lxgunzrwbu2355 [place] [phone]. Sasha Montero METAMYELOCYTE # Normal [facility] Comment on above: Performed By: #### C CARYL ####[facility] Jasqckpyye9084 [place] [id number]. Sasha Montero METAMYELOCYTE % Normal [facility] Comment on above: Performed By: #### C CARYL ####[facility] Cthxbtkpdp7[address] [place] [address]Dr. Sasha Montero MONOM# 1.14 103/ul Critically high 0.30-0.80 [facility] Comment on above: Performed By: #### C CARYL ####[facility] Pokserathh7[address] [place] [address]Dr. Sasha Montero MONOM% 4.0 % Normal 1.7-12.[address] [facility] Comment on above: Performed By: #### C CARYL ####[facility] Atzrpsfpci34[address] [place] [phone]. Sasha Montero MPV 9.2 fL Critically low 9.5-13.5 [facility] Comment on above: Performed By: #### C CARYL ####[facility] Tqqiczngts46[address] [place] [address]Dr. Sasha Montero MYELOCYTE # Normal [facility] Comment on above: Performed By: #### C CARYL ####[facility] Qlpaqlbcpo3788 [place], [place] [address]Ft. aSsha Montero MYELOCYTE % Normal [facility] Comment on above: Performed By: #### C CARYL ####[facility] Evkmzlmnca[address] [place], [place] [address]Xv. Sasha Montero NRBC Normal [facility] Comment on above: Performed By: #### C CARYL ####[facility] Qprbsplkqm6127 [place] [phone]. Sasha Montero PLT 499 103/ul Critically high 150-450 [facility] Comment on above: Performed By: #### C CARYL ####[facility] Mplfeszith8799 [place] [phone]. Sasha Montero RBC 4.42 106/ul Normal 4.20-5.40 [facility] Comment on above: Performed By: #### C CARYL ####[facility] Rlymyvvoro6014 [place] [phone]. Sasha Montero RDW 12.6 % Normal 11.0-15.0 [facility] Comment on above: Performed By: #### C CARYL ####[facility] Awdqk[address]ls[address] [place], [place] [address]Dr. Sasha Montero SEG # 23.66 103/ul Critically high 1.40-6.50 [facility] Comment on above: Performed By: #### C CARYL ####[facility] Rwcbmstiqq6052 [place] [id number]. Sasha Montero SEG % 83.0 % Critically high 43.0-75.0 [facility] Comment on above: Performed By: #### C CARYL ####[facility] Ilqshdagxi3734 [place] [phone]. Sasha Montero WBC 28.5 103/ul Critically high 4.0-11.0 [facility] Comment on above: Performed By: #### C CARYL ####[facility] Nidyrvmchp8[address] [place] [phone]. Sasha Montero CULTURE URINEon 11-17-2021 CULTURE URINE Culture Observations : HEAVY GROWTH OF MIXED GENITAL AUDRA. NO POTENTIAL PATHOGENS SEEN. Normal [facility] Comment on above: Performed By: #### U RCX ####[facility] [address]zbprrt[address] [place] [address]Dr. Sasha Montero Covid-19 PCR (CVDTB)on SARS-CoV-2 (COVID-19) RNA YULIANA+probe Ql (Unsp spec) Not detected Normal NOT DETECTED [facility] Comment on above: Result Comment: When diagnostic testing is negative, the possibility of a false negative should be considered inthe context of a patient's recent exposures and the presence of clinical signs and symptomsconsistent with SARS-CoV-2.This test is not yet approved or cleared by the [place] FDA. When there are no FDA-approved or cleared tests available, and other criteria are met, FDA can make tests available under an emergency access mechanism called an Emergency Use Authorization (EUA). The EUA for this test is supported by the [employer] of Health and Human Service's declaration that circumstances exist to justify the emergency use of in vitro diagnostics for the detection and/or diagnosis of the virus that causes COVID-19. This EUA will remain in effect for the duration of the COVID-19 declaration justifying emergency of IVDs, unless it is terminated or revoked by the FDA (after which the test may no longer be used). Performed By: #### C VDTBH ####[facility] Brxhalhgte[address] [place] [address]Dr. Sasha Montero ER URINE PROFILEon 2 Bilirubin Ql (U) SMALL Abnormal NEGATIVE [facility] Comment on above: Performed By: #### U MICRO, ERUR ####[facility] Yjdpznjgwp9[address] [place] [address]Dr. Sasha Montero Clarity (U) SL CLOUDY Abnormal CLEAR [facility] Comment on above: Performed By: #### U MICRO, ERUR ####[facility] Qhayfufgsx3451 [place] [address]Dr. Sasha Montero Color (U) DK. YELLOW Normal YELLOW [facility] Comment on above: Performed By: #### U MICRO, ERUR ####[facility] Ryfbnzlllm95[address] [place] [address]Dr. Sasha HERNANDESAHD A micrscopic examina tion will be performed if indicated. Normal [facility] Comment on above: Performed By: #### U MICRO, ERUR ####[facility] Tsnqhfobgt2078 [place] [address]Dr. Sasha Montero Glucose Ql (U) Negative Normal NEGATIVE [facility] Comment on above: Performed By: #### U MICRO, ERUR ####[facility] Hhgepacorl[address] [place], [place] [address]Dr. Sasha Montero Hemoglobin Ql (U) TRACE-INTACT Abnormal NEGATIVE [facility] Comment on above: Performed By: #### U MICRO, ERUR ####[facility] Ipzcwbqxqe255[address] [place], [place] [address]Dr. Sasha Montero Ketones Ql (U) TRACE Abnormal NEGATIVE [facility] Comment on above: Performed By: #### U MICRO, ERUR ####[facility] Xzyxsovykz[address] [place], [place] [address]Dr. Sahsa Montero LEUKOCYTES Negative Normal NEGATIVE [facility] Comment on above: Performed By: #### U MICRO, ERUR ####[facility] Hwdpzzhqjx[address] [place], [place] [address]Dr. Sasha Montero Nitrite Ql (U) Negative Normal NEGATIVE [facility] Comment on above: Performed By: #### U MICRO, ERUR ####[facility] Bslmheurkw[address] [place], [place] [address]Dr. Sasha Montero pH (U) 5.0 [pH] Normal 5-[address] [facility] Comment on above: Performed By: #### U MICRO, ERUR ####[facility] Kfmmjlsthw[address] [place], [place] [address]Dr. Sasha Montero Protein (U) [Mass/Vol] 100 mg/dL Abnormal NEGAT ARSEN/ TRACE [facility] Comment on above: Performed By: #### U MICRO, ERUR ####[facility] Qgirckzelw20[address] [place], [place] [address]Dr. Sasha Montero SPEC GRAVITY >=1.030 Abnormal 1.005-<=1.0 25 [facility] Comment on above: Performed By: #### U MICRO, ERUR ####[facility] Mmugiupzcp[address] [place] [address]Dr. Sasha Motnero UR MICRO IND INDICATED Normal [facility] Comment on above: Performed By: #### U MICRO, ERUR ####[facility] Xuivoyixwq3423 [place] [address]Dr. Sasha Montero Urobilinogen Qn (U) 0.2 {Josie'U}/dL Normal 0.2 - 1. 0 [facility] Comment on above: Performed By: #### U MICRO, ERUR ####[facility] Ikytcxrvhc[address] [place], [place] [address]Dr. Sasha Montero LIPASEon 11-17-2021 Lipase [Catalytic activity/Vol] 59.0 U/L Normal 23.0-300.0 [facility] Comment on above: Performed By: #### C MP, LIPA ####[facility] Jjhekebqgi[address] [place], [place] [address]Dr. Sasha Montero PROF 14(COMP METB)on 022 Albumin [Mass/Vol] 5.2 g/dL Critically high 3.4-5.0 [facility] Comment on above: Performed By: #### C MP, LIPA ####[facility] Mefighmcnm5017 [place] [address]Dr. Sasha Montero Albumin/Globulin [Mass ratio] 1.4 {ratio} Normal [facility] Comment on above: Performed By: #### C MP, LIPA ####[facility] Muynudeueq47[address] [place] [address]Dr. Sasha Montero ALP [Catalytic activity/Vol] 101 U/L Normal 46-[address] [facility] Comment on above: Performed By: #### C MP, LIPA ####[facility] Udblocpnqw6694 [place] [address]Dr. Sasha Montero ALT [Catalytic activity/Vol] 20 U/L Normal 14-59 [facility] Comment on above: Performed By: #### C MP, LIPA ####[facility] Itoyxqvptq9162 [place] [phone]. Sasha Montero Anion gap [Moles/Vol] 24.6 mmol/L Normal Th e [facility] Comment on above: Performed By: #### C MP, LIPA ####[facility] Mmmwdthygw2755 [place] [phone]. Sasha Montero AST [Catalytic activity/Vol] 23 U/L Normal 15-[address] [facility] Comment on above: Performed By: #### C MP, LIPA ####[facility] Jszmrqqvnr6607 [place] [address]Dr. Sasha Montero Bilirubin [Mass/Vol] 0.9 mg/dL Normal 0.2-1.[address] [facility] Comment on above: Performed By: #### C MP, LIPA ####[facility] Xavdtzrmpi8823 [place] [address]Dr. Sasha Montero Calcium [Mass/Vol] 9.8 mg/dL Normal 8.5-10.[address] [facility] Comment on above: Performed By: #### C MP, LIPA ####[facility] Kmehiawrun[address] [place] [address]Dr. Sasha Montero Chloride [Moles/Vol] 98 mmol/L Normal 98-107 [facility] Comment on above: Performed By: #### C MP, LIPA ####[facility] Ritcsgyvyz2823 [place] [phone]. Sasha Montero CO2 [Moles/Vol] 20.8 mmol/L Critically low 22.0-30.[address] [facility] Comment on above: Performed By: #### C MP, LIPA ####[facility] Icprdedtqj5685 [place] [phone]. Sasha Montero Creatinine [Mass/Vol] 1.67 mg/dL Critically high 0.52-1.04 [facility] Comment on above: Performed By: #### C MP, LIPA ####[facility] Eqiiovnysm7325 [place] [phone]. Sasha Montero EGFR-AF BRUNEIAN 42 mL/min/1.73m2 Critically low >=60 [facility] Comment on above: Performed By: #### C MP, LIPA ####[facility] Qirzmjaxgm5257 [place] [address]Dr. Sasha Montero EGFR-NON AF BRUNEIAN 34 mL/min/1.73m2 Critically low >=60 [facility] Comment on above: Performed By: #### C MP, LIPA ####[facility] Koxzfvevos23[address] [place] [address]Dr. Sasha Montero Globulin (S) [Mass/Vol] 3.8 g/dL Normal [facility] Comment on above: Performed By: #### C MP, LIPA ####[facility] Hysnikfuji[address] [place], [place] [address]Dr. Sasha Montero Glucose [Mass/Vol] 169 mg/dL Critically high 74-106 [facility] Comment on above: Performed By: #### C MP, LIPA ####[facility] Smcgkugkta12[address] [place], [place] [address]Dr. Sasha Montero Potassium [Moles/Vol] 3.4 mmol/L Normal 3.4-5.0 [facility] Comment on above: Performed By: #### C MP, LIPA ####[facility] Kkuspvnlck[address] [place], [place] [address]Dr. Sasha Montero Protein [Mass/Vol] 9.0 g/dL Critically high 6.1-8.2 [facility] Comment on above: Performed By: #### C MP, LIPA ####[facility] Lhfjmkmogh6[address] [place], [place] [address]Dr. Sasha Montero Sodium [Moles/Vol] 140 mmol/L Normal 137-145 [facility] Comment on above: Performed By: #### C MP, LIPA ####[facility] Pyoyaaeimf85[address] [place], [place] [address]Dr. Sasha Montero Urea nitrogen [Mass/Vol] 15.0 mg/dL Normal 7.0-18.0 [facility] Comment on above: Performed By: #### C MP, LIPA ####[facility] [address]sdsdsgcvc[address] [place], [place] [address]Dr. Sasha Montero Urea nitrogen/Creatinine [Mass ratio] 9.0 mg/mg Normal [facility] Comment on above: Performed By: #### C [place] ####[facility] Dtecbhlzeb[address] [place] [address]Dr. Sasha Montero URINE MICROSCOPIC ONLYon BACTERIA SMALL Abnormal NONE SEEN [facility] Comment on above: Performed By: #### U MICRO, ERUR ####[facility] Naqivmwqby80[address] [place] [address]Dr. Sasha Montero Bacteria identified Cx Nom (U) INDICATED Normal [facility] Comment on above: Performed By: #### U MICRO, ERUR ####[facility] Qnvwihbfdy50[address] [place], [place] [address]Dr. Sasha Montero CA OX CRYSTALS RARE Normal [facility] Comment on above: Performed By: #### U MICRO, ERUR ####[facility] Jumpmrlswm88[address] [place], [place] [address]Dr. Sasha Montero CAST SEEN Abnormal NONE SEEN [facility] Comment on above: Performed By: #### U MICRO, ERUR ####[facility] Bvfysgazet[address] [place], [place] [address]Dr. Sasha Montero Crystals LM Nom (Urine sed) SEEN Abnormal NONE SEEN [facility] Comment on above: Performed By: #### U MICRO, ERUR ####[facility] Endtriyyew[address] [place], [place] [address]Dr. Sasha Montero Epithelial cells LM Ql (Urine sed) MODERATE Abnormal NONE SEEN /RARE [facility] Comment on above: Performed By: #### U MICRO, ERUR ####[facility] Iwoppcvmed20[address] [place] [address]Dr. Sasha Montero HYALINE CAST MANY Normal [facility] Comment on above: Performed By: #### U MICRO, ERUR ####[facility] Tjucxcajuc[address] [place], [place] [address]Dr. Sasha Montero MUCOUS TRACE Abnormal NONE SEEN [facility] Comment on above: Performed By: #### U MICRO, ERUR ####[facility] Cduamzyrvn2382 [place], [place] [address]Xy. Sasha Montero RBC 2-5 Abnormal 0-[address] [facility] Comment on above: Performed By: #### U MICRO, ERUR ####[facility] Hxavpzexyp5051 [place], [place] [address]If. Sasha Montero WBC 2-5 Abnormal NONE SEEN [facility] Comment on above: Performed By: #### U MICRO, ERUR ####[facility] Vfjtvflszc0052 [place], [place] [address]Cq. Sasha Montero XR ABD FLAT UP_PA Anjel 11-17 XR ABD FLAT UP_PA CH Normal [facility] Reminderson 04-27-2019 Reminders - From: Janice Oseguera LPN To: [facility] - Clinical; Janice Oseguera LPN; Sent: 04/20/2019 11:39:04 EDT Show up: 04/20/2019 11:39:00 EDT Subject: call pt w/ results Due Date/Time: 05/03/2019 11:39:00 EDT Reminder/Recall 04/26/19 @[facility] RENAL US @1100 am From: Bubba Tovar MA ([facility] - Clinical) To: Margoth CHAMORRO, Valeriano Casas; Sent: 04/27/2019 11:52:28 EDT Show up: 04/27/2019 11:52:00 EDT Subject: RE: call pt w/ results Dr. Justin, please review Renal US report (under documentation). Pt does not have follow up. Normal [facility] Vital Signs Date Time Vital Sign Value Performing Clinician Facility 12-22-2023 11:30-0400 Diastolic blood pressure 87 mm[Hg] CHARACTER ACTRESSSkylar Espinosa Work Phone: [facility] 12-22-2023 11:30-0400 Heart rate 80 /min NARCISA Espinosa Work Phone: [facility] 12-22-2023 11:30-0400 Respiratory rate 16 /min CHARACTER ACTRESS-C Hui Warchol Work Phone: [facility] 12-22-2023 11:30-0400 SaO2% (BldA) [Mass fraction] 99 % CHARACTER ACTRESS-C Hui Warchol Work Phone: [facility] 12-22-2023 11:30-0400 Systolic blood pressure 126 mm[Hg] CHARACTER ACTRESS-C Hui Warchol Work Phone: [facility] 12-22-2023 08:56-0400 Body height 181.61 cm CHARACTER ACTRESS-C Hui Warchol Work Phone: [facility] 12-22-2023 08:56-0400 Body temperature 98.4 [degF] CHARACTER ACTRESS-C Hui Warchol Work Phone: [facility] 12-22-2023 08:56-0400 Body weight 83 kg CHARACTER ACTRESS-C Hui Warchol Work Phone: [facility] 12-05-2023 12:00-0400 Body temperature 98.6 [degF] CHARACTER ACTRESS-C Uhi Warchol Work Phone: [facility] 12-05-2023 12:00-0400 Diastolic blood pressure 82 mm[Hg] CHARACTER ACTRESS-C Hui Warchol Work Phone: [facility] 12-05-2023 12:00-0400 Heart rate 87 /min CHARACTER ACTRESS-C Hui Warchol Work Phone: [facility] 12-05-2023 12:00-0400 Respiratory rate 16 /min CHARACTER ACTRESS-C Hui Warchol Work Phone: [facility] 12-05-2023 12:00-0400 SaO2% (BldA) [Mass fraction] 98 % CHARACTER ACTRESS-C Hui Warchol Work Phone: [facility] 12-05-2023 12:00-0400 Systolic blood pressure 145 mm[Hg] CHARACTER ACTRESS-C Hui Warchol Work Phone: [facility] 12-05-2023 07:46-0400 Body weight 87 kg CHARACTER ACTRESS-C Hui Warchol Work Phone: [facility] 12-04-2023 11:30-0400 Body height 184.15 cm CHARACTER ACTRESS-C Hui Warchol Work Phone: [facility] 12-03-2023 13:35-0400 Body height 195.58 cm CHARACTER ACTRESS-C Hui Warchol Work Phone: [facility] 12-03-2023 13:35-0400 Body temperature 99.9 [degF] CHARACTER ACTRESS-C Hui Warchol Work Phone: [facility] 12-03-2023 13:35-0400 Body weight 85.2 kg CHARACTER ACTRESS-C Hui Warchol Work Phone: [facility] 12-03-2023 13:35-0400 Diastolic blood pressure 69 mm[Hg] CHARACTER ACTRESS-C Hui Warchol Work Phone: [facility] 12-03-2023 13:35-0400 Heart rate 96 /min CHARACTER ACTRESS-C Hui Warchol Work Phone: [facility] 12-03-2023 13:35-0400 Respiratory rate 20 /min CHARACTER ACTRESS-C Hui Warchol Work Phone: [facility] 12-03-2023 13:35-0400 SaO2% (BldA) [Mass fraction] 97 % CHARACTER ACTRESS-C Hui Warchol Work Phone: [facility] 12-03-2023 13:35-0400 Systolic blood pressure 112 mm[Hg] CHARACTER ACTRESS-C Hui Warchol Work Phone: [facility] 05-15-2023 08:12-0400 Heart rate 98 /min MD Simeon Kevin Work Phone: [facility] 05-15-2023 07:58-0400 Body height 180.34 cm MD Simeon Kevin Work Phone: [facility] 05-15-2023 07:58-0400 Body temperature 100.1 [degF] MD Simeon Kevin Work Phone: [facility] 05-15-2023 07:58-0400 Body weight 88.15 kg MD Simeon Kevin Work Phone: [facility] 05-15-2023 07:58-0400 Diastolic blood pressure 90 mm[Hg] MD Simeon Kevin Work Phone: [facility] 05-15-2023 07:58-0400 Respiratory rate 16 /min MD Simeon Kevin Work Phone: [facility] 05-15-2023 07:58-0400 SaO2% (BldA) [Mass fraction] 99 % MD Simeon Kevin Work Phone: [facility] 05-15-2023 07:58-0400 Systolic blood pressure 141 mm[Hg] MD Simeon Kevin Work Phone: [facility] 04-01-2023 14:47-0400 Diastolic blood pressure 81 mm[Hg] MD Simeon Kevin Work Phone: [facility] 04-01-2023 14:47-0400 Heart rate 80 /min MD Simeon Kevin Work Phone: [facility] 04-01-2023 14:47-0400 Respiratory rate 16 /min MD Simeon Kevin Work Phone: [facility] 04-01-2023 14:47-0400 SaO2% (BldA) [Mass fraction] 98 % MD Simeon Kevin Work Phone: [facility] 04-01-2023 14:47-0400 Systolic blood pressure 117 mm[Hg] MD Simeon Kevin Work Phone: [facility] 04-01-2023 13:10-0400 Body height 182.88 cm MD Simeon Kevin Work Phone: [facility] 04-01-2023 13:10-0400 Body mass index (BMI) [Ratio] 23.1 kg/m2 MD Simeon Kevin Work Phone: [facility] 04-01-2023 13:10-0400 Body weight 90.26 kg MD Simeon Kevin Work Phone: [facility] 04-01-2023 13: Body temperature 98.8 [degF] MD Simeon Kevin Work Phone: [facility] Encounters Encounter Date Encounter Type Care Provider Facility Start: 03-04-2024 ambulatory Hui Warchol Facility:[facility] Start: 02-11-2024 End: 02-11-2024 Discharged Recurring CHARACTER ACTRESS-C Hui Warchol Work Phone: [facility]-Infusion Therapy - O/P Work Phone: Start: 02-11-2024 End: 02-11-2024 ambulatory CHARACTER ACTRESS-C Hui Warchol Work Phone: [facility] Work Phone: Start: 01-28-2024 End: 01-28-2024 Patient encounter procedure CHARACTER ACTRESS-C Hui Warchol Work Phone: [facility]-LA Swab Start: 01-28-2024 End: 01-28-2024 ambulatory CHARACTER ACTRESS-C Hui Warchol Work Phone: [facility] Work Phone: Start: 12-22-2023 End: 12-22-2023 Emergency department patient visit CHARACTER ACTRESS-C Hui Warchol Work Phone: [facility]-Emergency Room Work Phone: Start: 12-07-2023 End: 12-07-2023 ambulatory HUI WARCHOL Not Available Start: 12-03-2023 End: 12-05-2023 Non-patient / Non-visit CHARACTER ACTRESS-C Hui Warchol Work Phone: [facility] Work Phone: Start: 12-03-2023 End: 12-05-2023 Evaluation and management of inpatient CHARACTER ACTRESS-C Hui Warchol Work Phone: [facility] Work Phone: Start: 11-30-2023 End: 11-30-2023 ambulatory HUI JONESCHOL Not Available Start: 10-12-2023 End: 10-12-2023 ambulatory HUI WARCHOL Not Available Start: 09-25-2023 Telephone encounter Hui sarabia CHARACTER ACTRESS Work Phone: [facility] Start: 08-07-2023 End: 08-07-2023 ambulatory HUI JONESCHOL Not Available Start: 07-30-2023 End: 07-30-2023 ambulatory HUI WARCHOL Not Available Start: 07-28-2023 End: 07-28-2023 Patient encounter procedure MARYBETH Hopkins Work Phone: [facility] [place] Work Phone: Start: 07-28-2023 End: 07-28-2023 ambulatory CELLO TEACHERPennie Hopkins Work Phone: [facility] Work Phone: Start: 05-15-2023 End: 05-15-2023 Emergency department patient visit MD Simeon Kevin Work Phone: [facility]-Emergency Room Work Phone: Start: 04-01-2023 End: 04-01-2023 Admission to same day surgery center MD Simeon Kevin Work Phone: [facility]Surgery Center [facility] [place] Start: 04-01-2023 End: 04-01-2023 ambulatory MD Simeon Kevin Work Phone: [facility] Work Phone: Start: 05-17-2022 End: 05-20-[address] SIMEON KEVIN . Facility:[facility] Start: 05-04-2022 End: 05-07-[address] SIMEON KEVIN . Facility:[facility] Start: 04-28-2022 End: 04-28-[address] SIMEON KEVIN . Facility:[facility] Start: 04-17-2022 End: 04-19-[address] SIMEON KEVIN . Facility:[facility] Start: 03-25-2022 End: 03-25-[address] JOE BOYD . Facility:[facility] Start: 03-12-2022 End: 03-15-[address] BROOKLYNN NEIL Facility:[facility] Start: 03-07-2022 End: 03-09-[address] SIMEON KEVIN . Facility:[facility] Start: 02-07-2022 End: 02-07-[address] DARREL GARCIA Facility:[facility] Start: 01-14-2022 End: 01-16-[address] SIMEON KEVIN . Facility:[facility] Start: 01-11-2022 End: 01-12-[address] BROOKLYNN NEIL Facility:[facility] Start: 12-08-2021 End: 12-10-[address] SIMEON KEVIN . Facility:[facility] Start: 11-29-[address] SIMEON KEVIN . Facili ty:[facility] Start: 11-19-2021 End: 11-20-2021 Evaluation and management of inpatient DR SIMEON KEVIN . Facility: Procedures Date Procedure Procedure Detail Performing Clinician Start: 01-28-2024 Respiratory Panel (PCR) CHARACTER ACTRESS-C Hui Warchol Work Phone: Start: 12-22-2023 Urine culture CHARACTER ACTRESS-C Hui Robertchol Work Phone: Start: 12-22-2023 Computed tomography of abdomen and pelvis with contrast CHARACTER ACTRESS-C Hui Joneschol Work Phone: Start: 12-03-2023 Computed tomography of abdomen and pelvis with contrast CHARACTER ACTRESS-C Hui Warchol Work Phone: Start: 12-03-2023 Bacterial ID (NA Mul tiplex Assay) CHARACTER ACTRESS-C Hui Warchol Work Phone: Start: 12-03-2023 Blood culture for bacteria, including anaerobic screen CHARACTER ACTRESS-C Hui Warchol Work Phone: Start: 12-03-2023 SARS-CoV-2, Influenz a & RSV (PCR) CHARACTER ACTRESS-C Hui Warchol Work Phone: Start: 12-03-2023 Urine culture CHARACTER ACTRESS-C Hui Robertchol Work Phone: Start: 07-28-2023 Respiratory Panel (PCR) MARYBETH Hopkins Work Phone: Start: 05-15-2023 SARS-CoV-2, Influenz a & RSV (PCR) MD Simeon Kevin Work Phone: Start: 05-15-2023 Plain chest X-ray MD Quinteros Work Phone: Start: 04-01-2023 OR Infusaport Insertion/Removal (Not Applicable) MD Simeon Kevin Work Phone: Plan of Treatment Date Care Activity Detail Author Start: 02-28-2024 Medicare Annual Well ness (AWV) Medicare Annual Wellness (AWV) [facility] Start: 02-14-2024 Influenza vaccination Influenz a Vaccine (#1) [facility] Comment on above: Postponed from 04/17 (Patient Refused) Start: 02-11-2024 [facility] Start: 01-16-2024 Screening for malign ant neoplasm of breast Mammogram [facility] Comment on above: Postponed from 08/04 (Other Patient Reasons) Start: 12-22-2023 Bacteria identified in Urine by Culture Urine Culture [facility] Start: 12-05-2023 [facility] Start: 12-03-2023 Bacteria identified in Blood by Culture [facility] Start: 12-03-2023 Bacteria identified in Urine by Culture [facility] Start: 12-03-2023 Blood culture for bacteria, including anaerobic screen Blood Culture [facility] Start: 12-03-2023 Hospital admission [facility] Start: 12-03-2023 [facility] Start: 04-01-2023 End: 04-01-2023 [facility] Patient Education [facility] Work Phone: Patient referral [facility] Work Phone: Immunizations Immunization Date Immunization Notes Care Provider Stefan cope 11-28-2015 hepatitis B vaccine, adult dosage Hui Espinosa CHARACTER ACTRESS Work Phone: [facility] 11-28-2015 hepatitis B vaccine, pediatric or pediatric/adolescent dosage CHARACTER ACTRESS-C Hui Espinosa Work Phone: [facility] Payers Date Payer Category Payer Self-pay [id number] 2022 Medicare [id number] 1985 Unknown [id number] 2.16.84 0.1.066115.3.579.2.593 1983 Unknown [id number] 2.16.84 0.1.922619.3.579.2.593 1983 Unknown [id number] 2.16.84 0.1.738022.3.579.2.593 1983 Unknown [id number] 2.16.84 0.1.224951.3.579.2.593 1983 Unknown [id number] 2.16.84 0.1.575722.3.579.2.593 1983 Unknown [id number] 2.16.84 0.1.134178.3.579.2.593 1983 Unknown [id number] 2.16.84 0.1.935408.3.579.2.593 1983 Unknown [id number] 2.16.84 0.1.123487.3.579.2.593 1983 Unknown [id number] 2.16.84 0.1.047587.3.579.2.593 1983 Unknown [id number] 2.16.84 0.1.541761.3.579.2.593 1983 Unknown [id number] 2.16.84 0.1.173770.3.579.2.593 1983 Unknown [id number] 2.16.84 0.1.952263.3.579.2.593 1983 Unknown [id number] 2.16.84 0.1.150781.3.579.2.593 1983 Unknown [id number] 2.16.84 0.1.059872.3.579.2.1259 1983 Unknown [id number] 2.16.84 0.1.386696.3.579.2.1259 1983 Unknown [id number] 2.16.84 0.1.603737.3.579.2.1259 1983 Unknown [id number] 2.16.840 .1.168165.3.579.2.1259 1983 Unknown [id number] 2.16.840 .1.668851.3.579.2.1259 1961 Medicaid [id number] 1961 Medicare [id number] 1961 Medicare [id number] Unknown [id number] 2.16.8 40.1.182531.3.579.2.531 Unknown [id number] 2.16.8 40.1.939713.3.579.2.531 Unknown [id number] 2.16.8 40.1.258368.3.579.2.531 Unknown [id number] 2.16.8 40.1.175708.3.579.2.531 Unknown [id number] 2.16.8 40.1.625553.3.579.2.531 Unknown [id number] 2.16.8 40.1.344763.3.579.2.531 Unknown [id number] 2.16.8 40.1.227511.3.579.2.531 Unknown [id number] 2.16.8 40.1.005101.3.579.2.531 Social History Date Type Detail Facility Start: 04-01-2023 End: 12-22-2023 Tobacco smoking status NHIS Never smoked tobacco (finding) [facility] Start: 1985 Sex Assigned At Female [facility] Start: 02-27-2023 Tobacco use and exposure Smokeless tobacco non-user [facility] Start: 08-07-2023 Alcohol intake Lifetime non-d elizabeth (finding) [facility] Start: 08-07-2023 History of Social function [facility] Start: 08-07-2023 Tobacco use panel [facility] Start: 1985 Sex Assigned At Not on file [facility] NEGATED: Highlighted row [facility] Medical Equipment Procedure Code Equipment Code Equipment Origin al Text Equipment Identifier Dates Insertion of central venous catheter (CVC) with subcutaneous port for chemotherapy Vascular port/catheter ()[id number] FDA Start: 07-30-2021 Goals Date Patient Goal Desired Activity /State Functional Status Date Assessment Result Facility 12-05-2023 Functional status Patient at Baseline [facility] Work Phone: 12-03-2023 Functional status Patient at Baseline [facility] Work Phone: Mental Status Date Assessment Result Facility 12-05-2023 Cognitive function Cognitive Sta tus Patient at Baseline [facility] Work Phone: 12-03-2023 Cognitive function Cognitive Sta tus Patient at Baseline [facility] Work Phone: Clinical Notes 05-10-2021 to 12-05-2023 Note Date & Type Note Facility 12-05-2023 Progress note Note Date/Time December 05, 2023 12:25pm [facility] [address] [place] [address] Hospitalist Progress Note Signed Patient: Awilda Merritt MR#: [id number] : 1985 Acct:[id number] Age/Sex: 38 / F Adm Date: 4 Loc: 3T Room: [address] [place] [address] Type: ADM IN Attending Dr: Huseyin Gill MD Copies to: ~ Date of Service: 12/05/2023 Subjective Subjective Narrative: 38F with PMH of HTN, Gastroparesis, Depression , anxiety, Postural orthostatic tachycardia syndrome Cannabis use with Cyclical vomiting syndrome who presentedwith N/V and fever and admitted for the evaluation and treatment of suspected UTI Assessment And Plan Acute E. coli pyelonephritis afebrile for tow days , hemodynamically stable, her leukocytosis resolved, still have minimal RLQ pain, she still not able to tolerate diet The patient presents with abdominal pain Fever, N/V . She is hemodynamically stable. There is leukocytosis but no left shift . Lactic acid normal. Lipase wnl. LFTs wnl. Urine HCG negative CT abdomen pelvis w con shows patchy right renal nephrogram suspicious for pyelonephritis. there is no evidence of perinephric abscess or obstruction. no additional acute findings. Urine Cx E. coli (not susceptible to Bactrim that she took one week at home before admission) Blood Cx remain one set Presumptive Coag Neg. Staph likely contaminant the patient is not able to tolerate oral antibiotics due to refractory N/V. she was admitted and started empirically on IV antibiotic Ceftriaxone IV Pain control Intractable nausea and vomiting Volume depletion Gastroparesis she said she still have N/V and she is not improving resume oral home Reglan and Compazine c/w Zofran IV prn Supportive IVF diet GI soft LINTERVAL HPI: As Above, Pt resting in bed. in tears , feeling the same not improving . she reported epigastric pain Denies any chest pain, SOB Chronic diseases: Unless mentioned Above, Essential home medications have been continued. DVT Px: Addressed Disposition: Home once able to tolerate her diet Plan of care Discussed with: the medical team, the patient [facility] 3:45 pm the patient tolerated diet and wants to go home Exam Physical Exam Vital Signs: Temp Pulse Resp BP Pulse Ox O2 Del Method 36.9 C 94 16 144/85 H 98 Room Air 12/05/23 08:00 12/05/23 08:00 12/05/23 08:00 12/05/23 08:00 12/05/23 08:00 12/05/23 08:00 Narrative: GEN: Pleasant, Cooperative, NECK: Supple, ? JVD, LUNGS: CTA. normal respiratory effort. CV: S1S2 nl, ? M/R/G ABD: Soft, ND, very mild RLQ tenderness to deep palpation, + BS, ? rebound/guarding, ?CVA tenderness, ? HSM EXT: No edema in LE bilaterally, no calf muscle tenderness. NEURO: ? FND PSYCH: nl affect, AOx3 Objective Lab Results 12/05/23 05:00 12/05/23 05:00 Microbiology Results Microbiology 12/03/23 12:18 Blood - Right Arm Blood Culture - Preliminary Presumptive Coag Neg. Staph 12/03/23 12:18 Blood - Right Arm Bacterial ID (NA Multiplex Assay) - Final 12/03/23 09:56 Urine - Clean-Voided Midstream Urine Culture - Final Escherichia coli 12/03/23 13:00 Blood - Right Antecubital Blood Culture - Preliminary No Growth 1 Day Meds Allergies and Active Meds Allergies acetaminophen [Vicodin] Allergy (Unknown, Verified 12/03/23 08:00) Unknown Reaction hydrocodone [Vicodin] Allergy (Unknown, Verified 12/03/23 08:00) Unknown Reaction propoxyphene [Darvocet-N] Allergy (Unknown, Verified 12/03/23 08:00) Unknown Reaction Active Meds: Active Medications Generic Name Dose Route Start Last Admin Trade Name Freq PRN Reason Stop Dose Admin Guaifenesin 600 mg 12/03/23 21:00 12/05/23 09:51 Guaifenesin 600 Mg Tab.Er.12h PO 12/02/24 20:59 600 mg BID DEA Administration Ceftriaxone Sodium 1 gm in 50 mls @ 100 mls/hr 12/04/23 12:00 12/04/23 12:22 Rocephin IV 100 mls/hr Q24H DEA Administration Dextrose/Sodium Chloride 1,000 mls @ 125 mls/hr 12/03/23 15:45 12/05/23 10:24 5 % Dextrose-0.9 % Nacl IV 12/02/24 15:44 125 mls/hr .Q8H DEA Administration Ibuprofen 400 mg 12/03/23 15:31 12/05/23 10:29 Ibuprofen 400 Mg Tablet PO 12/02/24 15:30 400 mg TID PRN Administration pain and fever Ketorolac Tromethamine 15 mg 12/03/23 15:31 12/04/23 22:22 Ketorolac Tromethamine 15 Mg/Ml Vial IV-PUSH 15 mg Q6H PRN Administration Pain Scale 6 - 10 Lorazepam 1 mg 12/03/23 20:33 12/05/23 09:24 Lorazepam 2 Mg/Ml Vial IV-PUSH 05/31/24 20:32 1 mg Q6H PRN Administration Agitation Metoclopramide HCl 10 mg 12/05/23 21:00 Metoclopramide 10 Mg Tablet PO 12/04/24 20:59 BID DEA Ondansetron HCl 4 mg 12/03/23 17:22 12/05/23 10:01 Ondansetron 4 Mg/2 Ml Vial IV-PUSH 12/02/24 17:21 4 mg Q6H PRN Administration Nausea And Vomiting Pantoprazole Sodium 40 mg 12/04/23 12:00 12/05/23 09:52 Pantoprazole 40 Mg Tablet. PO 12/03/24 11:59 40 mg BID DEA Administration Promethazine HCl 25 mg 12/05/23 11:51 Promethazine 25 Mg Tablet PO 12/04/24 11:50 Q6H PRN Nausea Propranolol HCl 40 mg 12/03/23 21:00 12/05/23 09:51 Propranolol 20 Mg Tablet PO 12/02/24 20:59 40 mg BID DEA Administration Quetiapine Fumarate 150 mg 12/03/23 22:00 12/04/23 22:12 Quetiapine Fumarate 50 Mg Tablet PO 12/02/24 21:59 150 mg HS DEA Administration Sodium Chloride 10 ml 12/03/23 17:40 12/03/23 23:24 Sodium Chloride 0.9 % 10 Ml Syringe IV-PUSH 12/02/24 17:39 10 ml PRN PRN Administration Flush Sodium Chloride 10 ml 12/03/23 20:33 12/05/23 09:24 Sodium Chloride 0.9 % 10 Ml Vial.Pf INJECTION 12/02/24 20:32 10 ml Q6H PRN Administration Ativan dilution A&P - Hospitalist Assessment/Plan (1) UTI (urinary tract infection): (2) Intractable nausea and vomiting: Plan Documented By: Huseyin Gill MD 12/05/23 7151 Signed By: <Electronically signed by Huseyin Gill MD> 12/05/23 0063 [facility] Work Phone: 1(957) 718-509604-20-2024 Progress note Author Huseyin Gill [facility] December 05, 2023 12:58am Note Date/Time December 04, 2023 4:[address] [facility] [address] [place] [address] Hospitalist Progress Note Signed Patient: Awilda Merritt MR#: [id number] : 1985 Acct:[id number] Age/Sex: 38 / F Adm Date: 4 Loc: 3T Room: [address] [place] [address] Type: ADM IN Attending Dr: Huseyin Gill MD Copies to: ~ Date of Service: 12/04/2023 Subjective Subjective Narrative: 38F with PMH of HTN, Gastroparesis, Depression , anxiety, Postural orthostatic tachycardia syndrome Cannabis use with Cyclical vomiting syndrome who presentedwith N/V and fever and admitted for the evaluation and treatment of suspected UTI Assessment And Plan Acute E. coli pyelonephritis afebrile today, hemodynamically stable, her leukocytosis resolving, minimal RLQpain The patient presents with abdominal pain Fever, N/V . She is hemodynamically stable. There is leukocytosis but no left shift . Lactic acid normal. Lipase wnl. LFTs wnl. Urine HCG negative CT abdomen pelvis w con shows patchy right renal nephrogram suspicious for pyelonephritis. there is no evidence of perinephric abscess or obstruction. no additional acute findings. Urine Cx E. coli Blood Cx remain negative Pyuria in the Urinalysis suggestive for UTI . the patient is not able to tolerate oral antibiotics due to refractory N/V. she was admitted and started empirically on IV antibiotic Empirical antibiotics: Ceftriaxone IV Pain control Intractable nausea and vomiting Volume depletion Gastroparesis she said she still have N/V and asked to try advance diet Supportive IVF advance diet ot GI soft LINTERVAL HPI: As Above, Pt resting in bed. feeling the same not improving . Denies any chest pain, SOB Chronic diseases: Unless mentioned Above, Essential home medications have been continued. DVT Px: Addressed Disposition: Home once able to tolerate her diet Plan of care Discussed with: the medical team, the patient L Exam Physical Exam Vital Signs: Temp Pulse Resp BP Pulse Ox O2 Del Method 37.4 C H 84 18 147/75 H 99 Room Air 12/04/23 08:00 12/04/23 12:00 12/04/23 12:00 12/04/23 08:00 12/04/23 12:00 12/04/23 08:00 Narrative: GEN: Pleasant, Cooperative, Not in acute distress. NECK: Supple, ? JVD, LUNGS: CTA. normal respiratory effort. CV: S1S2 nl, ? M/R/G ABD: Soft, ND, very mild RLQ tenderness to deep palpation, + BS, ? rebound/guarding, ?CVA tenderness, ? HSM EXT: No edema in LE bilaterally, no calf muscle tenderness. NEURO: ? FND PSYCH: nl affect, AOx3 Objective Lab Results 12/04/23 07:07 12/04/23 08:25 Microbiology Results Microbiology 12/03/23 13:00 Blood - Right Antecubital Blood Culture - Preliminary No Growth 1 Day 12/03/23 12:18 Blood - Right Arm Blood Culture - Preliminary No Growth 1 Day 12/03/23 09:56 Urine - Clean-Voided Midstream Urine Culture - Preliminary Escherichia coli Meds Allergies and Active Meds Allergies acetaminophen [Vicodin] Allergy (Unknown, Verified 12/03/23 08:00) Unknown Reaction hydrocodone [Vicodin] Allergy (Unknown, Verified 12/03/23 08:00) Unknown Reaction propoxyphene [Darvocet-N] Allergy (Unknown, Verified 12/03/23 08:00) Unknown Reaction Active Meds: Active Medications Generic Name Dose Route Start Last Admin Trade Name Freq PRN Reason Stop Dose Admin Guaifenesin 600 mg 12/03/23 21:00 12/04/23 11:08 Guaifenesin 600 Mg Tab.Er.12h PO 12/02/24 20:59 600 mg BID DEA Administration Ceftriaxone Sodium 1 gm in 50 mls @ 100 mls/hr 12/04/23 12:00 12/04/23 12:22 Rocephin IV 100 mls/hr Q24H DEA Administration Dextrose/Sodium Chloride 1,000 mls @ 125 mls/hr 12/03/23 15:45 12/04/23 03:19 5 % Dextrose-0.9 % Nacl IV 12/02/24 15:44 125 mls/hr .Q8H DEA Administration Ibuprofen 400 mg 12/03/23 15:31 Ibuprofen 400 Mg Tablet PO 12/02/24 15:30 TID PRN pain and fever Ketorolac Tromethamine 15 mg 12/03/23 15:31 12/03/23 23:33 Ketorolac Tromethamine 15 Mg/Ml Vial IV-PUSH 15 mg Q6H PRN Administration Pain Scale 6 - 10 Lorazepam 1 mg 12/03/23 20:33 12/04/23 11:38 Lorazepam 2 Mg/Ml Vial IV-PUSH 05/31/24 20:32 1 mg Q6H PRN Administration Agitation Metoclopramide HCl 10 mg 12/03/23 15:31 12/04/23 11:38 Metoclopramide 10 Mg/2 Ml Vial IV-PUSH 12/02/24 15:30 10 mg Q6HR PRN Administration Nausea And Vomiting Ondansetron HCl 4 mg 12/03/23 17:22 12/03/23 17:35 Ondansetron 4 Mg/2 Ml Vial IV-PUSH 12/02/24 17:21 4 mg Q6H PRN Administration Nausea And Vomiting Pantoprazole Sodium 40 mg 12/04/23 12:00 12/04/23 12:21 Pantoprazole 40 Mg Tablet.Dr PO 12/03/24 11:59 40 mg BID DEA Administration Propranolol HCl 40 mg 12/03/23 21:00 12/04/23 11:09 Propranolol 20 Mg Tablet PO 12/02/24 20:59 40 mg BID DEA Administration Quetiapine Fumarate 150 mg 12/03/23 22:00 12/03/23 21:34 Quetiapine Fumarate 50 Mg Tablet PO 12/02/24 21:59 150 mg HS DEA Administration Sodium Chloride 10 ml 12/03/23 17:40 12/03/23 23:24 Sodium Chloride 0.9 % 10 Ml Syringe IV-PUSH 12/02/24 17:39 10 ml PRN PRN Administration Flush Sodium Chloride 10 ml 12/03/23 20:33 12/04/23 11:38 Sodium Chloride 0.9 % 10 Ml Vial.Pf INJECTION 12/02/24 20:32 10 ml Q6H PRN Administration Ativan dilution A&P - Hospitalist Assessment/Plan (1) UTI (urinary tract infection): (2) Intractable nausea and vomiting: Plan Documented By: Huseyin Gill MD 12/04/23 1629 Signed By: <Electronically signed by Huseyin Gill MD> 12/05/23 0058 [facility] Work Phone: 1(161) 654-984504-18-2024 History and physical note Author Huseyin Gill [facility] December 03, 2023 6:53pm Note Date/Time December 03, 2023 4:[address] [facility] [address] [place] [address] Hospitalist H&P Signed Patient: Awilda Merritt MR#: [id number] : 1985 Acct:[id number] Age/Sex: 38 / F Adm Date: 4 Loc: Room: [address] [place] [address] Type: ADM IN Attending Dr: Huseyin Gill MD Copies to: Hui Gill MD~ HPI DATE OF EXAMINATION: 12/03/23 HISTORY OF PRESENT ILLNESS: This is a pleasant 38F with PMH of HTN, Gastroparesis, Depression , anxiety, Postural orthostatic tachycardia syndrome Cannabis use with Cyclical vomiting syndrome who presented with N/V and fever and admitted for the evaluation and treatment of suspected UTI The patient was treated for a UTI one week ago, with symptoms resolving subsequently. However, four days ago, she began to experience fatigue, fever, chills, intermittent RLQ pain, a nonproductive cough, and an exacerbation of herSOB. She has a chronic history of N/V due to gastroparesis, but these symptoms have recently worsened. She was vomiting hourly and was unable to tolerate water. She denies any instance of hematemesis. Over the past four days, she denies any flank pain or dysuria. ROS: Ten Systems reviewed with the patient, all negative except what stated above Assessment And Plan Possible UTI The patient presents with abdominal pain Fever, N/V . She is hemodynamically stable. There is leukocytosis but no left shift . Lactic acid normal. Lipase wnl. LFTs wnl. Pyuria in the Urinalysis suggestive for UTI the patient is not able to tolerate oral antibiotics due to refractory N/V. she was admitted and started empirically on IV antibiotic Urine Cx pending Blood Cx pending Abd CT Urine HCG empirical antibiotics: Ceftriaxone IV Intractable nausea and vomiting Volume depletion Gastroparesis Supportive IVF Chronic diseases:?Unless mentioned Above, Essential home medications have been continued.? DVT Px:?Addressed Code Status: FULL, discussed with patient Plan of care Discussed with:?the medical team, the patient addendum [address] Abd remain pending on the end of my shift will inform nightshift to follow [facility] Medical History Anxiety Arm vein blood clot Cyclic vomiting syndrome Normal colonoscopy Pneumonia POTS (postural orthostatic tachycardia syndrome) Unspecified disorder of stomach and duodenum Surgical History H/O LEEP History of cholecystectomy History of hysterectomy Family History Mother Cancer Diabetes Father Cancer Diabetes Other Hypertension Social History Smoking Status: Never smoker Substance Use Type: None Substance Abuse Comment: Last used ~1 week ago; no medical card Meds Medications and Allergies Allergies acetaminophen [Vicodin] Allergy (Unknown, Verified 12/03/23 08:00) Unknown Reaction hydrocodone [Vicodin] Allergy (Unknown, Verified 12/03/23 08:00) Unknown Reaction propoxyphene [Darvocet-N] Allergy (Unknown, Verified 12/03/23 08:00) Unknown Reaction Home Medications promethazine 25 mg tablet 25 mg PO Q6H PRN Nausea #10 tabs 10/22/19 [Rx Confirmed 12/03/23] clonidine HCl 0.1 mg tablet 0.1 mg PO BID 01/28/21 [History Confirmed 12/03/23] metoclopramide HCl 10 mg tablet 10 mg PO BID 04/01/23 [History Confirmed 12/03/23] cyanocobalamin (vitamin B-12) 1,000 mcg tablet 1,000 mcg PO DAILY 12/03/23 [History Confirmed 12/03/23] ergocalciferol (vitamin D2) 1,250 mcg (50,000 unit) capsule 1,250 mcg PO .monmjn68/18/24 [History Confirmed 12/03/23] propranolol 20 mg tablet 40 mg PO BID 12/03/23 [History Confirmed 12/03/23] quetiapine 50 mg tablet 150 mg PO .bedtime 12/03/23 [History Confirmed 12/03/23] tizanidine 6 mg capsule 6 mg PO .prn 12/03/23 [History Confirmed 12/03/23] Exam Physical Exam Vital Signs: Temp Pulse Resp BP Pulse Ox O2 Del Method 38.7 C H 97 20 132/80 98 Room Air 12/03/23 15:48 12/03/23 15:48 12/03/23 15:48 12/03/23 15:48 12/03/23 15:48 12/03/23 15:50 Narrative: GEN: Pleasant, Cooperative, Not in acute distress. NECK: Supple, ? JVD, LUNGS: CTA. normal respiratory effort. CV: S1S2 nl, ? M/R/G ABD: Soft, ND, NT, + BS, ? rebound/guarding, ?CVA tenderness, ? HSM EXT: No edema in LE bilaterally, no calf muscle tenderness. NEURO: ? FND PSYCH: nl affect, AOx3. Results - Hospitalist H&P Lab Results Labs: Laboratory Last Values Corrected WBC 15.3 X10E3/uL (3.8-11.6) H 12/03/23 09:12 Uncorrected WBC Count 15.3 x10E3/uL (3.8-11.6) H 12/03/23 09:12 RBC 3.48 X10E6/uL (3.60-5.00) L 12/03/23 09:12 Hgb 11.0 g/dL (11.8-15.4) L 12/03/23 09:12 Hct 32.9 % (34.0-46.4) L 12/03/23 09:12 MCV 94.4 fl (80-100) 12/03/23 09:12 MCH 31.6 pg (24.7-34.3) 12/03/23 09:12 MCHC 33.5 g/dL (32.0-35.0) 12/03/23 09:12 RDW 13.2 % (11.9-15.3) 12/03/23 09:12 Plt Count 381 x10E3/uL (150-450) 12/03/23 09:12 MPV 7.3 fl (6.3-10.7) 12/03/23 09:12 Neut % (Auto) 79.9 % (.) 12/03/23 09:12 Lymph % (Auto) 9.5 % (.) 12/03/23 09:12 Bowman % (Auto) 10.1 % (.) 12/03/23 09:12 Eos % (Auto) 0.1 % (.) 12/03/23 09:12 Baso % (Auto) 0.4 % (.) 12/03/23 09:12 Nucleat RBC Rel Count 0.0 /100 WBC (0-0.5) 12/03/23 09:12 Neut # (Auto) 12.2 x10E3/uL (1.8-7.7) H 12/03/23 09:12 Lymph # (Auto) 1.5 x10E3/uL (1.00-4.8) 12/03/23 09:12 Bowman # (Auto) 1.6 x10E3/uL (0.0-0.8) H 12/03/23 09:12 Eos # (Auto) 0.0 x10E3/uL (0.0-0.45) 12/03/23 09:12 Baso # (Auto) 0.1 x10E3/uL (0.0-0.2) 12/03/23 09:12 Monocyte Dist Width 22.37 % (0.00-20.00) H 12/03/23 09:12 PT 12.4 Seconds (9.0-12.9) 12/03/23 09:12 INR 1.1 12/03/23 09:12 PHA Creatinine Clear 75.70 12/03/23 09:15 Sodium 130 mmol/L (136-145) L 12/03/23 09:15 Potassium 3.9 mmol/L (3.5-5.1) 12/03/23 09:15 Chloride 99 mmol/L (98-107) 12/03/23 09:15 Carbon Dioxide 26.6 mmol/L (21.0-31.0) 12/03/23 09:15 Anion Gap 8.3 mEq/L (6.0-15.0) 12/03/23 09:15 BUN 21 mg/dL (7-25) 12/03/23 09:15 Creatinine 1.14 mg/dL (0.60-1.20) 12/03/23 09:15 Est GFR (CKD-EPI) > 60.0 mL/Min 12/03/23 09:15 Glucose 96 mg/dL (70-100) 12/03/23 09:15 Lactic Acid 0.9 mmol/L (0.5-2.2) 12/03/23 12:06 Calcium 9.6 mg/dL (8.6-10.3) 12/03/23 09:15 Total Bilirubin 0.8 mg/dl (0.3-1.0) 12/03/23 09:15 AST 14 U/L (13-39) 12/03/23 09:15 ALT 11 U/L (7-52) 12/03/23 09:15 Alkaline Phosphatase 96 U/L (34-104) 12/03/23 09:15 Total Protein 7.9 gm/dL (6.4-8.9) 12/03/23 09:15 Albumin 4.3 gm/dL (3.5-5.7) 12/03/23 09:15 Globulin 3.6 gm/dL 12/03/23 09:15 Albumin/Globulin Ratio 1.2 12/03/23 09:15 Lipase 14.0 U/L (11.0-82.0) 12/03/23 09:15 Urine Color Yellow (Yellow) 12/03/23 09:56 Urine Appearance Cloudy (Clear) A 12/03/23 09:56 Urine pH 5.5 (5.0-9.0) 12/03/23 09:56 Ur Specific [place] 1.017 (1.001-1.030) 12/03/23 09:56 Urine Protein 30 mg/dL (Negative) H 12/03/23 09:56 Urine Glucose (UA) Normal mg/dL (Normal) 12/03/23 09:56 Urine Ketones Negative (Negative) 12/03/23 09:56 Urine Occult Blood Trace (Negative) H 12/03/23 09:56 Urine Nitrite Positive (Negative) H 12/03/23 09:56 Urine Bilirubin Negative (Negative) 12/03/23 09:56 Urine Urobilinogen Normal mg/dL (Normal) 12/03/23 09:56 Ur Leukocyte Esterase 3+ (Negative) H 12/03/23 09:56 Urine RBC 5-9 /HPF (0-4) H 12/03/23 09:56 Urine WBC 50-100 /HPF (0-4) H 12/03/23 09:56 Ur Squamous Epith Cells 5-9 /HPF (0-2) H 12/03/23 09:56 Urine Bacteria 4+ (None Seen) H 12/03/23 09:56 Hyaline Casts 0-8 /LPF (0-8) 12/03/23 09:56 SARS-CoV-2 Rap RNA(RT-PCR) Negative (Negative) 12/03/23 08:24 Microbiology Results Micro: Microbiology - Results from entire visit 12/03/23 08:24 Nasopharyngeal SARS-CoV-2, Influenza & RSV (PCR) - Final Assessment & Plan Assessment/Plan (1) UTI (urinary tract infection): (2) Intractable nausea and vomiting: Plan IP vs OBS Justification Based on differential dx, clinical care plan, and risk of adverse events, if untreated, in my clinical judgement this patient requires an acute care setting as: INPATIENT because of an expectation of an over 2 midnight stay. Estimated length of stay (# of days): 2 Documented By: Huseyin Gill MD 12/03/23 0875 Signed By: <Electronically signed by Huseyin Gill MD> 12/03/23 3977 [facility] Work Phone: [phone]) 372-382602-09-2024 Telephone encounter Note* Telephone Encounter - Hui Espinosa NP - 09/25/2023 12:10 PM EST Sent [facility] [id number] Miscellaneous Notes* Telephone Encounter - Hui Espinosa NP - 09/25/2023 12:10 PM EST Sent documented [id number] NoteHNO ID: [id number] Author: Kevin Cadet, DO Service: ? Author Type: Physician Type: Progress Notes Filed: 05/17/2021 3:23 PM Note Text: Exercise SMA Exercise and orthostatic training is part of autonomic care Reviewed specific for the patient is my chart the specific per the POTS question exercise survey Sent the answers via my chart once reviewed THE POTS 5 FOR EXERCISE Please answer these questions and send back to us . You may have to write back to us for example ( 1. Y). 1. Before my POTS diagnosis I liked to be physically active (engaged in something I viewed as fitness routine)? Yes or No 2. Are you aware that exercise is part of the POTS recovery and improvement of symptoms? Yes or No 3. Are you able walk unassited 100-200 feet without becoming nearly faint or fainting? Yes or No GO TO YOUR MY CHART MESSAGE FOR THE PLAN REMEMBER IN THE YOUTUBE CHANNEL THEIR ARE VIDEOS TO WATCH FOR THE EXERCISE AND ALSO ONGOING EXERCISE EDUCATIONAL TIPS AND WELLNESS TIPS SOME WILL VIDEO THE VIDEO OF CURRENT USE ONTO THEIR CELL PHONE OR IPAD TO HAVE A MORE CONCISE AND IPAD/TABLET/COMPUTER INSTEAD OF USING THE YOUTUBE ALWAYS. GO TO YOUTUBE SEARCH RADHA ORTHOSTATIC EXERCISE IN SEARCH Anay joined and advocacy for the visit Also we have a POTS Patients Support Liaison program with Anay Boss. She is our POTS Liaison who is working with us and she has POTS herself. She has POTS . She has a communication background and is working with us in the POTS care to help new diagnosed POTS patients especially to navigate the diagnosis what it is like to be at the Clinic, chronic disease management skills, POTS insights and shared themes, and helps to get into wellness. This is a phone call at least. Patients who do this find this so healing, genuine, and transformation of an experience after being not listened to and dismissed for so long. Please send a short email at Orthostatic Hypotension Your body has a network of blood vessels made up of arteries, veins, and capillaries. The heart pumps blood into the arteries, which carry the blood throughout the body. Blood pressure is the pressure or force of blood pushing against the wright of the arteries. Blood pressure is written as two numbers; for example, 120 over 80 millimeters of mercury. The first number is the systolic pressure. This is the pressure in the arteries when the heart beats and fills them with blood. The second number is the diastolic pressure. This is the pressure in the arteries when the heart rests between beats. Orthostatic hypotension is a condition in which your blood pressure falls significantly when you stand up quickly. (Hypotension is low blood pressure.) What are the symptoms of orthostatic hypotension? The main symptom of orthostatic hypotension is feeling dizzy or lightheaded when you stand up. In some cases, people with orthostatic hypotension may even faint. Other symptoms include: ? Blurred vision ? Nausea ? Disorientation or confusion ? Feeling weak ? Fatigue ? Falling ? Chest pain ? Neck pain ? Cognitive disorder ? Challenge in breathing ? Base of neck pain and head pressure ? Breathing challenge when standing up ? Legs become weak/ walking challenge/rubbery legs ? Rebound or surge in blood pressure spikes especially when laying down These symptoms usually clear up when you sit or lie down for a few minutes. POTS Manual: Read the POTS manual online. This will help you understand your POTS diagnosis, work with your medical team, and includes detailed instructions and tips for improved daily living with POTS. http://www.[facility].org/pots For the specific exercises YOU TUBE channel needed to search : RADHA ORTHOSTATIC EXERCISES https://www.youPuralytics.com/[email or web address] Welcome There are videos /playlist/podcast to viewed and helped for exercises and wellness for POTS and Orthostatics Instructions: 1. In your search bar in the internet go type YOU TUBE 2. Search in the YOU TUBE search bar Radha Orthostatic Exercises 3. Select Beginner Introduction Beginner Orthostatic Workout . This is for starting out . 4. As you advance the Beginner Orthostatic Workout may be next step or integrated into the Beginner work out 5. There is a video for breathing exercise to calm the adrenaline and heart rate that you can do independent and often Tips you can watch the video as often you THERE ARE VIDEOS FOR WELLNESS, EDUCATIONAL, AND EXERCISE Subscribe to the video channel for updates Can integrate into the videos into your other fitness regimen May share along this YOU TUBE channel to other POTS patients, family and support people Also follow us along on our new [facility] account [facility] Also besides the exercise are some enrique mediation videos . Click and watch. Utilize when your adrenaline is active. May even play music t (more content not included)...[facility]09-24-2021 NoteHNO ID: [id number] Author: Reed Salinas APRN.STANLEY Service: ? Author Type: Nurse Practitioner Type: Progress Notes Filed: 05/10/2021 3:21 PM Note Text: Awilda Merritt is a 35 year old female. Patient presents with: New Patient Today I had the opportunity to have a virtual visit with Awilda Kaiser is a right handed female here today for evaluation and management of POTS. She first began to experience POTS symptoms at a young age. She was officially diagnosed with POTS via tilt table test in 2018. When she was diagnosed, she was told to increase her water intake, salt intake, utilize compression stockings. She was placed on propranolol, but it increased her dizziness and near syncope as she had low blood pressures. Symptoms did not improve with these interventions. She states that she has been dealing with many POTS symptoms recently. Symptoms she experiences include: 1. Dizziness 2. Lightheadedness 3. Tachycardia 4. Tremors/shaky sensation 5. Near syncope 7. She has a severe activity intolerance. Her blood pressures typically are on the higher end now. She is on SSDI since 2019. Tilt table September 14, 2018: The test was stopped early at 25 out of 45 minutes of 70 degree tilt. - Systolic blood pressures increased from 130 mmHg at start to 148 mmHg at end of tilt. - Diastolic blood pressures increased from 86 mmHg at start to 96 mmHg at end of tilt. - Blood pressure upon return to supine position was 150/98 mmHg. - Heart rates increased from 92 bpm at start to 133 bpm at end of tilt. - Heart rate upon return to supine position was 94 bpm. - ECGs showed: normal sinus rhythm without arrhythmias with inferior T wave flattening and ST-T wave changes. - Patient signs/symptoms included: CH.HEAVINESS, DIAPHORESIS, DIZZINESS, HOT, LIGHTHEADED, NAUSEA, PALPITATIONS, SEE NOTE. - Syncope/impending syncope was NOT induced. ? - Overall: The test is diagnostic for accentuated postural tachycardia with early rise in heart rate Medications Reviewed cloNIDine HCl (CATAPRES) 0.1 mg tablet Take 0.1 mg by mouth three times daily. ondansetron (ZOFRAN) 8 mg tablet Take 8 mg by mouth every 8 hours as needed for nausea/vomiting. promethazine HCl (PHENERGAN ORAL) Take by mouth. metoclopramide HCl (REGLAN) 5 mg tablet Take 5 mg by mouth four times daily. fluvoxaMINE ER (LUVOX) 150 mg capsule Take 150 mg by mouth. MELATONIN ORAL Take by mouth. ALPRAZolam (XANAX) 1 mg tablet Allergies Reviewed PAST MEDICAL HISTORY: There is no problem list on file for this patient. PAST SURGICAL HISTORY Procedure Laterality Date - REMOVAL GALLBLADDER Social History Tobacco Use - Smoking status: Former Smoker - Smokeless tobacco: Never Used Vaping Use - Vaping Use: Never used Substance Use Topics - Alcohol use: No - Drug use: No family history includes Cancer in her father; Diabetes in her father; Hypertension in her mother; Multiple Sclerosis in her mother; No Known Problems in her brother and sister. IMPRESSION/PLAN: LYNDA Kaiser is here today for evaluation and management of POTS. She notes that she began to experience POTS symptoms as a teenager, but she was officially diagnosed in 2019 via tilt table test here at [facility]. When she was diagnosed, she was recommended to increase her water intake, salt intake, and utilize compression stockings. She was also placed on propranolol, but feels this exacerbated her symptoms as she became hypotensive and had more episodes of near syncope. She continues to have episodes of dizziness, lightheadedness, tachycardia and near syncope. We discussed obtaining a neuro cardio autonomic reflex test with tilt for further evaluation of her symptoms. Based upon this, we may recommend a different type of beta tamera as she notes she has elevated blood pressures and heart rates. I have also recommended she attend a shared medical appointment with Dr. Cadet for POTS education. Follow up after testing. During our virtual visit encounter we discussed my concerns neurologically in terms of diagnosis, impact on health and activities of living, and addressed questions. I tried to reassure the patient and also address questions. I explained to the patient to call if any questions, to review results, and I want to see them return for neurological follow up as mychart as next steps of communication is agreed upon Patient verbalizes understanding and I have addressed concerns and questions at this visit Patient has my contacts, educational material provided, and my chart sign up. After visit summary discussed. I spent a total of 25 minutes on the date of the service which included preparing to see the patient, [id number] patient care, completing clinical documentation, obtaining and/or reviewing separately obtained history, counseling and educating the patient/family/caregiver and ordering medications, tests, or p (more content not included)...[facility] Diagnosis Onset Date Resolution Status Cyclical vomiting syndrome c hronic [facility] Work Phone: Evaluation noteNo assessment information available [facility] Work Phone: Evaluation note* Diagnosis Hypovitaminosis D Unspecified vitamin D deficiency documented in this encounter [facility]* Diagnosis Onset Date Resolution Status Intractable nausea and vomiting acute Sepsis acute UTI (urinary tract infection) acute [facility] Work Phone: Evaluation note* Diagnosis Onset Date Resolution Status Intractable nausea and vomiting resolved Sepsis resolved UTI (urinary tract infection) resolved [facility] Work Phone: History and physical note Author Robby Jackson [facility] April 01, 2023 1:50pm Note Date/Time April 01, 2023 1: 50pm [facility] [address] [place] [address] Vascular Surgery H&P Signed Patient: Awilda Merritt MR#: [id number] : 1985 Acct:[id number] Age/Sex: 37 / F Adm Date: 3 Loc: [place] Room: Type: [facility] Attending Dr: Robby Jackson MD Copies to: MD Robby Lopes MD~ Date of Service: 04/01/2023 HPI History of Present Illness Chief complaint: Licajj-f-Xkfm no longer in use HPI: Ms. Merritt is a 37 year old female who had an Kepysz-e-Yzdw placed for cyclical hyperemesis syndrome. She has not had it flushed since May and her symptomshave abated. She comes for removal of the [id number] Review of Systems Review of Systems All other systems reviewed & are negative unless noted below or in HPI [facility] Medical History Anxiety Arm vein blood clot Cyclic vomiting syndrome Normal colonoscopy Pneumonia POTS (postural orthostatic tachycardia syndrome) Unspecified disorder of stomach and duodenum Surgical History H/O LEEP History of cholecystectomy History of hysterectomy Family History Mother Cancer Diabetes Father Cancer Diabetes Other Hypertension Social History Smoking Status: Never smoker Substance Use Type: Marijuana Substance Abuse Comment: Last used ~1 week ago; no medical card Meds Medications and Allergies Allergies No Known Allergies Allergy (Verified 04/01/23 12:54) Home Medications promethazine 25 mg tablet 25 mg PO Q6H PRN Nausea #10 tabs 10/22/19 [Rx Confirmed 04/01/23] clonidine HCl 0.1 mg tablet 0.1 mg PO BID 01/28/21 [History Confirmed 04/01/23] amitriptyline 25 mg tablet 25 mg PO QHS 04/01/23 [History Confirmed 04/01/23] doxepin 25 mg capsule 25 mg PO QHS 04/01/23 [History Confirmed 04/01/23] metoclopramide HCl 10 mg tablet 10 mg PO BID 04/01/23 [History Confirmed 04/01/23] sumatriptan 20 mg/actuation nasal spray 20 mg intranasal DIRECTED PRN Headache 04/01/23 [History Confirmed 04/01/23] Exam Physical Exam Vital Signs: Temp Pulse Resp BP Pulse Ox O2 Del Method 98.8 F 85 16 123/59 L 97 Room Air 04/01/23 13:06 04/01/23 13:06 04/01/23 13:06 04/01/23 13:06 04/01/23 13:06 04/01/23 13:06 Narrative: Port site is clean with no evidence of infection Results Labs 04/01/23 13:00 04/01/23 13:00 Labs: Laboratory Results - last 24 hr 04/01/23 04/01/23 04/01/23 12:37 13:00 13:00 Corrected WBC 8.2 Uncorrected WBC Count 8.2 RBC 4.02 Hgb 12.3 Hct 36.6 MCV 91.1 MCH 30.6 MCHC 33.6 RDW 14.1 Plt Count 318 MPV 7.4 Neut % (Auto) 71.3 Lymph % (Auto) 19.5 Bowman % (Auto) 7.1 Eos % (Auto) 1.7 Baso % (Auto) 0.4 Nucleat RBC Rel Count 0.0 Neut # (Auto) 5.9 Lymph # (Auto) 1.6 Bowman # (Auto) 0.6 Eos # (Auto) 0.1 Baso # (Auto) 0.0 PHA Creatinine Clear Sodium Potassium Chloride Carbon Dioxide Anion Gap BUN Creatinine Est GFR (CKD-EPI) Glucose Calcium Total Bilirubin AST ALT Alkaline Phosphatase Total Protein Albumin Globulin Albumin/Globulin Ratio Triglycerides Cancelled Cholesterol Cancelled LDL Cholesterol, Calc Cancelled VLDL Cholesterol Cancelled HDL Cholesterol Cancelled Cholesterol/HDL Ratio Cancelled TSH 3rd Generation Urine Opiates Screen Negative Ur Barbiturates Screen Negative Ur Phencyclidine Scrn Negative Ur Amphetamines Screen Negative U Benzodiazepines Scrn Negative Urine Cocaine Screen Negative U Marijuana (THC) Screen Positive H 04/01/23 13:00 Corrected WBC Uncorrected WBC Count RBC Hgb Hct MCV MCH MCHC RDW Plt Count MPV Neut % (Auto) Lymph % (Auto) Bowman % (Auto) Eos % (Auto) Baso % (Auto) Nucleat RBC Rel Count Neut # (Auto) Lymph # (Auto) Bowman # (Auto) Eos # (Auto) Baso # (Auto) PHA Creatinine Clear 125.46 Sodium 137 Potassium 3.7 Chloride 104 Carbon Dioxide 25.3 Anion Gap 11.4 BUN 12 Creatinine 0.76 Est GFR (CKD-EPI) > 60.0 Glucose 85 Calcium 9.0 Total Bilirubin 1.2 H AST 17 ALT 11 Alkaline Phosphatase 81 Total Protein 7.4 Albumin 4.5 Globulin 2.9 Albumin/Globulin Ratio 1.6 Triglycerides 175 H Cholesterol 253 H LDL Cholesterol, Calc 177 H VLDL Cholesterol 35 HDL Cholesterol 41 Cholesterol/HDL Ratio 6.2 TSH 3rd Generation 1.22 Urine Opiates Screen Ur Barbiturates Screen Ur Phencyclidine Scrn Ur Amphetamines Screen U Benzodiazepines Scrn Urine Cocaine Screen U Marijuana (THC) Screen A&P - Vascular (1) Cyclical vomiting syndrome: Plan: Report is not been flushed for almost 1 year and she is not using it as her symptoms have improved. She will have it removed today. Code(s): G43.A0 - Cyclical vomiting, in migraine, not intractable Status: Chronic Documented By: Robby Jackson MD 04/01/23 134 7 Signed By: <Electronically signed by MD Robby Jackson> 04/01/23 1350 [facility] Work Phone: Hospital Discharge instructions Additional Instructions Keep your pending appointment with GI.[facility] Work Phone: Summary Purpose Family History No Family History Records Found Relationship Condition Age at Onset Recorded Date/T mary Not Specified Hypertension Unknown Not Specified Malignant neoplasm Unknown Diabetes mellitus Unknown father Malignant neoplasm Unknown Relationship Condition Age at Onset Recorded Date/T mary Not Specified Malignant neoplasm Unknown Diabetes mellitus Unknown father Malignant neoplasm Unknown family member Malignant neoplasm Unknown father Family history of colon cancer Unknown Malignant neoplasm Unknown Hypertension Unknown Relationship Condition Age at Onset Recorded Date/T mary mother Malignant neoplasm Unknown Diabetes mellitus Unknown father Malignant neoplasm Unknown aunt Malignant neoplasm Unknown father Family history of colon cancer Unknown Malignant neoplasm Unknown Hypertension Unknown Advance Directives No Advanced Directives Records Found Advance Directive Response Recorded Date/ Time Advance Directives No June 05, 2018 12:50pm Advance Directive Response Recorded Date/ Time Advance Directives No June 05, 2018 11:50am Chief Complaint and Reason for Visit Chief Complaint Cyclical Vomiting Du e to Marijuana Use Reason for Visit Cyclical vomiting sy ndrome Chief Complaint Cyclical Vomiting Du e to Marijuana Use cough, chest tightness Reason for Visit Cyclical vomiting sy ndrome Chief Complaint cough, chest tightne ss J06.9 Chief Complaint chills Chief Complaint chills chills Reason for Visit Intractable nausea a nd vomiting Sepsis UTI (urinary tract infection) Chief Complaint chills chills blood in stool, not feeling well Reason for Visit Intractable nausea a nd vomiting Sepsis UTI (urinary tract infection) Chief Complaint chills chills blood in stool, not feeling well J06.9 Reason for Visit Intractable nausea a nd vomiting Sepsis UTI (urinary tract infection) Chief Complaint chills chills blood in stool, not feeling well J06.9 see order Reason for Visit Intractable nausea a nd vomiting Sepsis UTI (urinary tract infection) Additional Source Comments INFORMATION SOURCE (unrecogn ized section and content) DATE CREATED AUTHOR 06/20/2019 Sanket Metzus [facility] DATE CREATED AUTHOR AUTHOR'S ORGANIZ ATION 09/23/2021 [facility] DATE CREATED AUTHOR AUTHOR'S ORGANIZ ATION 10/27/2022 [facility] DATE CREATED AUTHOR AUTHOR'S ORGANIZ ATION 12/08/2023 [facility] EPIC DATE CREATED AUTHOR AUTHOR'S ORGANIZ ATION 03/13/2024 [facility] Care Teams (unrecognized sec tion and content) Team Status: Active Member Role Status Dates Hui Espinosa CHARACTER ACTRESS-C Primary Care Provider Active Team Status: Inactive Member Role Status Dates Hui Espinosa CHARACTER ACTRESS-C Primary Care Provider Active Start: December 03, 2023 End: December 05, 2023 Massiel Peters DO Emergency Provider Active Sta rt: December 03, 2023 End: December 05, 2023 Huseyin Gill MD Admit Provider, Attsheila nding Provider Active Start: December 03, 2023 End: December 05, 2023 Team Status: Active Member Role Status Dates Hui Espinosa CHARACTER ACTRESS-C Primary Care Provider Active Start: December 03, 2023 Massiel Peters DO Emergency Provider Active Sta rt: December 03, 2023 Huseyin Gill MD Admit Provider, Attsheila [place] Provider, Other Provider Active Start: December 03, 2023 Team Status: Active Member Role Status Dates Hui Espinosa CHARACTER ACTRESS-C Primary Care Provider Active Start: December 03, 2023 Massiel Peters DO Emergency Provider Active Sta rt: December 03, 2023 Huseyin Gill MD Admit Provider, Attending Provider Active Start: December 03, 2023 Team Status: Active Member Role Status Dates Simeon Kevin MD Primary Care Provider Active Team Status: Inactive Member Role Status Dates Simeon Kevin MD Primary Care Provider Active Robby Jackson MD Attending Provider Active Team Status: Inactive Member Role Status Dates Kale Hopkins APRN Emergency Provider Active Hui Espinosa CHARACTER ACTRESS-C Primary Care Provider Active Team Status: Inactive Member Role Status Dates Hui Espinosa CHARACTER ACTRESS-C Primary Care Provider, Attending Pr jasen Active Scraper Hand Relationship Specialty Start Date End Date Luke Alvarez MD [address] [place] [address] PCP - General Family Medicine 02/27/23 Hui Espinosa NP [address] [place] [address] Nurse Practitioner Family Medicine 02/27/23 Aga Sandoval NP [address] [place] [address] Nurse Practitioner Pulmonary Disease 02/27/23 Team Status: Inactive Member Role Status NARCISA Harrison Primary Care Provider Active Start: December 22, 2023 End: December 22, 2023 Kale Hopkins APRN Emergency Provider Active Start: December 22, 2023 End: December 22, 2023 Team Status: Active Member Role Status Dates NARCISA Garcia Primary Care Provider Active Start: December 03, 2023 End: December 05, 2023 Massiel Peters DO Emergency Provider Active Sta rt: December 03, 2023 End: December 05, 2023 Huseyin Gill MD Admit Provider, Atte nding Provider, Other Provider Active Start: December 03, 2023 End: December 05, 2023 Team Status: Inactive Member Role Status NARCISA Harrison Primary Care Provide r, Attending Provider Active Start: January 28, 2024 End: January 28, 2024 Team Status: Inactive Member Role Status NARCISA Harrison Primary Care Provide r, Attending Provider, Referring Provider Active Start: February 11, 2024 End: February 11, 2024 Goals (unrecognized section and content) Goals may be documented in a n alternate sectionGoals may be documented in an alternate section FOR RECORDS PERTAINING TO PATIENTS WHO ARE OR HAVE BEEN ENROLLED IN A CHEMICAL DEPENDENCY/SUBSTANCEABUSE PROGRAM, SOME INFORMATION MAY BE OMITTED. This clinical summary was aggregated from multiple sources. Caution should be exercised in using it in the provision of clinical care. This summary normalizes information from multiple sources, and as a consequence, information in this document may materially change the coding, format and clinical context of patient data. In addition, data may be omitted in some cases. CLINICAL DECISIONS SHOULD BE BASED ON THE PRIMARY CLINICAL RECORDS. [facility] [employer] [facility]. provides no warranty or guarantee of the accuracy or completeness of information in this document.
--- NOTE | 2024-03-23 16:56 | CT_ITS ---
[address] [address] Patient Name: MARCELINO XAVIER MRN: [id number] date: 1985 Sex: F Assigned Patient Location: Current Patient Location: Accession/Order Number: [id number] Exam Date: 03/23/2024 17:11 Report Date: 03/23/2024 18:59 At the request of: CHRIS SHAH Procedure: CT cervical spine wo con CT CERVICAL SPINE WITHOUT CONTRAST, 03/23/2024. HISTORY: Left-sided neck pain. Left-sided shoulder pain. COMPARISON: None. TECHNIQUE: Noncontrast axial CT images obtained through the cervical spine. Reconstructions obtained in the sagittal and coronal planes. Dose reduction techniques were achieved by using automated exposure control and/or adjustment of mA and/or kV according to patient size and/or use of iterative reconstruction technique. FINDINGS: There is reversal of cervical spine curvature. Alignment normal in location. Odontoid process is intact. Facet joints are intact. Vertebral body heights appear normal. C2-C3, no spinal stenosis. No foraminal narrowing. C3-C4, mild degenerative disc disease. Mild disc space narrowing. There is mild spinal stenosis. No foraminal narrowing. C4-C5, moderate degenerative disc disease. Mild spinal stenosis. No foraminal narrowing. C5-C6, moderate degenerative disc disease. An endplate osteophyte complex at this level results in moderate spinal canal stenosis. There is severe right foraminal narrowing. No foraminal narrowing on the left. C6-C7, moderate degenerative disc disease. An endplate osteophyte complex results in moderate spinal canal stenosis. There is mild right foraminal narrowing. Moderate left foraminal narrowing. C7-T1, no spinal stenosis or foraminal narrowing. No paraspinal soft tissue swelling. No paraspinal mass. CT/CT cervical spine wo con IMPRESSION: 1. No cervical spine fracture or subluxation. 2. Moderate multilevel degenerative disc disease. 3. Degenerative changes result in mild spinal stenosis at C3-C4 and C4-C5. There is moderate spinal stenosis at C5-C6 and C6-C7. 4. Uncovertebral osteophytes and disc space narrowing result in moderate left foraminal narrowing at C6-C7. At C5-C6, and uncovertebral osteophyte results in severe right foraminal narrowing. Electronically authenticated by: ANTOINE TRUJILLO Date: 03/23/2024 18:59
[2024-03-23] MEDS: IBUPROFEN 600 MG TABLET PO (17:03)
[2024-03-23] MEDS: CYCLOBENZAPRINE HCL 10 MG TABLET PO (17:04)
[2024-03-23] MEDS: MORPHINE SULFATE 4 MG/ML VIAL IM (17:04)
[2024-03-23 17:19] VITALS: BP 147/98; PULSE 91; O2SAT 98
--- NOTE | 2024-03-23 18:26 | ED_ITS ---
<Statement entered by Umer Villalba MD - 03/23/24 18:57> This documentation has been reviewed and approved. Chart was sent to my inbox for administrative and group management purposes. I was the attending physicians working during the patients hospital course. The patient was seen and managed independently by the MLP. I did not personally see or evaluate this patient, nor was I involved in the patient medical decision making process or plans of care. Pt was dispositioned by the MLP with complete independence and I was not involved in planning, and am reviewing this chart at a later date, at a point where changing the pts disposition and treatment would not be possible. I was available for consultation should the MLP request during this patients ED stay. HPI HPI - Neck Pain/Injury General Chief Complaint: Neck Pain/Injury Stated Complaint: NECK PAIN Time Seen by Provider: 03/23/24 16:44 Source: patient Mode of arrival: walk-in Limitations: no limitations History of Present Illness HPI Narrative: 38-year-old female presents to the emergency department with daughter with ongoing complaint of upper back, neck pain. She has had adjustments, other ED visits, has been on steroids, muscle relaxers without relief. States she is not able to sleep at night due to the pain. Notes some radiation go into her left arm down to the elbow. Denies any specific injury, motor or sensory changes, paresthesias, weakness. Quality:?Ache Severity:?Moderate Timing:?About over a week. Context: Normal setting and activity? Modifying factors:?Pain worse with palpation, movement Associated symptoms: As above Related Data Home Medications ?Medication ?Instructions ?Recorded ?Confirmed clonidine HCl 0.1 mg tablet 0.1 mg PO BID 11/07/23 03/23/24 propranolol 40 mg tablet 40 mg PO Q12H 11/07/23 03/23/24 metoclopramide HCl 10 mg tablet 20 mg PO .amhs 11/08/23 03/23/24 promethazine 25 mg tablet 25 mg PO Q6H PRN nausea and 11/08/23 03/23/24 vomiting dicyclomine 10 mg capsule 10 mg PO Q8H 03/23/24 03/23/24 prednisone 10 mg tablet 20 mg PO DAILY 03/23/24 03/23/24 Previous Rx's ?Medication ?Instructions ?Recorded diazepam 2 mg tablet (Valium) 2 mg PO TID PRN muscle spasm #14 08/06/24 tabs naproxen 500 mg tablet 500 mg PO Q12H PRN pain #20 tabs 03/22/24 hydrocodone 5 mg-acetaminophen 325 1 tab PO Q8H prn pain #10 tabs 03/23/24 mg tablet ibuprofen 600 mg tablet 600 mg PO Q8H PRN pain #20 tabs 03/23/24 lidocaine 5 % topical patch 1 patch topical Q24H #10 ea 03/23/24 (Lidoderm) Allergies Allergy/AdvReac Type Severity Reaction Status Date / Time No Known Drug Allergies Allergy Verified 11/07/23 11:05 Opioid HPI Opioid Management Most Recent Opioid Data: Last Pain Scale 9 03/23/24 17:04 Last MAR Pain Assessment 03/23/24 17:04 Last ORT Total Score 1 11/07/23 16:18 Last ORT Risk Category Low Risk 11/07/23 16:18 Ur Phencyclidine Scrn Negative (NEGATIVE) 11/07/23 13:53 Review of Systems ROS Constitutional Denies: fatigue or malaise Musculoskeletal Reports: back pain, neck pain, extremity pain and joint pain; Denies: extremity swelling Neurological Denies: numbness in extremities or weakness in extremities Endocrine Denies: fatigue PFSH PFSH Medical History (Updated 03/23/24 @ 18:42 by AUNDREA Calvo) 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, unspecified (ICD-10) Hypertension ?I10 - Essential (primary) hypertension (ICD-10) Cyclical vomiting ?R11.15 - Cyclical vomiting syndrome unrelated to migraine (ICD-10) POTS (postural orthostatic tachycardia syndrome) ?G90.A - Postural orthostatic tachycardia syndrome [POTS] (ICD-10) Surgical History History of removal of Port-a-Cath ?Z98.890 - Other specified postprocedural states (ICD-10) H/O LEEP ?Z98.890 - Other specified postprocedural states (ICD-10) H/O: hysterectomy ?Z90.710 - Acquired absence of both cervix and uterus (ICD-10) History of cholecystectomy ?Z90.49 - Acquired absence of other specified parts of digestive tract (ICD- 10) Family History Father Family history of diabetes mellitus Mother Family history of hypertension Family history of myocardial infarction Social History Within the past year, how often did you have a drink containing alcohol: never Within the past year, how many standard drinks containing alcohol did you have on a typical day: 1 or 2 Within the past year, how often did you have six or more drinks on one occasion: never Total score: 0 Score interpretation: A score less than 3 is consistent with normal alcohol consumption. Smoking status: Never smoker Second hand tobacco smoke exposure: No Non-prescribed substance use: denies use Known occupational exposures/hazards: No Highest level of school completed/degree received: some college, no degree Are you now , , , , never or living with a partner: In a typical week, how many times do you talk on the telephone with family, friends, or neighbors: 3 or more times per week How often do you get together with friends or relatives: 3 or more times per week How often do you attend sikh or nondenominational services: never Do you belong to any clubs or organizations such as sikh groups unions, fraternal or athletic groups, or school groups: no Total score: 2 Score interpretation: A score of greater than or equal to 2 indicates the lowest level of social isolation. Little interest or pleasure in doing things: not at all Feeling down, depressed, or hopeless: not at all Feel stressed/tense/nervous/anxious/difficulty sleeping: not at all Due to disability, difficulty making decisions: No Do you think of yourself as: straight/heterosexual Gender Identity: female Exam Constitutional Vital Signs, click to edit/add: Last Vital Signs Temp 98.4 F 03/23/24 16:43 Pulse 82 03/23/24 18:38 Resp 18 03/23/24 18:38 BP 138/96 H 03/23/24 18:38 Pulse Ox 98 03/23/24 18:38 O2 Del Method Room Air 03/23/24 16:43 Documenting provider has reviewed patient's vital signs: yes Common normals: no apparent distress, oriented x3 and alert General appearance: well developed Cardio Peripheral pulses: radial pulses present left 2+ Extremity Other: Cervical spine, left upper back: +tenderness to the paraspinal musculature on the left, trapezius.? No tenderness to the spinous process, left upper extremity, right side of the back.? No swelling, ecchymosis, discoloration, crepitus, deformity, instability, warmth.? ROM of her shoulder is full.? Strength 5/5 Neuro Common normals: oriented x3, no focal motor deficits and no sensory deficits noted Sensorium/orientation: alert Psych Common normals: mental status grossly normal and thought process normal Thought process: normal thought process Course Reevaluation(s) Reevaluation #1: On reevaluation, notes some improvement of her pain after treatment. Discussed with patient results, plan, and disposition. She is agreeable with plan. Time: 18:51 Vital Signs Vital signs: Vital Signs Temperature 98.4 F 03/23/24 16:43 Pulse Rate 96 H 03/23/24 16:43 Respiratory Rate 18 03/23/24 16:43 Blood Pressure 160/107 H 03/23/24 16:43 Pulse Oximetry 98 03/23/24 16:43 Oxygen Delivery Method Room Air 03/23/24 16:43 Temperature 98.4 F 03/23/24 16:43 Pulse Rate 82 03/23/24 18:38 Respiratory Rate 18 03/23/24 18:38 Blood Pressure 138/96 H 03/23/24 18:38 Pulse Oximetry 98 03/23/24 18:38 Oxygen Delivery Method Room Air 03/23/24 16:43 MDM - Neck Pain/Injury MDM Narrative Medical decision making narrative: This is a pleasant 38-year-old female presents to the emergency department with her daughter with complaint of left upper back, neck pain with radiation into her arm. Has been evaluated by chiropractor, adjustments, has been evaluated by the emergency department, has been on steroids and muscle relaxers without relief. Complains not being able to sleep at night. On arrival, afebrile, vital signs are stable. On exam, nontoxic and well-appearing patient in no apparent distress. She has point tenderness to the left trapezius and some diffuse tenderness to left par aspinal musculature. No tenderness to the spinous process, arm. No neurovascular deficits noted. CT cervical spine imaging, per radiologist reveals no cervical spine fracture or subluxation. Moderate multilevel degenerative disc disease Favor trapezius strain, cervical radiculopathy Fracture, dislocation less likely based on imaging Patient improved with treatment including morphine, Flexeril, Motrin, Lidoderm Disposition ? The patient was discharged. Plan: Patient will be discharged to home. Condition at time of disposition: stable Prescription for Motrin, Lidoderm, and limited supply of Percocet sent to her pharmacy Advised to follow up with primary provider. Advised to return for any worsening and/or development of new, concerning signs or symptoms PLEASE NOTE: Portions of the medical record may have been produced using electronic study hall supervisor and may contain errors with respect to translation of words which may not have been identified prior to finalization of the chart. Medical Records Attestation: I reviewed the patient's medical records. Imaging Data CT c-spine: Radiologist's impression: ITS Impressions Cervical Spine CT 03/23/24 16:56 IMPRESSION: 1. No cervical spine fracture or subluxation. 2. Moderate multilevel degenerative disc disease. 3. Degenerative changes result in mild spinal stenosis at C3-C4 and C4-C5. There is moderate spinal stenosis at C5-C6 and C6-C7. 4. Uncovertebral osteophytes and disc space narrowing result in moderate left foraminal narrowing at C6-C7. At C5-C6, and uncovertebral osteophyte results in severe right foraminal narrowing. Electronically authenticated by: ANTOINE TRUJILLO Date: 03/23/2024 18:21 Discharge Plan Discharge Stand Alone Forms: Portal Instructions Chief Complaint: Neck Pain/Injury Clinical Impression: Cervical radiculopathy Strain of left trapezius muscle Qualifiers: Encounter type: initial encounter Qualified Code(s): S46.812A - Strain of other muscles, fascia and tendons at shoulder and upper arm level, left arm, initial encounter Patient Disposition: Home, Self-Care Time of Disposition Decision: 18:42 Condition: Good Mode of Transportation: Private Vehicle Prescriptions / Home Meds: New lidocaine [Lidoderm] 5 % adhesive patch,medicated 1 patch topical Q24H Qty: 10 0RF Rx Instructions: leave on most painful area for up to 12 hrs ibuprofen 600 mg tablet 600 mg PO Q8H PRN (Reason: pain) Qty: 20 0RF hydrocodone-acetaminophen 5-325 mg tablet 1 tab PO Q8H Qty: 10 0RF No Action clonidine HCl 0.1 mg tablet 0.1 mg PO BID propranolol 40 mg tablet 40 mg PO Q12H metoclopramide HCl 10 mg tablet 20 mg PO .amhs promethazine 25 mg tablet 25 mg PO Q6H PRN (Reason: nausea and vomiting) naproxen 500 mg tablet 500 mg PO Q12H PRN (Reason: pain) Qty: 20 0RF diazepam [Valium] 2 mg tablet 2 mg PO TID PRN (Reason: muscle spasm) Qty: 14 0RF dicyclomine 10 mg capsule 10 mg PO Q8H prednisone 10 mg tablet 20 mg PO DAILY Print Language: Yakut Instructions: Muscle Strain (ED), Cervical Radiculopathy (ED) [facility] - 03/24/24 6:48 pm
[2024-03-23 18:38] VITALS: BP 138/96; PULSE 82; O2SAT 98
[2024-03-23] MEDS: LIDOCAINE 5% PATCH 1 PATCH TOPICAL (18:52)
== END 2024-03-23 18:55 | disposition home or self-care (01) ==
PROVIDERS: Emergency Provider Emergency Medicine; PCP Family Medicine
DX: S46.812A Strain of other muscles, fascia and tendons at shoulder and upper arm level, left arm, initial encounter (principal); M54.12 Radiculopathy, cervical region; T14.90XA Injury, unspecified, initial encounter
CPT/HCPCS: 72125; 96372; 99285; J2270

== ENCOUNTER 2024-04-18 13:00 | Emergency (ER) | payer MEDICARE, SELFPAY ==
[2024-04-18 13:30] VITALS: BP 141/99; PULSE 94; TEMP 37; O2SAT 97; BMI 25.6
--- NOTE | 2024-04-18 14:52 | XR_ITS ---
The [address] [address] Patient Name: MARCELINO XAVIER MRN: [id number] date: 1985 Sex: F Assigned Patient Location: ER Current Patient Location: ER Accession/Order Number: [id number] Exam Date: 04/18/2024 15:10 Report Date: 04/18/2024 15:20 At the request of: ZIYAD BUI Procedure: XR chest 1V EXAM: XR chest 1V at 1501 hours HISTORY: cough COMPARISON: 12/08/2021 TECHNIQUE: Upright PA and lateral chest x-ray FINDINGS: The heart is not enlarged and the vasculature is not distended. No acute infiltrate, effusion or pneumothorax is identified. The osseous structures are grossly intact. There has been interval removal of the right-sided infusion catheter. XR/XR chest 1V IMPRESSION: No acute infiltrate or evidence of cardiac decompensation. Except for removal of the right-sided infusion catheter, the overall appearance is unchanged. Electronically authenticated by: REAL POWERS Date: 04/18/2024 15:20
[2024-04-18 15:13] VITALS: BP 138/89; PULSE 87; O2SAT 99
[2024-04-18] MEDS: ONDANSETRON 4 MG RAPDIS TABLET SL (15:17)
--- NOTE | 2024-04-18 15:40 | ED.GENADUL1 ---
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 The patient has started taking her on antibiotic as well as prednisone from her with no improvement The patient denies any other Related Data Home Medications ?Medication ?Instructions ?Recorded ?Confirmed clonidine HCl 0.1 mg tablet 0.1 mg PO BID 11/07/23 03/23/24 propranolol 40 mg tablet 40 mg PO Q12H 11/07/23 03/23/24 metoclopramide HCl 10 mg tablet 20 mg PO .amhs 11/08/23 03/23/24 promethazine 25 mg tablet 25 mg PO Q6H PRN nausea and 11/08/23 03/23/24 vomiting dicyclomine 10 mg capsule 10 mg PO Q8H 03/23/24 03/23/24 prednisone 10 mg tablet 20 mg PO DAILY 03/23/24 03/23/24 Previous Rx's ?Medication ?Instructions ?Recorded diazepam 2 mg tablet (Valium) 2 mg PO TID PRN muscle spasm #14 03/22/24 tabs naproxen 500 mg tablet 500 mg PO Q12H PRN pain #20 tabs 03/22/24 hydrocodone 5 mg-acetaminophen 325 1 tab PO Q8H prn pain #10 tabs 03/23/24 mg tablet ibuprofen 600 mg tablet 600 mg PO Q8H PRN pain #20 tabs 03/23/24 lidocaine 5 % topical patch 1 patch topical Q24H #10 ea 03/23/24 (Lidoderm) ondansetron 4 mg disintegrating 4 mg PO Q8H PRN nausea and 04/18/24 tablet vomiting 48 hours #6 tabs Allergies Allergy/AdvReac Type Severity Reaction Status Date / Time No Known Drug Allergies Allergy Verified 11/07/23 11:05 Opioid HPI Opioid Management Most Recent Opioid Data: Last Pain Scale 9 03/23/24 17:04 Last ORT Total Score 1 11/07/23 16:18 Last ORT Risk Category Low Risk 11/07/23 16:18 Ur Phencyclidine Scrn Negative (NEGATIVE) 11/07/23 13:53 Review of Systems ROS Status of ROS 10 or more systems reviewed and unremarkable except as noted in history and below [facility] Medical History (Updated 04/18/24 @ 15:36 by Mandy Ramírez MD) 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, unspecified (ICD-10) Hypertension ?I10 - Essential (primary) hypertension (ICD-10) Cyclical vomiting ?R11.15 - Cyclical vomiting syndrome unrelated to migraine (ICD-10) POTS (postural orthostatic tachycardia syndrome) ?G90.A - Postural orthostatic tachycardia syndrome [POTS] (ICD-10) Surgical History History of removal of Port-a-Cath ?Z98.890 - Other specified postprocedural states (ICD-10) H/O LEEP ?Z98.890 - Other specified postprocedural states (ICD-10) H/O: hysterectomy ?Z90.710 - Acquired absence of both cervix and uterus (ICD-10) History of cholecystectomy ?Z90.49 - Acquired absence of other specified parts of digestive tract (ICD-10) Family History Father Family history of diabetes mellitus Mother Family history of hypertension Family history of myocardial infarction Social History Within the past year, how often did you have a drink containing alcohol: never Within the past year, how many standard drinks containing alcohol did you have on a typical day: 1 or 2 Within the past year, how often did you have six or more drinks on one occasion: never Total score: 0 Score interpretation: A score less than 3 is consistent with normal alcohol consumption. Smoking status: Never smoker Second hand tobacco smoke exposure: No Non-prescribed substance use: denies use Known occupational exposures/hazards: No Highest level of school completed/degree received: some college, no degree Are you now , , , , never or living with a partner: In a typical week, how many times do you talk on the telephone with family, friends, or neighbors: 3 or more times per week How often do you get together with friends or relatives: 3 or more times per week How often do you attend lutheran or nondenominational services: never Do you belong to any clubs or organizations such as lutheran groups unions, fraternal or athletic groups, or school groups: no Total score: 2 Score interpretation: A score of greater than or equal to 2 indicates the lowest level of social isolation. Little interest or pleasure in doing things: not at all Feeling down, depressed, or hopeless: not at all Feel stressed/tense/nervous/anxious/difficulty sleeping: not at all Due to disability, difficulty making decisions: No Do you think of yourself as: straight/heterosexual Gender Identity: female Exam Narrative Exam Narrative: Nurses notes and vital signs reviewed and patient is not hypoxic. General: Well-appearing and in no apparent distress. Skin: Warm, dry, no pallor noted. No rash. Head: Normocephalic, atraumatic. Neck: Supple, non-tender. Eye: Pupils are equal, round and EOMI. No scleral icterus. Ears, Nose, Mouth, and Throat: TM are clear, no nasal mucosal hypertrophy. Oral mucosa is moist, no posterior oropharynx erythema, uvula is mid-line Cardiovascular: Regular Rate and Rhythm without murmur, gallop or rub. Respiratory: No accessory muscle use or respiratory distress. Lungs are clear to auscultation, no wheezing, rales or rhonchi Chest Wall: no tenderness Back: No midline thoracic or lumbar vertebral tenderness. No CVA tenderness Musculoskeletal: normal ROM, no calf or popliteal tenderness, no lower extremity edema/swelling GI: Abdomen is soft, non-distended. Normal bowel sounds. No masses appreciated. No tenderness to palpation. No rebound, guarding, or rigidity noted. Neurological: A&O x4. No cranial nerve dysfunction observed. No truncal ataxia. Moves all extremities. Sensation intact. Psychiatric: Cooperative and interactive. Normal mood and affect. Constitutional Vital Signs, click to edit/add: Last Vital Signs Temp 98.6 F 04/18/24 13:30 Pulse 87 04/18/24 15:13 Resp 18 04/18/24 15:13 BP 138/89 04/18/24 15:13 Pulse Ox 99 04/18/24 15:13 O2 Del Method Room Air 04/18/24 13:30 Course Vital Signs Vital signs: Vital Signs Temperature 98.6 F 04/18/24 13:30 Pulse Rate 94 H 04/18/24 13:30 Respiratory Rate 18 04/18/24 13:30 Blood Pressure 141/99 H 04/18/24 13:30 Pulse Oximetry 97 04/18/24 13:30 Oxygen Delivery Method Room Air 04/18/24 13:30 Temperature 98.6 F 04/18/24 13:30 Pulse Rate 87 04/18/24 15:13 Respiratory Rate 18 04/18/24 15:13 Blood Pressure 138/89 04/18/24 15:13 Pulse Oximetry 99 04/18/24 15:13 Oxygen Delivery Method Room Air 04/18/24 13:30 Medical Decision Making MDM Narrative Medical decision making narrative: Chest x-ray showed no acute pathology The patient is coming to us with viral illness symptoms she was treated supportively with Zofran She was also given a work excuse The patient is to follow up with primary care physician in next 2-3 days or to return to the emergency department should any of the signs or symptoms worsen or new symptoms develop. The patient agrees with the following Diagnosis and Treatment plan and the patient will be discharged home. Discharge Plan Discharge Stand Alone Forms: Work/School Release, Portal Instructions Chief Complaint: Upper Respiratory Infection Clinical Impression: Viral illness Patient Disposition: Home, Self-Care Condition: Good Prescriptions / Home Meds: New ondansetron 4 mg tablet,disintegrating 4 mg PO Q8H PRN (Reason: nausea and vomiting) 2 Days Qty: 6 0RF No Action clonidine HCl 0.1 mg tablet 0.1 mg PO BID propranolol 40 mg tablet 40 mg PO Q12H metoclopramide HCl 10 mg tablet 20 mg PO .amhs promethazine 25 mg tablet 25 mg PO Q6H PRN (Reason: nausea and vomiting) naproxen 500 mg tablet 500 mg PO Q12H PRN (Reason: pain) Qty: 20 0RF diazepam [Valium] 2 mg tablet 2 mg PO TID PRN (Reason: muscle spasm) Qty: 14 0RF dicyclomine 10 mg capsule 10 mg PO Q8H prednisone 10 mg tablet 20 mg PO DAILY lidocaine [Lidoderm] 5 % adhesive patch,medicated 1 patch topical Q24H Qty: 10 0RF Rx Instructions: leave on most painful area for up to 12 hrs ibuprofen 600 mg tablet 600 mg PO Q8H PRN (Reason: pain) Qty: 20 0RF hydrocodone-acetaminophen 5-325 mg tablet 1 tab PO Q8H Qty: 10 0RF Print Language: Lao Instructions: Acute Bronchitis (ED), Viral Syndrome (ED) Referrals: Beck Christina MD [Primary Care Provider] - 1 week
== END 2024-04-18 15:41 | disposition home or self-care (01) ==
PROVIDERS: Emergency Provider Emergency Medicine; PCP Family Medicine
DX: B34.9 Viral infection, unspecified (principal)
CPT/HCPCS: 71045; 99283; Q0162